=== PATIENT | female | born 1960 | race Caucasian/White ===

== ENCOUNTER → 2016-09-18 | Outpatient (CLI) | payer MEDICAID | END | disposition home or self-care (01) | LOC: LABPAT 10:49 | PROVIDERS: ATTEND Orthopaedic Surgery | DX: Z01.812 Encounter for preprocedural laboratory examination (principal) | CPT/HCPCS: 87070 ==

== ENCOUNTER → 2016-09-29 | Outpatient (CLI) | payer MEDICAID ==
[2016-09-29 10:07] LABS: EKG EKG PERFORMED
[2016-09-29 10:49] LABS: CHCM 35.4; HCT 37.7 % (34.0-46.0); HDW 2.62; HGB 13.6 gm/dL (11.4-16.0); MCH 31.8 pg (25.0-35.0); MCHC 36.1 g/dL (31.0-37.0); MCV 88.1 fL (80.0-100.0); Mean Platelet Volume 7.6; RBC 4.27 m/uL (3.80-5.40); RDW 13.1 % (11.5-15.5); WBC 8.1 k/uL (3.8-10.6)
[2016-09-29 10:51] LABS: Partial Thromboplastin Time 24.6 sec (22.0-30.0)
[2016-09-29 10:52] LABS: Appearance,Urine Clear (Clear); Bilirubin,Urine Negative (Negative); Glucose,Urine (UA) Negative (Negative); Ketones,Urine Negative (Negative); Leukocyte Esterase,Urine Negative (Negative); Nitrite,Urine Negative (Negative); PH, Urine 6.5 (5.0-8.0); Protein,Urine Negative (Negative); Specific Gravity,Urine 1.004 (1.001-1.035); UA Billing (MACRO vs. MICRO) CHEM; Urobilinogen,Urine <2.0 mg/dL (<2.0)
[2016-09-29 10:55] LABS: Prothrombin Time 10.5 sec (9.0-12.0)
[2016-09-29 11:22] LABS: ALT 45 U/L (9-52); AST 31 U/L (14-36); Alkaline Phosphatase 64 U/L (38-126); Anion Gap 13 mmol/L; Blood Urea Nitrogen 12 mg/dL (7-17); Calcium 9.6 mg/dL (8.4-10.2); Carbon Dioxide 23 mmol/L (22-30); Chloride 107 mmol/L (98-107); Glucose 126 mg/dL (74-99); Non-African American GFR(MDRD) >60 (>60 ml/min/1.73 sqM); Sodium 143 mmol/L (137-145)
== END | disposition home or self-care (01) ==
LOC: LABPAT 09:39
PROVIDERS: ATTEND Orthopaedic Surgery
DX: Z01.810 Encounter for preprocedural cardiovascular examination (principal); Z01.812 Encounter for preprocedural laboratory examination
CPT/HCPCS: 80053; 81003; 85027; 85610; 85730; 93005

== ENCOUNTER → 2016-10-13 | Day surgery (SDC) | payer MEDICAID ==
[2016-10-12 09:08] VITALS: BMI 33.9
[~2016-10-13] MED LIST: ALPRAZolam 0.25 MG TAB PO PRN; ALPRAZolam 0.5 MG TAB PO PRN; ASPIRIN 325 MG TAB PO STA; ATORVASTATIN 80 MG TAB PO STA; HEPARIN SODIUM 1,000 UN/ML (10ML VL) IV ONE; IOHEXOL 350 MG/ML 100 ML BOTTLE INJ ONE; LIDOCAINE 2% INJ 20 MG/ML SQ ONE; MIDAZOLAM 2 MG/2 ML VIAL IVP ONE; NITROGLYCERIN SL TABS 0.4 MG TAB SUBLINGUAL PRN; RX INFO: IV CONTRAST WAS GIVEN 1 EACH MISC MISCELLANE PRN; SODIUM CHLORIDE 0.9% 1,000 ML IV SCH; SODIUM CHLORIDE 0.9% 1,000 ML in EMPTY BAG 1 BAG IV ONE; diphenhydrAMINE 50 MG/ML 1 ML VIAL IVP STA; methylPREDNISolone SOD SUCCI 125 MG/2 ML VIAL IV STA
[2016-10-13 09:28] VITALS: RESP 18
[2016-10-13] MEDS: VERAPAMIL SYRINGE (5 MG/10 ML) INTRAARTER ONE ×2 (10:18→10:30)
[2016-10-13 11:50] VITALS: TEMP 98
[2016-10-13 15:55] VITALS: BP 137/83; PULSE 84
--- NOTE | 2016-10-13 19:02 | CC ---
DATE OF SERVICE: 10/13/16 PERFORMING PHYSICIAN: Lance Pedraza M.D., director of quantitative research. PROCEDURE PERFORMED: 1. Selective right and left coronary angiogram. 2. Left heart catheterization. INDICATIONS: This is a pleasant 56 year old female who was going to have hip surgery and underwent myocardial perfusion imaging stress test showed anterior ischemia. The heart catheterization is to rule out any severe underlying coronary artery disease. APPROACH: Right radial artery. COMPLICATIONS: None. LEVEL OF SEDATION: Moderate. SEDATION LENGTH: 18 minutes. PROCEDURE DESCRIPTION: After obtaining informed consent, the patient was brought to the cardiac syrup machine laborer. The right radial artery was cannulated using micropuncture technique. The micropuncture wire passed easily. Then, I placed a 6 Croatian sheath in the right radial artery. After that, subsequently I did selective right and left coronary angiogram using JR4 and JL3.5 catheters. After that, I did a left heart catheterization using 5 Croatian pigtail catheter. The procedure was complete without any complications. SELECTIVE CORONARY ANGIOGRAM: 1. The right coronary artery is a large caliber vessel and it is a dominant vessel. The RCA is angiographically normal and bifurcates into PDA and PLV branches, both are angiographically normal. 2. The left main is angiographically normal. It bifurcates into the left circumflex, ramus intermedius, and left anterior descending artery. 3. The left circumflex is a large caliber vessel and it is a nondominant vessel. The left circumflex distally is angiographically normal. 4. The ramus intermedius is a large caliber vessel and seems to be angiographically normal as well. 5. The left anterior descending coronary artery: The proximal LAD is angiographically normal and gives rise into the first diag branch which appears to be angiographically normal. The mid LAD is normal and gives rise into two small diag branches which appears to be angiographically normal and the LAD distally is angiographically normal. HEMODYNAMICS: The left ventricular end diastolic pressure was 10 mmHg and no gradient was identified across the aortic valve. CONCLUSION: 1. Normal coronary angiogram. 2. Normal left ventricular end diastolic pressure. POST PROCEDURE MANAGEMENT: 1. The patient can proceed with her surgery. 2. Medical therapy. 3. Follow up with the patient. LEÓN
== END ==
LOC: CATHCVL 08:41
PROVIDERS: ATTEND Internal Medicine Interventional Cardiology
DX: R94.39 Abnormal result of other cardiovascular function study (principal); I10 Essential (primary) hypertension; E78.5 Hyperlipidemia, unspecified; Z88.8 Allergy status to other drugs, medicaments and biological substances; Z79.899 Other long term (current) drug therapy
CPT/HCPCS: 93458; 99152; C1769; C1894; J2001; J2250; J1200; J2930; Q9967; J1644

== ENCOUNTER → 2016-10-17 | Outpatient (CLI) | payer MEDICAID ==
--- NOTE | 2016-10-17 10:58 | XR ---
EXAMINATION TYPE: XR chest 2V DATE OF EXAM: 10/17/2016 COMPARISON: 01/21/2016 TECHNIQUE: PA and lateral views submitted. HISTORY: Preop FINDINGS: The lungs are clear and there is no pneumothorax, pleural effusion, or focal pneumonia. Coarsened i nterstitium. Arthropathy of the shoulders. Hyperinflation noted. Hypertrophic change of the spine. IMPRESSION: 1. No acute process. Correlate for COPD and chronic interstitial lung disease.
== END | disposition home or self-care (01) ==
LOC: RADXRMAIN 10:34
PROVIDERS: ATTEND Nurse Practitioner Family
DX: R06.09 Other forms of dyspnea (principal)
CPT/HCPCS: 71020

== ENCOUNTER → 2016-11-17 | Outpatient (CLI) | payer MEDICAID ==
--- NOTE | 2016-11-17 16:09 | CT ---
EXAMINATION TYPE: CT chest wo con DATE OF EXAM: 11/17/2016 COMPARISON: NONE HISTORY: Shortness of breath x few weeks. No relief from asthma medication. CT DLP: 250.00 mGycm, Automated exposure control for dose reduction was used. CONTRAST: None TECHNIQUE: Axial images were obtained at 1 mm thick sections at 10 mm intervals. This will limit po rtions of the examination which may not be visualized within the [id number]. Images were obtained in the prone and supine views. FINDINGS: Portion of the thyroid visualized is normal. No suspicious lung nodules or focal infiltrat es are present. Some streak opacities in the left lower lung field may be some atelectasis. Some mild peribronchial thickening may be present which can be compatible with chronic asthma. No significant interval changes evident between prone and supine views. No bronchiectasis is evident. No enlarged mediastinal or hilar adenopathy is evident. The ascending aorta diameter at the level o f the main pulmonary artery is 3.5 cm. The main pulmonary artery diameter at the bifurcation is 2.[address] sections are obtained through the upper abdomen. Abdomen is essentially unremarkable. IMPRESSIONS: 1. Mild peribronchial thickening can be associated with asthma or chronic bronchitis. 2. There may be atelectasis or scarring in the posterior lateral left lung base. 3. No acute suspicious infiltrates or masses are evident.
--- NOTE | 2016-11-18 08:02 | US ---
EXAMINATION TYPE: US thyroid st tissue head/neck DATE OF EXAM: 11/17/2016 COMPARISON: 08/22/2011 CLINICAL HISTORY: E04.2 Goiter. GLAND SIZE: Right Lobe: 3.7 x 3.0 x 1.7 cm Overall Parenchyma: heterogenous Left Lobe: 2.7 x 1.5 x 1.6 cm Overall Parenchyma: heterogeneous Isthmus Thickness: 0.6 cm NODULES RIGHT: # of nodules measured on right: 2 1. 0.9 X 0.6 x 0.7 cm hypoechoic cystic nodule at the mid pole with well-defined margins; present with central colloid. . This nodule is wider than tall and shows no intranodular vascularity. Prior size: 0.8 x 0.6 x 0.7 cm 2. 1.1 X 0.7 x 0.8 cm hypoechoic nodule at the mid pole with well-defined margins; . This nodule is wider than tall and shows no intranodular vascularity. Prior size: Not seen previously LEFT: # of nodules measured on left: 1 1. 0.5 X 0.5 x 0.5 cm hypoechoic cystic nodule at the mid pole with well-defined margins; . Prior size: 0.7 x 0.6 x 0.7 cm . ISTHMUS: # of nodules measured in the isthmus: 0 Bilateral neck scanned, no evidence of lymphadenopathy. sub optimal exam overall d/t position of thyroid and patient body habitus. Multiple sub centimeter cy sts seen on left thyroid gland as well. IMPRESSION: There are bilateral multiple small findings in the thyroid gland as above. I have very low suspicion of malignancy. There is overall no adverse change compared to previous exams. No dominant thyroid mas s.
== END | disposition home or self-care (01) ==
LOC: RADCTMAIN 15:30
PROVIDERS: ATTEND Family Medicine
DX: E04.2 Nontoxic multinodular goiter (principal); J98.09 Other diseases of bronchus, not elsewhere classified
CPT/HCPCS: 71250; 76536

== ENCOUNTER → 2016-12-01 | Outpatient (CLI) | payer MEDICAID ==
[2016-12-01 12:25] LABS: Cholesterol 193 mg/dL (<200); HDL Cholesterol 48 mg/dL (40-60)
== END | disposition home or self-care (01) ==
LOC: LABWHC1 08:27
PROVIDERS: ATTEND Family Medicine
DX: Z00.01 Encounter for general adult medical examination with abnormal findings (principal); E04.2 Nontoxic multinodular goiter; J84.9 Interstitial pulmonary disease, unspecified; E03.8 Other specified hypothyroidism; M16.11 Unilateral primary osteoarthritis, right hip; M25.551 Pain in right hip; J45.909 Unspecified asthma, uncomplicated; E11.9 Type 2 diabetes mellitus without complications; E27.9 Disorder of adrenal gland, unspecified; E22.0 Acromegaly and pituitary gigantism; I10 Essential (primary) hypertension; K21.9 Gastro-esophageal reflux disease without esophagitis; Z13.220 Encounter for screening for lipoid disorders
CPT/HCPCS: 36415; 80061; 82533; 84305; 84439; 84443; 84481

== ENCOUNTER → 2016-12-01 | Outpatient (CLI) | payer MEDICAID ==
[2016-12-01 09:01] LABS: Basophils # (A) 0.1 k/uL (0-0.2); Basophils % (A) 1 %; CH 31.8; CHCM 35.8; Eosinophils # (A) 0.2 k/uL (0-0.7); Eosinophils % (A) 2 %; HCT 39.3 % (34.0-46.0); HGB 13.8 gm/dL (11.4-16.0); Luc # (Auto) 0.16; Luc % (Auto) 2; Lymphocytes % (A) 22 %; MCH 31.4 pg (25.0-35.0); MCHC 35.2 g/dL (31.0-37.0); MCV 89.4 fL (80.0-100.0); Monocytes # (A) 0.4 k/uL (0-1.0); Monocytes % (A) 4 %; Neutrophils # (A) 6.3 k/uL (1.3-7.7); Neutrophils % (A) 70 %; RBC 4.39 m/uL (3.80-5.40); RDW 13.5 % (11.5-15.5); WBC 9.1 k/uL (3.8-10.6); WBC (Perox) 9.01
[2016-12-01 09:14] LABS: INR 1.1 (<1.2); Partial Thromboplastin Time 24.5 sec (22.0-30.0)
[2016-12-01 09:31] LABS: ALT 42 U/L (9-52); AST 24 U/L (14-36); Alkaline Phosphatase 49 U/L (38-126); Anion Gap 11 mmol/L; Blood Urea Nitrogen 16 mg/dL (7-17); Calcium 9.3 mg/dL (8.4-10.2); Carbon Dioxide 26 mmol/L (22-30); Chloride 107 mmol/L (98-107); Glucose 102 mg/dL (74-99); Non-African American GFR(MDRD) 51 (>60 ml/min/1.73 sqM); Potassium 4.1 mmol/L (3.5-5.1); Sodium 144 mmol/L (137-145); Total Bilirubin 0.6 mg/dL (0.2-1.3); Total Protein 7.1 g/dL (6.3-8.2)
[2016-12-01 09:52] LABS: Appearance,Urine Clear (Clear); Bilirubin,Urine Negative (Negative); Glucose,Urine (UA) Negative (Negative); Ketones,Urine Negative (Negative); Leukocyte Esterase,Urine Moderate (Negative); Nitrite,Urine Negative (Negative); Particle Count 1356; Protein,Urine Negative (Negative); Specific Gravity,Urine 1.011 (1.001-1.035); Squamous Epithelial Cell,Urine <1 /hpf (0-4); UA Billing (MACRO vs. MICRO) MICRO; Urobilinogen,Urine <2.0 mg/dL (<2.0); WBC,Urine 3 /hpf (0-5)
== END | disposition home or self-care (01) ==
LOC: LABPAT 08:30
PROVIDERS: ATTEND Orthopaedic Surgery
DX: Z01.818 Encounter for other preprocedural examination (principal)
CPT/HCPCS: 80053; 81001; 85025; 85610; 85730; 87070

== ENCOUNTER 2016-12-12 05:51 | Inpatient (IN) | payer MEDICAID ==
[2016-12-07 15:20] VITALS: BMI 34.4
[~2016-12-12 05:51] MED LIST changes: +ACETAMINOPHEN TAB 500 MG TAB PO ONE; -ALPRAZolam 0.25 MG TAB PO PRN; -ALPRAZolam 0.5 MG TAB PO PRN; -ASPIRIN 325 MG TAB PO STA; -ATORVASTATIN 80 MG TAB PO STA; +DEXAMETHASONE SOD PHOSPHATE 10 MG/ML 1 ML VIAL IV ONE; -HEPARIN SODIUM 1,000 UN/ML (10ML VL) IV ONE; +HYDROmorphone 1 MG/ML 1 ML SYRINGE IVP PRN; -IOHEXOL 350 MG/ML 100 ML BOTTLE INJ ONE; +LACTATED RINGERS 1,000 ML IV SCH; -LIDOCAINE 2% INJ 20 MG/ML SQ ONE; +MIDAZOLAM 2 MG/2 ML VIAL IV PRN; -MIDAZOLAM 2 MG/2 ML VIAL IVP ONE; -NITROGLYCERIN SL TABS 0.4 MG TAB SUBLINGUAL PRN; +ONDANSETRON 4 MG/2 ML VIAL IVP ONE; -RX INFO: IV CONTRAST WAS GIVEN 1 EACH MISC MISCELLANE PRN; +SCOPOLAMINE 1.5MG/72HR PATCH TRANSDERM ONE; -SODIUM CHLORIDE 0.9% 1,000 ML IV SCH; -SODIUM CHLORIDE 0.9% 1,000 ML in EMPTY BAG 1 BAG IV ONE; +TRANEXAMIC ACID 1,000 MG in SODIUM CHLORIDE 0.9% 100 ML IVPB ONE; +ceFAZolin 2 GM in SODIUM CHLORIDE 0.9% 100 ML IVPB ONE; -diphenhydrAMINE 50 MG/ML 1 ML VIAL IVP STA; -methylPREDNISolone SOD SUCCI 125 MG/2 ML VIAL IV STA
[2016-12-12] MEDS ORDERED: LIDOCAINE 1% 20 ML VIAL (10MG/ML) FOR IV START INTRADERMA ONE (07:00)
[2016-12-12 07:13] LABS: Glucose,Whole Blood 109 mg/dL (75-99)
[2016-12-12] MEDS ORDERED: HYDROCORTISONE SUCCINATE 100 MG/2 ML VIAL IVP ONE (07:22)
[2016-12-12] MEDS ORDERED: diphenhydrAMINE 50 MG/ML 1 ML VIAL ONE (07:28)
[2016-12-12] MEDS ORDERED: MIDAZOLAM 2 MG/2 ML VIAL ONE (07:28)
[2016-12-12] MEDS ORDERED: HEPARIN SODIUM,PORCINE 10,000 UNIT/ML 1 ML VIAL ONE (07:28)
[2016-12-12] MEDS ORDERED: fentaNYL (PF) 50 MCG/ML 2 ML AMP ONE (07:28)
[2016-12-12] MEDS ORDERED: SODIUM CHLORIDE 0.9% 100 ML BAG ONE (07:28)
[2016-12-12] MEDS ORDERED: TRANEXAMIC ACID 1,000 MG/10 ML VIAL ONE (07:28)
[2016-12-12] MEDS ORDERED: ceFAZolin 3,000 MG in SODIUM CHLORIDE 0.9% IRRIGATIO 3,000 ML IRRIGATION ONE (07:28)
[2016-12-12] MEDS ORDERED: SODIUM CHLORIDE 0.9% IRRIG 1,000 ML BTL IRRIGATION ONE (07:28)
[2016-12-12] MEDS ORDERED: HYDROcodone/APAP 5-325MG 1 EACH TAB PO PRN (07:35)
[2016-12-12] MEDS ORDERED: DIAZEPAM 5 MG TAB PO PRN ×2 (07:35)
[2016-12-12] MEDS ORDERED: MAGNESIUM HYDROXIDE 2,400 MG/10 ML CUP PO PRN (07:35)
[2016-12-12] MEDS ORDERED: NALOXONE 0.4 MG/ML 1 ML VIAL IV PRN (07:35)
[2016-12-12] MEDS ORDERED: HYDROmorphone 1 MG/ML 1 ML SYRINGE IVP PRN ×2 (07:35)
[2016-12-12] MEDS ORDERED: ONDANSETRON 4 MG/2 ML VIAL IVP PRN (07:35)
[2016-12-12] MEDS: ROPIVACAINE 246.25 MG, EPINEPHrine 0.5 MG, KETOROLAC 30 MG, cloNIDine HCL/PF 80 MCG, WA... MISCELLANE ONE ×10 (08:10→08:45)
[2016-12-12] MEDS ORDERED: LACTATED RINGERS 1,000 ML IV ONE (09:00)
--- NOTE | 2016-12-12 09:23 | P.OP ---
Date of Procedure: 12/12/16 Preoperative Diagnosis: Severe osteoarthritis right hip Postoperative Diagnosis: Severe osteoarthritis right hip Procedure(s) Performed: Right total hip arthroplasty with a direct anterior approach Implants: Caldwell and nephew Polarstem size 3 standard [employer]dwell [employer]hew R3, 3 hole acetabular shell, 52 mm [employer]hew reflection 6.5 mm cancellus screw, 20 mm 2 [employer]hew R3, XLPE 20 acetabular liner [employer]hew Oxinium femoral head 36 m, +4 All components were press-fit. The articulation is ceramic on polyethylene. Anesthesia: spinal Surgeon: Ruben Alvarenga Radioactive Waste Disposal Dispatcher #1: Neelima Merritt Estimated Blood Loss (ml): 150 (55 mL returned with Cell Saver) Pathology: other (Femoral head) Condition: stable Disposition: PACU Indications for Procedure: After failure of conservative treatment we discussed the surgical and nonsurgical treatment options at length. Patient wishes to proceed with a total hip arthroplasty with a direct anterior approach. Complications specific to this procedure were discussed at length, including but not limited to infection, leg length discrepancy, dislocation, and nerve injury. Patient is aware of all these complications and informed consent was obtained Operative Findings: The operative findings are consistent with severe osteoarthritis of the right hip Description of Procedure: Patient was seen and evaluated in the preoperative area, consent was reviewed, and the surgical site was marked with a skin marker. Patient was then brought to the operating room and given prophylactic antibiotics intravenously. 1 g of Tranexamic acid was also given. A spinal anesthetic was administered by the anesthesia department. The patient was then placed on the [place] table with the bony prominences well-padded. The hip area was then prepped and draped in usual sterile fashion. A universal timeout was then performed, which confirmed the patient's name, surgical site, ALLERGIES, and procedure being performed. Next the incision site was located at 1 cm distal and 1 cm lateral to the anterior superior iliac spine. The skin and subcutaneous tissues were sharply incised. Incision was carefully dissected down to the fascia overlying the tensor fascia mitchell muscle. This fascia was then incised in line with the incision. Next, using blunt finger dissection, the tensor fascia mitchell muscle was dissected off its investing fascia. The muscle was then carefully retracted laterally with a cobra retractor over the lateral neck of the femur. Next, the circumflex vessels were identified and cauterized using the AquaMantis device. The anterior hip capsule was then exposed. The capsule was then opened and an inverted T fashion. Cobra retractors were then placed intracapsularly. The proximal femur was then visualized. The femoral neck was then osteotomized appropriate level above the lesser trochanter. Small amount of traction was placed with the [place] table. A small wedge of bone was then removed from the remaining femoral head. Next, using a corkscrew femoral head was easily removed from the acetabulum. On gross visual inspection, the femoral head had complete loss of articular cartilage in multiple periarticular osteophytes. Attention was then turned to the acetabulum. the acetabulum was exposed and any remaining labrum was excised. Sequential reaming of the acetabulum was performed using fluoroscopic guidance. When the appropriate size was reached, a trial was then placed. The position and fit of the trial was checked with fluoroscopy. The trial was then removed. Then, using fluoroscopic guidance, the final implant was impacted at 20 of anteversion and 40 of abduction, and fully seated in the acetabulum. 2 screws were then placed in the acetabulum. Again fluoroscopy was used to check position of the screws. Next, the liner was then impacted, with a 20 elevated liner located in the anterior superior quadrant. Component locking was confirmed. Attention was then directed to the femur. With the aid of the [place] table, the femur was externally rotated to approximately 130, extended, and abducted under the opposite leg. A side hook was then placed under the proximal femur, and the side hook elevator was used to elevate the proximal femur. Retractors were then placed. A capsular release was performed, as well as a release of the conjoined tendon, which afforded excellent visualization of the proximal femur. Next, a box osteotome was used to lateralize the proximal femur. A hands hanger was then used to locate the femoral canal. Sequential broaching was then performed with appropriate size which afforded excellent fixation in the proximal femur. A trial was then placed with appropriate head and neck, and the hip was gently reduced with the aid of the [place] table. Fluoroscopy was then used to check position of the components, as well as to ensure equal leg lengths. The hip was then gently dislocated and the trials were then removed. Final implants were then impacted and the hip was again reduced. Final fluoroscopic x-rays confirmed that the components were in anatomic position, as well as equal leg lengths. The hip was also taken through range of motion, and found to be stable. The hip was then copiously irrigated with antibiotic solution with pulsatile lavage. The hip was then irrigated with Irrisept solution. The soft tissues were then injected with a ropivacaine solution, which consisted of 246.25 mg of ropivacaine, 0.5 mg of epinephrine, 30 mg of Toradol, 80 g of clonidine, and 48.45 mL of sterile water, for a total of 100 mL of fluid injected. A second dose of 1 g of Tranexamic acid was also given. the fascia was then closed with 2-0 strata fix suture. The subcutaneous tissue was closed with 3-0 Vicryl. The subcuticular tissue was closed with 3-0 strata fix suture. The skin was then closed with Dermabond tape. The patient was then transferred to the recovery room in stable condition. The assistant professor of economics GAYLE Swenson was required due to the complexity of surgery, and the need for skilled surgical garment assembly supervisor for positioning, draping, exposure, retraction, and closure of the wound.
--- NOTE | 2016-12-12 10:02 | XR ---
Right hip HISTORY: Status post right hip surgery Single frontal view of the right hip Patient is status post right hip arthroplasty. Lucency present in the soft tissues. There is anatomic alignment. Bone mineralization is reduced. No dislocation is evident. Lucencies are present in the a cetabulum laterally of questionable age, correlate with preoperative exam. IMPRESSION: Small fractures of the lateral acetabulum difficult to include. Orthopedic follow-up.
--- NOTE | 2016-12-12 11:04 | FL ---
EXAMINATION TYPE: FL guidance operating room, XR Hip Limited RT DATE OF EXAM: 12/12/2016 CLINICAL HISTORY: Hardware replacement TECHNIQUE: Fluoroscopy. Intraoperative limited views right hip. COMPARISON: None. FINDINGS: Fluoroscopic guidance was provided during hardware replacement procedure performed by Dr. Alvarenga. A total of 47 seconds of fluoroscopic time was utilized during the procedure and 3 spot in traoperative images are acquired. Images acquired show metallic hardware from total right hip arthroplasty that appears satisfactory in position on single frontal projection. IMPRESSION: As Above.
[2016-12-12] MEDS: SODIUM CHLORIDE 0.9% 1,000 ML IV SCH ×2 (11:15→23:17)
[2016-12-12] MEDS ORDERED: ALBUTEROL NEBULIZED 2.5 MG/3 ML INHALATION PRN (12:04)
[2016-12-12] MEDS: ceFAZolin 2 GM in SODIUM CHLORIDE 0.9% 100 ML IVPB SCH ×2 (16:33→22:28)
[2016-12-12 17:34] LABS: Glucose,Whole Blood 145 mg/dL (75-99)
[2016-12-12] MEDS ORDERED: WARFARIN 5 MG TAB PO ONE (18:00)
[2016-12-12] MEDS: SYMBICORT 80-4.5 MCG INHALER INHALATION SCH (19:38)
[2016-12-12] MEDS: HYDROmorphone 1 MG/ML 1 ML SYRINGE IVP PRN (19:47)
[2016-12-12 20:20] LABS: Glucose,Whole Blood 99 mg/dL (75-99)
[2016-12-12] MEDS: ATORVASTATIN 20 MG TAB PO SCH (20:20)
[2016-12-12] MEDS: SENNOSIDES-DOCUSATE SODIUM 1 EACH TAB PO SCH (20:20)
[2016-12-12] MEDS: HYDROCORTISONE 10 MG TAB PO SCH (20:20)
[2016-12-12] MEDS: HYDROcodone/APAP 5-325MG 1 EACH TAB PO PRN (22:28)
[2016-12-13] MEDS: HYDROcodone/APAP 5-325MG 1 EACH TAB PO PRN ×4 (03:13→23:30)
[2016-12-13] MEDS: LEVOTHYROXINE 100 MCG TAB PO SCH (05:28)
[2016-12-13 07:15] LABS: Glucose,Whole Blood 99 mg/dL (75-99)
[2016-12-13] MEDS: SYMBICORT 80-4.5 MCG INHALER INHALATION SCH ×2 (07:16→20:04)
[2016-12-13 07:49] LABS: Basophils % (A) 0 %; CH 31.1; CHCM 34.2; Eosinophils # (A) 0.2 k/uL (0-0.7); Eosinophils % (A) 2 %; HCT 33.5 % (34.0-46.0); HGB 11.3 gm/dL (11.4-16.0); Luc # (Auto) 0.09; Luc % (Auto) 1; Lymphocytes # (A) 1.4 k/uL (1.0-4.8); Lymphocytes % (A) 17 %; MCHC 33.9 g/dL (31.0-37.0); MCV 91.4 fL (80.0-100.0); Mean Platelet Volume 7.9; Monocytes # (A) 0.3 k/uL (0-1.0); Monocytes % (A) 4 %; Neutrophils # (A) 5.8 k/uL (1.3-7.7); Neutrophils % (A) 74 %; RBC 3.66 m/uL (3.80-5.40); RDW 13.7 % (11.5-15.5); WBC 7.8 k/uL (3.8-10.6); WBC (Perox) 8.22
[2016-12-13] MEDS: hydrOXYzine PAMOATE 25 MG CAP PO PRN ×2 (07:58→13:15)
[2016-12-13 07:59] LABS: INR 1.2 (<1.2); Prothrombin Time 11.7 sec (9.0-12.0)
[2016-12-13] MEDS: PANTOPRAZOLE 40 MG TABLET PO SCH (08:00)
[2016-12-13] MEDS: ATENOLOL 25 MG TAB PO SCH (08:00)
[2016-12-13] MEDS: LORATADINE 10 MG TAB PO SCH (08:01)
[2016-12-13] MEDS: HYDROCORTISONE 20 MG TAB PO SCH (08:01)
[2016-12-13] MEDS: MONTELUKAST 10 MG TAB PO SCH (08:01)
[2016-12-13] MEDS: FENOFIBRATE 160 MG TAB PO SCH (08:01)
--- NOTE | 2016-12-13 08:24 | P.PN ---
Subjective Principal diagnosis: Primary osteoarthritis right hip, status post right total hip arthroplasty This is a 56-year-old female who is status post right total hip arthroplasty. This is postoperative day #1. Patient states she has been up and out of bed walking. Patient states her pain is under control. Patient denies any numbness , weakness, tingling. Objective - Vital Signs Vital signs: Vital Signs Temp 97.6 F 12/13/16 08:01 Pulse 78 12/13/16 08:01 Resp 16 12/13/16 08:01 BP 127/79 12/13/16 08:01 Pulse Ox 96 12/13/16 08:01 Intake & Output 12/12/16 12/13/16 12/13/16 18:59 06:59 18:59 Intake Total 1301 280 Output Total 850 Balance 451 280 Intake: IV 1301 Intake, IV Titration 280 Amount Sodium Chloride 0.9% 1, 280 000 ml @ 70 mls/hr IV . [id number] [facility] Rx#:[id number] Output: Urine 700 Estimated Blood Loss 150 Other: # Voids 1 - Exam Vital signs are stable. Patient is in no acute distress and is alert and oriented 3. Calf is soft and nontender. Dressing is clean, dry, and intact. Neurovascular status intact. Patient has full foot and ankle motion. - Labs CBC & Chem 7: 12/13/16 07:02 Labs: Abnormal Lab Results - Last 24 Hours (Table) 12/12/16 12/13/16 12/13/16 Range/Units 17:32 07:02 07:02 RBC 3.66 L (3.80-5.40) m/uL Hgb 11.3 L (11.4-16.0) gm/dL Hct 33.5 L (34.0-46.0) % INR 1.2 H (<1.2) POC Glucose (mg/dL) 145 H (75-99) mg/dL Assessment and Plan (1) Primary osteoarthritis of right hip Status: Acute (2) Status post total hip replacement, right Status: Acute Plan: Continue routine postop care. Continue antocoagulation. Weightbearing as tolerated with a walker Daily dressing changes, keep incision clean and dry Possible discharge home tomorrow.
[2016-12-13 11:49] LABS: Glucose,Whole Blood 122 mg/dL (75-99)
--- NOTE | 2016-12-13 12:27 | P.CONS ---
History of Present Illness - Reason for Consult Consult date: 12/12/16 Hypertension and asthma medications - History of Present Illness Patient's x-ray on underwent right total hip arthroplasty and I saw her in the immediate postoperative period and patient is clinically doing well denied any short of breath denied any fever, chills, nausea, vomiting, abdominal pain patient does have history of asthma no significant exacerbations recently. Patient is hypertensive is on atenolol and lisinopril for that. Review of Systems REVIEW OF SYSTEMS: CONSTITUTIONAL: No fever, no malaise, no fatigue. HEENT: No recent visual problems or hearing problems. Denied any sore throat. CARDIOVASCULAR: No chest pain, orthopnea, PND, no palpitations, no syncope. PULMONARY: No shortness of breath, no cough, no hemoptysis. GASTROINTESTINAL: No diarrhea, no nausea, no vomiting, no abdominal pain. Normoactive bowel sounds. NEUROLOGICAL: No headaches, no weakness, no numbness. HEMATOLOGICAL: Denies any bleeding or petechiae. GENITOURINARY: Denies any burning micturition, frequency, or urgency. MUSCULOSKELETAL/RHEUMATOLOGICAL: Denies any joint pain, swelling, or any muscle pain. ENDOCRINE: Denies any polyuria or polydipsia. The rest of the 14-point review of systems is negative. Past Medical History Past Medical History: Asthma, Diabetes Mellitus, GERD/Reflux, Hyperlipidemia, Hypertension, Osteoarthritis (OA), Pneumonia, Renal Disease, Sleep Apnea/CPAP/ BIPAP, Thyroid Disorder Additional Past Medical History / Comment(s): SOB, bronchitis, adrenal insufficiency, acromegaly, diabetes-no current meds, migraines, eczema, elevated kidney function -recent labs, hemorrhoids, sciatica, arthritis R hip, back and neck, sinus problems at times, can't use CPAP History of Any Multi-Drug Resistant Organisms: None Reported Past Surgical History: Appendectomy, Breast Surgery, Heart Catheterization, Hysterectomy, Orthopedic Surgery, Tonsillectomy Additional Past Surgical History / Comment(s): 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 "cyst removed from between lung and spine", recent heart cath. Past Anesthesia/Blood Transfusion Reactions: Previous Problems w/ Anesthesia Additional Past Anesthesia/Blood Transfusion Reaction / Comm: "STOPPED BREATHING DURING BRONCHOSCOPY R/T TO UNKNOWN SLEEP APNEA" PER PT Past Psychological History: No Psychological Hx Reported Additional Psychological History / Comment(s): . Smoking Status: Never smoker Past Alcohol Use History: Rare Past Drug Use History: None Reported - Past Family History Sister(s) Family Medical History: Cancer Brother(s) Family Medical History: Deep Vein Thrombosis (DVT) Father Family Medical History: Cancer, CVA/TIA, Hypertension, Skin Disorder Additional Family Medical History / Comment(s): Father of pneumonia and a brain bleed in his 80'. He also had skin cancer Mother Family Medical History: Cancer Additional Family Medical History / Comment(s): skin cancer. Medications and Allergies Home Medications Medication Instructions Recorded Confirmed Type Albuterol Sulfate [Ventolin HFA] 2 puff INHALATION RT-Q6H PRN 09/06/13 12/12/16 History Atenolol [Tenormin] 25 mg PO DAILY 09/06/13 12/12/16 History Lisinopril 40 mg PO DAILY 09/06/13 12/12/16 History Montelukast [Singulair] 10 mg PO DAILY 09/06/13 12/12/16 History Simvastatin [Zocor] 40 mg PO HS 09/06/13 12/12/16 History Fluticasone/Salmeterol [Advair 1 puff INHALATION RT-BID 10/14/14 12/12/16 History 250-50 Diskus] Fenofibrate 160 mg PO DAILY 01/20/16 12/12/16 History Levothyroxine Sodium [Synthroid] 100 mcg PO DAILY 01/20/16 12/12/16 History Omeprazole 20 mg PO DAILY 01/20/16 12/12/16 History traMADol HCL [Ultram] 50 - 100 mg PO HS PRN 01/20/16 12/12/16 History Hydrocortisone [Cortef] 10 mg PO HS 10/02/16 12/12/16 History Hydrocortisone [Cortef] 20 mg PO QAM 10/02/16 12/12/16 History Cetirizine HCl [Zyrtec] 10 mg PO DAILY 12/07/16 12/12/16 History Allergies Allergy/AdvReac Type Severity Reaction Status Date / Time Iodine and Iodide Containing Allergy Unknown allergy Verified 12/12/16 10:57 Produc test positive for shell fish. celecoxib [From Celebrex] Allergy Wheezing Verified 12/12/16 10:57 egg AdvReac Swelling Verified 12/12/16 10:57 shellfish derived AdvReac ALLERGY Verified 12/12/16 10:57 TEST POSITIVE. Physical Exam Vitals: Vital Signs Temp Pulse Resp BP Pulse Ox 12/13/16 08:01 97.6 F 78 16 127/79 96 12/13/16 02:39 98.8 F 12/13/16 00:32 100.2 F H 81 16 110/69 95 12/12/16 20:00 98.2 F 75 18 115/63 97 12/12/16 15:45 61 16 112/62 99 12/12/16 15:30 62 16 108/63 98 12/12/16 15:15 98 F 68 16 111/68 98 Intake and Output 12/12/16 12/13/16 12/13/16 22:59 06:59 14:59 Intake Total 280 Balance 280 Intake: Intake, IV Titration 280 Amount Sodium Chloride 0.9% 1, 280 000 ml @ 70 mls/hr IV . [id number] [facility] Rx#:[id number] Other: # Voids 1 Weight 99.79 kg Patient Weight 12/14/16 06:59 Weight 99.79 kg PHYSICAL EXAMINATION: GENERAL: The patient is alert and oriented x3, not in any acute distress. Well developed, well nourished. HEENT: Pupils are round and equally reacting to light. EOMI. No scleral icterus. No conjunctival pallor. Normocephalic, atraumatic. No pharyngeal erythema. No thyromegaly. CARDIOVASCULAR: S1 and S2 present. No murmurs, rubs, or gallops. PULMONARY: Chest is clear to auscultation, no wheezing or crackles. ABDOMEN: Soft, nontender, nondistended, normoactive bowel sounds. No palpable organomegaly. MUSCULOSKELETAL: Deferred to orthopedic surgery EXTREMITIES: No cyanosis, clubbing, or pedal edema. NEUROLOGICAL: Gross neurological examination did not reveal any focal deficits. SKIN: No rashes. Results CBC & Chem 7: 12/13/16 07:02 Labs: Abnormal Lab Results - Last 24 Hours (Table) 12/12/16 12/13/16 12/13/16 Range/Units 17:32 07:02 07:02 RBC 3.66 L (3.80-5.40) m/uL Hgb 11.3 L (11.4-16.0) gm/dL Hct 33.5 L (34.0-46.0) % INR 1.2 H (<1.2) POC Glucose (mg/dL) 145 H (75-99) mg/dL 12/13/16 Range/Units 11:46 RBC (3.80-5.40) m/uL Hgb (11.4-16.0) gm/dL Hct (34.0-46.0) % INR (<1.2) POC Glucose (mg/dL) 122 H (75-99) mg/dL Assessment and Plan Plan: #1 right total hip arthroplasty: Anal management, DVT prophylaxis as per primary service next and #2 asthma: Patient is not in acute exacerbation can continue inhalational steroid and albuterol. #3 hypertension: Recommend to hold off on AIDA inhibitor until discharge and atenolol can be continued this is to prevent perioperative hypotension. #4 hyperlipidemia continue atorvastatin. #5 hypothyroidism continue levothyroxine. Thank you for letting with widespread in this patient's care will continue to follow the patient on as-needed basis.
[2016-12-13] MEDS: HYDROmorphone 1 MG/ML 1 ML SYRINGE IVP PRN (16:46)
[2016-12-13 17:25] LABS: Glucose,Whole Blood 108 mg/dL (75-99)
[2016-12-13] MEDS ORDERED: WARFARIN 7.5 MG TAB PO ONE (18:00)
[2016-12-13] MEDS ORDERED: ACETAMINOPHEN TAB 500 MG TAB PO PRN (20:27)
[2016-12-13] MEDS: HYDROCORTISONE 10 MG TAB PO SCH (21:55)
[2016-12-13] MEDS: SENNOSIDES-DOCUSATE SODIUM 1 EACH TAB PO SCH (21:55)
[2016-12-13] MEDS: ATORVASTATIN 20 MG TAB PO SCH (21:55)
[2016-12-13] MEDS: SODIUM CHLORIDE 0.9% 1,000 ML IV SCH (22:12)
[2016-12-13 22:13] LABS: Glucose,Whole Blood 89 mg/dL (75-99)
[2016-12-14] MEDS: LEVOTHYROXINE 100 MCG TAB PO SCH (05:41)
[2016-12-14] MEDS: HYDROcodone/APAP 5-325MG 1 EACH TAB PO PRN ×2 (05:41→12:27)
[2016-12-14] MEDS: SYMBICORT 80-4.5 MCG INHALER INHALATION SCH (07:38)
[2016-12-14 07:42] LABS: Glucose,Whole Blood 94 mg/dL (75-99)
[2016-12-14 07:44] VITALS: BP 118/59; PULSE 86; RESP 16; TEMP 98.1
[2016-12-14] MEDS: HYDROCORTISONE 20 MG TAB PO SCH (07:45)
[2016-12-14] MEDS: FENOFIBRATE 160 MG TAB PO SCH (07:45)
[2016-12-14] MEDS: PANTOPRAZOLE 40 MG TABLET PO SCH (07:45)
[2016-12-14] MEDS: ATENOLOL 25 MG TAB PO SCH (07:45)
[2016-12-14] MEDS: LORATADINE 10 MG TAB PO SCH (07:45)
[2016-12-14] MEDS: MONTELUKAST 10 MG TAB PO SCH (07:46)
[2016-12-14 07:49] LABS: INR 1.2 (<1.2); Prothrombin Time 11.9 sec (9.0-12.0)
--- NOTE | 2016-12-14 08:45 | P.DS ---
Providers Date of admission: 12/12/16 05:51 Expected date of discharge: 12/14/16 Attending physician: Ruben Alvarenga Consults: 12/12/16 07:35 Consult Physician Routine Consulting Provider: Anil Zuniga Consult Reason/Comments: medical management Do you want consulting provider notified?: Yes Primary care physician: Kita iRggs - Discharge Diagnosis(es) (1) Primary osteoarthritis of right hip Current Visit: Yes Status: Acute (2) Status post total hip replacement, right Current Visit: Yes Status: Acute Hospital Course: This is a 56-year-old female with known history of degenerative arthritis of the right hip. The patient presents for evaluation. After discussion and consideration patient elects to proceed with total hip arthroplasty. The patient is seen preoperatively by Dr. Alvarenga and cleared for surgery. Patient is admitted to [facility] on 12/12/2016 for total hip arthroplasty. The procedures performed without complication or sequelae. The patient is doing well postoperatively. Labs and vital signs are stable on day of discharge. On day of discharge patient's hip incision is healing well. There is minimal erythema. There is no drainage noted at this time. There is minimal soft tissue swelling to the hip and thigh. Patient has full foot and ankle motion without difficulty or pain. Neurovascular status to the right lower extremity is intact. Patient is discharged home in good condition. Please see med rec for accurate list of home medications. Plan - Discharge Summary New Discharge Prescriptions: New HYDROcodone/APAP 5-325MG [[place] 5-325] 1 - 2 tab PO Q4-6H PRN #90 tab PRN Reason: Pain Sennosides-Docusate Sodium [Senokot-S] 1 tab PO BID #60 tablet No Action Albuterol Sulfate [Ventolin HFA] 2 puff INHALATION RT-Q6H PRN PRN Reason: Shortness Of Breath Lisinopril 40 mg PO DAILY Montelukast [Singulair] 10 mg PO DAILY Atenolol [Tenormin] 25 mg PO DAILY Simvastatin [Zocor] 40 mg PO HS Fluticasone/Salmeterol [Advair 250-50 Diskus] 1 puff INHALATION RT-BID Fenofibrate 160 mg PO DAILY traMADol HCL [Ultram] 50 - 100 mg PO HS PRN PRN Reason: Pain Omeprazole 20 mg PO DAILY Levothyroxine Sodium [Synthroid] 100 mcg PO DAILY Hydrocortisone [Cortef] 10 mg PO HS Hydrocortisone [Cortef] 20 mg PO QAM Cetirizine HCl [Zyrtec] 10 mg PO DAILY Discharge Medication List Albuterol Sulfate [Ventolin HFA] 2 puff INHALATION RT-Q6H PRN 09/06/13 [History] Atenolol [Tenormin] 25 mg PO DAILY 09/06/13 [History] Lisinopril 40 mg PO DAILY 09/06/13 [History] Montelukast [Singulair] 10 mg PO DAILY 09/06/13 [History] Simvastatin [Zocor] 40 mg PO HS 09/06/13 [History] Fluticasone/Salmeterol [Advair 250-50 Diskus] 1 puff INHALATION RT-BID 10/14/14 [History] Fenofibrate 160 mg PO DAILY 01/20/16 [History] Levothyroxine Sodium [Synthroid] 100 mcg PO DAILY 01/20/16 [History] Omeprazole 20 mg PO DAILY 01/20/16 [History] traMADol HCL [Ultram] 50 - 100 mg PO HS PRN 01/20/16 [History] Hydrocortisone [Cortef] 10 mg PO HS 10/02/16 [History] Hydrocortisone [Cortef] 20 mg PO QAM 10/02/16 [History] Cetirizine HCl [Zyrtec] 10 mg PO DAILY 12/07/16 [History] HYDROcodone/APAP 5-325MG [[place] 5-325] 1 - 2 tab PO Q4-6H PRN #90 tab 12/14/16 [ Rx] Sennosides-Docusate Sodium [Senokot-S] 1 tab PO BID #60 tablet 12/14/16 [Rx] Follow up Appointment(s)/Referral(s): [facility], [NON-STAFF] - Ruben Alvarenga DO [Doctor of Osteopathic Medicine] - 2 Weeks Activity/Diet/Wound Care/Special Instructions: Weightbearing as tolerated with walker May shower after 2 days if no drainage from the incision Follow-up with [facility] in 2 weeks with any questions or concerns Discharge Disposition: HOME WITH HOME HEALTH SERVICES
[2016-12-14 11:34] LABS: Glucose,Whole Blood 107 mg/dL (75-99)
[2016-12-14 12:57] LABS: Hemoglobin A1C 5.9 % (4.2-6.1)
[2016-12-14] MEDS ORDERED: WARFARIN 7.5 MG TAB PO ONE (18:00)
== END 2016-12-14 14:00 | disposition home health service (06) | DRG 470 ==
LOC: 2ORMAIN 05:51 → 3SUR 08:50
PROVIDERS: ADMIT Orthopaedic Surgery; ATTEND Orthopaedic Surgery
PROC: 0SR904A Replacement of Right Hip Joint with Ceramic on Polyethylene Synthetic Substitute, Uncemented, Open Approach (ICD-10-PCS; principal; 2016-12-12 07:30)
DX: M16.11 Unilateral primary osteoarthritis, right hip (principal); E27.40 Unspecified adrenocortical insufficiency; I10 Essential (primary) hypertension; E11.9 Type 2 diabetes mellitus without complications; E78.5 Hyperlipidemia, unspecified; G47.30 Sleep apnea, unspecified; J45.909 Unspecified asthma, uncomplicated; K21.9 Gastro-esophageal reflux disease without esophagitis; Z79.899 Other long term (current) drug therapy; Z80.8 Family history of malignant neoplasm of other organs or systems; Z82.49 Family history of ischemic heart disease and other diseases of the circulatory system
CPT/HCPCS: 73501; 83036; 85025; 85610; 86850; 86891; 86900; 86901; 88300; 94640

== ENCOUNTER 2017-03-20 20:32 | Observation (INO) | payer MEDICAID ==
[2017-03-20] MEDS ORDERED: SODIUM CHLORIDE 0.9% 1,000 ML IV STA ×2 (21:17)
[2017-03-20] MEDS ORDERED: ACETAMINOPHEN TAB 500 MG TAB PO STA (21:17)
[2017-03-20] MEDS ORDERED: IPRATROPIUM 0.5 MG/2.5 ML NEBU INHALATION STA (21:17)
[2017-03-20] MEDS ORDERED: IBUPROFEN 600 MG TAB PO STA (21:17)
[2017-03-20] MEDS ORDERED: ALBUTEROL NEBULIZED 2.5 MG/3 ML INHALATION STA (21:17)
[2017-03-20 21:35] LABS: Basophils # (A) 0.1 k/uL (0-0.2); Basophils % (A) 1 %; Eosinophils # (A) 0.2 k/uL (0-0.7); Eosinophils % (A) 1 %; HCT 39.6 % (34.0-46.0); HGB 13.2 gm/dL (11.4-16.0); Lymphocytes # (A) 2.8 k/uL (1.0-4.8); Lymphocytes % (A) 23 %; MCH 29.6 pg (25.0-35.0); MCHC 33.2 g/dL (31.0-37.0); MCV 89.2 fL (80.0-100.0); Mean Platelet Volume 7.7; Monocytes # (A) 0.6 k/uL (0-1.0); Monocytes % (A) 5 %; Neutrophils # (A) 8.1 k/uL (1.3-7.7); Neutrophils % (A) 68 %; Platelet Count 269 k/uL (150-450); RBC 4.44 m/uL (3.80-5.40); RDW 13.8 % (11.5-15.5)
[2017-03-20 21:46] LABS: Albumin 4.4 g/dL (3.5-5.0); Calcium 9.5 mg/dL (8.4-10.2); Potassium 3.9 mmol/L (3.5-5.1); Total Bilirubin 0.3 mg/dL (0.2-1.3); Total Protein 7.5 g/dL (6.3-8.2)
[2017-03-20 21:55] LABS: Creatine Kinase 155 U/L (30-135)
--- NOTE | 2017-03-20 21:55 | XR ---
EXAMINATION TYPE: XR chest 2V DATE OF EXAM: 03/20/2017 COMPARISON: Chest x-ray October 17, 2016 HISTORY: Difficulty in breathing. Shortness of breath with right-sided chest pain for 3 days. TECHNIQUE: Frontal and lateral views of the chest are obtained. FINDINGS: There is chronic parenchymal change without suspicious new focal air space opacity, pleura l effusion, or pneumothorax seen. There is patchy left basilar linear atelectasis noted on frontal v iew lateral aspect. The cardiac silhouette size is within normal limits. The osseous structures are intact. IMPRESSION: Chronic changes with new patchy left basilar linear atelectasis. No suspicious new acute pulmonary process.
[2017-03-20] MEDS ORDERED: methylPREDNISolone SOD SUCCI 125 MG/2 ML VIAL IV STA (22:03)
[2017-03-20 22:06] LABS: Creatine Kinase MB 1.2 ng/mL (0.0-2.4); Troponin I <0.012 ng/mL (0.000-0.034)
[2017-03-20 22:12] LABS: D-Dimer 0.86 mg/L FEU (<0.60); Partial Thromboplastin Time 22.8 sec (22.0-30.0); Prothrombin Time 9.8 sec (9.0-12.0)
--- NOTE | 2017-03-20 22:18 | ED ---
General Adult HPI - General Chief complaint: Chest Pain Stated complaint: SOB/Back & Chest pain Time Seen by Provider: 03/20/17 21:15 Source: patient, RN notes reviewed, old records reviewed Mode of arrival: wheelchair Limitations: no limitations - History of Present Illness Initial comments: this is a 56-year-old female to the ER for evaluation of chest pain, cough and congestion. Patient has Christen medical history including Rhea's disease as well as multiple medical Bandar agrees, patient also multiple surgeries. Patient denies any recent travel history or sick contacts. Patient does admit to cough and congestion, chest pain. Patient has noted fever. Patient denies any rash. No change in medications. Patient states she did recently a cardiac evaluation including heart catheterization which was negative. Patient has no modifying factors for symptoms at this time. - Related Data Home Medications Medication Instructions Recorded Confirmed Albuterol Sulfate [Ventolin HFA] 2 puff INHALATION RT-Q6H PRN 09/06/13 03/20/17 Atenolol [Tenormin] 25 mg PO DAILY 09/06/13 03/20/17 Lisinopril 40 mg PO DAILY 09/06/13 03/20/17 Montelukast [Singulair] 10 mg PO DAILY 09/06/13 03/20/17 Simvastatin [Zocor] 40 mg PO HS 09/06/13 03/20/17 Fluticasone/Salmeterol [Advair 1 puff INHALATION RT-BID 10/14/14 03/20/17 250-50 Diskus] Fenofibrate 160 mg PO DAILY 01/20/16 03/20/17 Levothyroxine Sodium [Synthroid] 100 mcg PO DAILY 01/20/16 03/20/17 Omeprazole 20 mg PO DAILY 01/20/16 03/20/17 Hydrocortisone [Cortef] 10 mg PO HS 10/02/16 03/20/17 Hydrocortisone [Cortef] 20 mg PO QA 10/02/16 03/20/17 Allergies Allergy/AdvReac Type Severity Reaction Status Date / Time Iodine and Iodide Containing Allergy Unknown allergy Verified 03/20/17 21:16 Produc test positive for shell fish. celecoxib [From Celebrex] Allergy Wheezing Verified 03/20/17 21:16 egg AdvReac Swelling Verified 03/20/17 21:16 shellfish derived AdvReac ALLERGY Verified 03/20/17 21:16 TEST POSITIVE. Review of Systems ROS Statement: Those systems with pertinent positive or pertinent negative responses have been documented in the HPI. ROS Other: All systems not noted in ROS Statement are negative. Past Medical History Past Medical History: Asthma, Diabetes Mellitus, Hyperlipidemia, Hypertension, Osteoarthritis (OA), Pneumonia, Renal Disease, Sleep Apnea/CPAP/BIPAP, Thyroid Disorder Additional Past Medical History / Comment(s): SOB, bronchitis, adrenal insufficiency, acromegaly, diabetes-no current meds, migraines, eczema, elevated kidney function -recent labs, hemorrhoids, sciatica, arthritis R hip, back and neck, sinus problems at times History of Any Multi-Drug Resistant Organisms: None Reported Past Surgical History: Appendectomy, Breast Surgery, Hysterectomy, Orthopedic Surgery, Tonsillectomy Additional Past Surgical History / Comment(s): 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 "cyst removed from between lung and spine" Past Anesthesia/Blood Transfusion Reactions: Previous Problems w/ Anesthesia Additional Past Anesthesia/Blood Transfusion Reaction / Comment(s): "STOPPED BREATHING DURING BRONCHOSCOPY R/T TO UNKNOWN SLEEP APNEA" PER PT Past Psychological History: No Psychological Hx Reported Smoking Status: Never smoker Past Alcohol Use History: None Reported Past Drug Use History: None Reported - Past Family History Sister(s) Family Medical History: Cancer Brother(s) Family Medical History: Deep Vein Thrombosis (DVT) Father Family Medical History: Cancer, CVA/TIA, Hypertension, Skin Disorder Additional Family Medical History / Comment(s): Father of pneumonia and a brain bleed in his 80'. He also had skin cancer Mother Family Medical History: Cancer Additional Family Medical History / Comment(s): skin cancer. General Exam Limitations: no limitations General appearance: alert, in no apparent distress Head exam: Present: atraumatic, normocephalic, normal inspection Eye exam: Present: normal appearance, PERRL, EOMI. Absent: scleral icterus, conjunctival injection, periorbital swelling ENT exam: Present: normal exam, mucous membranes moist Neck exam: Present: normal inspection. Absent: tenderness, meningismus, lymphadenopathy Respiratory exam: Present: normal lung sounds bilaterally. Absent: respiratory distress, wheezes, rales, rhonchi, stridor Cardiovascular Exam: Present: regular rate, normal rhythm, normal heart sounds. Absent: systolic murmur, diastolic murmur, rubs, gallop, clicks GI/Abdominal exam: Present: soft, normal bowel sounds. Absent: distended, tenderness, guarding, rebound, rigid Extremities exam: Present: normal inspection, full ROM, normal capillary refill. Absent: tenderness, pedal edema, joint swelling, calf tenderness Back exam: Present: normal inspection Neurological exam: Present: alert, oriented X3, CN II-XII intact Psychiatric exam: Present: normal affect, normal mood Skin exam: Present: warm, dry, intact, normal color. Absent: rash Course Vital Signs 03/20/17 03/20/17 03/20/17 20:45 21:13 21:40 Temperature 100.1 F H Pulse Rate 88 77 Respiratory 18 20 20 Rate Blood Pressure 165/97 179/98 O2 Sat by Pulse 98 100 Oximetry 03/20/17 03/20/17 03/20/17 21:44 22:12 22:20 Temperature 100.7 F H Pulse Rate 78 89 80 Respiratory 20 Rate Blood Pressure 168/92 O2 Sat by Pulse 97 Oximetry 03/20/17 03/21/17 23:14 00:14 Temperature 98.1 F 98 F Pulse Rate 87 86 Respiratory 18 18 Rate Blood Pressure 161/84 161/77 O2 Sat by Pulse 97 99 Oximetry - Reevaluation(s) Reevaluation #1: 03/20/17 23:00 medical records revealed medical records reviewed including prior heart catheterization EKG Findings - EKG Comments: EKG Findings:: EKG shows normal sinus rate of 82, W[place] 128, QRS is is, QTc 446, there is anterolateral T-wave inversion, this inversion is found her prior EKG. Repeat EKG. EKG shows normal sinus rhythm rate of 70, W[place] 14, QRS 80, QTC 456 , no change in morphology Medical Decision Making - Medical Decision Making 56 female the ER for evaluation of fever and cough, chest pain. Patient w sob and cough and CP. Patient w adrenal insufficiency, will admit for steroids breathing treatment and cardiopulmonary resuscitation. - Lab Data Result diagrams: 03/20/17 21:09 03/20/17 21:09 Lab Results 03/20/17 03/20/17 03/20/17 Range/Units 21:09 21:09 21:09 WBC 12.0 H (3.8-10.6) k/uL RBC 4.44 (3.80-5.40) m/uL Hgb 13.2 (11.4-16.0) gm/dL Hct 39.6 (34.0-46.0) % MCV 89.2 (80.0-100.0) fL MCH 29.6 (25.0-35.0) pg MCHC 33.2 (31.0-37.0) g/dL RDW 13.8 (11.5-15.5) % Plt Count 269 (150-450) k/uL Neutrophils % 68 % Lymphocytes % 23 % Monocytes % 5 % Eosinophils % 1 % Basophils % 1 % Neutrophils # 8.1 H (1.3-7.7) k/uL Lymphocytes # 2.8 (1.0-4.8) k/uL Monocytes # 0.6 (0-1.0) k/uL Eosinophils # 0.2 (0-0.7) k/uL Basophils # 0.1 (0-0.2) k/uL PT (9.0-12.0) sec INR (<1.2) APTT (22.0-30.0) sec D-Dimer (<0.60) mg/L FEU Sodium 139 (137-145) mmol/L Potassium 3.9 (3.5-5.1) mmol/L Chloride 103 (98-107) mmol/L Carbon Dioxide 28 (22-30) mmol/L Anion Gap 8 mmol/L BUN 14 (7-17) mg/dL Creatinine 1.15 H (0.52-1.04) mg/dL Est GFR (MDRD) Af Amer 60 (>60 ml/min/1.73 sqM) Est GFR (MDRD) Non-Af 49 (>60 ml/min/1.73 sqM) Glucose 115 H (74-99) mg/dL Calcium 9.5 (8.4-10.2) mg/dL Magnesium 2.0 (1.6-2.3) mg/dL Total Bilirubin 0.3 (0.2-1.3) mg/dL AST 25 (14-36) U/L ALT 39 (9-52) U/L Alkaline Phosphatase 56 (38-126) U/L Total Creatine Kinase 155 H (30-135) U/L CK-MB (CK-2) 1.2 (0.0-2.4) ng/mL CK-MB (CK-2) Rel Index 0.8 Troponin I <0.012 (0.000-0.034) ng/mL NT-Pro-B Natriuret Pep pg/mL Total Protein 7.5 (6.3-8.2) g/dL Albumin 4.4 (3.5-5.0) g/dL Urine Color Urine Appearance (Clear) Urine pH (5.0-8.0) Ur Specific [place] (1.001-1.035) Urine Protein (Negative) Urine Glucose (UA) (Negative) Urine Ketones (Negative) Urine Blood (Negative) Urine Nitrite (Negative) Urine Bilirubin (Negative) Urine Urobilinogen (<2.0) mg/dL Ur Leukocyte Esterase (Negative) Urine RBC (0-5) /hpf Urine WBC (0-5) /hpf Ur Squamous Epith Cells (0-4) /hpf Influenza Type A RNA (Not Detectd) Influenza Type B (PCR) (Not Detectd) 03/20/17 03/20/17 03/20/17 Range/Units 21:09 21:09 22:05 WBC (3.8-10.6) k/uL RBC (3.80-5.40) m/uL Hgb (11.4-16.0) gm/dL Hct (34.0-46.0) % MCV (80.0-100.0) fL MCH (25.0-35.0) pg MCHC (31.0-37.0) g/dL RDW (11.5-15.5) % Plt Count (150-450) k/uL Neutrophils % % Lymphocytes % % Monocytes % % Eosinophils % % Basophils % % Neutrophils # (1.3-7.7) k/uL Lymphocytes # (1.0-4.8) k/uL Monocytes # (0-1.0) k/uL Eosinophils # (0-0.7) k/uL Basophils # (0-0.2) k/uL PT 9.8 (9.0-12.0) sec INR 1.0 (<1.2) APTT 22.8 (22.0-30.0) sec D-Dimer 0.86 H (<0.60) mg/L FEU Sodium (137-145) mmol/L Potassium (3.5-5.1) mmol/L Chloride (98-107) mmol/L Carbon Dioxide (22-30) mmol/L Anion Gap mmol/L BUN (7-17) mg/dL Creatinine (0.52-1.04) mg/dL Est GFR (MDRD) Af Amer (>60 ml/min/1.73 sqM) Est GFR (MDRD) Non-Af (>60 ml/min/1.73 sqM) Glucose (74-99) mg/dL Calcium (8.4-10.2) mg/dL Magnesium (1.6-2.3) mg/dL Total Bilirubin (0.2-1.3) mg/dL AST (14-36) U/L ALT (9-52) U/L Alkaline Phosphatase (38-126) U/L Total Creatine Kinase (30-135) U/L CK-MB (CK-2) (0.0-2.4) ng/mL CK-MB (CK-2) Rel Index Troponin I (0.000-0.034) ng/mL NT-Pro-B Natriuret Pep 175 pg/mL Total Protein (6.3-8.2) g/dL Albumin (3.5-5.0) g/dL Urine Color Urine Appearance (Clear) Urine pH (5.0-8.0) Ur Specific [place] (1.001-1.035) Urine Protein (Negative) Urine Glucose (UA) (Negative) Urine Ketones (Negative) Urine Blood (Negative) Urine Nitrite (Negative) Urine Bilirubin (Negative) Urine Urobilinogen (<2.0) mg/dL Ur Leukocyte Esterase (Negative) Urine RBC (0-5) /hpf Urine WBC (0-5) /hpf Ur Squamous Epith Cells (0-4) /hpf Influenza Type A RNA Not Detected (Not Detectd) Influenza Type B (PCR) Not Detected (Not Detectd) 03/20/17 Range/Units 22:30 WBC (3.8-10.6) k/uL RBC (3.80-5.40) m/uL Hgb (11.4-16.0) gm/dL Hct (34.0-46.0) % MCV (80.0-100.0) fL MCH (25.0-35.0) pg MCHC (31.0-37.0) g/dL RDW (11.5-15.5) % Plt Count (150-450) k/uL Neutrophils % % Lymphocytes % % Monocytes % % Eosinophils % % Basophils % % Neutrophils # (1.3-7.7) k/uL Lymphocytes # (1.0-4.8) k/uL Monocytes # (0-1.0) k/uL Eosinophils # (0-0.7) k/uL Basophils # (0-0.2) k/uL PT (9.0-12.0) sec INR (<1.2) APTT (22.0-30.0) sec D-Dimer (<0.60) mg/L FEU Sodium (137-145) mmol/L Potassium (3.5-5.1) mmol/L Chloride (98-107) mmol/L Carbon Dioxide (22-30) mmol/L Anion Gap mmol/L BUN (7-17) mg/dL Creatinine (0.52-1.04) mg/dL Est GFR (MDRD) Af Amer (>60 ml/min/1.73 sqM) Est GFR (MDRD) Non-Af (>60 ml/min/1.73 sqM) Glucose (74-99) mg/dL Calcium (8.4-10.2) mg/dL Magnesium (1.6-2.3) mg/dL Total Bilirubin (0.2-1.3) mg/dL AST (14-36) U/L ALT (9-52) U/L Alkaline Phosphatase (38-126) U/L Total Creatine Kinase (30-135) U/L CK-MB (CK-2) (0.0-2.4) ng/mL CK-MB (CK-2) Rel Index Troponin I (0.000-0.034) ng/mL NT-Pro-B Natriuret Pep pg/mL Total Protein (6.3-8.2) g/dL Albumin (3.5-5.0) g/dL Urine Color Light Yellow Urine Appearance Clear (Clear) Urine pH 7.0 (5.0-8.0) Ur Specific [place] 1.008 (1.001-1.035) Urine Protein Negative (Negative) Urine Glucose (UA) Negative (Negative) Urine Ketones Negative (Negative) Urine Blood Negative (Negative) Urine Nitrite Negative (Negative) Urine Bilirubin Negative (Negative) Urine Urobilinogen <2.0 (<2.0) mg/dL Ur Leukocyte Esterase Moderate H (Negative) Urine RBC 1 (0-5) /hpf Urine WBC 6 H (0-5) /hpf Ur Squamous Epith Cells 2 (0-4) /hpf Influenza Type A RNA (Not Detectd) Influenza Type B (PCR) (Not Detectd) - Radiology Data Radiology results: report reviewed (CXR and CTa chest are negative), image reviewed Disposition Clinical Impression: Chest pain, Acute bronchitis, Adrenal insufficiency Disposition: ADMITTED IP TO THIS HOSP Condition: Good Referrals: Kita Riggs III, MD [Primary Care Provider] - 1-2 days
[2017-03-20 22:49] LABS: Appearance,Urine Clear (Clear); Bilirubin,Urine Negative (Negative); Blood,Urine Negative (Negative); Color,Urine Light Yellow; Glucose,Urine (UA) Negative (Negative); Ketones,Urine Negative (Negative); Leukocyte Esterase,Urine Moderate (Negative); Nitrite,Urine Negative (Negative); Protein,Urine Negative (Negative); RBC,Urine 1 /hpf (0-5); Specific Gravity,Urine 1.008 (1.001-1.035); Squamous Epithelial Cell,Urine 2 /hpf (0-4); Urobilinogen,Urine <2.0 mg/dL (<2.0); WBC,Urine 6 /hpf (0-5)
[2017-03-20] MEDS ORDERED: RX INFO: IV CONTRAST WAS GIVEN 1 EACH MISC MISCELLANE PRN (22:58)
[2017-03-20] MEDS ORDERED: FAMOTIDINE 20 MG/2 ML VIAL IV STA (22:58)
[2017-03-20] MEDS ORDERED: diphenhydrAMINE 50 MG/ML 1 ML VIAL IVP STA (22:58)
--- NOTE | 2017-03-21 00:26 | CT ---
EXAM: CT Angiography Chest With Intravenous Contrast CLINICAL HISTORY: Reason: Pain TECHNIQUE: Axial computed tomographic angiography images of the chest with intravenous contrast using pulmonary embolism protocol. CTDI is 130 mGy and DLP is 486.8 mGy-cm. This CT exam was performed using one or more of the following dose reduction techniques: automated exposure control, adjustment of the mA and/or kV according to patient size, and/or use of iterative reconstruction technique. MIP reconstructed images were created and reviewed. Coronal and sagittal reformatted images were created and reviewed. COMPARISON: Chest radiographs 03/20/2017. CT chest noncontrast 11/17/2016. FINDINGS: Pulmonary arteries: No definite evidence of acute pulmonary embolism. Aorta: No evidence of thoracic aortic aneurysm or dissection. Lungs: Right middle lobe pleural-parenchymal opacity most suggestive of scarring or subsegmental atelectasis. Scattered subsegmental atelectasis or scarring in the inferior lingula and left lower lobe. No evidence of acute pulmonary parenchymal disease. Pleural space: No evidence of pneumothorax or pleural effusion. Heart: Heart size within normal limits. No significant pericardial effusion. No evidence of RV dysfunction. Thyroid: Left thyroid asymmetry with approximately 1.7 cm nodule along inferior pole left thyroid lobe. Bones/joints: Degenerative changes involving thoracic spine. Lymph nodes: No pathologically enlarged mediastinal or hilar lymphadenopathy. Upper abdomen: Images including upper abdomen are unremarkable. IMPRESSION: No evidence of thoracic aortic aneurysm or dissection. No definite evidence of acute pulmonary embolism. Scattered subsegmental atelectasis or scarring in the right middle lobe, inferior lingula and left lower lobe. Left thyroid lobe asymmetry with left inferior pole thyroid nodule. Follow-up nonemergent thyroid ultrasound recommended.
[2017-03-21] MEDS ORDERED: ASPIRIN 81 MG PO STA (01:38)
[2017-03-21] MEDS ORDERED: MORPHINE SULFATE 5 MG/ML SYRINGE IV PRN (01:38)
[2017-03-21 05:01] LABS: Creatine Kinase 145 U/L (30-135)
[2017-03-21 05:14] LABS: Creatine Kinase MB 0.9 ng/mL (0.0-2.4); Troponin I <0.012 ng/mL (0.000-0.034)
[2017-03-21] MEDS: methylPREDNISolone SOD SUCCI 125 MG/2 ML VIAL IV SCH ×2 (06:31→11:12)
[2017-03-21] MEDS: IPRATROPIUM-ALBUTEROL 3 ML NEB INHALATION SCH ×4 (08:26→20:09)
[2017-03-21] MEDS ORDERED: METOPROLOL TARTRATE 25 MG TAB PO SCH (09:00)
[2017-03-21] MEDS ORDERED: ATORVASTATIN 80 MG TAB PO SCH (09:00)
[2017-03-21 09:57] LABS: Creatine Kinase 117 U/L (30-135)
[2017-03-21 10:11] LABS: Creatine Kinase MB 1.1 ng/mL (0.0-2.4); Troponin I <0.012 ng/mL (0.000-0.034)
--- NOTE | 2017-03-21 10:51 | P.CRDCN ---
History of Present Illness Consult date: 03/21/17 History of present illness: Mrs. Ashford is a pleasant 56-year-old female with past medical history significant for diabetes mellitus, hypertension, dyslipidemia, sleep apnea, chronic renal disease, adrenal insufficiency, pituitary tumor removed 2013, chronic bronchitis and asthma. She recently underwent cardiac catheterization with Dr. Pedraza in September of this year which revealed normal coronary arteries. This was done at the time for evaluation prior to right hip arthroplasty. She had a positive Lexiscan stress test as well as abnormal EKG with T-wave inversions in anteroseptal leads. She subsequently went on to have hip surgery in December of this year and have recovered well with no overt complications. We have been asked to see her in consultation for complaints of right sided chest pain that starts in the right mid back region and radiates around to the right chest under the breast. The pain is sharp and intermittent in nature. She has increased shortness of breath on exertion with associated palpitations. She also complains of cough recently and fever/chills. On admission she has a low- grade temp of 100.7. The pain is reproducible in the back and tender on palpation. EKG on arrival again shows T-wave inversion anteroseptal leads with sinus mechanism. Chest xray reveals changes with patchy left basilar linear atelectasis with no new acute cardiopulmonary process. CTA was performed secondary to elevated D-dimer is negative for PE or aortic dissection. Again shows atelectasis with suspicious thyroid nodule. Laboratory data reviewed, WBC 12, Hgb 13.2, plt 269, d-dimer 0.86, potassium 3.9 , magnesium 2.0, BUN 14, Cr 1.15, cardiac enzymes negative x2. Current cardiac medications include simvastatin 40 mg daily, lisinopril 40 mg daily, atenolol 25 mg daily. Review of Systems At the time of my exam: CONSTITUTIONAL: Denies fever. Denies chills. EYES: Denies blurred vision. Denies vision changes. Denies eye pain. EARS, NOSE, MOUTH & THROAT: Denies headache. Denies sore throat. Denies ear pain. CARDIOVASCULAR: Complains of right upper back tenderness, denies chest pain. Denies shortness of breath. Denies orthopnea. Denies PND. Denies palpitations. RESPIRATORY: Denies cough. GASTROINTESTINAL: Denies abdominal pain. Denies diarrhea. Denies constipation. Denies nausea. Denies vomiting. MUSCULOSKELETAL: Denies myalgias. INTEGUMENTARY: Denies pruitis. Denies rash. NEUROLOGIC: Denies numbness. Denies tingling. Denies weakness. PSYCHIATRIC: Denies anxiety. Denies depression. ENDOCRINE: Denies fatigue. Denies weight change. Denies polydipsia. Denies polyurina. GENITOURINARY: Denies burning, hematuria or urgency with micturation. HEMATOLOGIC: Denies history of anemia. Denies bleeding. Past Medical History Past Medical History: Asthma, Diabetes Mellitus, Hyperlipidemia, Hypertension, Osteoarthritis (OA), Pneumonia, Renal Disease, Sleep Apnea/CPAP/BIPAP, Thyroid Disorder Additional Past Medical History / Comment(s): SOB, bronchitis, adrenal insufficiency, acromegaly, diabetes-no current meds, migraines, eczema, elevated kidney function -recent labs, hemorrhoids, sciatica, arthritis R hip, back and neck, sinus problems at times History of Any Multi-Drug Resistant Organisms: None Reported Past Surgical History: Appendectomy, Breast Surgery, Hysterectomy, Orthopedic Surgery, Tonsillectomy Additional Past Surgical History / Comment(s): 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 "cyst removed from between lung and spine" Past Anesthesia/Blood Transfusion Reactions: Previous Problems w/ Anesthesia Additional Past Anesthesia/Blood Transfusion Reaction / Comment(s): "STOPPED BREATHING DURING BRONCHOSCOPY R/T TO UNKNOWN SLEEP APNEA" PER PT Past Psychological History: No Psychological Hx Reported Additional Psychological History / Comment(s): . Smoking Status: Never smoker Past Alcohol Use History: None Reported Past Drug Use History: None Reported - Past Family History Sister(s) Family Medical History: Cancer Brother(s) Family Medical History: Deep Vein Thrombosis (DVT) Father Family Medical History: Cancer, CVA/TIA, Hypertension, Skin Disorder Additional Family Medical History / Comment(s): Father of pneumonia and a brain bleed in his 80'. He also had skin cancer Mother Family Medical History: Cancer Additional Family Medical History / Comment(s): skin cancer. Medications and Allergies Home Medications Medication Instructions Recorded Confirmed Type Albuterol Sulfate [Ventolin HFA] 2 puff INHALATION RT-Q6H PRN 09/06/13 03/20/17 History Atenolol [Tenormin] 25 mg PO DAILY 09/06/13 03/20/17 History Lisinopril 40 mg PO DAILY 09/06/13 03/20/17 History Montelukast [Singulair] 10 mg PO DAILY 09/06/13 03/20/17 History Simvastatin [Zocor] 40 mg PO HS 09/06/13 03/20/17 History Fluticasone/Salmeterol [Advair 1 puff INHALATION RT-BID 10/14/14 03/20/17 History 250-50 Diskus] Fenofibrate 160 mg PO DAILY 01/20/16 03/20/17 History Levothyroxine Sodium [Synthroid] 100 mcg PO DAILY 01/20/16 03/20/17 History Omeprazole 20 mg PO DAILY 01/20/16 03/20/17 History Hydrocortisone [Cortef] 10 mg PO HS 10/02/16 03/20/17 History Hydrocortisone [Cortef] 20 mg PO QAM 10/02/16 03/20/17 History Allergies Allergy/AdvReac Type Severity Reaction Status Date / Time Iodine and Iodide Containing Allergy Unknown allergy Verified 03/20/17 21:16 Produc test positive for shell fish. celecoxib [From Celebrex] Allergy Wheezing Verified 03/20/17 21:16 egg AdvReac Swelling Verified 03/20/17 21:16 shellfish derived AdvReac ALLERGY Verified 03/20/17 21:16 TEST POSITIVE. Physical Exam Vitals: Vital Signs Temp Pulse Pulse Resp BP BP Pulse Ox 03/21/17 08:00 97.9 F 89 16 149/80 93 L 03/21/17 03:54 138/78 96 03/21/17 03:40 98.1 F 03/21/17 03:30 83 17 140/80 93 L 03/21/17 02:12 90 18 149/76 96 03/21/17 01:51 86 18 131/75 95 03/21/17 00:14 98 F 86 18 161/77 99 03/20/17 23:14 98.1 F 87 18 161/84 97 03/20/17 22:20 80 03/20/17 22:12 100.7 F H 89 20 168/92 97 03/20/17 21:44 78 03/20/17 21:40 77 20 179/98 100 03/20/17 21:13 20 03/20/17 20:45 100.1 F H 88 18 165/97 98 Intake and Output 03/20/17 03/21/17 03/21/17 22:59 06:59 14:59 Other: Weight 99.79 kg 98.5 kg Blood pressure 149/80 with a heart rate of 89 GENERAL: This is a 56-year-old female in no apparent distress at the time of my examination. HEENT: Head is atraumatic, normocephalic. Pupils are equal, round. Sclerae anicteric. Conjunctivae are clear. Mucous membranes of the mouth are moist. Neck is supple. There is no jugular venous distention. No carotid bruit is heard. LUNGS: Clear to auscultation no wheezes, rales or rhonchi. No chest wall tenderness is noted on palpation or with deep breathing. HEART: Regular rate and rhythm without murmurs, rubs or gallops. S1 and S2 heard. ABDOMEN: Soft, nontender. Bowel sounds are heard. No organomegaly noted. EXTREMITIES: 2+ peripheral pulses with no evidence of peripheral edema and no calf tenderness noted. NEUROLOGIC: Patient is awake, alert and oriented x3. Results 03/20/17 21:09 03/20/17 21:09 Cardiac Enzymes 03/20/17 03/20/17 03/21/17 Range/Units 21:09 21:09 04:14 AST 25 (14-36) U/L CK-MB (CK-2) 1.2 0.9 (0.0-2.4) ng/mL Troponin I <0.012 <0.012 (0.000-0.034) ng/mL Coagulation 03/20/17 Range/Units 21:09 PT 9.8 (9.0-12.0) sec APTT 22.8 (22.0-30.0) sec CBC 03/20/17 Range/Units 21:09 WBC 12.0 H (3.8-10.6) k/uL RBC 4.44 (3.80-5.40) m/uL Hgb 13.2 (11.4-16.0) gm/dL Hct 39.6 (34.0-46.0) % Plt Count 269 (150-450) k/uL Comprehensive Metabolic Panel 03/20/17 Range/Units 21:09 Sodium 139 (137-145) mmol/L Potassium 3.9 (3.5-5.1) mmol/L Chloride 103 (98-107) mmol/L Carbon Dioxide 28 (22-30) mmol/L BUN 14 (7-17) mg/dL Creatinine 1.15 H (0.52-1.04) mg/dL Glucose 115 H (74-99) mg/dL Calcium 9.5 (8.4-10.2) mg/dL AST 25 (14-36) U/L ALT 39 (9-52) U/L Alkaline Phosphatase 56 (38-126) U/L Total Protein 7.5 (6.3-8.2) g/dL Albumin 4.4 (3.5-5.0) g/dL Current Medications Generic Name Dose Route Start Last Admin Trade Name Freq PRN Reason Stop Dose Admin Albuterol/Ipratropium 3 ml 03/21/17 08:00 03/21/17 08:26 Duoneb 0.5 Mg-3 Mg/3 Ml Soln INHALATION Not Given RT-QID [facility] Aspirin 325 mg 03/22/17 09:00 Aspirin PO DAILY [facility] Atorvastatin Calcium 80 mg 03/21/17 09:00 Lipitor PO DAILY [facility] Azithromycin 500 mg 03/21/17 09:00 Zithromax PO DAILY [facility] Methylprednisolone Sodium Succinate 60 mg 03/21/17 06:00 03/21/17 06:31 Solu-Medrol IV 60 mg Q6HR [facility] Administration Metoprolol Tartrate 25 mg 03/21/17 09:00 Lopressor PO BID [facility] Miscellaneous Information 1 each 03/20/17 22:58 03/20/17 23:14 Rx Info: Iv Contrast Was Given MISCELLANE 03/22/17 22:58 1 each DAILY PRN Administration Per Protocol Morphine Sulfate 4 mg 03/21/17 01:38 Morphine Sulfate IV Q5M PRN Chest Pain Intake and Output 03/20/17 03/21/17 03/21/17 22:59 06:59 14:59 Other: Weight 99.79 kg 98.5 kg 03/20/17 21:09 03/20/17 21:09 Assessment and Plan Assessment: ASSESSMENT 1. Chest pain, atypical with recent normal cardiac catheterization 2. Abnormal EKG with T-wave inversions in the anteroseptal leads 3. Essential hypertension 4. Dyslipidemia 5. Diabetes mellitus PLAN Obtain 2-D echocardiogram and Doppler study to assess cardiac structure and function Continue to obtain serial cardiac enzymes to rule out an acute coronary event. Further recommendations will be based upon clinical course. Nurse Practitioner note has been reviewed, I agree with a documented findings and plan of care. Patient was seen and examined.
[2017-03-21] MEDS: AZITHROMYCIN 500 MG TAB PO SCH (11:12)
[2017-03-21 12:23] LABS: Glucose,Whole Blood 253 mg/dL (75-99)
[2017-03-21] MEDS: ACETAMINOPHEN TAB 325 MG TAB PO PRN ×2 (12:39→20:36)
--- NOTE | 2017-03-21 14:12 | ECHOF ---
Referral Reason:chest pain MEASUREMENTS -------- HEIGHT: 170.2 cm WEIGHT: 98.4 kg BP: 138/78 IVSd: 1.1 cm (0.6 - 1.1) LVIDd: 4.2 cm (3.9 - 5.3) LVPWd: 1.4 cm (0.6 - 1.1) IVSs: 2.0 cm LVIDs: 2.4 cm LVPWs: 1.5 cm Ao Diam: 3.1 cm (2.0 - 3.7) AV Cusp: 2.2 cm (1.5 - 2.6) LA Diam: 3.8 cm (2.7 - 3.8) MV EXCURSION: 18.395 mm (> 18.000) MV EF SLOPE: 95 mm/s (70 - 150) EPSS: 0.7 cm MV E Ghanshyam: 0.80 m/s MV DecT: 158 ms MV A Ghanshyam: 0.91 m/s MV E/A Ratio: 0.88 RAP: 5.00 mmHg RVSP: 17.58 mmHg FINDINGS -------- Sinus rhythm. This was a technically good study. The left ventricular size is normal. There is mild concentric left ventricular hypertrophy. Overa ll left ventricular systolic function is normal with, an EF between 55 - 60 %. The right ventricle is normal in size and function. The left atrium is normal in size. The right atrium is normal in size. The aortic valve is trileaflet, and appears structurally normal. No aortic stenosis or regurgitation. There is trace mitral regurgitation. Trace tricuspid regurgitation present. The right ventricular systolic pressure, as measured by Dopp ler, is 17.58mmHg. Pulmonic valve appears structurally normal. The aortic root size is normal. The pericardium is normal. CONCLUSIONS -------- 1. Sinus rhythm. 2. This was a technically good study. 3. The left ventricular size is normal. 4. There is mild concentric left ventricular hypertrophy. 5. Overall left ventricular systolic function is normal with, an EF between 55 - 60 %. 6. The right ventricle is normal in size and function. 7. The left atrium is normal in size. 8. The right atrium is normal in size. 9. The aortic valve is trileaflet, and appears structurally normal. No aortic stenosis or regurgitati on. 10. There is trace mitral regurgitation. 11. Trace tricuspid regurgitation present. 12. The right ventricular systolic pressure, as measured by Doppler, is 17.58mmHg. 13. Pulmonic valve appears structurally normal. 14. The aortic root size is normal. 15. The pericardium is normal. [employer]: nAushka Quintana RDCS
--- NOTE | 2017-03-21 15:27 | P.HPIM ---
History of Present Illness H&P Date: 03/21/17 Chief Complaint: chest pain Mrs. Ashford is a pleasant 56-year-old female with past medical history significant for diabetes mellitus, hypertension, dyslipidemia, sleep apnea, chronic renal disease, adrenal insufficiency, pituitary tumor removed 2013, chronic persistent asthma. presented to ER with complaints of chest tightness and also sharp pain between her shoulder blades and also associated with exertional short of breath. Patient says that she has been sick with flulike symptoms 3-4 days prior and has been getting worse and short of breath. Patient denied this pain which made her come to the hospital. Otherwise patient denied any fever or chills. Patient does have cough but no sputum production. T-max is 100.7 on admission. patient does have asthma exacerbation every year and does use inhalers at home on regular basis. She recently underwent cardiac catheterization with Dr. Pedraza in September of this year which revealed normal coronary arteries. This was done at the time for evaluation prior to right hip arthroplasty. She had a positive Lexiscan stress test as well as abnormal EKG with T-wave inversions in anteroseptal leads. She subsequently went on to have hip surgery in December of this year and have recovered well with no overt complications. EKG on arrival again shows T-wave inversion anteroseptal leads with sinus mechanism. Chest xray reveals changes with patchy left basilar linear atelectasis with no new acute cardiopulmonary process. CTA was performed secondary to elevated D-dimer is negative for PE or aortic dissection. Again shows atelectasis with suspicious thyroid nodule. Review of Systems Constitutional: Patient denies any fever or chills . No generalized weakness or weight loss. Abdomen: Patient denied nausea vomiting and diarrhea and abdominal pain. Cardiovascular: Patient denies any chest pain . Patient does have exertional short of breath and pain between her shoulder blades Respiratory: patient denied sputum production. No shortness of breath Neurologic: Patient denied any numbness or tingling headache. Musculoskeletal: Patient denies any complaints of joint swelling or deformity. Skin: Negative Psychiatric: Negative Endocrine: No heat or cold intolerance. No recent weight gain. Genitourinary: No dysuria or hematuria. All other 14 point ROS negative except the above Past Medical History Past Medical History: Asthma, Diabetes Mellitus, Hyperlipidemia, Hypertension, Osteoarthritis (OA), Pneumonia, Renal Disease, Sleep Apnea/CPAP/BIPAP, Thyroid Disorder Additional Past Medical History / Comment(s): SOB, bronchitis, adrenal insufficiency, acromegaly, diabetes-no current meds, migraines, eczema, elevated kidney function -recent labs, hemorrhoids, sciatica, arthritis R hip, back and neck, sinus problems at times History of Any Multi-Drug Resistant Organisms: None Reported Past Surgical History: Appendectomy, Breast Surgery, Hysterectomy, Orthopedic Surgery, Tonsillectomy Additional Past Surgical History / Comment(s): 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 "cyst removed from between lung and spine" Past Anesthesia/Blood Transfusion Reactions: Previous Problems w/ Anesthesia Additional Past Anesthesia/Blood Transfusion Reaction / Comment(s): "STOPPED BREATHING DURING BRONCHOSCOPY R/T TO UNKNOWN SLEEP APNEA" PER PT Past Psychological History: No Psychological Hx Reported Additional Psychological History / Comment(s): . Smoking Status: Never smoker Past Alcohol Use History: None Reported Past Drug Use History: None Reported - Past Family History Sister(s) Family Medical History: Cancer Brother(s) Family Medical History: Deep Vein Thrombosis (DVT) Father Family Medical History: Cancer, CVA/TIA, Hypertension, Skin Disorder Additional Family Medical History / Comment(s): Father of pneumonia and a brain bleed in his 80'. He also had skin cancer Mother Family Medical History: Cancer Additional Family Medical History / Comment(s): skin cancer. Medications and Allergies Home Medications Medication Instructions Recorded Confirmed Type Albuterol Sulfate [Ventolin HFA] 2 puff INHALATION RT-Q6H PRN 09/06/13 03/20/17 History Atenolol [Tenormin] 25 mg PO DAILY 09/06/13 03/20/17 History Lisinopril 40 mg PO DAILY 09/06/13 03/20/17 History Montelukast [Singulair] 10 mg PO DAILY 09/06/13 03/20/17 History Simvastatin [Zocor] 40 mg PO HS 09/06/13 03/20/17 History Fluticasone/Salmeterol [Advair 1 puff INHALATION RT-BID 10/14/14 03/20/17 History 250-50 Diskus] Fenofibrate 160 mg PO DAILY 01/20/16 03/20/17 History Levothyroxine Sodium [Synthroid] 100 mcg PO DAILY 01/20/16 03/20/17 History Omeprazole 20 mg PO DAILY 01/20/16 03/20/17 History Hydrocortisone [Cortef] 10 mg PO HS 10/02/16 03/20/17 History Hydrocortisone [Cortef] 20 mg PO QAM 10/02/16 03/20/17 History Allergies Allergy/AdvReac Type Severity Reaction Status Date / Time Iodine and Iodide Containing Allergy Unknown allergy Verified 03/20/17 21:16 Produc test positive for shell fish. celecoxib [From Celebrex] Allergy Wheezing Verified 03/20/17 21:16 egg AdvReac Swelling Verified 03/20/17 21:16 shellfish derived AdvReac ALLERGY Verified 03/20/17 21:16 TEST POSITIVE. Physical Exam Vitals: Vital Signs Temp Pulse Pulse Resp BP BP Pulse Ox 03/21/17 14:10 72 03/21/17 11:54 98.1 F 86 16 141/85 93 L 03/21/17 08:00 97.9 F 89 16 149/80 93 L 03/21/17 03:54 138/78 96 03/21/17 03:40 98.1 F 03/21/17 03:30 83 17 140/80 93 L 03/21/17 02:12 90 18 149/76 96 03/21/17 01:51 86 18 131/75 95 03/21/17 00:14 98 F 86 18 161/77 99 03/20/17 23:14 98.1 F 87 18 161/84 97 03/20/17 22:20 80 03/20/17 22:12 100.7 F H 89 20 168/92 97 03/20/17 21:44 78 03/20/17 21:40 77 20 179/98 100 03/20/17 21:13 20 03/20/17 20:45 100.1 F H 88 18 165/97 98 Intake and Output 03/20/17 03/21/17 03/21/17 22:59 06:59 14:59 Intake Total 340 Balance 340 Intake: Oral 340 Other: Voiding Method Toilet Weight 99.79 kg 98.5 kg PHYSICAL EXAMINATION: Patient is lying in the bed comfortably, no acute distress, awake alert and oriented.. HEENT: Normocephalic. Neck is supple. Pupils reactive. Nostrils clear. Oral cavity is moist. Ears reveal no drainage. Neck reveals no JVD, carotid bruits, or thyromegaly. CHEST EXAMINATION: Trachea is central. Symmetrical expansion. diminished breath sounds basally and mild expiratory wheezing CARDIAC: Normal S1, S2 with no gallops. No murmurs ABDOMEN: Soft. Bowel sounds normal. No organomegaly. No abdominal bruits. Extremities: reveal no edema. No clubbing or cyanosis Neurologically awake, alert, oriented x3 with well-coordinated movements. No focal deficits noted Skin: No rash or skin lesions. Psychiatric: Coperative. Nonsuicidal Musculoskeletal: No joint swelling or deformity. Normal range of motion. Results CBC & Chem 7: 03/20/17 21:09 03/20/17 21:09 Labs: Abnormal Lab Results - Last 24 Hours (Table) 03/20/17 03/20/17 03/20/17 Range/Units 21:09 21:09 21:09 WBC 12.0 H (3.8-10.6) k/uL Neutrophils # 8.1 H (1.3-7.7) k/uL D-Dimer (<0.60) mg/L FEU Creatinine 1.15 H (0.52-1.04) mg/dL Glucose 115 H (74-99) mg/dL POC Glucose (mg/dL) (75-99) mg/dL Total Creatine Kinase 155 H (30-135) U/L Ur Leukocyte Esterase (Negative) Urine WBC (0-5) /hpf 03/20/17 03/20/17 03/21/17 Range/Units 21:09 22:30 04:14 WBC (3.8-10.6) k/uL Neutrophils # (1.3-7.7) k/uL D-Dimer 0.86 H (<0.60) mg/L FEU Creatinine (0.52-1.04) mg/dL Glucose (74-99) mg/dL POC Glucose (mg/dL) (75-99) mg/dL Total Creatine Kinase 145 H (30-135) U/L Ur Leukocyte Esterase Moderate H (Negative) Urine WBC 6 H (0-5) /hpf 03/21/17 Range/Units 12:15 WBC (3.8-10.6) k/uL Neutrophils # (1.3-7.7) k/uL D-Dimer (<0.60) mg/L FEU Creatinine (0.52-1.04) mg/dL Glucose (74-99) mg/dL POC Glucose (mg/dL) 253 H (75-99) mg/dL Total Creatine Kinase (30-135) U/L Ur Leukocyte Esterase (Negative) Urine WBC (0-5) /hpf Microbiology - Last 24 Hours (Table) 03/20/17 22:30 Urine Culture - Preliminary Urine,Voided Thrombosis Risk Factor Assmnt - DVT/VTE Prophylaxis DVT/VTE Prophylaxis: Pharmacologic Prophylaxis ordered - Choose All That Apply Each Factor Represents 1 point: Age 41-60 years Other congenital or acquired thrombophilia - If yes, enter type in comment: No Thrombosis Risk Factor Assessment Total Risk Factor Score: 1 Thrombosis Risk Factor Assessment Level: Low Risk Assessment and Plan Assessment: #1 Atypical chest pain most likely musculoskeletal. 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 Serial EKGs and troponins are negative. EKG showed T-wave inversion in precordial leads.cardiology recommended 2-D echocardiogram. We will continue the breathing treatments and follow closely further recommendations with the clinical course. Prognosis is guarded. Time with Patient: Greater than 30
[2017-03-21 17:23] LABS: Glucose,Whole Blood 193 mg/dL (75-99)
[2017-03-21 17:43] LABS: Hemoglobin A1C 6.3 % (4.0-6.0)
[2017-03-21] MEDS: predniSONE 50 MG TAB PO SCH (18:28)
[2017-03-21 20:37] LABS: Glucose,Whole Blood 231 mg/dL (75-99)
[2017-03-21] MEDS ORDERED: ATORVASTATIN 20 MG TAB PO SCH (21:00)
[2017-03-22] MEDS: ACETAMINOPHEN TAB 325 MG TAB PO PRN (06:20)
[2017-03-22 07:00] LABS: Glucose,Whole Blood 185 mg/dL (75-99)
[2017-03-22 07:10] LABS: Cholesterol 187 mg/dL (<200); HDL Cholesterol 52 mg/dL (40-60); LDL Cholesterol,Calculated 110 mg/dL (0-99); Triglycerides 126 mg/dL (<150)
[2017-03-22] MEDS: IPRATROPIUM-ALBUTEROL 3 ML NEB INHALATION SCH ×2 (07:56→11:39)
[2017-03-22 08:23] VITALS: RESP 16
[2017-03-22] MEDS: AZITHROMYCIN 500 MG TAB PO SCH (08:50)
[2017-03-22] MEDS: predniSONE 50 MG TAB PO SCH (08:50)
[2017-03-22] MEDS ORDERED: ATENOLOL 25 MG TAB PO SCH (09:00)
[2017-03-22] MEDS ORDERED: FENOFIBRATE 160 MG TAB PO SCH (09:00)
[2017-03-22] MEDS ORDERED: LISINOPRIL 20 MG TAB PO SCH (09:00)
[2017-03-22] MEDS ORDERED: ASPIRIN 325 MG TAB PO SCH (09:00)
--- NOTE | 2017-03-22 10:09 | P.PN ---
Subjective Progress Note Date: 03/22/17 Mrs. Ashford is a pleasant 56-year-old female with past medical history significant for diabetes mellitus, hypertension, dyslipidemia, sleep apnea, chronic renal disease, adrenal insufficiency, pituitary tumor removed 2013, chronic bronchitis and asthma. She recently underwent cardiac catheterization with Dr. Pedraza in September of this year which revealed normal coronary arteries. This was done at the time for evaluation prior to right hip arthroplasty. She had a positive Lexiscan stress test as well as abnormal EKG with T-wave inversions in anteroseptal leads. She subsequently went on to have hip surgery in December of this year and have recovered well with no overt complications. We have been asked to see her in consultation for complaints of right sided chest pain that starts in the right mid back region and radiates around to the right chest under the breast. The pain is sharp and intermittent in nature. She has increased shortness of breath on exertion with associated palpitations. She also complains of cough recently and fever/chills. On admission she has a low- grade temp of 100.7. The pain is reproducible in the back and tender on palpation. EKG on arrival again shows T-wave inversion anteroseptal leads with sinus mechanism. Chest xray reveals changes with patchy left basilar linear atelectasis with no new acute cardiopulmonary process. CTA was performed secondary to elevated D-dimer is negative for PE or aortic dissection. Again shows atelectasis with suspicious thyroid nodule. Laboratory data reviewed, WBC 12, Hgb 13.2, plt 269, d-dimer 0.86, potassium 3.9 , magnesium 2.0, BUN 14, Cr 1.15, cardiac enzymes negative x2. Current cardiac medications include simvastatin 40 mg daily, lisinopril 40 mg daily, atenolol 25 mg daily. 03/22/2017 Mrs. Ashford is resting comfortably in bed with no further episodes of pain. EKG repeat this morning is unremarkable and cardiac enzymes are negative. LDL 110, HDL 52, triglycerides 126 with total cholesterol 187. Echocardiogram reveals preserved LV functionwith EF 55-60%, mild LVH and no pulmonary hypertension. Objective - Vital Signs Vital signs: Vital Signs Temp 97.7 F 03/22/17 08:00 Pulse 80 03/22/17 08:07 Resp 16 03/22/17 08:00 BP 159/91 03/22/17 08:00 Pulse Ox 93 L 03/22/17 08:00 Intake & Output 03/21/17 03/22/17 03/22/17 18:59 06:59 18:59 Intake Total 340 Balance 340 Intake: Oral 340 Other: Voiding Method Toilet Toilet - Exam Blood pressure 159/91 with a heart rate of 82 GENERAL: Well-appearing, well-nourished and in no acute distress. NECK: Supple without JVD or thyromegaly. LUNGS: Breath sounds clear to auscultation bilaterally. Respiration equal and unlabored. No wheezes, rales or rhonchi. HEART: Regular rate and rhythm without murmurs, rubs or gallops. S1 and S2 heard. EXTREMITIES: Normal range of motion, no edema. No clubbing or cyanosis. Peripheral pulses intact and strong. - Labs CBC & Chem 7: 03/20/17 21:09 03/20/17 21:09 Labs: Abnormal Lab Results - Last 24 Hours (Table) 03/21/17 03/21/17 03/21/17 Range/Units 09:18 12:15 17:14 POC Glucose (mg/dL) 253 H 193 H (75-99) mg/dL Hemoglobin A1c 6.3 H (4.0-6.0) % LDL Cholesterol, Calc (0-99) mg/dL 03/21/17 03/22/17 03/22/17 Range/Units 20:33 06:28 06:57 POC Glucose (mg/dL) 231 H 185 H (75-99) mg/dL Hemoglobin A1c (4.0-6.0) % LDL Cholesterol, Calc 110 H (0-99) mg/dL Microbiology - Last 24 Hours (Table) 03/20/17 21:09 Blood Culture - Preliminary Blood No Growth after 24 hours 03/20/17 22:30 Urine Culture - Preliminary Urine,Voided Assessment and Plan Assessment: ASSESSMENT 1. Chest pain, atypical with recent normal cardiac catheterization 2. Abnormal EKG with T-wave inversions in the anteroseptal leads 3. Essential hypertension 4. Dyslipidemia 5. Diabetes mellitus PLAN Blood pressures have been elevated, we will add a small dose of hydrochlorothiazide to her daily regimen. Otherwise she is stable from a cardiac perspective. Follow up with Dr. Pedraza in 2-3 weeks. Nurse Practitioner note has been reviewed, I agree with a documented findings and plan of care. Patient was seen and examined.
[2017-03-22] MEDS ORDERED: HYDROCHLOROTHIAZIDE 25 MG TAB PO SCH (10:15)
[2017-03-22 11:56] LABS: Glucose,Whole Blood 160 mg/dL (75-99)
[2017-03-22 12:31] VITALS: BP 149/84; PULSE 68; TEMP 98.4
--- NOTE | 2017-03-22 23:32 | P.DS ---
Providers Date of admission: 03/21/17 01:41 Expected date of discharge: 03/22/17 Attending physician: Anil Zuniga Consults: 03/21/17 07:50 Consult Physician Routine Consulting Provider: Courtney White Consult Reason/Comments: chest pain Do you want consulting provider notified?: Yes Primary care physician: Kita Talavera [facility] Course: Discharge diagnosis #1 Atypical chest pain most likely musculoskeletal versus asthma exacerbation. Recent cardiac catheterization showed no obstruction #2 exertional short of breath due to acute asthma exacerbation. Improved now #3 recent viral URI symptoms #4 hypertension. Uncontrolled added hydrochlorothiazide #5 diabetes type 2 #6 chronic persistent asthma #7 chronic adrenal insufficiency with internal jugular dissection #8 history of pretreated tumor surgery into than 14 #9migraine headache #9 sleep apnea #11 hypothyroidism Multiple medical problems Hospital course Mrs. Ashford is a pleasant 56-year-old female with past medical history significant for diabetes mellitus, hypertension, dyslipidemia, sleep apnea, chronic renal disease, adrenal insufficiency, pituitary tumor removed 2013, chronic persistent asthma. presented to ER with complaints of chest tightness and also sharp pain between her shoulder blades and also associated with exertional short of breath. Patient says that she has been sick with flulike symptoms 3-4 days prior and has been getting worse and short of breath. Patient denied this pain which made her come to the hospital. Otherwise patient denied any fever or chills. Patient does have cough but no sputum production. T-max is 100.7 on admission. patient does have asthma exacerbation every year and does use inhalers at home on regular basis. She recently underwent cardiac catheterization with Dr. Pedraza in September of this year which revealed normal coronary arteries. This was done at the time for evaluation prior to right hip arthroplasty. She had a positive Lexiscan stress test as well as abnormal EKG with T-wave inversions in anteroseptal leads. She subsequently went on to have hip surgery in December of this year and have recovered well with no overt complications. EKG on arrival again shows T-wave inversion anteroseptal leads with sinus mechanism. Chest xray reveals changes with patchy left basilar linear atelectasis with no new acute cardiopulmonary process. CTA was performed secondary to elevated D-dimer is negative for PE or aortic dissection. Again shows atelectasis with suspicious thyroid nodule. Patient was continued on telemetry monitoring. Serial EKGs and troponins are negative. EKG showed T-wave inversion in precordial leads.cardiology recommended 2-D echocardiogram. 2-D echo showed normal ejection fraction. And no pulmonary hypertension. continued the breathing treatments and had added steroids. Patient did improve clinically. Currently patient is stable to be discharged home. Patient will be discharged home on prednisone next 4 days and recommended to follow with primary care physician.. PHYSICAL EXAMINATION: Patient is lying in the bed comfortably, no acute distress, awake alert and oriented.. HEENT: Normocephalic. Neck is supple. Pupils reactive. Nostrils clear. Oral cavity is moist. Ears reveal no drainage. Neck reveals no JVD, carotid bruits, or thyromegaly. CHEST EXAMINATION: Trachea is central. Symmetrical expansion. Lung proctor clear to auscultation and percussion. CARDIAC: Normal S1, S2 with no gallops. No murmurs ABDOMEN: Soft. Bowel sounds normal. No organomegaly. No abdominal bruits. Extremities: reveal no edema. No clubbing or cyanosis Neurologically awake, alert, oriented x3 with well-coordinated movements. No focal deficits noted Skin: No rash or skin lesions. Psychiatric: Operative. Nonsuicidal Musculoskeletal: No joint swelling or deformity. Normal range of motion. Total time taken greater than 35 minutes including 18 minutes for counseling and coordination of care. Patient Condition at Discharge: Good Plan - Discharge Summary Discharge Rx Participant: No New Discharge Prescriptions: New Azithromycin [Zithromax] 500 mg PO DAILY #3 tab predniSONE 20 mg PO BID #10 tab Hydrochlorothiazide [Hydrodiuril] 25 mg PO DAILY #30 tab Continue Albuterol Sulfate [Ventolin HFA] 2 puff INHALATION RT-Q6H PRN PRN Reason: Shortness Of Breath Lisinopril 40 mg PO DAILY Montelukast [Singulair] 10 mg PO DAILY Atenolol [Tenormin] 25 mg PO DAILY Simvastatin [Zocor] 40 mg PO HS Fluticasone/Salmeterol [Advair 250-50 Diskus] 1 puff INHALATION RT-BID Fenofibrate 160 mg PO DAILY Omeprazole 20 mg PO DAILY Levothyroxine Sodium [Synthroid] 100 mcg PO DAILY Hydrocortisone [Cortef] 10 mg PO HS Hydrocortisone [Cortef] 20 mg PO QAM Discharge Medication List Albuterol Sulfate [Ventolin HFA] 2 puff INHALATION RT-Q6H PRN 09/06/13 [History] Atenolol [Tenormin] 25 mg PO DAILY 09/06/13 [History] Lisinopril 40 mg PO DAILY 09/06/13 [History] Montelukast [Singulair] 10 mg PO DAILY 09/06/13 [History] Simvastatin [Zocor] 40 mg PO HS 09/06/13 [History] Fluticasone/Salmeterol [Advair 250-50 Diskus] 1 puff INHALATION RT-BID 10/14/14 [History] Fenofibrate 160 mg PO DAILY 01/20/16 [History] Levothyroxine Sodium [Synthroid] 100 mcg PO DAILY 01/20/16 [History] Omeprazole 20 mg PO DAILY 01/20/16 [History] Hydrocortisone [Cortef] 10 mg PO HS 10/02/16 [History] Hydrocortisone [Cortef] 20 mg PO QAM 10/02/16 [History] Azithromycin [Zithromax] 500 mg PO DAILY #3 tab 03/21/17 [Rx] predniSONE 20 mg PO BID #10 tab 03/21/17 [Rx] Hydrochlorothiazide [Hydrodiuril] 25 mg PO DAILY #30 tab 03/22/17 [Rx] Follow up Appointment(s)/Referral(s): Lance Pedraza MD [STAFF PHYSICIAN] - 2 Weeks Kita Riggs III, MD [Primary Care Provider] - 1-2 days Discharge Disposition: HOME SELF-CARE
== END 2017-03-22 13:22 | disposition home or self-care (01) ==
LOC: EC 20:32 → 6SEL 03-21 01:41 → 3OBS 03-21 08:38
PROVIDERS: ADMIT Hospitalist; ATTEND Hospitalist
DX: R07.89 Other chest pain (principal); J45.901 Unspecified asthma with (acute) exacerbation; R79.89 Other specified abnormal findings of blood chemistry; R50.9 Fever, unspecified; R94.31 Abnormal electrocardiogram [ECG] [EKG]; I12.9 Hypertensive chronic kidney disease with stage 1 through stage 4 chronic kidney disease, or unspecified chronic kidney disease; E11.22 Type 2 diabetes mellitus with diabetic chronic kidney disease; N18.9 Chronic kidney disease, unspecified; G43.909 Migraine, unspecified, not intractable, without status migrainosus; G47.30 Sleep apnea, unspecified; E78.5 Hyperlipidemia, unspecified; M19.90 Unspecified osteoarthritis, unspecified site; E03.9 Hypothyroidism, unspecified; Z79.51 Long term (current) use of inhaled steroids; Z79.899 Other long term (current) drug therapy; Z88.6 Allergy status to analgesic agent; Z91.012 Allergy to eggs; Z91.013 Allergy to seafood; Z91.048 Other nonmedicinal substance allergy status; Z96.641 Presence of right artificial hip joint; Z87.01 Personal history of pneumonia (recurrent); Z99.89 Dependence on other enabling machines and devices; Z83.2 Family history of diseases of the blood and blood-forming organs and certain disorders involving the immune mechanism; Z82.3 Family history of stroke
CPT/HCPCS: 99285 ×2; 96374 ×2; 96375 ×3; 96361 ×9; 96376; 36415; 94640 ×5; 93005; 93306; 85379; 83880; 80061; 80053; 82550 ×2; 82553 ×2; 83735; 84484 ×2; 85025; 85610; 85730; 81001; 87040; 87086; 87502; 83036; 71020; 71275; G0378 ×2; J1200; J2930 ×2; Q9967; J7512 ×2

== ENCOUNTER 2017-04-19 21:11 | Emergency (ER) | payer MEDICAID ==
[2017-04-19] MEDS ORDERED: SODIUM CHLORIDE 0.9% 1,000 ML IV STA (21:59)
[2017-04-19] MEDS ORDERED: ONDANSETRON 4 MG/2 ML VIAL IVP STA (21:59)
[2017-04-19] MEDS ORDERED: HYDROCORTISONE SUCCINATE 100 MG/2 ML VIAL IV STA (22:00)
--- NOTE | 2017-04-19 22:02 | ED ---
General Adult HPI - General Chief complaint: Nausea/Vomiting/Diarrhea Stated complaint: Vomiting Time Seen by Provider: 04/19/17 21:20 Source: patient, RN notes reviewed Mode of arrival: ambulatory - History of Present Illness Initial comments: This is a 56-year-old female presents emergency department with past medical history significant for adrenal insufficiency. Patient comes in today stating that she started vomiting and having diarrhea 3:00 this afternoon. Patient states she has a couple family members with similar symptoms. Patient denies any fever chills per patient denies any significant abdominal pain. Patient denies any dysuria hematuria urinary frequency. Patient denies any chest pain to the breathing shortness of breath. Patient denies any lightheadedness or dizziness. Patient denies any near syncopal episode. Patient states she came in because usually with adrenal insufficiency she likes to catch it early before she has more serious problems. - Related Data Home Medications Medication Instructions Recorded Confirmed Albuterol Sulfate [Ventolin HFA] 2 puff INHALATION RT-Q6H PRN 09/06/13 04/19/17 Atenolol [Tenormin] 25 mg PO DAILY 09/06/13 04/19/17 Lisinopril 40 mg PO DAILY 09/06/13 04/19/17 Montelukast [Singulair] 10 mg PO DAILY 09/06/13 04/19/17 Simvastatin [Zocor] 40 mg PO HS 09/06/13 04/19/17 Fluticasone/Salmeterol [Advair 1 puff INHALATION RT-BID 10/14/14 04/19/17 250-50 Diskus] Fenofibrate 160 mg PO DAILY 01/20/16 04/19/17 Levothyroxine Sodium [Synthroid] 100 mcg PO DAILY 01/20/16 04/19/17 Omeprazole 20 mg PO DAILY 01/20/16 04/19/17 Hydrocortisone [Cortef] 10 mg PO HS 10/02/16 04/19/17 Hydrocortisone [Cortef] 20 mg PO [facility] 10/02/16 04/19/17 Previous Rx's Medication Instructions Recorded Hydrochlorothiazide [Hydrodiuril] 25 mg PO DAILY #30 tab 03/22/17 Allergies Allergy/AdvReac Type Severity Reaction Status Date / Time Iodine and Iodide Containing Allergy Unknown allergy Verified 04/19/17 21:39 Produc test positive for shell fish. celecoxib [From Celebrex] Allergy Wheezing Verified 04/19/17 21:39 egg AdvReac Swelling Verified 04/19/17 21:39 shellfish derived AdvReac ALLERGY Verified 04/19/17 21:39 TEST POSITIVE. Review of Systems ROS Statement: Those systems with pertinent positive or pertinent negative responses have been documented in the HPI. ROS Other: All systems not noted in ROS Statement are negative. Past Medical History Past Medical History: Asthma, Diabetes Mellitus, Hyperlipidemia, Hypertension, Osteoarthritis (OA), Pneumonia, Renal Disease, Sleep Apnea/CPAP/BIPAP, Thyroid Disorder Additional Past Medical History / Comment(s): SOB, bronchitis, adrenal insufficiency, acromegaly, diabetes-no current meds, migraines, eczema, elevated kidney function -recent labs, hemorrhoids, sciatica, arthritis R hip, back and neck, sinus problems at times History of Any Multi-Drug Resistant Organisms: None Reported Past Surgical History: Appendectomy, Breast Surgery, Hysterectomy, Orthopedic Surgery, Tonsillectomy Additional Past Surgical History / Comment(s): 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 "cyst removed from between lung and spine" Past Anesthesia/Blood Transfusion Reactions: Previous Problems w/ Anesthesia Additional Past Anesthesia/Blood Transfusion Reaction / Comment(s): "STOPPED BREATHING DURING BRONCHOSCOPY R/T TO UNKNOWN SLEEP APNEA" PER PT Past Psychological History: No Psychological Hx Reported Smoking Status: Never smoker Past Alcohol Use History: None Reported Past Drug Use History: None Reported - Past Family History Sister(s) Family Medical History: Cancer Brother(s) Family Medical History: Deep Vein Thrombosis (DVT) Father Family Medical History: Cancer, CVA/TIA, Hypertension, Skin Disorder Additional Family Medical History / Comment(s): Father of pneumonia and a brain bleed in his 80'. He also had skin cancer Mother Family Medical History: Cancer Additional Family Medical History / Comment(s): skin cancer. General Exam - General Exam Comments Initial Comments: GENERAL: Patient is well-developed and well-nourished. Patient is nontoxic and well- hydrated and is in mild distress. ENT: Neck is soft and supple. No significant lymphadenopathy is noted. Oropharynx is clear. Moist mucous membranes. Neck has full range of motion without eliciting any pain. EYES: The sclera were anicteric and conjunctiva were pink and moist. Extraocular movements were intact and pupils were equal round and reactive to light. Eyelids were unremarkable. PULMONARY: Unlabored respirations. Good breath sounds bilaterally. No audible rales rhonchi or wheezing was noted. CARDIOVASCULAR: There is a regular rate and rhythm without any murmurs gallops or rubs. ABDOMEN: Soft and nontender with normal bowel sounds. No palpable organomegaly was noted. There is no palpable pulsatile mass. SKIN: Skin is clear with no lesions or rashes and otherwise unremarkable. NEUROLOGIC: Patient is alert and oriented x3. Cranial nerves II through XII are grossly intact. Motor and sensory are also intact. Normal speech, volume and content. Symmetrical smile. MUSCULOSKELETAL: Normal extremities with adequate strength and full range of motion. LYMPHATICS: No significant lymphadenopathy is noted PSYCHIATRIC: Normal psychiatric evaluation. Normal interpersonal interactions appears functionally intact in deals appropriately with others. Course Vital Signs 04/19/17 21:22 Temperature 98.6 F Pulse Rate 87 Respiratory 16 Rate Blood Pressure 155/86 O2 Sat by Pulse 100 Oximetry Medical Decision Making - Medical Decision Making I will back in the room to reevaluate the patient she stated she was feeling much better and was no longer nauseated and in fact wanted glass of water and wanted to go home. Patient had no abdominal pain at this time. - Lab Data Result diagrams: 04/19/17 22:22 04/19/17 22:22 Lab Results 04/19/17 04/19/17 Range/Units 22:22 22:22 WBC 7.9 (3.8-10.6) k/uL RBC 5.05 (3.80-5.40) m/uL Hgb 14.7 (11.4-16.0) gm/dL Hct 45.4 (34.0-46.0) % MCV 89.9 (80.0-100.0) fL MCH 29.0 (25.0-35.0) pg MCHC 32.3 (31.0-37.0) g/dL RDW 13.5 (11.5-15.5) % Plt Count 231 (150-450) k/uL Neutrophils % 77 % Lymphocytes % 16 % Monocytes % 3 % Eosinophils % 3 % Basophils % 0 % Neutrophils # 6.1 (1.3-7.7) k/uL Lymphocytes # 1.3 (1.0-4.8) k/uL Monocytes # 0.3 (0-1.0) k/uL Eosinophils # 0.2 (0-0.7) k/uL Basophils # 0.0 (0-0.2) k/uL Sodium 144 (137-145) mmol/L Potassium 4.1 (3.5-5.1) mmol/L Chloride 105 (98-107) mmol/L Carbon Dioxide 28 (22-30) mmol/L Anion Gap 11 mmol/L BUN 20 H (7-17) mg/dL Creatinine 1.25 H (0.52-1.04) mg/dL Est GFR (MDRD) Af Amer 54 (>60 ml/min/1.73 sqM) Est GFR (MDRD) Non-Af 45 (>60 ml/min/1.73 sqM) Glucose 106 H (74-99) mg/dL Calcium 9.7 (8.4-10.2) mg/dL Total Bilirubin 0.7 (0.2-1.3) mg/dL AST 26 (14-36) U/L ALT 37 (9-52) U/L Alkaline Phosphatase 58 (38-126) U/L Total Protein 7.5 (6.3-8.2) g/dL Albumin 4.6 (3.5-5.0) g/dL Amylase 36 (30-110) U/L Lipase 133 (23-300) U/L Disposition Clinical Impression: Gastroenteritis Disposition: HOME SELF-CARE Condition: Good Instructions: Acute Nausea and Vomiting (ED) Referrals: Kita Riggs III, MD [Primary Care Provider] - 1-2 days Time of Disposition: 23:09
[2017-04-19 22:34] LABS: Basophils % (A) 0 %; Eosinophils # (A) 0.2 k/uL (0-0.7); Eosinophils % (A) 3 %; HCT 45.4 % (34.0-46.0); HGB 14.7 gm/dL (11.4-16.0); Lymphocytes # (A) 1.3 k/uL (1.0-4.8); Lymphocytes % (A) 16 %; MCHC 32.3 g/dL (31.0-37.0); MCV 89.9 fL (80.0-100.0); Mean Platelet Volume 6.9; Monocytes # (A) 0.3 k/uL (0-1.0); Monocytes % (A) 3 %; Neutrophils # (A) 6.1 k/uL (1.3-7.7); Neutrophils % (A) 77 %; Platelet Count 231 k/uL (150-450); RBC 5.05 m/uL (3.80-5.40); RDW 13.5 % (11.5-15.5); WBC 7.9 k/uL (3.8-10.6)
[2017-04-19 22:51] LABS: Albumin 4.6 g/dL (3.5-5.0); Calcium 9.7 mg/dL (8.4-10.2); Potassium 4.1 mmol/L (3.5-5.1); Total Bilirubin 0.7 mg/dL (0.2-1.3); Total Protein 7.5 g/dL (6.3-8.2)
[2017-04-19] MEDS ORDERED: ONDANSETRON 4 MG ODT STARTER PACK 2 TAB BTL PO STA (23:09)
[2017-04-19 23:39] VITALS: BP 155/84; PULSE 86; RESP 18; TEMP 98.8
== END 2017-04-19 23:23 | disposition home or self-care (01) ==
LOC: EC 21:11
DX: K52.9 Noninfective gastroenteritis and colitis, unspecified (principal); E78.5 Hyperlipidemia, unspecified; I10 Essential (primary) hypertension; E27.40 Unspecified adrenocortical insufficiency; J45.909 Unspecified asthma, uncomplicated; E07.9 Disorder of thyroid, unspecified; Z79.51 Long term (current) use of inhaled steroids; Z79.52 Long term (current) use of systemic steroids; Z79.899 Other long term (current) drug therapy; Z88.6 Allergy status to analgesic agent; Z91.012 Allergy to eggs; Z91.013 Allergy to seafood; Z91.041 Radiographic dye allergy status; Z87.01 Personal history of pneumonia (recurrent); Z87.2 Personal history of diseases of the skin and subcutaneous tissue; Z90.49 Acquired absence of other specified parts of digestive tract
CPT/HCPCS: 36415; 80053; 82150; 83690; 85025; 99284; 96374; 96375; 96361; J1720; J2405; S0119

== ENCOUNTER → 2017-11-19 | Outpatient (CLI) | payer MEDICAID ==
[2017-11-19 11:05] LABS: Albumin 4.1 g/dL (3.5-5.0); Calcium 8.6 mg/dL (8.4-10.2); Potassium 3.6 mmol/L (3.5-5.1); Total Bilirubin 0.7 mg/dL (0.2-1.3); Total Protein 6.7 g/dL (6.3-8.2)
[2017-11-19 11:13] LABS: T4, Free (Free Thyroxine) 0.61 ng/dL (0.78-2.19)
[2017-11-19 18:40] LABS: Hemoglobin A1C 6.3 % (4.0-6.0)
[2017-11-20 11:12] LABS: Growth Hormone, Human 0.2 ng/mL (<10)
== END | disposition home or self-care (01) ==
LOC: LABWHC1 10:03
PROVIDERS: ATTEND Internal Medicine
DX: E27.40 Unspecified adrenocortical insufficiency (principal); E23.0 Hypopituitarism; E03.8 Other specified hypothyroidism; E22.0 Acromegaly and pituitary gigantism; R73.03 Prediabetes
CPT/HCPCS: 36415; 80053; 82670; 83001; 83002; 83003; 83036; 84146; 84305; 84439

== ENCOUNTER → 2018-01-22 | Outpatient (CLI) | payer MEDICAID ==
--- NOTE | 2018-01-22 15:33 | XR ---
EXAMINATION TYPE: XR chest 2V DATE OF EXAM: 01/22/2018 COMPARISON: Prior chest x-ray 03/20/2017 HISTORY: Shortness of breath and cough TECHNIQUE: Frontal and lateral views of the chest are obtained. FINDINGS: There is no focal air space opacity, pleural effusion, or pneumothorax seen. Strand-like d ensities at the level of the lingula are less conspicuous may represent scarring. The cardiac silhou ette size is within normal limits. The osseous structures are intact. IMPRESSION: No acute cardiopulmonary process.
== END | disposition home or self-care (01) ==
LOC: RADXRMAIN 14:36
PROVIDERS: ATTEND Nurse Practitioner Family
DX: R06.02 Shortness of breath (principal); R05 Cough; R06.2 Wheezing
CPT/HCPCS: 71046

== ENCOUNTER → 2018-02-01 | Outpatient (CLI) | payer MEDICAID ==
[2018-02-01 18:38] LABS: Albumin 4.4 g/dL (3.80-4.90); Albumin/Globulin Ratio 2.32 (1.20-2.10); Anion Gap 6.9 mmol/L (4.00-12.00); Calcium 9.2 mg/dL (8.7-10.3); Carbon Dioxide 27.1 mmol/L (21.6-31.8); Globulin 1.9 g/dL (2.1-3.7); Potassium 4.1 mmol/L (3.5-5.5); Total Bilirubin 0.6 mg/dL (0.2-1.2); Total Protein 6.3 g/dL (6.2-8.2)
[2018-02-01 18:46] LABS: T4, Free (Free Thyroxine) 1.6 ng/dL (0.80-1.80)
[2018-02-01 19:40] LABS: Dermato. farinae IgE 0.22 kU/L; Dog Dander IgE 0.18 kU/L
[2018-02-01 19:41] LABS: Cockroach IgE <0.10 kU/L
[2018-02-01 19:42] LABS: Alternaria alternata IgE <0.10 kU/L; Birch IgE <0.10 kU/L; Maple (Box Elder) IgE <0.10 kU/L
[2018-02-01 19:43] LABS: Oak IgE <0.10 kU/L; Ragweed,Common IgE <0.10 kU/L
[2018-02-01 19:44] LABS: Red Top (Bentgrass) IgE <0.10 kU/L
== END | disposition home or self-care (01) ==
LOC: LABWHC1 11:22
PROVIDERS: ATTEND Internal Medicine
DX: E03.8 Other specified hypothyroidism (principal); E27.40 Unspecified adrenocortical insufficiency; J45.50 Severe persistent asthma, uncomplicated
CPT/HCPCS: 36415; 80053; 82785; 84439; 85008; 86003

== ENCOUNTER → 2018-08-08 | Outpatient (CLI) | payer OTHER ==
[2018-08-08 17:24] LABS: Albumin 4.5 g/dL (3.80-4.90); Albumin/Globulin Ratio 2.25 (1.60-3.17); Anion Gap 8.1 mmol/L (4.00-12.00); Calcium 9.3 mg/dL (8.7-10.3); Carbon Dioxide 25.9 mmol/L (21.6-31.8); LDL Cholesterol,Calculated 122.2 mg/dL (0.0-131.0); Potassium 4.2 mmol/L (3.5-5.5); Total Bilirubin 0.6 mg/dL (0.2-1.2); Total Protein 6.5 g/dL (6.2-8.2); VLDL Calculation 37.8 mg/dL (5.00-40.00)
[2018-08-08 17:31] LABS: T4, Free (Free Thyroxine) 1.6 ng/dL (0.80-1.80)
[2018-08-08 18:23] LABS: Hemoglobin A1C 6.5 % (4.0-6.0)
[2018-08-09 13:45] LABS: Growth Hormone, Human 0.1 ng/mL (<10)
== END | disposition home or self-care (01) ==
LOC: LABWHC1 09:15
PROVIDERS: ATTEND Internal Medicine
DX: E27.40 Unspecified adrenocortical insufficiency (principal); E22.0 Acromegaly and pituitary gigantism; E03.8 Other specified hypothyroidism; E78.5 Hyperlipidemia, unspecified; R73.03 Prediabetes
CPT/HCPCS: 36415; 80053; 80061; 83003; 83036; 84305; 84439

== ENCOUNTER → 2018-08-27 | Outpatient (CLI) | payer OTHER | END | disposition home or self-care (01) | LOC: LABWHC1 09:37 | PROVIDERS: ATTEND Internal Medicine Critical Care Medicine | DX: T78.49XD Other allergy, subsequent encounter (principal) | CPT/HCPCS: 36415; 82785 ==

== ENCOUNTER 2019-02-14 13:03 | Inpatient (IN) | payer OTHER ==
[2019-02-14 14:57] VITALS: BMI 33.6
[2019-02-14 15:17] LABS: Basophils # (A) 0.1 k/uL (0-0.2); Basophils % (A) 1 %; Eosinophils # (A) 0.4 k/uL (0-0.7); Eosinophils % (A) 4 %; HCT 40.9 % (34.0-46.0); HGB 14.2 gm/dL (11.4-16.0); Lymphocytes # (A) 2.1 k/uL (1.0-4.8); Lymphocytes % (A) 23 %; MCH 30.8 pg (25.0-35.0); MCHC 34.8 g/dL (31.0-37.0); MCV 88.6 fL (80.0-100.0); Mean Platelet Volume 7.1; Monocytes # (A) 0.4 k/uL (0-1.0); Monocytes % (A) 5 %; Neutrophils # (A) 6.1 k/uL (1.3-7.7); Neutrophils % (A) 66 %; Platelet Count 285 k/uL (150-450); RBC 4.62 m/uL (3.80-5.40); RDW 12.6 % (11.5-15.5); WBC 9.2 k/uL (3.8-10.6)
--- NOTE | 2019-02-14 15:22 | XR ---
EXAMINATION TYPE: XR chest 1V DATE OF EXAM: 02/14/2019 COMPARISON: 01/22/2018 HISTORY: Shortness of breath TECHNIQUE: Single frontal view of the chest is obtained. FINDINGS: There is no focal air space opacity, pleural effusion, or pneumothorax seen. The cardiac silhouette size is within normal limits. The osseous structures are intact. Arthropathy of the shou lders. Hyperinflation suggests COPD. IMPRESSION: No acute process.
[2019-02-14 15:27] LABS: ALT 38 U/L (9-52); AST 38 U/L (14-36); African American GFR (CKD) 70 (>60 ml/min/1.73 sqM); Albumin 4.2 g/dL (3.5-5.0); Alkaline Phosphatase 61 U/L (38-126); Anion Gap 8 mmol/L; Blood Urea Nitrogen 9 mg/dL (7-17); Calcium 9.6 mg/dL (8.4-10.2); Carbon Dioxide 24 mmol/L (22-30); Chloride 109 mmol/L (98-107); Glucose 118 mg/dL (74-99); Magnesium 1.8 mg/dL (1.6-2.3); Non-African American GFR(CKD) 61 (>60 ml/min/1.73 sqM); Potassium 4.2 mmol/L (3.5-5.1); Sodium 141 mmol/L (137-145); Total Bilirubin 0.9 mg/dL (0.2-1.3); Total Protein 7.1 g/dL (6.3-8.2)
[2019-02-14] MEDS: ALBUTEROL NEBULIZED 2.5 MG/3 ML INHALATION SCH ×3 (15:48→23:29)
[2019-02-14] MEDS: methylPREDNISolone SOD SUCCI 125 MG/2 ML VIAL IV SCH ×3 (16:55→23:46)
[2019-02-14] MEDS: INSULIN ASPART (NovoLOG) 100 UNIT/ML VIAL SQ SCH ×2 (16:57→20:55)
[2019-02-14 16:58] LABS: Glucose,Whole Blood 114 mg/dL (75-99)
[2019-02-14 16:59] LABS: T4, Free (Free Thyroxine) 1.82 ng/dL (0.78-2.19)
--- NOTE | 2019-02-14 17:28 | P.HPIM ---
History of Present Illness H&P Date: 02/14/19 Chief Complaint: Shortness of breath Patient is a 68-year-old female with a known history of asthma, diabetes type 2, chronic adrenal insufficiency on hydrocortisone at home, osteoarthritis and obstructive sleep apnea and hypothyroidism initially presented to Dr. Riggs's office with the complaints of shortness of breath and dry heaves and cough worsening for the past 2 days. Patient has been having some dry cough for the past 2 months. Patient was utilizing albuterol inhalation at home but not completely resolved. Patient says that she was also febrile with T-max 104 last night. Patient presented to PCPs office with worsening shortness of breath. Does have cough without sputum production. Patient was found to be hypoxic in the clinic. Was given breathing treatments. Patient still found to be wheezing and diminished air entry. Patient was initially transferred to the hospital for further evaluation. Patient says that she had a history of cardiac catheterization recently prior to her orthopedic surgery. Cardiac agitation was done due to abnormal EKG with T- wave inversions. Influenza negative and strep throat negative in the clinic. Chest x-ray showed no acute cardiopulmonary process. Patient has been afebrile currently. TSH less than 0.015 Review of Systems Constitutional: Subjective fever and chills. No generalized weakness or weight loss. Abdomen: Patient denied nausea vomiting and diarrhea and abdominal pain. Cardiovascular: Patient denies any chest pain or short of breath no palpitatio ns. Respiratory: Cough without sputum production and shortness of breath. Neurologic: Patient denied any numbness or tingling headache. Musculoskeletal: Patient denies any complaints of joint swelling or deformity. Skin: Negative Psychiatric: Negative Endocrine: No heat or cold intolerance. No recent weight gain. Genitourinary: No dysuria or hematuria. All other 14 point ROS negative except the above Past Medical History Past Medical History: Asthma, Diabetes Mellitus, Hyperlipidemia, Hypertension, Osteoarthritis (OA), Pneumonia, Renal Disease, Sleep Apnea/CPAP/BIPAP, Thyroid Disorder Additional Past Medical History / Comment(s): SOB, bronchitis, adrenal insufficiency, acromegaly, diabetes-no current meds, migraines, eczema, elevated kidney function -recent labs, hemorrhoids, sciatica, arthritis R hip, back and neck, sinus problems at times History of Any Multi-Drug Resistant Organisms: MRSA Date of last positivie culture/infection: 3/12/18 MDRO Source:: THIGH, LABIA Past Surgical History: Appendectomy, Breast Surgery, Hysterectomy, Orthopedic Surgery, Tonsillectomy Additional Past Surgical History / Comment(s): 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 "cyst removed from between lung and spine" Past Anesthesia/Blood Transfusion Reactions: Previous Problems w/ Anesthesia Additional Past Anesthesia/Blood Transfusion Reaction / Comment(s): "STOPPED BREATHING DURING BRONCHOSCOPY R/T TO UNKNOWN SLEEP APNEA" PER PT Past Psychological History: No Psychological Hx Reported Smoking Status: Never smoker Past Alcohol Use History: None Reported Past Drug Use History: None Reported - Past Family History Sister(s) Family Medical History: Cancer Brother(s) Family Medical History: Deep Vein Thrombosis (DVT) Father Family Medical History: Cancer, CVA/TIA, Hypertension, Skin Disorder Additional Family Medical History / Comment(s): Father of pneumonia and a brain bleed in his 80'. He also had skin cancer Mother Family Medical History: Cancer Additional Family Medical History / Comment(s): skin cancer. Medications and Allergies Home Medications Medication Instructions Recorded Confirmed Type Albuterol Sulfate [Ventolin HFA] 2 puff INHALATION RT-Q4H PRN 09/06/13 02/14/19 History Atenolol [Tenormin] 25 mg PO DAILY 09/06/13 02/14/19 History Lisinopril 40 mg PO DAILY 09/06/13 02/14/19 History Montelukast [Singulair] 10 mg PO DAILY 09/06/13 02/14/19 History Fluticasone/Salmeterol [Advair 1 puff INHALATION RT-BID 10/14/14 02/14/19 History 250-50 Diskus] Fenofibrate 160 mg PO HS 01/20/16 02/14/19 History Omeprazole 20 mg PO DAILY 01/20/16 02/14/19 History Albuterol Nebulized [Ventolin 2.5 mg INHALATION RT-Q4H PRN 02/14/19 02/14/19 History Nebulized] Atorvastatin [Lipitor] 40 mg PO HS 02/14/19 02/14/19 History Cetirizine HCl [Zyrtec] 10 mg PO DAILY 02/14/19 02/14/19 History Fexofenadine HCl 180 mg PO DAILY PRN 02/14/19 02/14/19 History Hydrocortisone 5 mg PO HS 02/14/19 02/14/19 History Hydrocortisone 15 mg PO QAM 02/14/19 02/14/19 History Levothyroxine Sodium 125 mcg PO DAILY 02/14/19 02/14/19 History Triamcinolone 0.1% Cream [Kenalog 1 applic TOPICAL BID PRN 02/14/19 02/14/19 History 0.1% Cream] Allergies Allergy/AdvReac Type Severity Reaction Status Date / Time Iodine and Iodide Containing Allergy Unknown allergy Verified 04/19/17 21:39 Produc test positive for shell fish. celecoxib [From Celebrex] Allergy Wheezing Verified 04/19/17 21:39 egg AdvReac Swelling Verified 04/19/17 21:39 shellfish derived AdvReac ALLERGY Verified 04/19/17 21:39 TEST POSITIVE. Physical Exam Vitals: Vital Signs Temp Pulse Resp BP Pulse Ox 02/14/19 14:35 97.4 F L 79 16 145/74 95 02/14/19 14:03 97.7 F 79 18 147/94 93 L Intake and Output 02/13/19 02/14/19 02/14/19 22:59 06:59 14:59 Other: Weight 97.522 kg PHYSICAL EXAMINATION: Patient is lying in the bed comfortably, no acute distress, awake alert and oriented.. HEENT: Normocephalic. Neck is supple. Pupils reactive. Nostrils clear. Oral cavity is moist. Ears reveal no drainage. Neck reveals no JVD, carotid bruits, or thyromegaly. CHEST EXAMINATION: Trachea is central. Symmetrical expansion. Bilateral diminished air entry and scattered rhonchi and wheezing. CARDIAC: Normal S1, S2 with no gallops. No murmurs ABDOMEN: Soft. Bowel sounds normal. No organomegaly. No abdominal bruits. Extremities: reveal no edema. No clubbing or cyanosis Neurologically awake, alert, oriented x3 with well-coordinated movements. No focal deficits noted Skin: No rash or skin lesions. Psychiatric: Coperative. Nonsuicidal Musculoskeletal: No joint swelling or deformity. Normal range of motion. Results CBC & Chem 7: 02/14/19 14:52 02/14/19 14:52 Thrombosis Risk Factor Assmnt - DVT/VTE Prophylaxis DVT/VTE Prophylaxis: Pharmacologic Prophylaxis ordered Assessment and Plan Assessment: Shortness of breath secondary to acute asthma exacerbation. Acute hypoxic respiratory failure secondary to asthma exacerbation hypothyroidism with low TSH and free T4 level is pending. Hypertension Hyperlipidemia Obesity with BMI 33.7 Diabetes type 2 [id number] Obstructive sleep apnea Chronic adrenal insufficiency on hydrocortisone at home Acromegaly History of migraine headaches, Hemorrhoids, sciatica, arthritis of right hip, back and neck, DVT prophylaxis with heparin subcu Plan: Patient will be continued on IV methylprednisolone 60 mg every 6 hourly along with albuterol inhalation every 4. Will be started on Pulmicort inhalation twice a day. Continue with insulin sliding scale and monitor blood sugars. Continue the pain management and follow closely. Oxygen therapy. Further recommendations based on the clinical course. GI and DVT prophylaxis. Time with Patient: Greater than 30
[2019-02-14 20:51] LABS: Glucose,Whole Blood 176 mg/dL (75-99)
[2019-02-14] MEDS: HEPARIN SODIUM,PORCINE 5,000 UNIT/ML 1 ML VIAL SQ SCH (23:46)
[2019-02-15] MEDS: ALBUTEROL NEBULIZED 2.5 MG/3 ML INHALATION SCH ×5 (03:49→20:01)
[2019-02-15] MEDS: methylPREDNISolone SOD SUCCI 125 MG/2 ML VIAL IV SCH ×3 (05:37→17:49)
[2019-02-15] MEDS: LEVOTHYROXINE 125 MCG TAB PO SCH (05:37)
[2019-02-15 07:11] LABS: Glucose,Whole Blood 209 mg/dL (75-99)
[2019-02-15] MEDS: ATORVASTATIN 40 MG TAB PO SCH (07:55)
[2019-02-15] MEDS: ATENOLOL 25 MG TAB PO SCH (07:55)
[2019-02-15] MEDS: MONTELUKAST 10 MG TAB PO SCH (07:55)
[2019-02-15] MEDS: LISINOPRIL 20 MG TAB PO SCH (07:55)
[2019-02-15] MEDS: HEPARIN SODIUM,PORCINE 5,000 UNIT/ML 1 ML VIAL SQ SCH ×2 (07:55→15:26)
[2019-02-15] MEDS: PANTOPRAZOLE 40 MG TABLET PO SCH (07:55)
[2019-02-15] MEDS: INSULIN ASPART (NovoLOG) 100 UNIT/ML VIAL SQ SCH ×4 (07:56→20:31)
[2019-02-15 11:16] LABS: Glucose,Whole Blood 257 mg/dL (75-99)
--- NOTE | 2019-02-15 16:05 | US ---
EXAMINATION TYPE: US venous doppler duplex LE DATE OF EXAM: 02/15/2019 2:48 PM COMPARISON: NONE CLINICAL HISTORY: calf pain. Bilateral mid calf ache without swelling; in hospital for asthma issues; prior PE per patient. SIDE PERFORMED: Bilateral TECHNIQUE: The lower extremity deep venous system is examined utilizing real time linear array sonog gladys with graded compression, doppler sonography and color-flow sonography. VESSELS IMAGED: Common Femoral Vein Deep Femoral Vein Greater Saphenous Vein * Femoral Vein Popliteal Vein Small Saphenous Vein * Proximal Calf Veins (* superficial vessels) Right Leg: Negative for DVT Left Leg: Echogenic wall changes noted mid Left Femoral Vein suggests chronic wall changes and non o ccluding DVT at this mid vein level. Dilated Left upper calf vein is noted, but is patent and arnie ses normally. IMPRESSION: No evidence of deep venous thrombosis in the right leg. There is evidence of some chronic deep venous thrombosis in the left leg.
[2019-02-15 17:17] LABS: Glucose,Whole Blood 253 mg/dL (75-99)
[2019-02-15] MEDS ORDERED: methylPREDNISolone SOD SUCCI 125 MG/2 ML VIAL IV STA (18:00)
[2019-02-15] MEDS ORDERED: diphenhydrAMINE 50 MG/ML 1 ML VIAL IVP STA (18:03)
[2019-02-15] MEDS ORDERED: FAMOTIDINE 20 MG/2 ML VIAL IV ONE (18:03)
--- NOTE | 2019-02-15 19:34 | CT ---
EXAMINATION TYPE: CT angio chest DATE OF EXAM: 02/15/2019 7:02 PM COMPARISON: 03/20/2017 HISTORY: hypoxia CT DLP: 450.9 mGycm Automated exposure control for dose reduction was used. CONTRAST: CTA scan of the thorax is performed with IV Contrast, patient injected with 80 mL of Isovue 370, pulm onary embolism protocol. There are 3-D post processed images.. FINDINGS: There is small subpleural reticular interstitial densities in the lungs. There is no evidence of a pu lmonary mass. There is mild atelectasis at the lung bases. There is extensive fatty infiltration of t he liver. Heart size is normal. There is no pericardial effusion. Thoracic aorta appears normal witho ut evidence of aneurysm or dissection. There is no mediastinal adenopathy. There are no hilar masses. There are small filling defect in the right lower lobe pulmonary artery and the posterior basal segm ent. There is filling defect in the left upper lobe pulmonary artery in the anterior segment. The bony thorax is intact. There is spurring in the thoracic spine. IMPRESSION: THERE IS EVIDENCE OF PULMONARY EMBOLISM IN THE RIGHT LOWER LOBE AND ALSO LEFT UPPER LOBE WITH SMALL F ILLING DEFECTS. MILD PULMONARY INTERSTITIAL FIBROSIS. MILD BASILAR PULMONARY INFILTRATES AND ATELECTASIS. THIS EXAM WAS DISCUSSED WITH CRYSTAL THE PATIENT'S NURSE ON THE FLOOR AT 7:30 PM.
[2019-02-15] MEDS ORDERED: HEPARIN SODIUM,PORCINE 10,000 UNIT/ML 1 ML VIAL IV ONE (19:38)
[2019-02-15] MEDS ORDERED: HEPARIN SODIUM,PORCINE 5,000 UNIT/ML 1 ML VIAL IV PRN (19:38)
[2019-02-15 20:10] LABS: Glucose,Whole Blood 236 mg/dL (75-99)
[2019-02-15] MEDS: HEPARIN SOD,PORK IN 0.45% NACL 25,000 UNIT in 0.45% NACL 1 250ML.BAG IV SCH (20:16)
[2019-02-15 20:25] LABS: Basophils % (A) 0 %; Eosinophils % (A) 0 %; HCT 37.5 % (34.0-46.0); HGB 13.2 gm/dL (11.4-16.0); Lymphocytes # (A) 0.8 k/uL (1.0-4.8); Lymphocytes % (A) 6 %; MCH 31.5 pg (25.0-35.0); MCHC 35.3 g/dL (31.0-37.0); MCV 89.4 fL (80.0-100.0); Mean Platelet Volume 6.9; Monocytes # (A) 0.2 k/uL (0-1.0); Monocytes % (A) 2 %; Neutrophils # (A) 12.9 k/uL (1.3-7.7); Neutrophils % (A) 92 %; Platelet Count 263 k/uL (150-450); RBC 4.19 m/uL (3.80-5.40); RDW 12.5 % (11.5-15.5)
[2019-02-15 20:42] LABS: Partial Thromboplastin Time 23.1 sec (22.0-30.0); Prothrombin Time 10.6 sec (9.0-12.0)
--- NOTE | 2019-02-15 23:52 | P.PN ---
Subjective Progress Note Date: 02/15/19 Principal diagnosis: Acute asthma exacerbation Patient is a 68-year-old female with a known history of asthma, diabetes type 2, chronic adrenal insufficiency on hydrocortisone at home, osteoarthritis and obstructive sleep apnea and hypothyroidism initially presented to Dr. Riggs's office with the complaints of shortness of breath and dry heaves and cough worsening for the past 2 days. Patient has been having some dry cough for the past 2 months. Patient was utilizing albuterol inhalation at home but not completely resolved. Patient says that she was also febrile with T-max 104 last night. Patient presented to PCPs office with worsening shortness of breath. Does have cough without sputum production. Patient was found to be hypoxic in the clinic. Was given breathing treatments. Patient still found to be wheezing and diminished air entry. Patient was initially transferred to the hospital for further evaluation. Patient says that she had a history of cardiac catheterization recently prior to her orthopedic surgery. Cardiac agitation was done due to abnormal EKG with T- wave inversions. Influenza negative and strep throat negative in the clinic. Chest x-ray showed no acute cardiopulmonary process. Patient has been afebrile currently. TSH less than 0.015 54 within normal limits 02/15/2019 Patient is currently lying in the bed but still complaining of shortness of breath and is hypoxic requiring 4 L oxygen with another cannula. Patient says that a few days ago patient had tenderness in the calf area. Lower extremity venous duplex was ordered which showed chronic DVT and not usual. CT angiogram the chest showed Evidence of pulmonary embolism with Right lower lobe and left upper lobe filling defects. Patient was started on heparin drip and pulmonary was consulted. Patient denied any cough is from production. Slightly elevated WBC count of 14.5 due to steroids. Patient has been afebrile.. Active Medications Albuterol Sulfate (Ventolin Nebulized) 2.5 mg INHALATION RT-Q4H [facility] Last Admin: 02/15/19 20:01 Dose: 2.5 mg Documented by: Atenolol (Tenormin) 25 mg PO DAILY [facility] Last Admin: 02/15/19 07:55 Dose: 25 mg Documented by: Atorvastatin Calcium (Lipitor) 40 mg PO DAILY [facility] Last Admin: 02/15/19 07:55 Dose: 40 mg Documented by: Heparin Sodium (Porcine) (Heparin) 0 unit IV PER PROTOCOL PRN; Protocol PRN Reason: Low PTT Heparin Sodium/Sodium Chloride (25,000 unit/ Sodium Chloride) 250 mls @ 17.514 mls/hr IV .[id number] [facility]; Protocol Last Admin: 02/15/19 20:16 Dose: 18 units/kg/hr, 17.514 mls/hr Documented by: Insulin Aspart (Novolog) 0 unit SQ ACHS [facility]; Protocol Last Admin: 02/15/19 20:31 Dose: 8 unit Documented by: Levothyroxine Sodium (Synthroid) 125 mcg PO DAILY@0630 [facility] Last Admin: 02/15/19 05:37 Dose: 125 mcg Documented by: Lisinopril (Zestril) 40 mg PO DAILY [facility] Last Admin: 02/15/19 07:55 Dose: 40 mg Documented by: Methylprednisolone Sodium Succinate (Solu-Medrol) 40 mg IV Q8HR [facility] Montelukast Sodium (Singulair) 10 mg PO DAILY [facility] Last Admin: 02/15/19 07:55 Dose: 10 mg Documented by: Pantoprazole Sodium (Protonix) 40 mg PO AC-BRKT [facility] Last Admin: 02/15/19 07:55 Dose: 40 mg Documented by: Objective - Vital Signs Vital signs: Vital Signs Temp 97.9 F 02/15/19 11:38 Pulse 78 02/15/19 16:10 Resp 18 02/15/19 11:38 BP 152/68 02/15/19 11:38 Pulse Ox 95 02/15/19 11:38 Intake & Output 02/14/19 02/15/19 02/15/19 18:59 06:59 18:59 Intake Total 125 800 Balance 125 800 Weight 97.522 kg 97.522 kg Intake: Oral 125 800 Other: # Voids 1 2 - Exam PHYSICAL EXAMINATION: Patient is lying in the bed comfortably, no acute distress, awake alert and oriented.. HEENT: Normocephalic. Neck is supple. Pupils reactive. Nostrils clear. Oral cavity is moist. Ears reveal no drainage. Neck reveals no JVD, carotid bruits, or thyromegaly. CHEST EXAMINATION: Trachea is central. Symmetrical expansion. Bilateral prolonged expiration. Bibasilar diminished air entry. Minimal wheezing.. CARDIAC: Normal S1, S2 with no gallops. No murmurs ABDOMEN: Soft. Bowel sounds normal. No organomegaly. No abdominal bruits. Extremities: reveal no edema. No clubbing or cyanosis Neurologically awake, alert, oriented x3 with well-coordinated movements. No focal deficits noted Skin: No rash or skin lesions. Psychiatric: Coperative. Nonsuicidal Musculoskeletal: No joint swelling or deformity. Normal range of motion. - Labs CBC & Chem 7: 02/15/19 20:09 02/14/19 14:52 Labs: Abnormal Lab Results - Last 24 Hours (Table) 02/14/19 02/15/19 02/15/19 Range/Units 20:43 07:10 11:15 POC Glucose (mg/dL) 176 H 209 H 257 H (75-99) mg/dL 02/15/19 Range/Units 17:15 POC Glucose (mg/dL) 253 H (75-99) mg/dL Assessment and Plan Assessment: Right lower lobe and left upper lobe pulmonary embolism. Shortness of breath secondary to acute asthma exacerbation. Acute hypoxic respiratory failure secondary to asthma exacerbation and PE hypothyroidism with low TSH and free T4 level is within normal limits. Hypertension Hyperlipidemia Obesity with BMI 33.7 Diabetes type 2 [id number] Obstructive sleep apnea Chronic adrenal insufficiency on hydrocortisone at home Acromegaly History of migraine headaches, Hemorrhoids, sciatica, arthritis of right hip, back and neck, DVT prophylaxis with heparin subcu Plan: Was started on heparin drip. Continue with IV methylprednisolone 60 mg every 6 hourly along with albuterol inhalation every 4. IV steroids changed to 40 mg every 8 hourly. Continue with insulin sliding scale and monitor blood sugars. Continue the pain management and follow closely. Oxygen therapy. Further recommendations based on the clinical course. GI and DVT prophylaxis. Time with Patient: Greater than 30
[2019-02-16] MEDS: methylPREDNISolone SOD SUCCI 40 MG/ML 1 ML VIAL IV SCH ×4 (00:13→23:36)
[2019-02-16] MEDS: ALBUTEROL NEBULIZED 2.5 MG/3 ML INHALATION SCH ×6 (00:21→21:14)
[2019-02-16] MEDS: LEVOTHYROXINE 125 MCG TAB PO SCH (06:07)
[2019-02-16 06:49] LABS: Basophils % (A) 0 %; Eosinophils % (A) 0 %; HCT 39.5 % (34.0-46.0); HGB 12.9 gm/dL (11.4-16.0); Lymphocytes # (A) 0.9 k/uL (1.0-4.8); Lymphocytes % (A) 6 %; MCH 29.9 pg (25.0-35.0); MCHC 32.6 g/dL (31.0-37.0); MCV 91.6 fL (80.0-100.0); Mean Platelet Volume 8.1; Monocytes # (A) 0.3 k/uL (0-1.0); Monocytes % (A) 2 %; Neutrophils # (A) 14.5 k/uL (1.3-7.7); Neutrophils % (A) 92 %; Platelet Count 247 k/uL (150-450); RBC 4.31 m/uL (3.80-5.40); RDW 12.7 % (11.5-15.5); WBC 15.7 k/uL (3.8-10.6)
[2019-02-16 07:05] LABS: Glucose,Whole Blood 283 mg/dL (75-99)
[2019-02-16] MEDS: ATENOLOL 25 MG TAB PO SCH (07:35)
[2019-02-16] MEDS: LISINOPRIL 20 MG TAB PO SCH (07:35)
[2019-02-16] MEDS: MONTELUKAST 10 MG TAB PO SCH (07:36)
[2019-02-16] MEDS: ATORVASTATIN 40 MG TAB PO SCH (07:36)
[2019-02-16] MEDS: INSULIN ASPART (NovoLOG) 100 UNIT/ML VIAL SQ SCH ×4 (07:36→21:09)
[2019-02-16] MEDS: PANTOPRAZOLE 40 MG TABLET PO SCH (07:36)
--- NOTE | 2019-02-16 11:03 | P.CNPUL ---
History of Present Illness Consult date: 02/16/19 Reason for consult: pulmonary embolism Chief complaint: shortness of breath History of present illness: this is a 68-year-old female with history of acromegaly secondary to pituitary tumor, previous craniotomy, and pituitary gland surgery, this was about 6 years ago at [facility]. 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 And has been mostly on replacement therapy. Patient is also known to have history of asthma type 2 diabetes, adrenal insufficiency, obstructive sleep apnea, hypothyroidism, presented to the hospital mostly with a few days' history of increased shortness of breath, cough, dry heaves, and described a chronic cough for the last 2 months. Patient has been using her albuterol updrafts at home, but no improvement. Patient also describes some intermittent episodes of fever supposedly she had a temp of 104 the night prior to admission. Patient was seen by her primary care physician, and she was noted to have low O2 saturation. She was given updraft treatments, she was also noted to have some wheezing and diminished air entry. Patient was directly admitted to the hospital, seen by the hospitalist on arrival, and she had a CT angiogram of the chest showing definite evidence of pulmonary embolism involving the right lower lobe and left upper lobe with small filling defects. There was also evidence of minimal fibrotic changes and possibly pulmonary infiltrates with atelectasis.venous Doppler showed evidence of chronic left femoral vein thrombosis/DVT.chest x-ray was basically unremarkable. Considering her clinical history, abnormal CT angiogram of the chest, abnormal venous Doppler, symptoms of tracheobronchitis and asthma exacerbation, patient was started on heparin, bronchodilators, antibiotics, and this consult was initiated. Slight improvement noted since admission yesterday. Denies any chest pain, denies any nausea vomiting or abdominal pain. Patient tells me that she had a previous history of deep vein thrombosis and pulmonary embolism back when she had craniotomy at [facility] 6 years ago.no family history of hypercoagulable state or thrombus embolic disease.patient denies any significant trigger factors for her present thromboembolic disease. Review of Systems Constitutional: fevers, occasional chills, no weight loss. Does have some vague aches and pains. Eyes: denies any blurred vision, no diplopia. Ears, nose, mouth and throat: denies headache, sore throat, nasal congestion. Cardiovascular: Denies chest pain, denies syncope. Respiratory: as noted in HPI. Gastrointestinal: occasional dry heaves, no vomiting, no abdominal pain, no melena, no hematemesis. Musculoskeletal:vague aches and pains, denies any deformities or any limitation of range of motion. Integumentary: denies any rashes or pruritus. Neurological: Denies numbness, Denies weakness Psychiatric: denies any symptoms of active depression or anxiety. Endocrine: history of panhypopituitarism, maintained on multiple meds for her panhypopituitarism and adrenal insufficiency. Past Medical History Past Medical History: Asthma, Diabetes Mellitus, Hyperlipidemia, Hypertension, Osteoarthritis (OA), Pneumonia, Renal Disease, Sleep Apnea/CPAP/BIPAP, Thyroid Disorder Additional Past Medical History / Comment(s): SOB, bronchitis, adrenal insufficiency, acromegaly, diabetes-no current meds, migraines, eczema, elevated kidney function -recent labs, hemorrhoids, sciatica, arthritis R hip, back and neck, sinus problems at times History of Any Multi-Drug Resistant Organisms: MRSA Date of last positivie culture/infection: 06/11/17 MDRO Source:: THIGH, LABIA Past Surgical History: Appendectomy, Breast Surgery, Hysterectomy, Orthopedic Surgery, Tonsillectomy Additional Past Surgical History / Comment(s): 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 "cyst removed from between lung and spine" Past Anesthesia/Blood Transfusion Reactions: Previous Problems w/ Anesthesia Additional Past Anesthesia/Blood Transfusion Reaction / Comment(s): "STOPPED BREATHING DURING BRONCHOSCOPY R/T TO UNKNOWN SLEEP APNEA" PER PT Past Psychological History: No Psychological Hx Reported Smoking Status: Never smoker Past Alcohol Use History: None Reported Past Drug Use History: None Reported - Past Family History Sister(s) Family Medical History: Cancer Brother(s) Family Medical History: Deep Vein Thrombosis (DVT) Additional Family Medical History / Comment(s): Parkinsons Father Family Medical History: Cancer, CVA/TIA, Hypertension, Skin Disorder Additional Family Medical History / Comment(s): Father of pneumonia and a brain bleed in his 80'. He also had skin cancer Mother Family Medical History: Cancer Additional Family Medical History / Comment(s): skin cancer. Medications and Allergies Home Medications Medication Instructions Recorded Confirmed Type Albuterol Sulfate [Ventolin HFA] 2 puff INHALATION RT-Q4H PRN 09/06/13 02/14/19 History Atenolol [Tenormin] 25 mg PO DAILY 09/06/13 02/14/19 History Lisinopril 40 mg PO DAILY 09/06/13 02/14/19 History Montelukast [Singulair] 10 mg PO DAILY 09/06/13 02/14/19 History Fluticasone/Salmeterol [Advair 1 puff INHALATION RT-BID 10/14/14 02/14/19 History 250-50 Diskus] Fenofibrate 160 mg PO HS 01/20/16 02/14/19 History Omeprazole 20 mg PO DAILY 01/20/16 02/14/19 History Albuterol Nebulized [Ventolin 2.5 mg INHALATION RT-Q4H PRN 02/14/19 02/14/19 History Nebulized] Atorvastatin [Lipitor] 40 mg PO HS 02/14/19 02/14/19 History Cetirizine HCl [Zyrtec] 10 mg PO DAILY 02/14/19 02/14/19 History Fexofenadine HCl 180 mg PO DAILY PRN 02/14/19 02/14/19 History Hydrocortisone 5 mg PO HS 02/14/19 02/14/19 History Hydrocortisone 15 mg PO QAM 02/14/19 02/14/19 History Levothyroxine Sodium 125 mcg PO DAILY 02/14/19 02/14/19 History Triamcinolone 0.1% Cream [Kenalog 1 applic TOPICAL BID PRN 02/14/19 02/14/19 History 0.1% Cream] Allergies Allergy/AdvReac Type Severity Reaction Status Date / Time Iodine and Iodide Containing Allergy Unknown allergy Verified 04/19/17 21:39 Produc test positive for shell fish. celecoxib [From Celebrex] Allergy Wheezing Verified 04/19/17 21:39 egg AdvReac Swelling Verified 04/19/17 21:39 shellfish derived AdvReac ALLERGY Verified 04/19/17 21:39 TEST POSITIVE. Physical Exam Vitals: Vital Signs Temp Pulse Pulse Resp BP Pulse Ox 02/16/19 08:23 84 02/16/19 08:13 84 02/16/19 04:29 98 F 83 18 123/70 96 02/16/19 04:19 80 02/16/19 04:02 76 02/16/19 00:34 80 02/16/19 00:21 80 02/15/19 21:00 97.7 F 77 18 121/65 95 02/15/19 20:02 82 93 L 02/15/19 16:10 78 02/15/19 16:00 78 02/15/19 12:02 88 02/15/19 11:50 88 02/15/19 11:38 97.9 F 86 18 152/68 95 Intake and Output 02/15/19 02/16/19 02/16/19 22:59 06:59 14:59 Intake Total 406.252 Balance 406.252 Intake: Intake, IV Titration 106.252 Amount Heparin Sod,Pork in 0.45% 106.252 NaCl 25,000 unit In 0.45 % NaCl 1 250ml.bag @ 18 UNITS/KG/HR 17.514 mls/hr IV .[id number] [facility] Rx#: [id number] Oral 300 Other: # Voids 1 2 Weight 97.3 kg Physical Exam: Revealed a 58-year-old female in no form of respiratory distress. Head: Atraumatic, noted to have some acromegaly features specially her mandibles. HEENT:[Neck is supple.] [No neck masses.] [No thyromegaly.] [No JVD.] Chest: [symmetrical chest expansion, diminished breath sounds at the bases, rhonchi noted on forced expiratory maneuver only.] Cardiac Exam: [Normal S1 and S2, no S3 gallop, no murmur.] Abdomen: obese,[Soft, nontender, no megaly, no rebound, no guarding, normal bowel sounds.] Extremities: [No clubbing, no edema, no cyanosis.hands are noted to be large. And again she does have acromegaly features.] Neurological Exam: alert and oriented 3.[No focal neurologic deficit.] skin: No rashes. Psychiatric: Normal mood, affect and normal mental status examination. Lymphatics: No lymphadenopathy. Results - Laboratory Findings CBC and BMP: 02/16/19 05:53 02/14/19 14:52 PT/INR, D-dimer PT 10.6 sec (9.0-12.0) 02/15/19 20:09 INR 1.0 (<1.2) 02/15/19 20:09 Abnormal lab findings: Abnormal Labs 02/14/19 02/14/19 02/14/19 14:52 16:57 20:43 WBC Neutrophils # Lymphocytes # APTT Chloride 109 H Glucose 118 H POC Glucose (mg/dL) 114 H 176 H AST 38 H TSH <0.015 L 02/15/19 02/15/19 02/15/19 07:10 11:15 17:15 WBC Neutrophils # Lymphocytes # APTT Chloride Glucose POC Glucose (mg/dL) 209 H 257 H 253 H AST TSH 02/15/19 02/15/19 02/16/19 20:08 20:09 01:21 WBC 14.0 H Neutrophils # 12.9 H Lymphocytes # 0.8 L APTT 120.3 H* Chloride Glucose POC Glucose (mg/dL) 236 H AST TSH 02/16/19 02/16/19 02/16/19 05:53 07:04 09:43 WBC 15.7 H Neutrophils # 14.5 H Lymphocytes # 0.9 L APTT 60.6 H Chloride Glucose POC Glucose (mg/dL) 283 H AST TSH - Diagnostic Findings CT scan - chest: image reviewed (as noted in HPI.) Assessment and Plan Assessment: impression: 1shortness of breath secondary to acute right sided and left sided pulmonary embolism, also secondary to acute exacerbation of bronchial asthma. And suspect some component of tracheobronchitis. 2 acute hypoxic respiratory failure secondary to above. 3 possible chronic left lower extremity deep vein thrombosis. 4 history of panhypopituitarism secondary to previous pituitary surgery 5 history of acromegaly 6 morbid obesity 7 benign essential hypertension 8 chronic renal insufficiency 9 obstructive sleep apnea syndrome 10 dyslipidemia 11 52 diabetes 12 history of hypothyroidism Recommendation: Patient is presently on heparin, and she would likely be transitioned in the next 24 hours to either Xarelto or Eliquis. Continue bronchodilators,patient is presently on albuterol updrafts 4 times a day and when necessary, Continue systemic steroids, she is on methylprednisolone at 40 mg IV push every 8 hours Continue Singulair Add Symbicort Add antibiotics in the form of Augmentin for her tracheobronchitis. We will continue to follow. Time with Patient: Greater than 30
[2019-02-16 11:27] LABS: Glucose,Whole Blood 228 mg/dL (75-99)
[2019-02-16] MEDS: AMOXIC-POT CLAV 875-125MG 1 EACH TAB PO SCH ×2 (12:22→20:22)
[2019-02-16] MEDS: HEPARIN SOD,PORK IN 0.45% NACL 25,000 UNIT in 0.45% NACL 1 250ML.BAG IV SCH (12:37)
[2019-02-16 16:34] LABS: Glucose,Whole Blood 188 mg/dL (75-99)
[2019-02-16 20:29] LABS: Glucose,Whole Blood 217 mg/dL (75-99)
[2019-02-16] MEDS: SYMBICORT 160-4.5 MCG INHALER INHALATION SCH (21:14)
[2019-02-17] MEDS: ALBUTEROL NEBULIZED 2.5 MG/3 ML INHALATION SCH ×6 (01:11→20:02)
[2019-02-17] MEDS: HEPARIN SOD,PORK IN 0.45% NACL 25,000 UNIT in 0.45% NACL 1 250ML.BAG IV SCH ×2 (05:40→17:33)
[2019-02-17] MEDS: LEVOTHYROXINE 125 MCG TAB PO SCH (06:18)
[2019-02-17 07:05] LABS: Glucose,Whole Blood 184 mg/dL (75-99)
[2019-02-17 07:24] LABS: Basophils % (A) 0 %; Eosinophils % (A) 0 %; HCT 38.6 % (34.0-46.0); HGB 12.5 gm/dL (11.4-16.0); Lymphocytes # (A) 0.7 k/uL (1.0-4.8); Lymphocytes % (A) 5 %; MCHC 32.5 g/dL (31.0-37.0); MCV 92.4 fL (80.0-100.0); Mean Platelet Volume 7.8; Monocytes # (A) 0.4 k/uL (0-1.0); Monocytes % (A) 3 %; Neutrophils # (A) 12.5 k/uL (1.3-7.7); Neutrophils % (A) 92 %; Platelet Count 230 k/uL (150-450); RBC 4.17 m/uL (3.80-5.40); RDW 12.6 % (11.5-15.5); WBC 13.6 k/uL (3.8-10.6)
[2019-02-17] MEDS: INSULIN ASPART (NovoLOG) 100 UNIT/ML VIAL SQ SCH ×4 (07:46→21:18)
[2019-02-17] MEDS: ATORVASTATIN 40 MG TAB PO SCH (07:46)
[2019-02-17] MEDS: PANTOPRAZOLE 40 MG TABLET PO SCH (07:46)
[2019-02-17] MEDS: MONTELUKAST 10 MG TAB PO SCH (07:46)
[2019-02-17] MEDS: methylPREDNISolone SOD SUCCI 40 MG/ML 1 ML VIAL IV SCH ×3 (07:46→23:59)
[2019-02-17] MEDS: LISINOPRIL 20 MG TAB PO SCH (07:46)
[2019-02-17] MEDS: ATENOLOL 25 MG TAB PO SCH (07:47)
[2019-02-17] MEDS: AMOXIC-POT CLAV 875-125MG 1 EACH TAB PO SCH ×2 (07:47→21:19)
[2019-02-17] MEDS: SYMBICORT 160-4.5 MCG INHALER INHALATION SCH ×2 (08:46→20:02)
[2019-02-17] MEDS ORDERED: LOPERAMIDE 2 MG CAP PO STA (09:26)
--- NOTE | 2019-02-17 10:43 | P.PN ---
Subjective Progress Note Date: 02/17/19 Principal diagnosis: Acute pulmonary embolism, shortness of breath this is a 68-year-old female with history of acromegaly secondary to pituitary tumor, previous craniotomy, and pituitary gland surgery, this was about 6 years ago at [facility]. 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 And has been mostly on replacement therapy. Patient is also known to have history of asthma type 2 diabetes, adrenal insufficiency, obstructive sleep apnea, hypothyroidism, presented to the hospital mostly with a few days' history of increased shortness of breath, cough, dry heaves, and described a chronic cough for the last 2 months. Patient has been using her albuterol updrafts at home, but no improvement. Patient also describes some intermittent episodes of fever supposedly she had a temp of 104 the night prior to admission. Patient was seen by her primary care physician, and she was noted to have low O2 saturation. She was given updraft treatments, she was also noted to have some wheezing and diminished air entry. Patient was directly admitted to the hospital, seen by the hospitalist on arrival, and she had a CT angiogram of the chest showing definite evidence of pulmonary embolism involving the right lower lobe and left upper lobe with small filling defects. There was also evidence of minimal fibrotic changes and possibly pulmonary infiltrates with atelectasis.venous Doppler showed evidence of chronic left femoral vein thrombosis/DVT.chest x-ray was basically unremarkable. Considering her clinical history, abnormal CT angiogram of the chest, abnormal venous Doppler, symptoms of tracheobronchitis and asthma exacerbation, patient was started on heparin, bronchodilators, antibiotics, and this consult was initiated. Slight improvement noted since admission yesterday. Denies any chest pain, denies any nausea vomiting or abdominal pain. Patient tells me that she had a previous history of deep vein thrombosis and pulmonary embolism back when she had craniotomy at [facility] 6 years ago.no family history of hypercoagulable state or thrombus embolic disease.patient denies any significant trigger factors for her present thromboembolic disease. On 02/18/2019 patient seen in follow-up on medical surgical floor. She is awake and alert, in no acute distress, she states she is feeling better and breathing easier today, oxygen was taken off this morning, she remains on heparin infusion for acute pulmonary embolism, no worsening dyspnea, no hemoptysis, no chest pain, she is on empiric antibiotics and Solu-Medrol for acute exacerbation of chronic bronchial asthma and tracheal bronchitis. No fever or chills hemodynamically patient is stable. Prescription was already sent for Xarelto to check for eligibility Objective - Vital Signs Vital signs: Vital Signs Temp 97.7 F 02/17/19 04:44 Pulse 73 02/17/19 09:02 Resp 18 02/17/19 04:44 BP 133/73 02/17/19 04:44 Pulse Ox 94 L 02/17/19 04:44 Intake & Output 02/16/19 02/17/19 02/17/19 18:59 06:59 18:59 Intake Total 126.247 248.845 30.893 Balance 126.247 248.845 30.893 Intake: Intake, IV Titration 126.247 248.845 30.893 Amount Heparin Sod,Pork in 0.45% 126.247 248.845 30.893 NaCl 25,000 unit In 0.45 % NaCl 1 250ml.bag @ 18 UNITS/KG/HR 17.514 mls/hr IV .[id number] [facility] Rx#: [id number] Other: # Voids 8 1 # Bowel Movements 8 - Exam GENERAL EXAM: Alert, very pleasant 58-year-old white female comfortable in no apparent distress. HEAD: Normocephalic/atraumatic. EYES: Normal reaction of pupils, equal size. Conjunctiva pink, sclera white. NOSE: Clear with pink turbinates. THROAT: No erythema or exudates. NECK: No masses, no JVD, no thyroid enlargement, no adenopathy. CHEST: No chest wall deformity. Symmetrical expansion. LUNGS: Diminished air entry with expiratory wheezes, and congested cough, no rhonchi or dullness. CVS: Regular rate and rhythm, normal S1 and S2, no gallops, no murmurs, no rubs ABDOMEN: Soft, nontender. No hepatosplenomegaly, normal bowel sounds, no guarding or rigidity. EXTREMITIES: No clubbing, no edema, no cyanosis, 2+ pulses and upper and lower extremities. MUSCULOSKELETAL: Muscle strength and tone normal. SPINE: No scoliosis or deformity SKIN: No rashes CENTRAL NERVOUS SYSTEM: Alert and oriented -3. No focal deficits, tone is normal in all 4 extremities. PSYCHIATRIC: Alert and oriented -3. Appropriate affect. Intact judgment and insight. - Labs CBC & Chem 7: 02/17/19 06:38 02/14/19 14:52 Labs: Abnormal Lab Results - Last 24 Hours (Table) 02/16/19 02/16/19 02/16/19 Range/Units 11:16 16:33 20:28 WBC (3.8-10.6) k/uL Neutrophils # (1.3-7.7) k/uL Lymphocytes # (1.0-4.8) k/uL APTT (22.0-30.0) sec POC Glucose (mg/dL) 228 H 188 H 217 H (75-99) mg/dL 02/17/19 02/17/19 02/17/19 Range/Units 06:38 06:38 07:03 WBC 13.6 H (3.8-10.6) k/uL Neutrophils # 12.5 H (1.3-7.7) k/uL Lymphocytes # 0.7 L (1.0-4.8) k/uL APTT 77.2 H (22.0-30.0) sec POC Glucose (mg/dL) 184 H (75-99) mg/dL Assessment and Plan Plan: 1shortness of breath secondary to acute right sided and left sided pulmonary embolism, also secondary to acute exacerbation of mild persistent bronchial asthma. And suspect some component of tracheobronchitis. 2 acute hypoxic respiratory failure secondary to above. 3 possible chronic left lower extremity deep vein thrombosis. 4 history of panhypopituitarism secondary to previous pituitary surgery 5 history of acromegaly 6 morbid obesity 7 benign essential hypertension 8 chronic renal insufficiency 9 obstructive sleep apnea syndrome 10 dyslipidemia 11 52 diabetes 12 history of hypothyroidism Plan: Continue current treatment, check eligibility for Xarelto, if eligible may transition from heparin infusion, hemodynamically she remains stable, continue with empiric antibiotics and IV steroids for acute exacerbation of asthma with tracheal bronchitis, overall patient is feeling better. Obtain echocardiogram, hemodynamically she is stable. Increase activity as tolerated, continue breathi ng treatments, will follow I performed a history & physical examination of the patient and discussed their management with my nurse practitioner, Marivel Aguila. I reviewed the nurse practitioner's note and agree with the documented findings and plan of care. Lung sounds are positive for diffuse wheezes throughout the lung proctor. The findings and the impression was discussed with the patient. I attest to the documentation by the nurse practitioner. Time with Patient: Less than 30
[2019-02-17 11:09] LABS: Glucose,Whole Blood 180 mg/dL (75-99)
--- NOTE | 2019-02-17 16:39 | P.PN ---
Subjective Progress Note Date: 02/17/19 Principal diagnosis: Acute asthma exacerbation Patient is a 68-year-old female with a known history of asthma, diabetes type 2, chronic adrenal insufficiency on hydrocortisone at home, osteoarthritis and obstructive sleep apnea and hypothyroidism initially presented to Dr. Riggs's office with the complaints of shortness of breath and dry heaves and cough worsening for the past 2 days. Patient has been having some dry cough for the past 2 months. Patient was utilizing albuterol inhalation at home but not completely resolved. Patient says that she was also febrile with T-max 104 last night. Patient presented to PCPs office with worsening shortness of breath. Does have cough without sputum production. Patient was found to be hypoxic in the clinic. Was given breathing treatments. Patient still found to be wheezing and diminished air entry. Patient was initially transferred to the hospital for further evaluation. Patient says that she had a history of cardiac catheterization recently prior to her orthopedic surgery. Cardiac agitation was done due to abnormal EKG with T- wave inversions. Influenza negative and strep throat negative in the clinic. Chest x-ray showed no acute cardiopulmonary process. Patient has been afebrile currently. TSH less than 0.015 54 within normal limits 02/15/2019 Patient is currently lying in the bed but still complaining of shortness of breath and is hypoxic requiring 4 L oxygen with another cannula. Patient says that a few days ago patient had tenderness in the calf area. Lower extremity venous duplex was ordered which showed chronic DVT and not usual. CT angiogram the chest showed Evidence of pulmonary embolism with Right lower lobe and left upper lobe filling defects. Patient was started on heparin drip and pulmonary was consulted. Patient denied any cough is from production. Slightly elevated WBC count of 14.5 due to steroids. Patient has been afebrile.. 02/17/2019 Patient is sitting up in bed in no acute distress with no acute overnight issues. Patient is currently on room air and tolerating well. Will continue to monitor closely. Patient is currently maintained on a heparin drip at this time until Xarelto is verified and covered on her insurance. Case management is working with pharmacy on cost and co-pay. Pulmonary is following. Patient will continue on empiric antibiotics as well as steroids at this time. Currently patient denies any chest pain or palpitations and states that her shortness of breath has improved. Patient has been afebrile. Patient denies any vomiting or diarrhea and has no reports of nausea at this time. Patient is tolerating diet. Patient underwent an echo today and is currently pending at this time. He should encouraged to used incentives parameter at least 10 times every hour while awake. Guarded Prognosis. Objective - Vital Signs Vital signs: Vital Signs Temp 98 F 02/17/19 14:14 Pulse 76 02/17/19 14:14 Resp 18 02/17/19 14:14 BP 143/75 02/17/19 14:14 Pulse Ox 93 L 02/17/19 14:14 Intake & Output 02/16/19 02/17/19 02/17/19 18:59 06:59 18:59 Intake Total 126.247 248.845 30.893 Balance 126.247 248.845 30.893 Intake: Intake, IV Titration 126.247 248.845 30.893 Amount Heparin Sod,Pork in 0.45% 126.247 248.845 30.893 NaCl 25,000 unit In 0.45 % NaCl 1 250ml.bag @ 18 UNITS/KG/HR 17.514 mls/hr IV .[id number] [facility] Rx#: [id number] Other: # Voids 8 1 2 # Bowel Movements 8 - Exam Patient is sitting up in the bed comfortably, no acute distress, awake alert and oriented.. HEENT: Normocephalic. Neck is supple. Pupils reactive. Nostrils clear. Oral cavity is moist. Ears reveal no drainage. Neck reveals no JVD, carotid bruits, or thyromegaly. CHEST EXAMINATION: Trachea is central. Symmetrical expansion. Bilateral prolonged expiration. Bibasilar diminished air entry. Minimal wheezing noted on expiration. CARDIAC: Normal S1, S2 with no gallops. No murmurs ABDOMEN: Soft. Bowel sounds normal. No organomegaly. No abdominal bruits. Extremities: reveal no edema. No clubbing or cyanosis Neurologically awake, alert, oriented x3 with well-coordinated movements. No focal deficits noted Skin: No rash or skin lesions. Psychiatric: Cooperative. Non-suicidal Musculoskeletal: No joint swelling or deformity. Normal range of motion. - Labs CBC & Chem 7: 02/17/19 06:38 02/14/19 14:52 Labs: Abnormal Lab Results - Last 24 Hours (Table) 02/16/19 02/16/1902/17/19 Range/Units 16:33 20:28 06:38 WBC 13.6 H (3.8-10.6) k/uL Neutrophils # 12.5 H (1.3-7.7) k/uL Lymphocytes # 0.7 L (1.0-4.8) k/uL APTT (22.0-30.0) sec POC Glucose (mg/dL) 188 H 217 H (75-99) mg/dL 02/17/19 02/17/19 02/17/19 Range/Units 06:38 07:03 11:07 WBC (3.8-10.6) k/uL Neutrophils # (1.3-7.7) k/uL Lymphocytes # (1.0-4.8) k/uL APTT 77.2 H (22.0-30.0) sec POC Glucose (mg/dL) 184 H 180 H (75-99) mg/dL Assessment and Plan Assessment: Right lower lobe and left upper lobe pulmonary embolism. Shortness of breath secondary to acute asthma exacerbation. Acute hypoxic respiratory failure secondary to asthma exacerbation and PE hypothyroidism with low TSH and free T4 level is within normal limits. Hypertension Hyperlipidemia Obesity with BMI 33.7 Diabetes type 2 [id number] Obstructive sleep apnea Chronic adrenal insufficiency on hydrocortisone at home Acromegaly History of migraine headaches, Hemorrhoids, sciatica, arthritis of right hip, back and neck, DVT prophylaxis with heparin drip Recommendations and discussion: Recommend to continue current medications, management, and symptomatic treatment. Patient is currently maintained on IV heparin until verification and cost of Xarelto is determined. Pulmonary is following. On CT patient was found to have PEs of the right and left lung along with a DVT of the left lower extremity. Patient will continue on IV antibiotics along with steroids and inhalational treatments at this time. Working with the nursing staff and increasing activity and monitoring for possible home O2 eval. Case management is following. Prescription was provided for nebulizer at this time. Guarded prognosis. Further recommendations to follow. Possible discharge in 24-48 hours.
[2019-02-17 17:07] LABS: Glucose,Whole Blood 161 mg/dL (75-99)
[2019-02-17 20:20] LABS: Glucose,Whole Blood 278 mg/dL (75-99)
[2019-02-17 22:00] VITALS: RESP 16
[2019-02-18] MEDS: ALBUTEROL NEBULIZED 2.5 MG/3 ML INHALATION SCH ×4 (00:27→12:46)
[2019-02-18] MEDS: HEPARIN SOD,PORK IN 0.45% NACL 25,000 UNIT in 0.45% NACL 1 250ML.BAG IV SCH (03:49)
[2019-02-18] MEDS: LEVOTHYROXINE 125 MCG TAB PO SCH (06:01)
[2019-02-18 06:59] LABS: Glucose,Whole Blood 210 mg/dL (75-99)
[2019-02-18] MEDS: AMOXIC-POT CLAV 875-125MG 1 EACH TAB PO SCH (07:51)
[2019-02-18] MEDS: PANTOPRAZOLE 40 MG TABLET PO SCH (07:51)
[2019-02-18] MEDS: LISINOPRIL 20 MG TAB PO SCH (07:52)
[2019-02-18] MEDS: ATORVASTATIN 40 MG TAB PO SCH (07:52)
[2019-02-18] MEDS: INSULIN ASPART (NovoLOG) 100 UNIT/ML VIAL SQ SCH ×2 (07:52→12:27)
[2019-02-18] MEDS: MONTELUKAST 10 MG TAB PO SCH (07:52)
[2019-02-18] MEDS: ATENOLOL 25 MG TAB PO SCH (07:52)
[2019-02-18] MEDS: methylPREDNISolone SOD SUCCI 40 MG/ML 1 ML VIAL IV SCH (07:53)
[2019-02-18 08:18] LABS: Basophils % (A) 0 %; Eosinophils % (A) 0 %; Lymphocytes # (A) 0.7 k/uL (1.0-4.8); Lymphocytes % (A) 7 %; MCH 30.4 pg (25.0-35.0); MCHC 33.3 g/dL (31.0-37.0); MCV 91.3 fL (80.0-100.0); Mean Platelet Volume 7.6; Monocytes # (A) 0.3 k/uL (0-1.0); Monocytes % (A) 3 %; Neutrophils # (A) 9.4 k/uL (1.3-7.7); Neutrophils % (A) 89 %; Platelet Count 235 k/uL (150-450); RBC 4.27 m/uL (3.80-5.40); RDW 12.5 % (11.5-15.5); WBC 10.6 k/uL (3.8-10.6)
[2019-02-18] MEDS: SYMBICORT 160-4.5 MCG INHALER INHALATION SCH (09:23)
[2019-02-18] MEDS ORDERED: RIVAROXABAN 15 MG TAB PO SCH (10:45)
--- NOTE | 2019-02-18 11:27 | P.PN ---
Subjective Progress Note Date: 02/18/19 Principal diagnosis: Acute pulmonary embolism, shortness of breath this is a 68-year-old female with history of acromegaly secondary to pituitary tumor, previous craniotomy, and pituitary gland surgery, this was about 6 years ago at [facility]. 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 And has been mostly on replacement therapy. Patient is also known to have history of asthma type 2 diabetes, adrenal insufficiency, obstructive sleep apnea, hypothyroidism, presented to the hospital mostly with a few days' history of increased shortness of breath, cough, dry heaves, and described a chronic cough for the last 2 months. Patient has been using her albuterol updrafts at home, but no improvement. Patient also describes some intermittent episodes of fever supposedly she had a temp of 104 the night prior to admission. Patient was seen by her primary care physician, and she was noted to have low O2 saturation. She was given updraft treatments, she was also noted to have some wheezing and diminished air entry. Patient was directly admitted to the hospital, seen by the hospitalist on arrival, and she had a CT angiogram of the chest showing definite evidence of pulmonary embolism involving the right lower lobe and left upper lobe with small filling defects. There was also evidence of minimal fibrotic changes and possibly pulmonary infiltrates with atelectasis.venous Doppler showed evidence of chronic left femoral vein thrombosis/DVT.chest x-ray was basically unremarkable. Considering her clinical history, abnormal CT angiogram of the chest, abnormal venous Doppler, symptoms of tracheobronchitis and asthma exacerbation, patient was started on heparin, bronchodilators, antibiotics, and this consult was initiated. Slight improvement noted since admission yesterday. Denies any chest pain, denies any nausea vomiting or abdominal pain. Patient tells me that she had a previous history of deep vein thrombosis and pulmonary embolism back when she had craniotomy at [facility] 6 years ago.no family history of hypercoagulable state or thrombus embolic disease.patient denies any significant trigger factors for her present thromboembolic disease. On 02/17/2019 patient seen in follow-up on medical surgical floor. She is awake and alert, in no acute distress, she states she is feeling better and breathing easier today, oxygen was taken off this morning, she remains on heparin infusion for acute pulmonary embolism, no worsening dyspnea, no hemoptysis, no chest pain, she is on empiric antibiotics and Solu-Medrol for acute exacerbation of chronic bronchial asthma and tracheal bronchitis. No fever or chills hemodynamically patient is stable. Prescription was already sent for Xarelto to check for eligibility. On 02/18/2019 patient is seen in follow-up on medical surgical floor. Breathing is improving, lung sounds are positive for a few end expiratory wheezes, no significant cough or congestion, she is on room air, no compressive chest pain, she remains on heparin infusion for pulmonary embolism and lower extremity DVT she has been approved for Xarelto. Objective - Vital Signs Vital signs: Vital Signs Temp 98.1 F 02/18/19 05:00 Pulse 80 02/18/19 09:36 Resp 16 02/18/19 05:00 BP 147/79 02/18/19 05:00 Pulse Ox 92 L 02/18/19 05:00 Intake & Output 02/17/19 02/18/19 02/18/19 18:59 06:59 18:59 Intake Total 30.893 1399.107 Balance 30.893 1399.107 Intake: Intake, IV Titration 30.893 219.107 Amount Heparin Sod,Pork in 0.45% 30.893 219.107 NaCl 25,000 unit In 0.45 % NaCl 1 250ml.bag @ 18 UNITS/KG/HR 17.514 mls/hr IV .[id number] [facility] Rx#: [id number] Oral 1180 Other: # Voids 2 2 - Exam GENERAL EXAM: Alert, very pleasant 58-year-old white female comfortable in no apparent distress. HEAD: Normocephalic/atraumatic. EYES: Normal reaction of pupils, equal size. Conjunctiva pink, sclera white. NOSE: Clear with pink turbinates. THROAT: No erythema or exudates. NECK: No masses, no JVD, no thyroid enlargement, no adenopathy. CHEST: No chest wall deformity. Symmetrical expansion. LUNGS: Diminished air entry with expiratory wheezes, and congested cough, no rhonchi or dullness. CVS: Regular rate and rhythm, normal S1 and S2, no gallops, no murmurs, no rubs ABDOMEN: Soft, nontender. No hepatosplenomegaly, normal bowel sounds, no guarding or rigidity. EXTREMITIES: No clubbing, no edema, no cyanosis, 2+ pulses and upper and lower extremities. MUSCULOSKELETAL: Muscle strength and tone normal. SPINE: No scoliosis or deformity SKIN: No rashes CENTRAL NERVOUS SYSTEM: Alert and oriented -3. No focal deficits, tone is normal in all 4 extremities. PSYCHIATRIC: Alert and oriented -3. Appropriate affect. Intact judgment and insight. - Labs CBC & Chem 7: 02/18/19 07:22 02/14/19 14:52 Labs: Abnormal Lab Results - Last 24 Hours (Table) 02/17/19 02/17/19 02/17/19 Range/Units 13:57 17:05 20:19 Neutrophils # (1.3-7.7) k/uL Lymphocytes # (1.0-4.8) k/uL APTT 61.5 H (22.0-30.0) sec POC Glucose (mg/dL) 161 H 278 H (75-99) mg/dL 02/18/19 02/18/19 02/18/19 Range/Units 06:58 07:22 07:22 Neutrophils # 9.4 H (1.3-7.7) k/uL Lymphocytes # 0.7 L (1.0-4.8) k/uL APTT 55.2 H (22.0-30.0) sec POC Glucose (mg/dL) 210 H (75-99) mg/dL Assessment and Plan Plan: 1shortness of breath secondary to acute right sided and left sided pulmonary embolism, also secondary to acute exacerbation of mild persistent bronchial asthma. And suspect some component of tracheobronchitis. 2 acute hypoxic respiratory failure secondary to above. 3 possible chronic left lower extremity deep vein thrombosis. 4 history of panhypopituitarism secondary to previous pituitary surgery 5 history of acromegaly 6 morbid obesity 7 benign essential hypertension 8 chronic renal insufficiency 9 obstructive sleep apnea syndrome 10 dyslipidemia 11 52 diabetes 12 history of hypothyroidism Plan: Will transition patient to Xarelto, will stop heparin infusion. Hemodynamically stable, echocardiogram results are pending, no acute events overnight, breathing is improving, patient is on room air, no significant cough or congestion, increase activity as tolerated, may be considered for discharge home today. I performed a history & physical examination of the patient and discussed their management with my nurse practitioner, Marivel Aguila. I reviewed the nurse practitioner's note and agree with the documented findings and plan of care. Lung sounds are positive for diffuse wheezes throughout the lung proctor. The findings and the impression was discussed with the patient. I attest to the documentation by the nurse practitioner. Time with Patient: Less than 30
[2019-02-18 11:37] VITALS: BP 156/84; TEMP 98
[2019-02-18 11:40] LABS: Glucose,Whole Blood 215 mg/dL (75-99)
--- NOTE | 2019-02-18 11:56 | ECHOF ---
Referral Reason:pulmonary embolism MEASUREMENTS -------- HEIGHT: 170.2 cm WEIGHT: 97.1 kg BP: 133/73 RVIDd: 3.3 cm (< 3.3) IVSd: 1.5 cm (0.6 - 1.1) LVIDd: 5.2 cm (3.9 - 5.3) LVPWd: 1.4 cm (0.6 - 1.1) IVSs: 1.5 cm LVIDs: 3.6 cm LVPWs: 1.7 cm LAESV Index (A-L): 25.17 ml/m Ao Diam: 2.9 cm (2.0 - 3.7) AV Cusp: 2.0 cm (1.5 - 2.6) LA Diam: 4.7 cm (2.7 - 3.8) MV EXCURSION: 16.144 mm (> 18.000) MV EF SLOPE: 61 mm/s (70 - 150) EPSS: 0.9 cm MV E Ghanshyam: 0.97 m/s MV DecT: 206 ms MV A Ghanshyam: 0.75 m/s MV E/A Ratio: 1.28 RAP: 5.00 mmHg RVSP: 18.14 mmHg FINDINGS -------- Sinus rhythm. This was a technically adequate study. The left ventricular size is normal. There is moderate concentric left ventricular hypertrophy. O verall left ventricular systolic function is normal with, an EF between 55 - 60 %. The diastolic fi lling pattern is normal for the age of the patient 12.45. The right ventricle is mildly enlarged. Normal LA size by volume 22+/-6 ml/m2. The right atrium was not well visualized. Interatrial and interventricular septum intact. The aortic valve is trileaflet and appears structurally normal. There is no evidence of aortic regu rgitation. There is no evidence of aortic stenosis. Mild mitral regurgitation is present. Mild tricuspid regurgitation present. There is no evidence of pulmonary hypertension. The right v entricular systolic pressure, as measured by Doppler, is 18.14mmHg. There is no pulmonic regurgitation present. The aortic root size is normal. IVC Not well visulized. There is no pericardial effusion. CONCLUSIONS -------- 1. Sinus rhythm. 2. This was a technically adequate study. 3. The left ventricular size is normal. 4. There is moderate concentric left ventricular hypertrophy. 5. Overall left ventricular systolic function is normal with, an EF between 55 - 60 %. 6. The diastolic filling pattern is normal for the age of the patient 12.45 7. The right ventricle is mildly enlarged. 8. Normal LA size by volume 22+/-6 ml/m2. 9. The right atrium was not well visualized. 10. Interatrial and interventricular septum intact. 11. The aortic valve is trileaflet and appears structurally normal. 12. There is no evidence of aortic regurgitation. 13. There is no evidence of aortic stenosis. 14. Mild mitral regurgitation is present. 15. Mild tricuspid regurgitation present. 16. There is no evidence of pulmonary hypertension. 17. The right ventricular systolic pressure, as measured by Doppler, is 18.14mmHg. 18. There is no pulmonic regurgitation present. 19. The aortic root size is normal. 20. IVC Not well visulized. 21. There is no pericardial effusion. COMMUNITY EDUCATION COORDINATOR: Elizabeth Le RDCS
[2019-02-18 12:59] VITALS: PULSE 80
--- NOTE | 2019-02-18 16:23 | P.DS ---
Providers Date of admission: 02/14/19 13:44 Expected date of discharge: 02/18/19 Attending physician: Augusta Wolf Consults: 02/15/19 17:48 Consult Physician Routine Consulting Provider: John Dumont Consult Reason/Comments: hypoxia, asthma exacerbation Do you want consulting provider notified?: Yes Primary care physician: Kita Riggs Hospital Course: Final diagnosis Right lower lobe and left upper lobe pulmonary embolism. Shortness of breath secondary to acute asthma exacerbation. Acute hypoxic respiratory failure secondary to asthma exacerbation and PE hypothyroidism Hypertension Hyperlipidemia Obesity with BMI 33.7 Diabetes type 2 [id number] Obstructive sleep apnea Chronic adrenal insufficiency Acromegaly History of migraine headaches Hemorrhoids, sciatica, arthritis of right hip, back and neck DVT prophylaxis Discharge disposition Patient is being discharged in a stable condition with guarded prognosis to home and will follow-up with Dr. Riggs her PCP in the outpatient setting upon discharge. Patient will also follow-up with pulmonary in one week. Patient was started on Xarelto starter pack and will continue at this time. Total time taken is 35 minutes. History of present illness This is a 58-year-old female with a known history of asthma and was recently at the primary care provider office with worsening shortness of breath and after receiving multiple breathing treatments patient's oxygen saturations continue to be low. Patient was transferred to [facility] and admitted for an asthma exacerbation was being closely monitored. Pulmonary was following. Patient underwent a CTA of the chest and was found to have right lower lobe and left upper lobe pulmonary embolism and also underwent a Doppler study showing a DVT of the left leg and was initiated on a heparin drip. During hospitalization patient continued to require oxygen via nasal cannula and was evaluated for home O2 and did not qualify. Patient shortness of breath improved and is currently maintaining the high 90s oxygen saturation on room air at this time. Currently patient's condition is stable with much improvement and would like to go home today. Patient will be started on Xarelto and will continue in the outpatient setting. Patient will follow up with pulmonary in 1-2 weeks as discussed and scheduled. Patient underwent an echo showing overall left ventricular systolic function is normal with an EF between 55 and 60%. Currently patient denies any chest pain, shortness of breath, or palpitations. Patient has been afebrile. Patient denies any nausea or vomiting and has been tolerating diet. Patient was also given a prescription to obtain a nebulizer from [facility]. Guarded prognosis. On exam vital signs are stable. Temp is 98F, pulse is 68, respirations are 16, blood pressure is 156/84, oxygen saturation is 94% on room air. Cardio S1, S2 are present. Respiratory system shows diminished breath sounds at the bases with a few scattered crackles noted. Abdomen is soft and nontender. Nervous system shows no focal deficits and gait is steady. Please refer to medication reconciliation sheet for a list of medications. Patient Condition at Discharge: Fair Plan - Discharge Summary Discharge Rx Participant: No New Discharge Prescriptions: New Rivaroxaban [Xarelto Starter Pack] 15 mg PO DIRECTED 30 Days #1 pack Amoxic-Pot Clav 875-125Mg [Augmentin 875-125] 1 each PO Q12HR 7 Days #14 tab Budesonide-Formot 160-4.5 Mcg [Symbicort 160-4.5 Mcg Inhaler] 2 puff INHALATION RT-BID 30 Days #1 puff Continue Albuterol Sulfate [Ventolin HFA] 2 puff INHALATION RT-Q4H PRN PRN Reason: Shortness Of Breath Lisinopril 40 mg PO DAILY Montelukast [Singulair] 10 mg PO DAILY Atenolol [Tenormin] 25 mg PO DAILY Fluticasone/Salmeterol [Advair 250-50 Diskus] 1 puff INHALATION RT-BID Fenofibrate 160 mg PO HS Omeprazole 20 mg PO DAILY Triamcinolone 0.1% Cream [Kenalog 0.1% Cream] 1 applic TOPICAL BID PRN PRN Reason: ECZEMA Levothyroxine Sodium 125 mcg PO DAILY Fexofenadine HCl 180 mg PO DAILY PRN PRN Reason: Allergy Symptoms Cetirizine HCl [Zyrtec] 10 mg PO DAILY Atorvastatin [Lipitor] 40 mg PO HS Hydrocortisone 15 mg PO QAM Hydrocortisone 5 mg PO HS Albuterol Nebulized [Ventolin Nebulized] 2.5 mg INHALATION RT-Q4H PRN 30 Days #120 neb PRN Reason: Shortness Of Breath Discharge Medication List Albuterol Sulfate [Ventolin HFA] 2 puff INHALATION RT-Q4H PRN 09/06/13 [History] Atenolol [Tenormin] 25 mg PO DAILY 09/06/13 [History] Lisinopril 40 mg PO DAILY 09/06/13 [History] Montelukast [Singulair] 10 mg PO DAILY 09/06/13 [History] Fluticasone/Salmeterol [Advair 250-50 Diskus] 1 puff INHALATION RT-BID 10/14/14 [History] Fenofibrate 160 mg PO HS 01/20/16 [History] Omeprazole 20 mg PO DAILY 01/20/16 [History] Atorvastatin [Lipitor] 40 mg PO HS 02/14/19 [History] Cetirizine HCl [Zyrtec] 10 mg PO DAILY 02/14/19 [History] Fexofenadine HCl 180 mg PO DAILY PRN 02/14/19 [History] Hydrocortisone 5 mg PO HS 02/14/19 [History] Hydrocortisone 15 mg PO QAM 02/14/19 [History] Levothyroxine Sodium 125 mcg PO DAILY 02/14/19 [History] Triamcinolone 0.1% Cream [Kenalog 0.1% Cream] 1 applic TOPICAL BID PRN 02/14/19 [History] Rivaroxaban [Xarelto Starter Pack] 15 mg PO DIRECTED 30 Days #1 pack 02/17/19 [Rx] Albuterol Nebulized [Ventolin Nebulized] 2.5 mg INHALATION RT-Q4H PRN 30 Days #120 neb 02/18/19 [Rx] Amoxic-Pot Clav 875-125Mg [Augmentin 875-125] 1 each PO Q12HR 7 Days #14 tab 02/18/19 [Rx] Budesonide-Formot 160-4.5 Mcg [Symbicort 160-4.5 Mcg Inhaler] 2 puff INHALATION RT-BID 30 Days #1 puff 02/18/19 [Rx] Follow up Appointment(s)/Referral(s): Kita Riggs III, MD [Primary Care Provider] - 02/24/19 10:00 am Suzan Pedraza MD [STAFF PHYSICIAN] - 03/07/19 9:00 am Patient Instructions/Handouts: Albuterol (By breathing), Amoxicillin/Clavulanate Potassium (By mouth), Budesonide/Formoterol (By breathing), Rivaroxaban (By mouth), Asthma (DC) Activity/Diet/Wound Care/Special Instructions: Please call [employer] once home to arrange delivery of nebulizer machine - [phone] [place] copay is $35/month. Use $10/month copay card and Nancy at [facility] will use free first month coupon at discharge. Activity limited until follow up continue current diet Continue with antibiotics until finished Discharge Disposition: HOME SELF-CARE
--- NOTE | 2019-02-20 09:44 | P.PN ---
Subjective Progress Note Date: 02/16/19 Principal diagnosis: Acute asthma exacerbation Patient is a 68-year-old female with a known history of asthma, diabetes type 2, chronic adrenal insufficiency on hydrocortisone at home, osteoarthritis and obstructive sleep apnea and hypothyroidism initially presented to Dr. Riggs's office with the complaints of shortness of breath and dry heaves and cough worsening for the past 2 days. Patient has been having some dry cough for the past 2 months. Patient was utilizing albuterol inhalation at home but not completely resolved. Patient says that she was also febrile with T-max 104 last night. Patient presented to PCPs office with worsening shortness of breath. Does have cough without sputum production. Patient was found to be hypoxic in the clinic. Was given breathing treatments. Patient still found to be wheezing and diminished air entry. Patient was initially transferred to the hospital for further evaluation. Patient says that she had a history of cardiac catheterization recently prior to her orthopedic surgery. Cardiac agitation was done due to abnormal EKG with T- wave inversions. Influenza negative and strep throat negative in the clinic. Chest x-ray showed no acute cardiopulmonary process. Patient has been afebrile currently. TSH less than 0.015 54 within normal limits 02/15/2019 Patient is currently lying in the bed but still complaining of shortness of breath and is hypoxic requiring 4 L oxygen with another cannula. Patient says that a few days ago patient had tenderness in the calf area. Lower extremity venous duplex was ordered which showed chronic DVT and not usual. CT angiogram the chest showed Evidence of pulmonary embolism with Right lower lobe and left upper lobe filling defects. Patient was started on heparin drip and pulmonary was consulted. Patient denied any cough is from production. Slightly elevated WBC count of 14.5 due to steroids. Patient has been afebrile.. 02/16/2090 Patient says that her breathing is slightly easier compared to yesterday. Still requiring oxygen via nasal cannula but requirement is coming down to 2 L now. Currently being continued on heparin drip. Still having expiratory wheeze. On IV steroids and breathing treatments. Pulmonary is following. Otherwise patient has been afebrile. No nausea vomiting or abdominal pain. No chest pain. No other acute overnight issues. Active Medications Albuterol Sulfate (Ventolin Nebulized) 2.5 mg INHALATION RT-Q4H [facility] Last Admin: 02/15/19 20:01 Dose: 2.5 mg Documented by: Atenolol (Tenormin) 25 mg PO DAILY [facility] Last Admin: 02/15/19 07:55 Dose: 25 mg Documented by: Atorvastatin Calcium (Lipitor) 40 mg PO DAILY [facility] Last Admin: 02/15/19 07:55 Dose: 40 mg Documented by: Heparin Sodium (Porcine) (Heparin) 0 unit IV PER PROTOCOL PRN; Protocol PRN Reason: Low PTT Heparin Sodium/Sodium Chloride (25,000 unit/ Sodium Chloride) 250 mls @ 17.514 mls/hr IV .[id number] [facility]; Protocol Last Admin: 02/15/19 20:16 Dose: 18 units/kg/hr, 17.514 mls/hr Documented by: Insulin Aspart (Novolog) 0 unit SQ ACHS [facility]; Protocol Last Admin: 02/15/19 20:31 Dose: 8 unit Documented by: Levothyroxine Sodium (Synthroid) 125 mcg PO DAILY@0630 [facility] Last Admin: 02/15/19 05:37 Dose: 125 mcg Documented by: Lisinopril (Zestril) 40 mg PO DAILY [facility] Last Admin: 02/15/19 07:55 Dose: 40 mg Documented by: Methylprednisolone Sodium Succinate (Solu-Medrol) 40 mg IV Q8HR [facility] Montelukast Sodium (Singulair) 10 mg PO DAILY [facility] Last Admin: 02/15/19 07:55 Dose: 10 mg Documented by: Pantoprazole Sodium (Protonix) 40 mg PO -BRKFST [facility] Last Admin: 02/15/19 07:55 Dose: 40 mg Documented by: Objective - Vital Signs Vital signs: Vital Signs Temp 98.8 F 02/16/19 11:30 Pulse 84 02/16/19 15:42 Resp 17 02/16/19 11:30 BP 147/82 02/16/19 11:30 Pulse Ox 95 02/16/19 11:30 Intake & Output 02/15/19 02/16/19 02/16/19 18:59 06:59 18:59 Intake Total 800 406.252 126.247 Balance 800 406.252 126.247 Weight 97.522 kg 97.3 kg Intake: Intake, IV Titration 106.252 126.247 Amount Heparin Sod,Pork in 0.45% 106.252 126.247 NaCl 25,000 unit In 0.45 % NaCl 1 250ml.bag @ 18 UNITS/KG/HR 17.514 mls/hr IV .[id number] [facility] Rx#: [id number] Oral 800 300 Other: # Voids 2 2 - Exam PHYSICAL EXAMINATION: Patient is lying in the bed comfortably, no acute distress, awake alert and oriented.. HEENT: Normocephalic. Neck is supple. Pupils reactive. Nostrils clear. Oral cavity is moist. Ears reveal no drainage. Neck reveals no JVD, carotid bruits, or thyromegaly. CHEST EXAMINATION: Trachea is central. Symmetrical expansion. Bilateral expiratory wheeze and improved air entry.. CARDIAC: Normal S1, S2 with no gallops. No murmurs ABDOMEN: Soft. Bowel sounds normal. No organomegaly. No abdominal bruits. Extremities: reveal no edema. No clubbing or cyanosis Neurologically awake, alert, oriented x3 with well-coordinated movements. No focal deficits noted Skin: No rash or skin lesions. Psychiatric: Coperative. Nonsuicidal Musculoskeletal: No joint swelling or deformity. Normal range of motion. - Labs CBC & Chem 7: 02/18/19 07:22 02/14/19 14:52 Labs: Abnormal Lab Results - Last 24 Hours (Table) 02/15/19 02/15/19 02/15/19 Range/Units 17:15 20:08 20:09 WBC 14.0 H (3.8-10.6) k/uL Neutrophils # 12.9 H (1.3-7.7) k/uL Lymphocytes # 0.8 L (1.0-4.8) k/uL APTT (22.0-30.0) sec POC Glucose (mg/dL) 253 H 236 H (75-99) mg/dL 02/16/19 02/16/19 02/16/19 Range/Units 01:21 05:53 07:04 WBC 15.7 H (3.8-10.6) k/uL Neutrophils # 14.5 H (1.3-7.7) k/uL Lymphocytes # 0.9 L (1.0-4.8) k/uL APTT 120.3 H* (22.0-30.0) sec POC Glucose (mg/dL) 283 H (75-99) mg/dL 02/16/19 02/16/19 02/16/19 Range/Units 09:43 11:16 16:33 WBC (3.8-10.6) k/uL Neutrophils # (1.3-7.7) k/uL Lymphocytes # (1.0-4.8) k/uL APTT 60.6 H (22.0-30.0) sec POC Glucose (mg/dL) 228 H 188 H (75-99) mg/dL Assessment and Plan Assessment: Right lower lobe and left upper lobe pulmonary embolism. Shortness of breath secondary to acute asthma exacerbation. Acute hypoxic respiratory failure secondary to asthma exacerbation and PE hypothyroidism with low TSH and free T4 level is within normal limits. Hypertension Hyperlipidemia Obesity with BMI 33.7 Diabetes type 2 [id number] Obstructive sleep apnea Chronic adrenal insufficiency on hydrocortisone at home Acromegaly History of migraine headaches, Hemorrhoids, sciatica, arthritis of right hip, back and neck, DVT prophylaxis with heparin subcu Plan: Continue with heparin drip. Patient will be started on oral anticoagulants in the next 24 hours. Patient is still hypoxic Continue with IV methylprednisolone 60 mg every 6 hourly along with albuterol inhalation every 4. IV steroids changed to 40 mg every 8 hourly. Continue with insulin sliding scale and monitor blood sugars. Continue the pain management and follow closely. Oxygen therapy. Further recommendations based on the clinical course. GI and DVT prophylaxis. Time with Patient: Greater than 30
== END 2019-02-18 13:25 | disposition home or self-care (01) | DRG 175 ==
LOC: 3NMEDONC 13:44
PROVIDERS: ADMIT Internal Medicine; ATTEND Internal Medicine
DX: I26.99 Other pulmonary embolism without acute cor pulmonale (principal); J96.01 Acute respiratory failure with hypoxia; I82.402 Acute embolism and thrombosis of unspecified deep veins of left lower extremity; J45.901 Unspecified asthma with (acute) exacerbation; E27.40 Unspecified adrenocortical insufficiency; E23.0 Hypopituitarism; N18.9 Chronic kidney disease, unspecified; I12.9 Hypertensive chronic kidney disease with stage 1 through stage 4 chronic kidney disease, or unspecified chronic kidney disease; G47.33 Obstructive sleep apnea (adult) (pediatric); E22.0 Acromegaly and pituitary gigantism; G43.909 Migraine, unspecified, not intractable, without status migrainosus; E11.22 Type 2 diabetes mellitus with diabetic chronic kidney disease; E03.9 Hypothyroidism, unspecified; E78.5 Hyperlipidemia, unspecified; E66.01 Morbid (severe) obesity due to excess calories; T38.0X5A Adverse effect of glucocorticoids and synthetic analogues, initial encounter; Z68.33 Body mass index [BMI] 33.0-33.9, adult; Z79.4 Long term (current) use of insulin; Z79.890 Hormone replacement therapy; Z79.899 Other long term (current) drug therapy; Z80.8 Family history of malignant neoplasm of other organs or systems; Z82.0 Family history of epilepsy and other diseases of the nervous system; Z82.49 Family history of ischemic heart disease and other diseases of the circulatory system; Z86.711 Personal history of pulmonary embolism; Z86.718 Personal history of other venous thrombosis and embolism; Z90.710 Acquired absence of both cervix and uterus; Z90.721 Acquired absence of ovaries, unilateral
CPT/HCPCS: 71045; 71275; 80053; 82272; 83735; 83880; 84439; 84443; 85025; 85610; 85730; 93306; 93970; 94640; 94760

== ENCOUNTER 2019-02-21 15:11 | Emergency (ER) | payer OTHER ==
[2019-02-21 15:20] VITALS: BP 138/83; PULSE 89; RESP 20; TEMP 98
--- NOTE | 2019-02-21 15:52 | ED ---
General Adult HPI - General Chief complaint: Skin/Abscess/Foreign Body Stated complaint: Possible allergic reaction to new medicine Time Seen by Provider: 02/21/19 15:30 Source: patient, RN notes reviewed, old records reviewed Mode of arrival: ambulatory Limitations: no limitations - History of Present Illness Initial comments: 58 year old female with recent admission for PE and asthma exacerbation, with use of steroids and discharged 2 days. She presents today for rash over abdomen, breasts, inner thigh. She reports that it is itchy and eryhtematous and patchy. Patient reports she has had this rash before. She is initially concerned it is related to new medication from blood thinner. - Related Data Home Medications Medication Instructions Recorded Confirmed Albuterol Sulfate [Ventolin HFA] 2 puff INHALATION RT-Q4H PRN 09/06/13 02/14/19 Atenolol [Tenormin] 25 mg PO DAILY 09/06/13 02/14/19 Lisinopril 40 mg PO DAILY 09/06/13 02/14/19 Montelukast [Singulair] 10 mg PO DAILY 09/06/13 02/14/19 Fluticasone/Salmeterol [Advair 1 puff INHALATION RT-BID 10/14/14 02/14/19 250-50 Diskus] Fenofibrate 160 mg PO HS 01/20/16 02/14/19 Omeprazole 20 mg PO DAILY 01/20/16 02/14/19 Atorvastatin [Lipitor] 40 mg PO HS 02/14/19 02/14/19 Cetirizine HCl [Zyrtec] 10 mg PO DAILY 02/14/19 02/14/19 Fexofenadine HCl 180 mg PO DAILY PRN 02/14/19 02/14/19 Hydrocortisone 5 mg PO HS 02/14/19 02/14/19 Hydrocortisone 15 mg PO QAM 02/14/19 02/14/19 Levothyroxine Sodium 125 mcg PO DAILY 02/14/19 02/14/19 Triamcinolone 0.1% Cream [Kenalog 1 applic TOPICAL BID PRN 02/14/19 02/14/19 0.1% Cream] Previous Rx's Medication Instructions Recorded Rivaroxaban [Xarelto Starter Pack] 15 mg PO DIRECTED 30 Days #1 02/17/19 pack Albuterol Nebulized [Ventolin 2.5 mg INHALATION RT-Q4H PRN 30 02/18/19 Nebulized] Days #120 neb Amoxic-Pot Clav 875-125Mg 1 each PO Q12HR 7 Days #14 tab 02/18/19 [Augmentin 875-125] Budesonide-Formot 160-4.5 Mcg 2 puff INHALATION RT-BID 30 Days 02/18/19 [Symbicort 160-4.5 Mcg Inhaler] #1 puff Fluconazole [Diflucan] 150 mg PO ONCE #3 tab 02/21/19 Nystatin 100,000 Unit/gm Powd 1 applic TOPICAL BID #60 gm 02/21/19 [Mycostatin Powder] Allergies Allergy/AdvReac Type Severity Reaction Status Date / Time Iodine and Iodide Containing Allergy Unknown allergy Verified 02/21/19 15:20 Produc test positive for shell fish. celecoxib [From Celebrex] Allergy Wheezing Verified 02/21/19 15:20 egg AdvReac Swelling Verified 02/21/19 15:20 shellfish derived AdvReac ALLERGY Verified 02/21/19 15:20 TEST POSITIVE. Review of Systems ROS Statement: Those systems with pertinent positive or pertinent negative responses have been documented in the HPI. ROS Other: All systems not noted in ROS Statement are negative. Past Medical History Past Medical History: Asthma, Diabetes Mellitus, Hyperlipidemia, Hypertension, Osteoarthritis (OA), Pneumonia, Renal Disease, Sleep Apnea/CPAP/BIPAP, Thyroid Disorder Additional Past Medical History / Comment(s): SOB, bronchitis, adrenal insufficiency, acromegaly, diabetes-no current meds, migraines, eczema, elevated kidney function -recent labs, hemorrhoids, sciatica, arthritis R hip, back and neck, sinus problems at times History of Any Multi-Drug Resistant Organisms: MRSA Date of last positivie culture/infection: 06/11/17 MDRO Source:: THIGH, LABIA Past Surgical History: Appendectomy, Breast Surgery, Hysterectomy, Orthopedic Surgery, Tonsillectomy Additional Past Surgical History / Comment(s): 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 "cyst removed from between lung and spine" Past Anesthesia/Blood Transfusion Reactions: Previous Problems w/ Anesthesia Additional Past Anesthesia/Blood Transfusion Reaction / Comment(s): "STOPPED BREATHING DURING BRONCHOSCOPY R/T TO UNKNOWN SLEEP APNEA" PER PT Past Psychological History: No Psychological Hx Reported Smoking Status: Never smoker Past Alcohol Use History: None Reported Past Drug Use History: None Reported - Past Family History Sister(s) Family Medical History: Cancer Brother(s) Family Medical History: Deep Vein Thrombosis (DVT) Additional Family Medical History / Comment(s): Parkinsons Father Family Medical History: Cancer, CVA/TIA, Hypertension, Skin Disorder Additional Family Medical History / Comment(s): Father of pneumonia and a brain bleed in his 80'. He also had skin cancer Mother Family Medical History: Cancer Additional Family Medical History / Comment(s): skin cancer. General Exam - General Exam Comments Initial Comments: 58 year old female, no distress Limitations: no limitations General appearance: alert, in no apparent distress Head exam: Present: atraumatic, normocephalic, normal inspection Eye exam: Present: normal appearance, PERRL, EOMI. Absent: scleral icterus, conjunctival injection, periorbital swelling ENT exam: Present: normal exam, mucous membranes moist, other (erythematous or opharynx,white exudate consistent with thrush. ) Neck exam: Present: normal inspection. Absent: tenderness, meningismus, lymphadenopathy Respiratory exam: Present: normal lung sounds bilaterally. Absent: respiratory distress, wheezes, rales, rhonchi, stridor Cardiovascular Exam: Present: regular rate, normal rhythm, normal heart sounds. Absent: systolic murmur, diastolic murmur, rubs, gallop, clicks Neurological exam: Present: alert, oriented X3, CN II-XII intact Psychiatric exam: Present: normal affect, normal mood Skin exam: Present: warm (d), rash (large area over chest, abdomen of raised beefy red erythmeatous rash between folds of skin, and similiar rash behind leg and buttock. Consistent with cadida intertrigo. ) Course Vital Signs 02/21/19 15:17 Temperature 98 F Pulse Rate 89 Respiratory 20 Rate Blood Pressure 138/83 O2 Sat by Pulse 96 Oximetry Medical Decision Making - Medical Decision Making 58 year old female presents with rash consistent with be intertrigo. Patient placed on topical nystatin powder to keep area dry and oral diflucan. She has follow up with PCP on Sunday. Discussed she may need further treatment with more diflucan due to extent of rash. Disposition Clinical Impression: Candidiasis, intertrigo Disposition: HOME SELF-CARE Condition: Good Instructions (If sedation given, give patient instructions): Yeast Infection (ED) Additional Instructions: Advised to keep skin clean and dry. Apply the powder over the area as well as take oral fluconazole for the next 3 days. Follow-up with her primary care doctor. Prescriptions: Fluconazole [Diflucan] 150 mg PO ONCE #3 tab Nystatin 100,000 Unit/gm Powd [Mycostatin Powder] 1 applic TOPICAL BID #60 gm Is patient prescribed a controlled substance at d/c from ED?: No Referrals: Kita Riggs III, MD [Primary Care Provider] - 1-2 days Time of Disposition: 15:51
== END 2019-02-21 16:00 | disposition home or self-care (01) ==
LOC: EC 15:11
DX: B37.2 Candidiasis of skin and nail (principal); J45.909 Unspecified asthma, uncomplicated; E11.9 Type 2 diabetes mellitus without complications; E78.5 Hyperlipidemia, unspecified; I10 Essential (primary) hypertension; G47.30 Sleep apnea, unspecified; E07.9 Disorder of thyroid, unspecified; Z79.899 Other long term (current) drug therapy; Z79.51 Long term (current) use of inhaled steroids; Z79.890 Hormone replacement therapy; Z88.6 Allergy status to analgesic agent; Z91.048 Other nonmedicinal substance allergy status; Z91.012 Allergy to eggs; Z91.013 Allergy to seafood; Z99.89 Dependence on other enabling machines and devices
CPT/HCPCS: 99283

== ENCOUNTER 2019-03-05 13:52 | Emergency (ER) | payer OTHER ==
[2019-03-05] MEDS ORDERED: SODIUM CHLORIDE 0.9% 500 ML 500 ML IV STA (14:13)
[2019-03-05] MEDS ORDERED: ACETAMINOPHEN TAB 325 MG TAB PO STA (14:14)
[2019-03-05] MEDS ORDERED: IPRATROPIUM-ALBUTEROL 3 ML NEB INHALATION STA (14:14)
--- NOTE | 2019-03-05 14:43 | ED ---
General Adult HPI - General Chief complaint: Shortness of Breath Stated complaint: SOB, Fever Time Seen by Provider: 03/05/19 14:03 Source: patient, RN notes reviewed, old records reviewed Mode of arrival: ambulatory Limitations: no limitations - History of Present Illness Initial comments: 58-year-old female patient presents emergency department for chief complaint of shortness of breath and fever for 3 days. Patient pmhx significant for type 2 diabetes, asthma, patient was admitted on 02/14 to the hospital for possible asthma exacerbation, during that stay she was found to have a pulmonary embolism. Patient has been taking her xaralto as directed. Patient also reports that she has been having some left-sided chest pain. Describes it has been constant. Dull in nature. Also reports a nonproductive cough. Has been using her breathing treatments at home with minimal improvement. Not currently on any steroids. Reports some mild throat discomfort. Denies any other complaints. Systemic: Pt denies fatigue, fever/chills, rash. Pt denies weakness, night sweats, weight loss. Neuro: Pt denies headache, visual disturbances, syncope or pre-syncope. HEENT: Pt denies ocular discharge or irritation, otalgia, rhinorrhea, pharyngitis or notable lymphadenopathy. Cardiopulmonary: Pt denies chest pain, SOB, heart palpitations, dyspnea on exertion. Abdominal/GI: Pt denies abdominal pain, n/v/d. : Pt denies dysuria, burning w/ urination, frequency/urgency. Denies new onset urinary or bowel incontinence. MSK: Pt denies myalgia, loss of strength or function in extremities. Neuro: Pt denies new onset weakness, paresthesias. - Related Data Home Medications Medication Instructions Recorded Confirmed Albuterol Sulfate [Ventolin HFA] 2 puff INHALATION RT-Q4H PRN 09/06/13 02/14/19 Atenolol [Tenormin] 25 mg PO DAILY 09/06/13 02/14/19 Lisinopril 40 mg PO DAILY 09/06/13 02/14/19 Montelukast [Singulair] 10 mg PO DAILY 09/06/13 02/14/19 Fluticasone/Salmeterol [Advair 1 puff INHALATION RT-BID 10/14/14 02/14/19 250-50 Diskus] Fenofibrate 160 mg PO HS 01/20/16 02/14/19 Omeprazole 20 mg PO DAILY 01/20/16 02/14/19 Atorvastatin [Lipitor] 40 mg PO HS 02/14/19 02/14/19 Cetirizine HCl [Zyrtec] 10 mg PO DAILY 02/14/19 02/14/19 Fexofenadine HCl 180 mg PO DAILY PRN 02/14/19 02/14/19 Hydrocortisone 5 mg PO HS 02/14/19 02/14/19 Hydrocortisone 15 mg PO QAM 02/14/19 02/14/19 Levothyroxine Sodium 125 mcg PO DAILY 02/14/19 02/14/19 Triamcinolone 0.1% Cream [Kenalog 1 applic TOPICAL BID PRN 02/14/19 02/14/19 0.1% Cream] Previous Rx's Medication Instructions Recorded Rivaroxaban [Xarelto Starter Pack] 15 mg PO DIRECTED 30 Days #1 02/17/19 pack Albuterol Nebulized [Ventolin 2.5 mg INHALATION RT-Q4H PRN 30 02/18/19 Nebulized] Days #120 neb Amoxic-Pot Clav 875-125Mg 1 each PO Q12HR 7 Days #14 tab 02/18/19 [Augmentin 875-125] Budesonide-Formot 160-4.5 Mcg 2 puff INHALATION RT-BID 30 Days 02/18/19 [Symbicort 160-4.5 Mcg Inhaler] #1 puff Fluconazole [Diflucan] 150 mg PO ONCE #3 tab 02/21/19 Nystatin 100,000 Unit/gm Powd 1 applic TOPICAL BID #60 gm 02/21/19 [Mycostatin Powder] Albuterol Inhaler [Ventolin Hfa 1 - 2 puff INHALATION Q4-6H PRN #1 03/05/19 Inhaler] inhaler Levofloxacin [Levaquin] 750 mg PO DAILY 4 Days tab 03/05/19 predniSONE 50 mg PO DAILY #5 tab 03/05/19 Allergies Allergy/AdvReac Type Severity Reaction Status Date / Time Iodine and Iodide Containing Allergy Unknown allergy Verified 03/05/19 14:02 Produc test positive for shell fish. celecoxib [From Celebrex] Allergy Wheezing Verified 03/05/19 14:02 egg AdvReac Swelling Verified 03/05/19 14:02 shellfish derived AdvReac ALLERGY Verified 03/05/19 14:02 TEST POSITIVE. Review of Systems ROS Statement: Those systems with pertinent positive or pertinent negative responses have been documented in the HPI. ROS Other: All systems not noted in ROS Statement are negative. Past Medical History Past Medical History: Asthma, Diabetes Mellitus, Hyperlipidemia, Hypertension, Osteoarthritis (OA), Pneumonia, Renal Disease, Sleep Apnea/CPAP/BIPAP, Thyroid Disorder Additional Past Medical History / Comment(s): SOB, bronchitis, adrenal insufficiency, acromegaly, diabetes-no current meds, migraines, eczema, eleva ana kidney function -recent labs, hemorrhoids, sciatica, arthritis R hip, back and neck, sinus problems at times History of Any Multi-Drug Resistant Organisms: MRSA Date of last positivie culture/infection: 06/11/17 MDRO Source:: THIGH, LABIA Past Surgical History: Appendectomy, Breast Surgery, Hysterectomy, Orthopedic Surgery, Tonsillectomy Additional Past Surgical History / Comment(s): 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 "cyst removed from between lung and spine" Past Anesthesia/Blood Transfusion Reactions: Previous Problems w/ Anesthesia Additional Past Anesthesia/Blood Transfusion Reaction / Comment(s): "STOPPED BREATHING DURING BRONCHOSCOPY R/T TO UNKNOWN SLEEP APNEA" PER PT Past Psychological History: No Psychological Hx Reported Smoking Status: Never smoker Past Alcohol Use History: None Reported Past Drug Use History: None Reported - Past Family History Sister(s) Family Medical History: Cancer Brother(s) Family Medical History: Deep Vein Thrombosis (DVT) Additional Family Medical History / Comment(s): Parkinsons Father Family Medical History: Cancer, CVA/TIA, Hypertension, Skin Disorder Additional Family Medical History / Comment(s): Father of pneumonia and a brain bleed in his 80'. He also had skin cancer Mother Family Medical History: Cancer Additional Family Medical History / Comment(s): skin cancer. General Exam - General Exam Comments Initial Comments: Constitutional: NAD, AOX3, Pt has pleasant affect. HEENT: NC/AT, trachea midline, neck supple, no lymphadenopathy. Posterior pharynx non erythematous, without exudates. External ears appear normal, without discharge. Mucous membranes moist. Eyes PERRLA, EOM intact. There is no scleral icterus. No pallor noted. Cardiopulmonary: RRR, no murmurs, rubs or gallops, no JVD noted. Mild wheezing noted in anterior lung proctor. No peripheral edema. Abdominal exam: Abdomen soft and non-distended. Abdomen non-tender to palpation in all 4 quadrants. Bowel sounds active in LLQ. No hepatosplenomegaly. No ecchymosis Neuro: CN II-XII grossly intact. No nuchal rigidity. No raccon eyes, no barrett sign, no hemotympanum. No cervical spinal tenderness. MSK: No posterior calf tenderness bilaterally, homans sign negative bilaterally. Posterior tibialis and radial pulse +2 bilaterally. Sensation intact in upper and lower extremities. Full active ROM in upper and lower extremities, 5/5 stregnth. Limitations: no limitations Course Vital Signs 03/05/19 03/05/19 03/05/19 13:59 14:44 15:15 Temperature 100.9 F H Pulse Rate 101 H 92 93 Respiratory 22 18 Rate Blood Pressure 160/100 156/93 O2 Sat by Pulse 94 L 95 Oximetry 03/05/19 03/05/19 15:26 16:06 Temperature 97.9 F Pulse Rate 94 98 Respiratory 16 Rate Blood Pressure 136/95 O2 Sat by Pulse 94 L Oximetry Medical Decision Making - Medical Decision Making 58-year-old female patient presents emergency department for chief complaint of shortness of breath and fever for 3 days. Patient pmhx significant for type 2 diabetes, asthma, patient was admitted on 02/14 to the hospital for possible asthma exacerbation, during that stay she was found to have a pulmonary embolism. Patient has been taking her xaralto as directed. Patient also reports that she has been having some left-sided chest pain. Describes it has been constant. Dull in nature. Also reports a nonproductive cough. Has been using her breathing treatments at home with minimal improvement. Not currently on any steroids. Reports some mild throat discomfort. Denies any other complaints. Patient will signs displayed mild fever, very mild tachycardia, pulse ox patient of 94. Stable at discharge. Physical exam revealed wheezing in anterior lung proctor. Resolved after breathing treatment. Laboratory inve stigations revealed noncompressive CBC. CMP revealed normal coagulation studies, negative d-dimer. CMP revealed mildly elevated transaminitis. No right upper quadrant tenderness. Troponin is negative. UA negative, influenza negative. Chest x-ray displayed retrocardiac opacity likely atelectasis or pneumonia. Soft tissue neck displayed possible enlarged thyroid. EKG unchanged from prior. Patient will be discharged with Levaquin. Also discharged with burst steroid treatment and albuterol inhaler. Will follow up with primary care provider tomorrow and will return to ER if condition worsens. Case discussed with Dr. Cody. - Lab Data Result diagrams: 03/05/19 14:40 03/05/19 14:40 Lab Results 03/05/19 03/05/19 03/05/19 Range/Units 14:25 14:40 14:40 WBC 9.1 (3.8-10.6) k/uL RBC 4.70 (3.80-5.40) m/uL Hgb 14.4 (11.4-16.0) gm/dL Hct 41.3 (34.0-46.0) % MCV 87.9 D (80.0-100.0) fL MCH 30.6 (25.0-35.0) pg MCHC 34.8 (31.0-37.0) g/dL RDW 12.8 (11.5-15.5) % Plt Count 184 (150-450) k/uL Neutrophils % 68 % Lymphocytes % 22 % Monocytes % 4 % Eosinophils % 4 % Basophils % 0 % Neutrophils # 6.3 (1.3-7.7) k/uL Lymphocytes # 2.0 (1.0-4.8) k/uL Monocytes # 0.4 (0-1.0) k/uL Eosinophils # 0.3 (0-0.7) k/uL Basophils # 0.0 (0-0.2) k/uL PT (9.0-12.0) sec INR (<1.2) APTT (22.0-30.0) sec D-Dimer (<0.60) mg/L FEU Sodium 138 (137-145) mmol/L Potassium 3.5 (3.5-5.1) mmol/L Chloride 104 (98-107) mmol/L Carbon Dioxide 26 (22-30) mmol/L Anion Gap 8 mmol/L BUN 10 (7-17) mg/dL Creatinine 0.99 (0.52-1.04) mg/dL Est GFR (CKD-EPI)AfAm 74 (>60 ml/min/1.73 sqM) Est GFR (CKD-EPI)NonAf 64 (>60 ml/min/1.73 sqM) Glucose 101 H (74-99) mg/dL Calcium 9.0 (8.4-10.2) mg/dL Magnesium 1.3 L (1.6-2.3) mg/dL Total Bilirubin 1.6 H (0.2-1.3) mg/dL AST 40 H (14-36) U/L ALT 58 H (9-52) U/L Alkaline Phosphatase 88 (38-126) U/L Troponin I (0.000-0.034) ng/mL Total Protein 7.0 (6.3-8.2) g/dL Albumin 4.2 (3.5-5.0) g/dL Lipase (23-300) U/L Urine Color Yellow Urine Appearance Clear (Clear) Urine pH 8.5 H (5.0-8.0) Ur Specific [place] 1.015 (1.001-1.035) Urine Protein Negative (Negative) Urine Glucose (UA) Negative (Negative) Urine Ketones Negative (Negative) Urine Blood Negative (Negative) Urine Nitrite Negative (Negative) Urine Bilirubin Negative (Negative) Urine Urobilinogen <2.0 (<2.0) mg/dL Ur Leukocyte Esterase Trace H (Negative) Urine RBC 1 (0-5) /hpf Urine WBC 3 (0-5) /hpf Ur Squamous Epith Cells 1 (0-4) /hpf Urine Bacteria Rare H (None) /hpf Hyaline Casts 1 (0-2) /lpf Urine Mucus Rare H (None) /hpf Influenza Type A RNA (Not Detectd) Influenza Type B (PCR) (Not Detectd) 03/05/19 03/05/19 03/05/19 Range/Units 14:40 14:40 14:40 WBC (3.8-10.6) k/uL RBC (3.80-5.40) m/uL Hgb (11.4-16.0) gm/dL Hct (34.0-46.0) % MCV (80.0-100.0) fL MCH (25.0-35.0) pg MCHC (31.0-37.0) g/dL RDW (11.5-15.5) % Plt Count (150-450) k/uL Neutrophils % % Lymphocytes % % Monocytes % % Eosinophils % % Basophils % % Neutrophils # (1.3-7.7) k/uL Lymphocytes # (1.0-4.8) k/uL Monocytes # (0-1.0) k/uL Eosinophils # (0-0.7) k/uL Basophils # (0-0.2) k/uL PT 10.9 (9.0-12.0) sec INR 1.0 (<1.2) APTT 28.0 (22.0-30.0) sec D-Dimer 0.38 (<0.60) mg/L FEU Sodium (137-145) mmol/L Potassium (3.5-5.1) mmol/L Chloride (98-107) mmol/L Carbon Dioxide (22-30) mmol/L Anion Gap mmol/L BUN (7-17) mg/dL Creatinine (0.52-1.04) mg/dL Est GFR (CKD-EPI)AfAm (>60 ml/min/1.73 sqM) Est GFR (CKD-EPI)NonAf (>60 ml/min/1.73 sqM) Glucose (74-99) mg/dL Calcium (8.4-10.2) mg/dL Magnesium (1.6-2.3) mg/dL Total Bilirubin (0.2-1.3) mg/dL AST (14-36) U/L ALT (9-52) U/L Alkaline Phosphatase (38-126) U/L Troponin I <0.012 (0.000-0.034) ng/mL Total Protein (6.3-8.2) g/dL Albumin (3.5-5.0) g/dL Lipase (23-300) U/L Urine Color Urine Appearance (Clear) Urine pH (5.0-8.0) Ur Specific [place] (1.001-1.035) Urine Protein (Negative) Urine Glucose (UA) (Negative) Urine Ketones (Negative) Urine Blood (Negative) Urine Nitrite (Negative) Urine Bilirubin (Negative) Urine Urobilinogen (<2.0) mg/dL Ur Leukocyte Esterase (Negative) Urine RBC (0-5) /hpf Urine WBC (0-5) /hpf Ur Squamous Epith Cells (0-4) /hpf Urine Bacteria (None) /hpf Hyaline Casts (0-2) /lpf Urine Mucus (None) /hpf Influenza Type A RNA Not Detected (Not Detectd) Influenza Type B (PCR) Not Detected (Not Detectd) 03/05/19 Range/Units 14:40 WBC (3.8-10.6) k/uL RBC (3.80-5.40) m/uL Hgb (11.4-16.0) gm/dL Hct (34.0-46.0) % MCV (80.0-100.0) fL MCH (25.0-35.0) pg MCHC (31.0-37.0) g/dL RDW (11.5-15.5) % Plt Count (150-450) k/uL Neutrophils % % Lymphocytes % % Monocytes % % Eosinophils % % Basophils % % Neutrophils # (1.3-7.7) k/uL Lymphocytes # (1.0-4.8) k/uL Monocytes # (0-1.0) k/uL Eosinophils # (0-0.7) k/uL Basophils # (0-0.2) k/uL PT (9.0-12.0) sec INR (<1.2) APTT (22.0-30.0) sec D-Dimer (<0.60) mg/L FEU Sodium (137-145) mmol/L Potassium (3.5-5.1) mmol/L Chloride (98-107) mmol/L Carbon Dioxide (22-30) mmol/L Anion Gap mmol/L BUN (7-17) mg/dL Creatinine (0.52-1.04) mg/dL Est GFR (CKD-EPI)AfAm (>60 ml/min/1.73 sqM) Est GFR (CKD-EPI)NonAf (>60 ml/min/1.73 sqM) Glucose (74-99) mg/dL Calcium (8.4-10.2) mg/dL Magnesium (1.6-2.3) mg/dL Total Bilirubin (0.2-1.3) mg/dL AST (14-36) U/L ALT (9-52) U/L Alkaline Phosphatase (38-126) U/L Troponin I (0.000-0.034) ng/mL Total Protein (6.3-8.2) g/dL Albumin (3.5-5.0) g/dL Lipase 209 (23-300) U/L Urine Color Urine Appearance (Clear) Urine pH (5.0-8.0) Ur Specific [place] (1.001-1.035) Urine Protein (Negative) Urine Glucose (UA) (Negative) Urine Ketones (Negative) Urine Blood (Negative) Urine Nitrite (Negative) Urine Bilirubin (Negative) Urine Urobilinogen (<2.0) mg/dL Ur Leukocyte Esterase (Negative) Urine RBC (0-5) /hpf Urine WBC (0-5) /hpf Ur Squamous Epith Cells (0-4) /hpf Urine Bacteria (None) /hpf Hyaline Casts (0-2) /lpf Urine Mucus (None) /hpf Influenza Type A RNA (Not Detectd) Influenza Type B (PCR) (Not Detectd) - EKG Data -: EKG Interpreted by Me EKG Comments: Ventricular rate 94,. Full 124, QRS 84, QT/QTC 352/440. Normal sensory rhythm, nonspecific ST and T-wave abnormality. No significant change from prior. Disposition Clinical Impression: Pneumonia Disposition: HOME SELF-CARE Condition: Stable Instructions (If sedation given, give patient instructions): Pneumonia (ED) Additional Instructions: Follow-up with primary care provider tomorrow. Take medications as directed. Return to ER if condition worsens. Prescriptions: Levofloxacin [Levaquin] 750 mg PO DAILY 4 Days tab predniSONE 50 mg PO DAILY #5 tab Albuterol Inhaler [Ventolin Hfa Inhaler] 1 - 2 puff INHALATION Q4-6H PRN #1 inhaler PRN Reason: Cough Is patient prescribed a controlled substance at d/c from ED?: No Referrals: Kita Riggs III, MD [Primary Care Provider] - 1-2 days
[2019-03-05 15:06] LABS: Appearance,Urine Clear (Clear); Bacteria,Urine Rare /hpf; Bilirubin,Urine Negative (Negative); Blood,Urine Negative (Negative); Color,Urine Yellow; Glucose,Urine (UA) Negative (Negative); Hyaline Casts,Urine 1 /lpf (0-2); Ketones,Urine Negative (Negative); Leukocyte Esterase,Urine Trace (Negative); Mucus,Urine Rare /hpf; Nitrite,Urine Negative (Negative); PH, Urine 8.5 (5.0-8.0); Protein,Urine Negative (Negative); RBC,Urine 1 /hpf (0-5); Specific Gravity,Urine 1.015 (1.001-1.035); Squamous Epithelial Cell,Urine 1 /hpf (0-4); Urobilinogen,Urine <2.0 mg/dL (<2.0); WBC,Urine 3 /hpf (0-5)
[2019-03-05 15:11] LABS: Basophils % (A) 0 %; Eosinophils # (A) 0.3 k/uL (0-0.7); Eosinophils % (A) 4 %; HCT 41.3 % (34.0-46.0); HGB 14.4 gm/dL (11.4-16.0); Lymphocytes % (A) 22 %; MCH 30.6 pg (25.0-35.0); MCHC 34.8 g/dL (31.0-37.0); Mean Platelet Volume 7.2; Monocytes # (A) 0.4 k/uL (0-1.0); Monocytes % (A) 4 %; Neutrophils # (A) 6.3 k/uL (1.3-7.7); Neutrophils % (A) 68 %; Platelet Count 184 k/uL (150-450); RDW 12.8 % (11.5-15.5); WBC 9.1 k/uL (3.8-10.6)
[2019-03-05 15:14] LABS: Albumin 4.2 g/dL (3.5-5.0); MCV 87.9 fL (80.0-100.0); Magnesium 1.3 mg/dL (1.6-2.3); Potassium 3.5 mmol/L (3.5-5.1); Total Bilirubin 1.6 mg/dL (0.2-1.3)
[2019-03-05 15:24] LABS: D-Dimer 0.38 mg/L FEU (<0.60); Prothrombin Time 10.9 sec (9.0-12.0)
--- NOTE | 2019-03-05 16:00 | XR ---
EXAMINATION TYPE: XR soft tissue neck DATE OF EXAM: 03/05/2019 COMPARISON: NONE HISTORY: Shortness of breath TECHNIQUE: 2 views submitted FINDINGS: Epiglottis has a normal appearance. Prevertebral soft tissue structures within normal limit s. Hypertrophic and degenerative change of the spine. No adenoidal or tonsillar enlargement. Lung api kellee clear. Soft tissue prominence in the left paratracheal region near the lung apices. IMPRESSION: Soft tissue prominence adjacent to the left margin of the airway on the AP view could be related to enlarged thyroid. Other etiologies not excluded. If symptoms persist consider CT scan.
--- NOTE | 2019-03-05 16:01 | XR ---
EXAMINATION TYPE: XR chest 2V DATE OF EXAM: 03/05/2019 COMPARISON: 02/14/2019 HISTORY: Shortness of breath and fever TECHNIQUE: Frontal and lateral views of the chest are obtained. FINDINGS: There is a new retrocardiac opacity. Remainder of the lungs are clear. Cardiomediastinal s ilhouette is within normal limits. Osseous structures are intact. IMPRESSION: New linear retrocardiac opacity may represent atelectasis or pneumonia.
[2019-03-05 16:08] VITALS: RESP 16; TEMP 97.9
[2019-03-05] MEDS ORDERED: cefTRIAXone IN SWFI 1,000 MG/10 ML SYRINGE IVP STA (16:36)
[2019-03-05] MEDS ORDERED: AZITHROMYCIN 500 MG TAB PO STA (16:36)
[2019-03-05] MEDS ORDERED: LEVOFLOXACIN 750 MG TAB PO STA (16:51)
[2019-03-05 17:24] VITALS: BP 125/67; PULSE 92
== END 2019-03-05 17:24 | disposition home or self-care (01) ==
LOC: EC 13:52
DX: J18.9 Pneumonia, unspecified organism (principal); E11.9 Type 2 diabetes mellitus without complications; J45.909 Unspecified asthma, uncomplicated; I10 Essential (primary) hypertension; E78.5 Hyperlipidemia, unspecified; G47.30 Sleep apnea, unspecified; E07.9 Disorder of thyroid, unspecified; Z79.51 Long term (current) use of inhaled steroids; Z79.890 Hormone replacement therapy; Z79.899 Other long term (current) drug therapy; Z91.048 Other nonmedicinal substance allergy status; Z88.6 Allergy status to analgesic agent; Z91.012 Allergy to eggs; Z91.013 Allergy to seafood; Z99.89 Dependence on other enabling machines and devices
CPT/HCPCS: 36415; 70360; 71046; 80053; 81001; 83690; 83735; 84484; 85025; 85379; 85610; 85730; 87502; 93005; 94640; 96360; 96361; 99285

== ENCOUNTER → 2019-04-01 | Outpatient (CLI) | payer OTHER ==
[2019-04-01 17:00] LABS: African American GFR (CKD) 82.8 (60.0-200.0); Albumin 4.7 g/dL (3.80-4.90); Albumin/Globulin Ratio 2.47 (1.60-3.17); Anion Gap 10.4 mmol/L (4.00-12.00); BUN/Creat Ratio 14.44 Ratio (12.00-20.00); Calcium 9.6 mg/dL (8.7-10.3); Carbon Dioxide 25.6 mmol/L (21.6-31.8); Globulin 1.9 g/dL (1.6-3.3); Magnesium 1.8 mg/dL (1.5-2.4); Non-African American GFR(CKD) 71.5 (60.0-200.0); Potassium 3.8 mmol/L (3.5-5.5); Total Bilirubin 1.1 mg/dL (0.3-1.2); Total Protein 6.6 g/dL (6.2-8.2)
== END | disposition home or self-care (01) ==
LOC: LABWHC1 11:03
PROVIDERS: ATTEND Family Medicine
DX: E03.2 Hypothyroidism due to medicaments and other exogenous substances (principal); E27.49 Other adrenocortical insufficiency; E83.42 Hypomagnesemia; E04.2 Nontoxic multinodular goiter; R13.12 Dysphagia, oropharyngeal phase
CPT/HCPCS: 36415; 80053; 83735; 84305

== ENCOUNTER → 2019-04-09 | Outpatient (CLI) | payer OTHER ==
--- NOTE | 2019-04-10 07:14 | US ---
EXAMINATION TYPE: US thyroid st tissue head/neck DATE OF EXAM: 04/09/2019 COMPARISON: 11/17/2016 CLINICAL HISTORY: E04.2 goiter , R13.12 dysphagia. Goiter, dysphagia GLAND SIZE: Right Lobe: 3.6 x 1.5 x 1.5 cm Overall Parenchyma: heterogenous Left Lobe: 4.3 x 1.8 x 1.4 cm Overall Parenchyma: heterogeneous Isthmus Thickness: 0.3 cm NODULES RIGHT: # of nodules measured on right: 0 . The previously right thyroid nodules are not identified on today's exam. LEFT: # of nodules measured on left: 1 1. 0.6 X 0.6 x 0.6 cm hypoechoic cystic nodule at the mid pole with well-defined margins; . This n odule is wider than tall and shows no intranodular vascularity. Prior size: 0.5 x 0.5 x 0.5 cm ISTHMUS: # of nodules measured in the isthmus: 0 Bilateral neck scanned, no evidence of lymphadenopathy. IMPRESSION: No significant interval growth of the subcentimeter left thyroid nodule. The previously seen right th yroid nodules are not redemonstrated on today's exam.
== END | disposition home or self-care (01) ==
LOC: RADUSWWP 14:58
PROVIDERS: ATTEND Family Medicine
DX: E04.2 Nontoxic multinodular goiter (principal); R13.12 Dysphagia, oropharyngeal phase
CPT/HCPCS: 76536

== ENCOUNTER 2019-05-09 07:18 | Day surgery (SDC) | payer OTHER ==
[2019-05-07 12:18] VITALS: BMI 34.7
[~2019-05-09 07:18] MED LIST changes: -ACETAMINOPHEN TAB 500 MG TAB PO ONE; -DEXAMETHASONE SOD PHOSPHATE 10 MG/ML 1 ML VIAL IV ONE; -HYDROmorphone 1 MG/ML 1 ML SYRINGE IVP PRN; +LIDOCAINE 1% 20 ML VIAL (10MG/ML) FOR IV START INTRADERMA PRN; -MIDAZOLAM 2 MG/2 ML VIAL IV PRN; -ONDANSETRON 4 MG/2 ML VIAL IVP ONE; -SCOPOLAMINE 1.5MG/72HR PATCH TRANSDERM ONE; -TRANEXAMIC ACID 1,000 MG in SODIUM CHLORIDE 0.9% 100 ML IVPB ONE; -ceFAZolin 2 GM in SODIUM CHLORIDE 0.9% 100 ML IVPB ONE
[2019-05-09 07:33] VITALS: RESP 16; TEMP 96.7
[2019-05-09 07:52] LABS: Glucose,Whole Blood 115 mg/dL (75-99)
[2019-05-09] MEDS ORDERED: PROPOFOL 10 MG/ML 20 ML VIAL IV ONE (08:04)
--- NOTE | 2019-05-09 08:32 | P.PCN ---
Date of Procedure: 05/09/19 Procedure(s) Performed: BRIEF HISTORY: Patient is a 59-year-old pleasant female scheduled for an elective colonoscopy as a part of intermittent rectal bleeding for the last few weeks duration. PROCEDURE PERFORMED: Colonoscopy. PREOPERATIVE DIAGNOSIS: Intermittent rectal bleeding. IV sedation per Anesthesia. PROCEDURE: After informed consent was obtained, the patient, was brought into the endoscopy unit. IV sedation was administered by Anesthesia under continuous monitoring. Digital rectal examination was normal. Initially the Olympus CF-160 flexible video colonoscope was then inserted in the rectum, gradually advanced into the cecum without any difficulty. Careful examination was performed as the scope was gradually being withdrawn. Ileocecal valve and the appendiceal orifice were visualized and appeared normal. Prep was excellent. Mucosa of the cecum, ascending colon, transverse colon, descending colon, sigmoid colon, and rectum appeared normal. Retroflexion was performed in the rectum and small internal hemorrhoids were seen. The patient tolerated the procedure well. IMPRESSION: Normal-appearing colon from rectum to cecum with no evidence of colorectal neoplasia Small internal hemorrhoids . RECOMMENDATIONS: Findings of this examination were discussed with the patient as well as a family. She was advised to be a high fiber diet and take fiber supplements a regular basis.. She can have a repeat screening colonoscopy in 10 years
[2019-05-09 08:47] VITALS: BP 144/90; PULSE 65
--- NOTE | 2019-05-15 11:02 | CDI ---
Date: 05/15/19 CDS/Psychiatrist Name: Rosetta Maciel Phone: If any questions, call Gali Hamlin Network Management Specialist at [phone] Patient Name: Suzette Ashford Admit Date: 05/09/19 Discharge Date: 05/09/19 ATTENTION: The [facility] Coding Staff appreciate your assistance in clarifying documentation. Please respond to the clarification below the line at the bottom and electronically sign. The [facility] Coding staff will review the response and follow-up if needed. Please note: Queries are made part of the Legal Health Record. If you have any questions, please contact the Network Management Specialist. Dear _Dulce Bean, Could you please clarify if the rectal bleeding was due to the internal hemorrhoids that were found on exam, or if the hemorrhoids were an incidental finding? Thank you for your kind consideration. __ MTDD
== END 2019-05-09 09:12 | disposition home or self-care (01) ==
LOC: ORWHC2ENDO 07:18
PROVIDERS: ATTEND Internal Medicine Gastroenterology
DX: K62.5 Hemorrhage of anus and rectum (principal); K64.8 Other hemorrhoids
CPT/HCPCS: 45378; J2704

== ENCOUNTER 2019-06-09 02:55 | Inpatient (IN) | payer OTHER ==
[2019-06-09] MEDS ORDERED: SODIUM CHLORIDE 0.9% 1,000 ML IV STA (03:56)
[2019-06-09] MEDS ORDERED: SODIUM CHLORIDE 0.9% 1,000 ML IV ONE (03:56)
--- NOTE | 2019-06-09 04:05 | ED ---
General Adult HPI - General Chief complaint: Urogenital Stated complaint: Sepsis/UTI/Pneumonia Time Seen by Provider: 06/09/19 03:12 Source: patient, EMS Mode of arrival: EMS Limitations: no limitations - History of Present Illness Initial comments: This patient is a 59-year-old woman who presents here as a transfer from [facility]. She states she had gone to the other hospital to be evaluated for lower abdominal pain that is been going on for couple of days and was accompanied by frequent urination, urgency, and dysuria. I addition she was having fever and a cough. Per the report, patient was found to have a left lower lobe pneumonia on x-ray there. The patient was started on Rocephin and transferred here. In addition, patient has history of being steroid dependent and she was given dose of sided Cortef there as she was hypotensive. -: days(s) Location: abdomen Quality: dull Consistency: constant Improves with: none Worsens with: none Associated Symptoms: fever/chills, other Treatments Prior to Arrival: other - Related Data Home Medications Medication Instructions Recorded Confirmed Atenolol [Tenormin] 25 mg PO DAILY 09/06/13 05/09/19 Lisinopril 40 mg PO DAILY 09/06/13 05/09/19 Montelukast [Singulair] 10 mg PO DAILY 09/06/13 05/09/19 Fenofibrate 160 mg PO HS 01/20/16 05/07/19 Omeprazole 20 mg PO DAILY 01/20/16 05/09/19 Atorvastatin [Lipitor] 40 mg PO HS 02/14/19 05/09/19 Cetirizine HCl [Zyrtec] 10 mg PO DAILY 02/14/19 05/09/19 Hydrocortisone 5 mg PO HS 02/14/19 05/07/19 Hydrocortisone 15 mg PO [facility] 02/14/19 05/09/19 Levothyroxine Sodium 125 mcg PO DAILY 02/14/19 05/09/19 Triamcinolone 0.1% Cream [Kenalog 1 applic TOPICAL BID PRN 02/14/19 05/09/19 0.1% Cream] Fluticasone/Salmeterol [Advair 1 inhalation PO BID 05/07/19 05/09/19 500-50 Diskus] Nystatin 100,000 Unit/gm Powd 1 applic TOPICAL BID PRN 05/07/19 05/09/19 [Mycostatin Powder] Rivaroxaban [Xarelto Starter Pack] 20 mg PO DAILY 05/07/19 05/09/19 Previous Rx's Medication Instructions Recorded Albuterol Nebulized [Ventolin 2.5 mg INHALATION RT-Q4H PRN 30 02/18/19 Nebulized] Days #120 neb Allergies Allergy/AdvReac Type Severity Reaction Status Date / Time Iodine and Iodide Containing Allergy Unknown allergy Verified 06/09/19 03:11 Produc test positive for shell fish. celecoxib [From Celebrex] Allergy Wheezing Verified 06/09/19 03:11 egg AdvReac Swelling Verified 06/09/19 03:11 shellfish derived AdvReac ALLERGY Verified 06/09/19 03:11 TEST POSITIVE. Review of Systems ROS Statement: Those systems with pertinent positive or pertinent negative responses have been documented in the HPI. ROS Other: All systems not noted in ROS Statement are negative. Constitutional: Reports: fever, weakness Respiratory: Reports: cough. Denies: dyspnea Cardiovascular: Denies: chest pain, palpitations, edema, syncope Gastrointestinal: Reports: as per HPI, abdominal pain. Denies: nausea, vomiting, diarrhea, constipation Genitourinary: Reports: urgency, dysuria, frequency Musculoskeletal: Denies: back pain Skin: Denies: rash Neurological: Denies: headache, weakness, numbness Past Medical History Past Medical History: Asthma, Diabetes Mellitus, Deep Vein Thrombosis (DVT), GERD/Reflux, Hyperlipidemia, Hypertension, Osteoarthritis (OA), Pneumonia, Pulmonary Embolus (PE), Renal Disease, Skin Disorder, Sleep Apnea/CPAP/BIPAP, Thyroid Disorder Additional Past Medical History / Comment(s): Hx bronchitis, adrenal insufficiency, acromegaly, diabetes-no current meds, migraines, eczema, hs elevated kidney function tests, hemorrhoids, sciatica, arthritis R hip/back/ neck, allergy/sinus prob. DVT, PE 01/2019. Uses CPAP. Having diarrhea, blood from rectum. 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 "cyst removed from between lung and spine" Past Anesthesia/Blood Transfusion Reactions: Previous Problems w/ Anesthesia Additional Past Anesthesia/Blood Transfusion Reaction / Comment(s): "STOPPED BREATHING DURING BRONCHOSCOPY R/T TO UNKNOWN SLEEP APNEA" PER PT Past Psychological History: No Psychological Hx Reported Smoking Status: Never smoker Past Alcohol Use History: Rare Past Drug Use History: None Reported - Past Family History Sister(s) Family Medical History: Cancer Brother(s) Family Medical History: Deep Vein Thrombosis (DVT) Additional Family Medical History / Comment(s): Parkinsons Father Family Medical History: Cancer, CVA/TIA, Hypertension, Skin Disorder Additional Family Medical History / Comment(s): Father of pneumonia and a brain bleed in his 80'. He also had skin cancer Mother Family Medical History: Cancer Additional Family Medical History / Comment(s): skin cancer. General Exam Limitations: no limitations General appearance: alert, in no apparent distress Head exam: Present: atraumatic, normocephalic Eye exam: Present: normal appearance. Absent: scleral icterus, conjunctival injection ENT exam: Present: mucous membranes dry Neck exam: Present: normal inspection, full ROM. Absent: meningismus Respiratory exam: Present: rales. Absent: respiratory distress, wheezes, rhonchi, stridor Cardiovascular Exam: Present: regular rate, normal rhythm, normal heart sounds. Absent: systolic murmur, diastolic murmur, rubs, gallop GI/Abdominal exam: Present: soft. Absent: distended, tenderness, guarding, rebound, rigid, mass Extremities exam: Present: normal inspection, normal capillary refill. Absent: pedal edema, calf tenderness Back exam: Present: normal inspection. Absent: CVA tenderness (R), CVA tenderness (L) Neurological exam: Present: alert Skin exam: Present: warm, dry, intact, normal color. Absent: rash Course Vital Signs 06/09/19 06/09/19 06/09/19 02:59 04:00 04:58 Temperature 98.2 F Pulse Rate 86 80 79 Respiratory 18 18 15 Rate Blood Pressure 92/65 95/58 94/56 O2 Sat by Pulse 94 L 94 L 94 L Oximetry 06/09/19 05:00 Temperature Pulse Rate 76 Respiratory 18 Rate Blood Pressure 102/63 O2 Sat by Pulse 93 L Oximetry Medical Decision Making - Lab Data Result diagrams: 06/09/19 04:47 06/09/19 04:47 Lab Results 06/09/19 06/09/19 06/09/19 Range/Units 04:47 04:47 04:47 WBC 20.8 H (3.8-10.6) k/uL RBC 4.15 (3.80-5.40) m/uL Hgb 12.6 (11.4-16.0) gm/dL Hct 37.2 (34.0-46.0) % MCV 89.7 (80.0-100.0) fL MCH 30.4 (25.0-35.0) pg MCHC 33.9 (31.0-37.0) g/dL RDW 13.0 (11.5-15.5) % Plt Count 181 (150-450) k/uL Neutrophils % 93 % Lymphocytes % 4 % Monocytes % 3 % Eosinophils % 0 % Basophils % 0 % Neutrophils # 19.3 H (1.3-7.7) k/uL Lymphocytes # 0.7 L (1.0-4.8) k/uL Monocytes # 0.5 (0-1.0) k/uL Eosinophils # 0.1 (0-0.7) k/uL Basophils # 0.0 (0-0.2) k/uL Sodium 139 (137-145) mmol/L Potassium 4.2 (3.5-5.1) mmol/L Chloride 108 H (98-107) mmol/L Carbon Dioxide 22 (22-30) mmol/L Anion Gap 9 mmol/L BUN 17 (7-17) mg/dL Creatinine 1.73 H (0.52-1.04) mg/dL Est GFR (CKD-EPI)AfAm 37 (>60 ml/min/1.73 sqM) Est GFR (CKD-EPI)NonAf 32 (>60 ml/min/1.73 sqM) Glucose 131 H (74-99) mg/dL Plasma Lactic Acid Delmar 1.3 (0.7-2.0) mmol/L Calcium 8.0 L (8.4-10.2) mg/dL Total Bilirubin 1.4 H (0.2-1.3) mg/dL AST 38 H (14-36) U/L ALT 33 (4-34) U/L Alkaline Phosphatase 57 (38-126) U/L Troponin I (0.000-0.034) ng/mL Total Protein 6.0 L (6.3-8.2) g/dL Albumin 3.4 L (3.5-5.0) g/dL 06/09/19 Range/Units 04:47 WBC (3.8-10.6) k/uL RBC (3.80-5.40) m/uL Hgb (11.4-16.0) gm/dL Hct (34.0-46.0) % MCV (80.0-100.0) fL MCH (25.0-35.0) pg MCHC (31.0-37.0) g/dL RDW (11.5-15.5) % Plt Count (150-450) k/uL Neutrophils % % Lymphocytes % % Monocytes % % Eosinophils % % Basophils % % Neutrophils # (1.3-7.7) k/uL Lymphocytes # (1.0-4.8) k/uL Monocytes # (0-1.0) k/uL Eosinophils # (0-0.7) k/uL Basophils # (0-0.2) k/uL Sodium (137-145) mmol/L Potassium (3.5-5.1) mmol/L Chloride (98-107) mmol/L Carbon Dioxide (22-30) mmol/L Anion Gap mmol/L BUN (7-17) mg/dL Creatinine (0.52-1.04) mg/dL Est GFR (CKD-EPI)AfAm (>60 ml/min/1.73 sqM) Est GFR (CKD-EPI)NonAf (>60 ml/min/1.73 sqM) Glucose (74-99) mg/dL Plasma Lactic Acid Delmar (0.7-2.0) mmol/L Calcium (8.4-10.2) mg/dL Total Bilirubin (0.2-1.3) mg/dL AST (14-36) U/L ALT (4-34) U/L Alkaline Phosphatase (38-126) U/L Troponin I <0.012 (0.000-0.034) ng/mL Total Protein (6.3-8.2) g/dL Albumin (3.5-5.0) g/dL Disposition Clinical Impression: Pneumonia Disposition: ADMITTED IP TO THIS HOSP Condition: Fair Is patient prescribed a controlled substance at d/c from ED?: No Referrals: Kita Riggs III, MD [Primary Care Provider] - 1-2 days
[2019-06-09 05:19] LABS: Basophils % (A) 0 %; Eosinophils # (A) 0.1 k/uL (0-0.7); Eosinophils % (A) 0 %; HCT 37.2 % (34.0-46.0); HGB 12.6 gm/dL (11.4-16.0); Lymphocytes # (A) 0.7 k/uL (1.0-4.8); Lymphocytes % (A) 4 %; MCH 30.4 pg (25.0-35.0); MCHC 33.9 g/dL (31.0-37.0); MCV 89.7 fL (80.0-100.0); Mean Platelet Volume 8.2; Monocytes # (A) 0.5 k/uL (0-1.0); Monocytes % (A) 3 %; Neutrophils # (A) 19.3 k/uL (1.3-7.7); Neutrophils % (A) 93 %; Platelet Count 181 k/uL (150-450); RBC 4.15 m/uL (3.80-5.40); WBC 20.8 k/uL (3.8-10.6)
[2019-06-09 05:35] LABS: Albumin 3.4 g/dL (3.5-5.0); Potassium 4.2 mmol/L (3.5-5.1); Total Bilirubin 1.4 mg/dL (0.2-1.3)
[2019-06-09] MEDS ORDERED: PNEUMONIA PROTOCOL UTILIZED 1 EACH MISC PO PRN (06:01)
[2019-06-09] MEDS ORDERED: NYSTATIN 100,000 UNIT/GM POWD 15 GM TOPICAL PRN (06:03)
[2019-06-09] MEDS ORDERED: LEVOFLOXACIN 750MG-D5W PMX 750 MG in DEXTROSE/WATER 1 150ML.BAG IVPB ONE (06:30)
[2019-06-09 07:09] LABS: Appearance,Urine Cloudy (Clear); Bacteria,Urine Rare /hpf; Bilirubin,Urine Negative (Negative); Blood,Urine Moderate (Negative); Color,Urine Yellow; Glucose,Urine (UA) Negative (Negative); Ketones,Urine Negative (Negative); Leukocyte Esterase,Urine Large (Negative); Mucus,Urine Rare /hpf; Nitrite,Urine Negative (Negative); PH, Urine 5.5 (5.0-8.0); Protein,Urine 2+ (Negative); RBC,Urine 46 /hpf (0-5); Specific Gravity,Urine 1.016 (1.001-1.035); Squamous Epithelial Cell,Urine 2 /hpf (0-4); WBC,Urine >182 /hpf (0-5)
[2019-06-09] MEDS ORDERED: HYDROCORTISONE 10 MG TAB PO SCH ×2 (09:00→21:00)
[2019-06-09] MEDS: LEVOTHYROXINE 125 MCG TAB PO SCH (09:50)
[2019-06-09] MEDS: PANTOPRAZOLE 40 MG TABLET PO SCH (09:50)
[2019-06-09] MEDS: RIVAROXABAN 20 MG TAB PO SCH (09:51)
[2019-06-09] MEDS: MONTELUKAST 10 MG TAB PO SCH (09:51)
[2019-06-09] MEDS: PIPERACILLIN-TAZOBACTAM 3.375 GM in SODIUM CHLORIDE 0.9% 100 ML IVPB SCH ×2 (09:55→16:48)
[2019-06-09] MEDS: SYMBICORT 160-4.5 MCG INHALER INHALATION SCH ×2 (11:17→20:27)
--- NOTE | 2019-06-09 12:00 | XR ---
EXAMINATION TYPE: XR chest 1V portable DATE OF EXAM: 06/09/2019 COMPARISON: 03/05/2019 HISTORY: Follow-up for pneumonia. TECHNIQUE: Single frontal view of the chest is obtained. FINDINGS: Retrocardiac opacity has improved however a trace left pleural effusion blunts the costoph renic angle. Remainder the lungs are well aerated. No sizable pneumothorax. Osseous structures appear mildly demineralized. Cardiomediastinal silhouette is upper limits of normal. IMPRESSION: Resolved retrocardiac opacity however trace left pleural effusion now seen.
[2019-06-09] MEDS: ACETAMINOPHEN TAB 325 MG TAB PO PRN (12:53)
[2019-06-09] MEDS ORDERED: IOPAMIDOL CONTRAST (ORAL USE) VIAL PO PRN (16:07)
[2019-06-09] MEDS: ALBUTEROL NEBULIZED 2.5 MG/3 ML INHALATION PRN (16:21)
[2019-06-09 17:04] LABS: Albumin 2.8 g/dL (3.5-5.0); Calcium 7.3 mg/dL (8.4-10.2); Total Bilirubin 0.6 mg/dL (0.2-1.3); Total Protein 5.4 g/dL (6.3-8.2)
--- NOTE | 2019-06-09 17:25 | HP ---
HISTORY AND PHYSICAL DATE OF SERVICE: 06/09/2019 CHIEF COMPLAINT: Diarrhea, abdominal pain, possible pneumonia, sepsis. HISTORY OF PRESENT ILLNESS: This 59-year-old woman with a past medical history of multiple medical problems including asthma, diabetes mellitus, DVT, GERD, hypertension, hyperlipidemia, history of pulmonary embolism, history of adrenocortical insufficiency, being followed by Dr. Riggs in the outpatient setting, was apparently not feeling well over the past several days. [place] [facility] [place] a [place] weeks ago. Subsequently after coming back the patient has significant abdominal pain, multiple episodes of diarrhea. The patient presented to [facility] with abdominal pain. Patient was found to have left lower lobe pneumonia. The patient was subsequently transferred to [facility] and admitted for evaluation and treatment. Patient also complaining of cough of recent onset. There is no history of headache, loss of consciousness, seizures at this time. PAST MEDICAL HISTORY: History of asthma, diabetes mellitus, DVT, GERD, hyperlipidemia, DJD, history of pneumonia, pulmonary embolism, history of sleep apnea, history of bronchitis, adrenal insufficiency. MEDICATIONS PRIOR TO ADMISSION: 1. Xarelto 20 mg p.o. daily. 2. Omeprazole 20 mg p.o. daily. 3. Singulair 10 mg p.o. daily. 4. Levothyroxine 125 mcg p.o. daily. 5. Advair ( ) one puff b.i.d. 6. Fenofibrate 160 mg q.h.s. 7. Zyrtec 10 mg p.o. daily. 8. Lipitor 40 mg q.h.s. 9. Tenormin 25 mg p.o. daily. 10.Ventolin 2.5 q.4 p.r.n. 11.Lisinopril 40 mg p.o. daily. 12.Hydrocodone 5 mg q.h.s. and 50 mg q.a.m. ALLERGIES: IODINE, ( ), CONTRAST DYE, CELEBREX, EGG, SHELLFISH. FAMILY HISTORY: History of CVA, TIA, hypertension, history of skin disorder. SOCIAL HISTORY: No history of smoking, no history of alcohol intake. REVIEW OF SYSTEMS: ENT No history of diminished hearing or vision. CARDIOVASCULAR As mentioned earlier. RESPIRATORY As mentioned earlier. GI As mentioned earlier. As mentioned earlier. NERVOUS No numbness or weakness. ALLERGY/IMMUNOLOGY No asthma or hayfever. MUSCULOSKELETAL As mentioned earlier. HEMATOLOGY/ONCOLOGY Negative. DERMATOLOGY: Negative. ENDOCRINE No history of diabetes or hypothyroidism. CONSTITUTIONAL As mentioned earlier. RHEUMATOLOGY Negative. PSYCHIATRY As mentioned earlier. PHYSICAL EXAMINATION: Alert and oriented x3. Pulse 75, blood pressure 102/60, respirations 16, temperature 97.4, pulse ox 92% on room air. HEENT: Conjunctivae normal. Oral mucosa moist. NECK: No jugular venous distention. No lymph node enlargement. CARDIOVASCULAR: S1, S2. RESPIRATORY: Diminished breath sounds at the bases. Bilateral scattered rhonchi and crackles. ABDOMEN: Soft, obese. Mild diffuse discomfort on palpation. No guarding or rigidity. LEGS: No edema, no swelling. NERVOUS SYSTEM: Higher functions mentioned earlier. Moves all four limbs. No focal deficits. LYMPHATICS: No lymph node in neck or axilla. SKIN: No rash. JOINTS: No active deforming arthropathy. LABS: WBC 20.8, hemoglobin 12.6, sodium 130, potassium 4.2, total bilirubin is 1.4, calcium is 8, AST 38, albumin is 34. UA shows significant WBCs. ASSESSMENT: 1. Lower abdominal pain and diarrhea for evaluation, rule out colitis. 2. Possible left lower lobe pneumonia. 3. Urinary tract infection with sepsis possibly. 4. Increased WBC. 5. Increased creatinine with acute renal failure, possibly prerenal acute tubular necrosis secondary to renal failure. 6. Increased AST. 7. Increased total bilirubin. 8. Mild hypocalcemia. 9. History of asthma. 10.History of diabetes type 2. 11.History of deep venous thrombosis. 12.Gastroesophageal reflux disease. 13.Hypertension. 14.Hyperlipidemia. 15.History of degenerative joint disease. 16.History of pulmonary embolism. 17.History of pneumonia. 18.History of sleep apnea. 19.History of bronchitis. 20.History of adrenal insufficiency. 21.History of cardiomegaly. 22.History of diabetes mellitus type 2, not on medication. 23.History of migraine. 24.History of cardiac arrhythmia. 25.History of degenerative joint disease. 26.History of deep vein thrombosis. 27.History of MRSA. 28.History of appendectomy. 29.Obesity with body mass index of 34.8. RECOMMENDATIONS AND DISCUSSION: In this 59-year-old woman who presented with multiple medical issues, at this time I recommend to continue the current management, continue symptomatic treatment. Will initiate bronchodilators and empiric antibiotics. I would also get infectious disease evaluation. I would also recommend a CT scan of the abdomen and pelvis as well. Otherwise, we will continue to monitor. Empiric antibiotics will be continued as mentioned earlier. Obtain cultures. Resume the home medications. Prognosis guarded because of multiple complex medical issues. The stool testing including C difficile, norovirus testing, WBC, culture is also being ordered. Discussed with the patient who understands and agrees. MMODL / IJN: [id number] /
[2019-06-09] MEDS: HYDROCORTISONE SUCCINATE 100 MG/2 ML VIAL IV SCH (17:34)
[2019-06-09] MEDS ORDERED: BARIUM SULFATE 450 ML ORAL.SUSP BOTTLE PO PRN (18:27)
--- NOTE | 2019-06-10 00:47 | P.CONS ---
History of Present Illness - Reason for Consult Consult date: 06/09/19 Fever and diarrhea Requesting physician: Anil Zuniga - Chief Complaint fever and dysuria x 2 days - History of Present Illness Patient is a 59-year female who apparently presented to [facility] with chief complaints of 4 frequency and burning of urine her symptoms have been going on for about a day or 2 before she presented to the hospital patient denies having any significant abdominal pain she has been having some nausea but no vomiting and started having diarrhea when she presented to this hospital patient denies having any URI symptoms no chest pain she did complain of some shortness of breath and minimal cough with the symptom the patient has been evaluated on arrival to the ER at this facility patient has been afebrile patient did have a white count 20,000 kidney function slightly elevated creatinine 1.73 patient did have a UA with large leukocyte esterase more than 1- 2 WBC patient did have a chest x-ray resolved retrocardiac opacity however trace left pleural effusion now seen patient has been started on Zosyn admitted to hospital infectious was consulted for further recommendation about antibiotic therapy. Review of Systems Positive point has been mentioned in HPI rest of the systems are negative Past Medical History Past Medical History: Asthma, Diabetes Mellitus, Deep Vein Thrombosis (DVT), GERD/Reflux, Hyperlipidemia, Hypertension, Osteoarthritis (OA), Pneumonia, Pulmonary Embolus (PE), Renal Disease, Skin Disorder, Sleep Apnea/CPAP/BIPAP, Thyroid Disorder Additional Past Medical History / Comment(s): Hx bronchitis, adrenal i nsufficiency, acromegaly, diabetes-no current meds, migraines, eczema, hs elevated kidney function tests, hemorrhoids, sciatica, arthritis R hip/back/ neck, allergy/sinus prob. DVT, PE 01/2019. Uses CPAP. Having diarrhea, blood from rectum. 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 "cyst removed from between lung and spine" Past Anesthesia/Blood Transfusion Reactions: Previous Problems w/ Anesthesia Additional Past Anesthesia/Blood Transfusion Reaction / Comm: "STOPPED BREATHING DURING BRONCHOSCOPY R/T TO UNKNOWN SLEEP APNEA" PER PT Past Psychological History: No Psychological Hx Reported Additional Psychological History / Comment(s): Pt resides with her spouse and several children/grand children. She is independent. Smoking Status: Never smoker Past Alcohol Use History: Rare Past Drug Use History: None Reported - Past Family History Sister(s) Family Medical History: Cancer Brother(s) Family Medical History: Deep Vein Thrombosis (DVT) Additional Family Medical History / Comment(s): Parkinsons Father Family Medical History: Cancer, CVA/TIA, Hypertension, Skin Disorder Additional Family Medical History / Comment(s): Father of pneumonia and a brain bleed in his 80'. He also had skin cancer Mother Family Medical History: Cancer Additional Family Medical History / Comment(s): skin cancer. Medications and Allergies Home Medications Medication Instructions Recorded Confirmed Type Atenolol [Tenormin] 25 mg PO DAILY 09/06/13 06/09/19 History Lisinopril 40 mg PO DAILY 09/06/13 06/09/19 History Montelukast [Singulair] 10 mg PO DAILY 09/06/13 06/09/19 History Fenofibrate 160 mg PO HS 01/20/16 06/09/19 History Omeprazole 20 mg PO DAILY 01/20/16 06/09/19 History Atorvastatin [Lipitor] 40 mg PO HS 02/14/19 06/09/19 History Cetirizine HCl [Zyrtec] 10 mg PO DAILY 02/14/19 06/09/19 History Hydrocortisone 5 mg PO HS 02/14/19 06/09/19 History Hydrocortisone 15 mg PO QAM 02/14/19 06/09/19 History Levothyroxine Sodium 125 mcg PO DAILY 02/14/19 06/09/19 History Albuterol Nebulized [Ventolin 2.5 mg INHALATION RT-Q4H PRN 30 02/18/19 06/09/19 Rx Nebulized] Days #120 neb Fluticasone/Salmeterol [Advair 1 inhalation PO BID 05/07/19 06/09/19 History 500-50 Diskus] Rivaroxaban [Xarelto] 20 mg PO DAILY 06/09/19 06/09/19 History Allergies Allergy/AdvReac Type Severity Reaction Status Date / Time Iodine and Iodide Containing Allergy Unknown allergy Verified 06/09/19 10:53 Produc test positive for shell fish. celecoxib [From Celebrex] Allergy Wheezing Verified 06/09/19 10:53 egg AdvReac Swelling Verified 06/09/19 10:53 shellfish derived AdvReac ALLERGY Verified 06/09/19 10:53 TEST POSITIVE. Physical Exam Vitals: Vital Signs Temp Pulse Pulse Resp BP BP Pulse Ox 06/09/19 16:21 78 96 06/09/19 14:43 98.1 F 81 16 106/67 96 06/09/19 07:15 97.5 F L 75 16 102/63 92 L 06/09/19 06:45 98.2 F 82 16 92/64 93 L 06/09/19 06:02 96 06/09/19 06:00 76 18 93/50 96 06/09/19 05:00 76 18 102/63 93 L 06/09/19 04:58 79 15 94/56 94 L 06/09/19 04:00 80 18 95/58 94 L 06/09/19 02:59 98.2 F 86 18 92/65 94 L Intake and Output 06/09/19 06/09/19 06/09/19 06:59 14:59 22:59 Other: Voiding Method Toilet # Bowel Movements 2 2 Weight 100.698 kg GENERAL DESCRIPTION: Middle-aged female lying in bed, no distress. No tachypnea or accessory muscle of respiration use. HEENT: Shows Pallor , no scleral icterus. Oral mucous membrane is dry. NECK: Trachea central, no thyromegaly. LUNGS: Unlabored breathing. Clear to auscultation anteriorly. No wheeze or crackle. HEART: S1, S2, regular rate and rhythm. ABDOMEN: Soft, no tenderness , guarding or rigidity EXTREMITIES: No edema of feet. SKIN: No rash, no masses palpable. NEUROLOGICAL: The patient is awake, alert, oriented x3, mood and affect normal. Results CBC & Chem 7: 06/09/19 04:47 06/09/19 16:28 Labs: Abnormal Lab Results - Last 24 Hours (Table) 06/09/19 06/09/19 06/09/19 Range/Units 04:47 04:47 06:30 WBC 20.8 H (3.8-10.6) k/uL Neutrophils # 19.3 H (1.3-7.7) k/uL Lymphocytes # 0.7 L (1.0-4.8) k/uL Chloride 108 H (98-107) mmol/L Creatinine 1.73 H (0.52-1.04) mg/dL Glucose 131 H (74-99) mg/dL Calcium 8.0 L (8.4-10.2) mg/dL Total Bilirubin 1.4 H (0.2-1.3) mg/dL AST 38 H (14-36) U/L Total Protein 6.0 L (6.3-8.2) g/dL Albumin 3.4 L (3.5-5.0) g/dL Urine Appearance Cloudy H (Clear) Urine Protein 2+ H (Negative) Urine Blood Moderate H (Negative) Ur Leukocyte Esterase Large H (Negative) Urine RBC 46 H (0-5) /hpf Urine WBC >182 H (0-5) /hpf Urine WBC Clumps Many H (None) /hpf Urine Bacteria Rare H (None) /hpf Urine Mucus Rare H (None) /hpf Microbiology - Last 24 Hours (Table) 06/09/19 06:30 Urine Culture - Preliminary Urine,Voided Assessment and Plan Assessment: 1-patient presented to hospital with fever significant urinary symptoms according suprapubic discomfort likely representing symptomatic urinary tract infection patient diarrhea started after presentation to hospital likely to be less likely C. difficile colitis and clinically doubt pneumonia (1) UTI (urinary tract infection) Current Visit: Yes Status: Acute Code(s): N39.0 - URINARY TRACT INFECTION, SITE NOT SPECIFIED SNOMED Code(s): 10032874 (2) Diarrhea Current Visit: Yes Status: Acute Code(s): R19.7 - DIARRHEA, UNSPECIFIED SNOMED Code(s): 12729628 Plan: 1-discontinue Zosyn 2-start the patient Rocephin 2 g daily 3-await urine culture to finalize 4-agree with checking stool for C. difficile stool culture 5-IV fluids We will follow on clinical condition and cultures to further adjust medication if needed Thank you for this consultation we will follow the patient along with you Time with Patient: Greater than 30
[2019-06-10] MEDS: ATORVASTATIN 40 MG TAB PO SCH ×3 (00:50→20:42)
[2019-06-10] MEDS: FENOFIBRATE 160 MG TAB PO SCH ×3 (00:50→20:42)
[2019-06-10] MEDS: HYDROCORTISONE SUCCINATE 100 MG/2 ML VIAL IV SCH ×3 (00:51→16:12)
[2019-06-10] MEDS: PIPERACILLIN-TAZOBACTAM 3.375 GM in SODIUM CHLORIDE 0.9% 100 ML IVPB SCH (00:52)
--- NOTE | 2019-06-10 01:19 | CT ---
EXAMINATION TYPE: CT abdomen pelvis wo con DATE OF EXAM: 06/10/2019 COMPARISON: June 08, 2019 HISTORY: Diarrhea. Abdominal pain. CT DLP: mGycm Automated exposure control for dose reduction was used. Multiple axial sections were obtained from the diaphragm to the floor the pelvis with oral contrast o nly. There is some patchy atelectasis at the lung bases. Heart size is fairly normal. There is no pericard ial effusion. There is no pleural effusion. There is mild pleural thickening right posterior lung bas e. There is diffuse fatty infiltration of the liver. Spleen is intact. There is no pancreatic mass. Ther e are numerous calcified gallstones. Bile ducts are not dilated. Stomach is intact. There is no adrenal mass. Kidneys have normal size. There is no hydronephrosis. Ureters are not dilat ed. There is 6 cm cortical cyst lateral left kidney. There is no retroperitoneal adenopathy. Bladder distends smoothly. There is metal artifact from right hip prosthesis. There is no inguinal hernia. Th ere is no free fluid in the pelvis. There is no mesenteric edema. There is no ascites or free air. There is no sign of a bowel obstructio n. Appendix is not seen. There is no sign of thickened appendix. There is hysterectomy. Lumbar vertebra have normal alignment. Disc spaces are fairly normal. There is no compression fractur e. The bony pelvis appears intact. IMPRESSION: Fatty infiltration of the liver. Hepatomegaly. Liver measures 22.5 cm. There is increased patchy atel ectasis and pleural reaction at the lung bases compared to last exam. No acute abnormality within the abdomen pelvis. Cholelithiasis.
[2019-06-10] MEDS: LEVOTHYROXINE 125 MCG TAB PO SCH (05:04)
[2019-06-10] MEDS: SYMBICORT 160-4.5 MCG INHALER INHALATION SCH ×2 (09:01→21:55)
[2019-06-10] MEDS: ALBUTEROL NEBULIZED 2.5 MG/3 ML INHALATION PRN (09:01)
[2019-06-10] MEDS: MONTELUKAST 10 MG TAB PO SCH (09:06)
[2019-06-10] MEDS: ATENOLOL 25 MG TAB PO SCH (09:06)
[2019-06-10] MEDS: PANTOPRAZOLE 40 MG TABLET PO SCH (09:06)
[2019-06-10] MEDS: LORATADINE 10 MG TAB PO SCH (09:07)
[2019-06-10] MEDS: RIVAROXABAN 20 MG TAB PO SCH (09:07)
[2019-06-10 09:27] LABS: Basophils % (A) 0 %; Eosinophils % (A) 0 %; HCT 34.9 % (34.0-46.0); HGB 11.5 gm/dL (11.4-16.0); Lymphocytes # (A) 1.3 k/uL (1.0-4.8); Lymphocytes % (A) 9 %; MCH 29.8 pg (25.0-35.0); MCHC 32.8 g/dL (31.0-37.0); MCV 90.9 fL (80.0-100.0); Mean Platelet Volume 8.7; Monocytes # (A) 0.3 k/uL (0-1.0); Monocytes % (A) 2 %; Neutrophils # (A) 12.2 k/uL (1.3-7.7); Neutrophils % (A) 87 %; Platelet Count 193 k/uL (150-450); RBC 3.84 m/uL (3.80-5.40); WBC 13.9 k/uL (3.8-10.6)
[2019-06-10 09:40] LABS: Calcium 8.1 mg/dL (8.4-10.2); Potassium 3.9 mmol/L (3.5-5.1)
--- NOTE | 2019-06-10 14:47 | XR ---
EXAMINATION TYPE: XR chest 2V DATE OF EXAM: 06/10/2019 COMPARISON: Prior chest x-ray 06/09/2019 HISTORY: Pneumonia TECHNIQUE: Frontal and lateral views of the chest are obtained. FINDINGS: There is patchy density at the left lung base and lingula. Heart size is stable. No eviden t pneumothorax. No evident pleural effusion. Interstitium is mildly increased. Bones are unchanged. IMPRESSION: Some residual basilar pneumonia versus atelectasis is noted.
--- NOTE | 2019-06-10 23:11 | PN ---
PROGRESS NOTE DATE OF SERVICE: 06/10/2019 This 59-year-old woman was admitted with diarrhea, abdominal pain, possible pneumonia, sepsis, is being closely monitored at this time. The patient had abdomen and pelvis CAT scan at this time, this morning which showed fatty liver, hepatomegaly, otherwise atelectasis. No other acute abnormality is noted. Chest x-ray which was reviewed personally by me today showed bilateral interstitial shadowing. The lab findings showed creatinine 1.[address] Altamirano has seen the patient and recommended possibility of UTI with diarrhea. Patient being closely monitored. PAST MEDICAL HISTORY: Reviewed. REVIEW OF SYSTEMS: Cardiovascular: As mentioned earlier. RESPIRATORY: As mentioned earlier. GI: As mentioned earlier. : No dysuria or retention. CENTRAL NERVOUS SYSTEM: No numbness or weakness. MEDICATIONS: Current medications reviewed and include: 1. Tylenol p.r.n. 2. Ventolin p.r.n. 3. Tenormin. 4. Lipitor. 5. Symbicort. 6. Rocephin 2 g IV daily. 7. Lofibra. 8. Solu-Cortef. 9. Levaquin. 10.Synthroid. 11.Singulair. 12.Protonix. 13.Xarelto. PHYSICAL EXAM: Patient is alert and oriented times three. Pulse 71. Blood pressure 130/89, respirations 16, temperature 97.2, pulse ox 98% on 2 L. HEENT is conjunctivae normal. NECK: No JVD. CARDIOVASCULAR: S1, S2 muffled. RESPIRATIONS: Breath sounds diminished at the bases. A few scattered rhonchi and crackles. ABDOMEN: Soft, obese. Mild diffuse discomfort. No guarding. No rigidity. There is no mass palpable. LEGS: No edema. No swelling. CENTRAL NERVOUS SYSTEM: No focal deficits. LAB STUDIES: WBC 13.2, hemoglobin 11.4, sodium 142, potassium 3.8, creatinine is 1.18. UA noted. Influenza is negative. The cultures are negative so far. ASSESSMENT: 1. Lower abdominal pain, diarrhea, possibly acute gastroenteritis, possibly viral. 2. Possible interstitial pneumonia, left lower pneumonia. 3. Possible urinary tract infection with sepsis present on admission, possibly. 4. Increased WBC. 5. Increased creatinine with acute renal failure possibly prerenal acute tubular necrosis secondary to prerenal factors. 6. Increased AST. 7. Increased total bilirubin. 8. Mild hypocalcemia. 9. History of asthma. 10.Diabetes mellitus type 2. 11.History of deep vein thrombosis. 12.History of gastroesophageal reflux disease. 13.Hypertension. 14.History of hyperlipidemia. 15.History of pulmonary embolism. 16.History pneumonia. 17.History of sleep apnea. 18.History of bronchitis. 19.History of adrenal insufficiency. 20.History of cardiomegaly. 21.History of diabetes type 2, not on medication. 22.History of migraine. 23.History of cardiac arrhythmia. 24.History of degenerative joint disease. 25.History of deep vein thrombosis. 26.History of MRSA. 27.History of appendectomy. 28.Obesity with body mass of 34.8. RECOMMENDATIONS AND DISCUSSION: Recommend to continue current medications, management and symptomatic treatment. Continue with empiric antibiotics. Continue with other medications. Cultures are negative so far. Recommend continue with stress dose of steroids. Otherwise GI symptoms seem to be improving at this time. Stool evaluation is in progress. Overall prognosis guarded because of multiple complex medical issues. Further recommendations to follow. MMODL / IJN: [id number] /
[2019-06-11] MEDS: HYDROCORTISONE SUCCINATE 100 MG/2 ML VIAL IV SCH ×4 (00:17→23:56)
--- NOTE | 2019-06-11 00:44 | PN ---
PROGRESS NOTE DATE OF SERVICE: 06/10/2019 REASON FOR FOLLOWUP: Urinary tract infection. INTERVAL HISTORY: The patient is currently afebrile. She has been breathing comfortably, feeling slightly better. Denies any chest pain, shortness of breath or cough. No abdominal pain. Very slight decrease in frequency. PHYSICAL EXAMINATION: Blood pressure 139/83 with a pulse of 71. Temperature 97.8. She is 96% on 2 L nasal cannula. General description is middle-aged female up in the bed in no distress. Respiratory system: Unlabored breathing. Decreased breath sounds in the base. No wheeze. Heart S1, S2. Regular rate and rhythm. Abdomen soft, no tenderness. EXTREMITIES: No edema of the feet. LABORATORY DATA: Abdomen and pelvis CT did show some patchy atelectasis, pleural reaction. No other acute abnormality. Urine culture so far negative. Blood culture has been negative. DIAGNOSTIC IMPRESSION AND PLAN: Patient admitted to the hospital with fever, concern for urinary tract infection/pneumonia. The patient's fever seems to be responding to the Rocephin that should be continued while waiting for the culture to finalize and continue supportive care. MMODL / IJN: [id number] /
[2019-06-11] MEDS: LEVOTHYROXINE 125 MCG TAB PO SCH (05:41)
[2019-06-11] MEDS: SYMBICORT 160-4.5 MCG INHALER INHALATION SCH ×2 (08:15→18:39)
[2019-06-11] MEDS: ACETAMINOPHEN TAB 325 MG TAB PO PRN ×2 (08:17→17:46)
[2019-06-11] MEDS: MONTELUKAST 10 MG TAB PO SCH (08:18)
[2019-06-11] MEDS: PANTOPRAZOLE 40 MG TABLET PO SCH (08:18)
[2019-06-11] MEDS: ATENOLOL 25 MG TAB PO SCH (08:18)
[2019-06-11] MEDS: LORATADINE 10 MG TAB PO SCH (08:18)
[2019-06-11] MEDS: RIVAROXABAN 20 MG TAB PO SCH (08:27)
[2019-06-11] MEDS ORDERED: LEVOFLOXACIN 750MG-D5W PMX 750 MG in DEXTROSE/WATER 1 150ML.BAG IVPB SCH (09:00)
[2019-06-11 09:42] LABS: Basophils % (A) 0 %; Eosinophils % (A) 0 %; HCT 34.1 % (34.0-46.0); Lymphocytes # (A) 1.9 k/uL (1.0-4.8); Lymphocytes % (A) 16 %; MCH 29.6 pg (25.0-35.0); MCHC 32.2 g/dL (31.0-37.0); MCV 91.8 fL (80.0-100.0); Mean Platelet Volume 9.5; Monocytes # (A) 0.5 k/uL (0-1.0); Monocytes % (A) 4 %; Neutrophils # (A) 9.4 k/uL (1.3-7.7); Neutrophils % (A) 79 %; Platelet Count 211 k/uL (150-450); RBC 3.72 m/uL (3.80-5.40)
[2019-06-11 10:04] LABS: Calcium 8.7 mg/dL (8.4-10.2); Potassium 3.6 mmol/L (3.5-5.1)
--- NOTE | 2019-06-11 11:25 | PN ---
PROGRESS NOTE DATE OF SERVICE: 06/11/2019 REASON FOR FOLLOWUP: Fever, likely UTI/pneumonia. INTERVAL HISTORY: The patient is currently afebrile. The patient has been breathing more comfortably. She did have a cough that has decreased in intensity. No chest pain. No nausea. No vomiting. No abdominal pain. Diarrhea has decreased. PHYSICAL EXAMINATION: Blood pressure 169/90 with a pulse of 58, temperature 97.6. She is 94% on 2 liters nasal cannula. General description is a middle-aged female up in the bed in no distress. RESPIRATORY SYSTEM: Unlabored breathing. Decreased breath sounds in the bases. No wheeze. HEART: S1, S2. Regular rate and rhythm. ABDOMEN: Soft. No tenderness. LABS: Hemoglobin is 11, white count of 12. Creatinine 0.92. Blood culture negative. Urine so far negative. DIAGNOSTIC IMPRESSION AND PLAN: Patient admitted to the hospital with fever and sepsis, concern for possible urinary tract infection. She did have positive UA. Subsequent urine culture negative as sample was collected after the patient did receive antibiotic in the outside facility. There was also concern for pneumonia. Overall, clinically improving on the Rocephin, to continue. Finish therapy with oral antibiotics. Continue with supportive care. MMODL / IJN: [id number] /
[2019-06-11] MEDS: amLODIPine 10 MG TAB PO SCH (13:22)
[2019-06-11 14:58] LABS: Creatine Kinase 45 U/L (30-135)
[2019-06-11 15:12] LABS: Creatine Kinase MB 0.6 ng/mL (0.0-2.4)
[2019-06-11 15:23] LABS: Troponin I <0.012 ng/mL (0.000-0.034)
[2019-06-11] MEDS: ALBUTEROL NEBULIZED 2.5 MG/3 ML INHALATION PRN (18:39)
--- NOTE | 2019-06-11 19:50 | PN ---
PROGRESS NOTE DATE OF SERVICE: 06/11/2019 This 59-year-old woman was admitted with lower abdominal pain with acute gastroenteritis also had interstitial pneumonia and possible left lower pneumonia. The patient being closely monitored. The patient also had recurrence of urinary tract infection. Dr. Altamirano is also following the patient closely. No chest pain. No palpitations. No fever. EXAM: Alert and oriented times three. Pulse 53, blood pressure 160/89, respirations 20, temperature normal. Pulse ox 97% on 2 L. HEENT is conjunctivae normal. NECK: No JVD. CARDIOVASCULAR: S1, S2 muffled. RESPIRATIONS: Breath sounds diminished in the bases. A few scattered rhonchi and crackles. ABDOMEN is soft, nontender. LEGS: No edema. No swelling. CENTRAL NERVOUS SYSTEM: No focal deficits. LABS: WBC 12, hemoglobin 11, and cultures are negative. ASSESSMENT: 1. Lower abdominal pain, diarrhea, possible acute gastroenteritis possibly viral. 2. Possible interstitial pneumonia, left lower lobe pneumonia. 3. Possible acute urinary tract infection present on admission, sepsis, present on admission, possibly. 4. Increased WBC. 5. Increased creatinine with acute renal failure, possibly prerenal acute tubular necrosis secondary to prerenal factors. 6. Increased AST. 7. Increased total bilirubin. 8. Mild hypercalcemia. 9. History of asthma. 10.Diabetes type 2. 11.History of deep vein thrombosis. 12.History of gastroesophageal reflux disease. 13.Hypertension. 14.Hyperlipidemia. 15.History of pulmonary embolus. 16.History of pneumonia. 17.History of sleep apnea. 18.History of bronchitis. 19.History of adrenal insufficiency. 20.History of cardiomegaly. 21.History of diabetes type 2, not on medications. 22.History of migraine. 23.History of cardiac catheterization. 24.History of degenerative joint disease. 25.History of deep vein thrombosis. 26.History of MRSA. 27.History of appendectomy. 28.Obesity with body mass index 34.8. RECOMMENDATIONS AND DISCUSSION: I recommend to continue current medications, monitoring, management and symptomatic treatment. Otherwise, at this time, I recommend continue with antibiotics. Increase ambulation. Possible discharge in the next 24-48 hours when cleared by multiple consultants and stable. Infection control has been informed. Please see the documentation. MMODL / IJN: [id number] /
[2019-06-11] MEDS: ATORVASTATIN 40 MG TAB PO SCH (21:04)
[2019-06-11] MEDS: FENOFIBRATE 160 MG TAB PO SCH (21:04)
[2019-06-12] MEDS: LEVOTHYROXINE 125 MCG TAB PO SCH (05:05)
[2019-06-12] MEDS: amLODIPine 10 MG TAB PO SCH (08:00)
[2019-06-12] MEDS: LORATADINE 10 MG TAB PO SCH (08:00)
[2019-06-12] MEDS: PANTOPRAZOLE 40 MG TABLET PO SCH (08:00)
[2019-06-12] MEDS: ATENOLOL 25 MG TAB PO SCH (08:01)
[2019-06-12] MEDS: MONTELUKAST 10 MG TAB PO SCH (08:01)
[2019-06-12] MEDS: HYDROCORTISONE SUCCINATE 100 MG/2 ML VIAL IV SCH (08:02)
[2019-06-12] MEDS: RIVAROXABAN 20 MG TAB PO SCH (08:02)
[2019-06-12] MEDS: SYMBICORT 160-4.5 MCG INHALER INHALATION SCH ×2 (09:03→20:36)
[2019-06-12 11:24] LABS: Basophils % (A) 0 %; Eosinophils % (A) 0 %; HCT 34.3 % (34.0-46.0); HGB 11.3 gm/dL (11.4-16.0); Lymphocytes # (A) 1.5 k/uL (1.0-4.8); Lymphocytes % (A) 14 %; MCHC 33.1 g/dL (31.0-37.0); MCV 90.8 fL (80.0-100.0); Mean Platelet Volume 9.2; Monocytes # (A) 0.4 k/uL (0-1.0); Monocytes % (A) 4 %; Neutrophils # (A) 8.4 k/uL (1.3-7.7); Neutrophils % (A) 80 %; Platelet Count 233 k/uL (150-450); RBC 3.78 m/uL (3.80-5.40); RDW 12.9 % (11.5-15.5); WBC 10.5 k/uL (3.8-10.6)
[2019-06-12 11:32] LABS: Calcium 8.9 mg/dL (8.4-10.2); Potassium 3.5 mmol/L (3.5-5.1)
[2019-06-12 12:16] LABS: Glucose,Whole Blood 166 mg/dL (75-99)
[2019-06-12] MEDS: INSULIN ASPART (NovoLOG) 100 UNIT/ML VIAL SQ SCH ×3 (12:29→21:44)
--- NOTE | 2019-06-12 14:37 | P.CRDCN ---
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 She follows in the office with Dr. Pedraza. In 2017 based on an abnormal stress test she underwent cardiac catheterization revealing normal coronary arteries and normal LVEDP. We have been asked to see in consultation for chest pain and hypertension. She was transferred here from [facility] secondary to urinary tract infection, pneumonia and sepsis. Last night she states she developed a tight sensation in the midsternal region associated with shortness of breath. The discomfort was reproducible on deep inspiration and continues to feel achy in the chest. It is not exacerbated by activity or exertion. It is not reproducible on palpitation. No radiation through to the back, down the arms, into the neck or jaw. Most recent echocardiogram obtained 01/2019 reveals preserved LV systolic function with ejection fraction 55-60%, mild MR and mild TR. DIAGNOSTICS EKG reveals sinus mechanism heart rate 78 with T-wave inversions in the p recordial leads. Consistent with old EKGs, no acute changes. Chest xray some residual basilar pneumonia. CT of the abdomen and pelvis reveals a fatty infiltration of the liver, hepatosplenomegaly, patchy atelectasis and pleural reaction at the lung basis. Laboratory reviewed, WBC on admission 20.8 repeat today 10.5, hemoglobin 11.3, platelets 233, d-dimer 0.27, sodium 141, potassium 3.5, creatinine 0.9, cardiac enzymes negative 2. Current cardiac medications include Xarelto 20 mg daily, fenofibrate 160 mg at bedtime, atorvastatin 40 mg daily, atenolol 25 mg daily and lisinopril 40 mg daily. Recently initiated on amlodipine 10 mg daily by PCP. First dose yesterday afternoon. Lisinopril has been held since admission for elevated renal function. REVIEW OF SYSTEMS At the time of my exam: CONSTITUTIONAL: Denies fever or chills. CARDIOVASCULAR: Denies chest pain, shortness of breath, orthopnea, PND or palpitations. RESPIRATORY: Denies cough. GASTROINTESTINAL: Denies abdominal pain, diarrhea, constipation, nausea or vomiting. MUSCULOSKELETAL: Denies myalgias. NEUROLOGIC: Denies numbness, tingling or weakness. ENDOCRINE: Denies fatigue, weight change, polydipsia or polyurina. GENITOURINARY: Denies burning, hematuria or urgency with micturation. HEMATOLOGIC: Denies history of anemia or bleeding. PHYSICAL EXAMINATION Blood pressure 180/93 heart rate 61 afebrile and maintaining oxygen saturation on nasal cannula. CONSTITUTIONAL: No apparent distress. HEENT: Head is normocephalic. Pupils are equal, round. Sclerae anicteric. Mucous membranes of the mouth are moist. No JVD. No carotid bruit. CHEST EXAMINATION: Lungs are clear to auscultation. No chest wall tenderness is noted on palpation or with deep breathing. HEART EXAMINATION: Regular rate and rhythm. S1, S2 heard. No murmurs, gallops or rub. ABDOMEN: Soft, nontender. Positive bowel sounds. EXTREMITIES: 2+ peripheral pulses, no lower extremity edema and no calf tenderness. NEUROLOGIC EXAMINATION: Patient is awake, alert and oriented x3. ASSESSMENT Chest pain, atypical for angina. Recent catheterization revealing normal coronary arteries. Enzymes negative x2. Urinary tract infection Pneumonia Diarrhea Leukocytosis Hypertension Dyslipidemia Diabetes mellitus History of DVT and PE diagnosed 01/2019 PLAN Resume lisinopril 40 mg daily. Pain is atypical for angina, pleuritic in nature and related to underlying respiratory illness. We will repeat a limited echo to assess for wall motion abnormalities. Thank you kindly for this consultation. Nurse Practitioner note has been reviewed, I agree with a documented findings and plan of care. Patient was seen and examined. Past Medical History Past Medical History: Asthma, Diabetes Mellitus, Deep Vein Thrombosis (DVT), GERD/Reflux, Hyperlipidemia, Hypertension, Osteoarthritis (OA), Pneumonia, Pulmonary Embolus (PE), Renal Disease, Skin Disorder, Sleep Apnea/CPAP/BIPAP, Thyroid Disorder Additional Past Medical History / Comment(s): Hx bronchitis, adrenal insufficiency, acromegaly, diabetes-no current meds, migraines, eczema, hs elevated kidney function tests, hemorrhoids, sciatica, arthritis R hip/back/ neck, allergy/sinus prob. DVT, PE 01/2019. Uses CPAP. Having diarrhea, blood from rectum. 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 "cyst removed from between lung and spine" Past Anesthesia/Blood Transfusion Reactions: Previous Problems w/ Anesthesia Additional Past Anesthesia/Blood Transfusion Reaction / Comment(s): "STOPPED BREATHING DURING BRONCHOSCOPY R/T TO UNKNOWN SLEEP APNEA" PER PT Past Psychological History: No Psychological Hx Reported Additional Psychological History / Comment(s): Pt resides with her spouse and several children/grand children. She is independent. Smoking Status: Never smoker Past Alcohol Use History: Rare Past Drug Use History: None Reported - Past Family History Sister(s) Family Medical History: Cancer Brother(s) Family Medical History: Deep Vein Thrombosis (DVT) Additional Family Medical History / Comment(s): Parkinsons Father Family Medical History: Cancer, CVA/TIA, Hypertension, Skin Disorder Additional Family Medical History / Comment(s): Father of pneumonia and a brain bleed in his 80'. He also had skin cancer Mother Family Medical History: Cancer Additional Family Medical History / Comment(s): skin cancer. Medications and Allergies Home Medications Medication Instructions Recorded Confirmed Type Atenolol [Tenormin] 25 mg PO DAILY 09/06/13 06/09/19 History Lisinopril 40 mg PO DAILY 09/06/13 06/09/19 History Montelukast [Singulair] 10 mg PO DAILY 09/06/13 06/09/19 History Fenofibrate 160 mg PO HS 01/20/16 06/09/19 History Omeprazole 20 mg PO DAILY 01/20/16 06/09/19 History Atorvastatin [Lipitor] 40 mg PO HS 02/14/19 06/09/19 History Cetirizine HCl [Zyrtec] 10 mg PO DAILY 02/14/19 06/09/19 History Hydrocortisone 5 mg PO HS 02/14/19 06/09/19 History Hydrocortisone 15 mg PO QAM 02/14/19 06/09/19 History Levothyroxine Sodium 125 mcg PO DAILY 02/14/19 06/09/19 History Albuterol Nebulized [Ventolin 2.5 mg INHALATION RT-Q4H PRN 30 02/18/19 06/09/19 Rx Nebulized] Days #120 neb Fluticasone/Salmeterol [Advair 1 inhalation PO BID 05/07/19 06/09/19 History 500-50 Diskus] Rivaroxaban [Xarelto] 20 mg PO DAILY 06/09/19 06/09/19 History Allergies Allergy/AdvReac Type Severity Reaction Status Date / Time Iodine and Iodide Containing Allergy Unknown allergy Verified 06/09/19 10:53 Produc test positive for shell fish. celecoxib [From Celebrex] Allergy Wheezing Verified 06/09/19 10:53 egg AdvReac Swelling Verified 06/09/19 10:53 shellfish derived AdvReac ALLERGY Verified 06/09/19 10:53 TEST POSITIVE. Physical Exam Vitals: Vital Signs Temp Pulse Pulse Resp BP Pulse Ox 06/12/19 07:00 98.0 F 61 16 180/93 95 06/12/19 02:00 97.9 F 47 L 20 164/87 96 06/11/19 18:49 73 06/11/19 18:40 75 06/11/19 15:49 53 L 20 164/89 96 Intake and Output 06/11/19 06/12/19 06/12/19 22:59 06:59 14:59 Intake Total 340 200 Balance 340 200 Intake: Oral 340 200 Other: Voiding Method Toilet Toilet # Voids 1 Results 06/12/19 10:19 06/12/19 10:19 Cardiac Enzymes 06/11/19 Range/Units 14:31 CK-MB (CK-2) 0.6 (0.0-2.4) ng/mL Troponin I <0.012 (0.000-0.034) ng/mL CBC 06/12/19 Range/Units 10:19 WBC 10.5 (3.8-10.6) k/uL RBC 3.78 L (3.80-5.40) m/uL Hgb 11.3 L (11.4-16.0) gm/dL Hct 34.3 (34.0-46.0) % Plt Count 233 (150-450) k/uL Comprehensive Metabolic Panel 06/12/19 Range/Units 10:19 Sodium 141 (137-145) mmol/L Potassium 3.5 (3.5-5.1) mmol/L Chloride 106 (98-107) mmol/L Carbon Dioxide 28 (22-30) mmol/L BUN 14 (7-17) mg/dL Creatinine 0.90 (0.52-1.04) mg/dL Glucose 263 H (74-99) mg/dL Calcium 8.9 (8.4-10.2) mg/dL Current Medications Generic Name Dose Route Start Last Admin Trade Name Freq PRN Reason Stop Dose Admin Acetaminophen 650 mg 06/09/19 11:38 06/11/19 17:46 Tylenol Tab PO 650 mg Q6HR PRN Administration Fever and/ or Pain Albuterol Sulfate 2.5 mg 06/09/19 06:03 06/11/19 18:39 Ventolin Nebulized INHALATION 2.5 mg RT-Q4H PRN Administration Shortness Of Breath Amlodipine Besylate 10 mg 06/11/19 12:30 06/12/19 08:00 Norvasc PO 10 mg DAILY SANTOS Administration Atenolol 25 mg 06/10/19 09:00 06/12/19 08:01 Tenormin PO 25 mg DAILY SANTOS Administration Atorvastatin Calcium 40 mg 06/09/19 21:00 06/11/19 21:04 Lipitor PO 40 mg HS SANTOS Administration Budesonide/Formoterol Fumarate 2 puff 06/09/19 08:00 06/12/19 09:03 Symbicort 160-4.5 Mcg Inhaler INHALATION 2 puff RT-BID SANTOS Administration Cholestyramine Resin 4 gm 06/12/19 13:39 Questran PO BID@1000,1800 SANTOS Fenofibrate 160 mg 06/09/19 21:00 06/11/19 21:04 Lofibra PO 160 mg HS SANTOS Administration Hydrocortisone 5 mg 06/12/19 21:00 Cortef PO HS SANTOS Hydrocortisone 15 mg 06/13/19 09:00 Cortef PO DAILY SANTOS Levofloxacin 750 mg/ IV 150 mls @ 100 mls/hr 06/11/19 09:00 06/11/19 09:20 Solution IVPB 100 mls/hr Q48H SANTOS Administration Ceftriaxone Sodium 2 gm/ 50 mls @ 100 mls/hr 06/10/19 09:00 06/12/19 08:01 Sodium Chloride IVPB 100 mls/hr Q24HR SANTOS Administration Insulin Aspart 0 unit 06/12/19 12:30 06/12/19 12:29 Novolog SQ 3 unit ACHS SANTOS Administration Protocol Levothyroxine Sodium 125 mcg 06/09/19 09:00 06/12/19 05:05 Synthroid PO 125 mcg DAILY@0630 SANTOS Administration Loratadine 10 mg 06/10/19 09:00 06/12/19 08:00 Claritin PO 10 mg DAILY SANTOS Administration Miscellaneous Information 1 each 06/09/19 06:01 Pneumonia Protocol Utilized PO ONCE PRN Per Protocol Montelukast Sodium 10 mg 06/09/19 09:00 06/12/19 08:01 Singulair PO 10 mg DAILY SANTOS Administration Nystatin 1 applic 06/09/19 06:03 Mycostatin Powder TOPICAL BID PRN Rash Pantoprazole Sodium 40 mg 06/09/19 07:30 06/12/19 08:00 Protonix PO 40 mg AC-BRKFST SANTOS Administration Rivaroxaban 20 mg 06/09/19 09:00 06/12/19 08:02 Xarelto PO 20 mg DAILY SANTOS Administration Intake and Output 06/11/19 06/12/19 06/12/19 22:59 06:59 14:59 Intake Total 340 200 Balance 340 200 Intake: Oral 340 200 Other: Voiding Method Toilet Toilet # Voids 1 06/12/19 10:19 06/12/19 10:19
--- NOTE | 2019-06-12 15:19 | PN ---
PROGRESS NOTE DATE OF SERVICE: 06/12/2019. REASON FOR FOLLOWUP: UTI and pneumonia. INTERVAL HISTORY: The patient is currently afebrile. Patient has been breathing comfortably. Patient denies having any chest pain, shortness of breath, no cough. No abdominal pain. He has been complaining of significant diarrhea with multiple loose stools. PHYSICAL EXAMINATION: Blood pressure 118/93 with a pulse of 61, temperature 98. she is 97% on room air. General description is a middle-aged female up in the chair in no distress. RESPIRATORY SYSTEM: Unlabored breathing, decreased breath sounds at the base, no wheeze. HEART: S1, S2, regular rate and rhythm.. ABDOMEN: Soft, no tenderness. LABS: Hemoglobin 11.4, white count of 12.5,, creatinine 0.90. Blood culture has been negative. DIAGNOSTIC IMPRESSION AND PLAN: Patient admitted to the hospital with fever with concern initially for a UTI. He did have a positive UA though. Urine cultures subsequently came back negative. Clinically responeding to the oral Ceftin. Will add some Levaquin to finish therapy with a short course of oral antibiotic. We did have a positive UA with urine culture subsequently came back negative. Clinically responding to the Ceftin and Levaquin. Finish therapy with a short run of oral Ceftin. Continue supportive care. MMODL / IJN: [id number] /
[2019-06-12] MEDS: LISINOPRIL 20 MG TAB PO SCH (15:48)
[2019-06-12] MEDS: CHOLESTYRAMINE (WITH SUGAR) 4 GM PACKET PO SCH ×2 (15:48→17:16)
[2019-06-12] MEDS ORDERED: LEVOFLOXACIN 750MG-D5W PMX 750 MG in DEXTROSE/WATER 1 150ML.BAG IVPB SCH (16:00)
[2019-06-12 17:11] LABS: Glucose,Whole Blood 128 mg/dL (75-99)
--- NOTE | 2019-06-12 17:38 | ECHOF ---
Referral Reason:assess for wall motion changes MEASUREMENTS -------- HEIGHT: 170.2 cm WEIGHT: 100.7 kg BP: 180/93 IVSd: 1.4 cm (0.6 - 1.1) LVIDd: 4.8 cm (3.9 - 5.3) LVPWd: 1.4 cm (0.6 - 1.1) IVSs: 1.9 cm LVIDs: 3.1 cm LVPWs: 1.4 cm FINDINGS -------- Sinus rhythm. Limited Study There is moderate concentric left ventricular hypertrophy. There is normal global left ventricular contractility. Overall left ventricular systolic function is normal with, an EF between 55 - 60 %. CONCLUSIONS -------- 1. Sinus rhythm. 2. Limited Study 3. There is normal global left ventricular contractility. 4. Overall left ventricular systolic function is normal with, an EF between 55 - 60 %. SENIOR IT SECURITY ANALYST: Elizabeth Le [facility]
[2019-06-12] MEDS: ATORVASTATIN 40 MG TAB PO SCH (20:49)
[2019-06-12] MEDS: FENOFIBRATE 160 MG TAB PO SCH (20:49)
[2019-06-12] MEDS ORDERED: HYDROCORTISONE 10 MG TAB PO SCH (21:00)
[2019-06-12 21:10] LABS: Glucose,Whole Blood 149 mg/dL (75-99)
[2019-06-12 21:12] VITALS: RESP 16
[2019-06-13] MEDS: ACETAMINOPHEN TAB 325 MG TAB PO PRN (00:16)
[2019-06-13] MEDS: LEVOTHYROXINE 125 MCG TAB PO SCH (05:51)
[2019-06-13 06:19] VITALS: BP 175/96; PULSE 66; TEMP 98.2
[2019-06-13 07:19] LABS: Glucose,Whole Blood 97 mg/dL (75-99)
[2019-06-13] MEDS: INSULIN ASPART (NovoLOG) 100 UNIT/ML VIAL SQ SCH ×2 (07:20→12:20)
[2019-06-13] MEDS: SYMBICORT 160-4.5 MCG INHALER INHALATION SCH (07:33)
[2019-06-13] MEDS: amLODIPine 10 MG TAB PO SCH (08:08)
[2019-06-13] MEDS: CHOLESTYRAMINE (WITH SUGAR) 4 GM PACKET PO SCH (08:08)
[2019-06-13] MEDS: ATENOLOL 25 MG TAB PO SCH (08:08)
[2019-06-13] MEDS: PANTOPRAZOLE 40 MG TABLET PO SCH (08:08)
[2019-06-13] MEDS: LISINOPRIL 20 MG TAB PO SCH (08:08)
[2019-06-13] MEDS: MONTELUKAST 10 MG TAB PO SCH (08:08)
[2019-06-13] MEDS: LORATADINE 10 MG TAB PO SCH (08:08)
[2019-06-13] MEDS: RIVAROXABAN 20 MG TAB PO SCH (08:14)
--- NOTE | 2019-06-13 08:51 | P.PN ---
Subjective Progress Note Date: 06/12/19 Principal diagnosis: This is a 59 year old female who was recently admitted for lower abdominal pain with acute gastroenteritis and was also found to have interstitial pneumonia wit h possible left lower lobe pneumonia and is being closely monitored. Patient experienced some chest discomfort with an increase in shortness of breath and ekg and troponins were done which was negative. Cardiology was consulted. infectious disease is following as well. Patient's chest pain has resolved although continues to short of breath with exertion and hypertensive. Patient was initiated on amlodipine. No reports of chest pain or palpitations. Patient is afebrile. No reports of nausea or vomiting and patient is tolerating diet. Patient is maintained on IV antibiotics in the form of ceftriaxone and levaquin and will continue at this time. Patient is also on bronchodilators and IV stero ids and will continue. An echo was done and is pending. Will resume Lisinopril. Will continue to monitor closely. Review of systems: Cardiovascular: No reports of chest pain or palpitations Respiratory: reports shortness of breath and cough GI: no reports of nausea, vomiting, or diarrhea : no reports of retention, some dysuria Constitutional: reports fatigue and generalized weakness Active Medications Acetaminophen (Tylenol Tab) 650 mg PO Q6HR PRN PRN Reason: Fever and/ or Pain Last Admin: 06/11/19 17:46 Dose: 650 mg Documented by: Albuterol Sulfate (Ventolin Nebulized) 2.5 mg INHALATION RT-Q4H PRN PRN Reason: Shortness Of Breath Last Admin: 06/11/19 18:39 Dose: 2.5 mg Documented by: Amlodipine Besylate (Norvasc) 10 mg PO DAILY [facility] Last Admin: 06/12/19 08:00 Dose: 10 mg Documented by: Atenolol (Tenormin) 25 mg PO DAILY [facility] Last Admin: 06/12/19 08:01 Dose: 25 mg Documented by: Atorvastatin Calcium (Lipitor) 40 mg PO HS [facility] Last Admin: 06/11/19 21:04 Dose: 40 mg Documented by: Budesonide/Formoterol Fumarate (Symbicort 160-4.5 Mcg Inhaler) 2 puff INHALATION RT-BID [facility] Last Admin: 06/12/19 09:03 Dose: 2 puff Documented by: Cholestyramine Resin (Questran) 4 gm PO BID@1000,1800 [facility] Last Admin: 06/12/19 17:16 Dose: Not Given Documented by: Fenofibrate (Lofibra) 160 mg PO HS [facility] Last Admin: 06/11/19 21:04 Dose: 160 mg Documented by: Hydrocortisone (Cortef) 5 mg PO HS [facility] Hydrocortisone (Cortef) 15 mg PO DAILY [facility] Ceftriaxone Sodium 2 gm/ (Sodium Chloride) 50 mls @ 100 mls/hr IVPB Q24HR [facility] Last Admin: 06/12/19 08:01 Dose: 100 mls/hr Documented by: Levofloxacin 750 mg/ IV (Solution) 150 mls @ 100 mls/hr IVPB Q24H [facility] Last Admin: 06/12/19 17:00 Dose: 100 mls/hr Documented by: Insulin Aspart (Novolog) 0 unit SQ [facility]; Protocol Last Admin: 06/12/19 17:16 Dose: Not Given Documented by: Levothyroxine Sodium (Synthroid) 125 mcg PO DAILY@0630 [facility] Last Admin: 06/12/19 05:05 Dose: 125 mcg Documented by: Lisinopril (Zestril) 40 mg PO DAILY [facility] Last Admin: 06/12/19 15:48 Dose: 40 mg Documented by: Loratadine (Claritin) 10 mg PO DAILY [facility] Last Admin: 06/12/19 08:00 Dose: 10 mg Documented by: Miscellaneous Information (Pneumonia Protocol Utilized) 1 each PO ONCE PRN PRN Reason: Per Protocol Montelukast Sodium (Singulair) 10 mg PO DAILY [facility] Last Admin: 06/12/19 08:01 Dose: 10 mg Documented by: Nystatin (Mycostatin Powder) 1 applic TOPICAL BID PRN PRN Reason: Rash Pantoprazole Sodium (Protonix) 40 mg PO AC-BRKFST [facility] Last Admin: 06/12/19 08:00 Dose: 40 mg Documented by: Rivaroxaban (Xarelto) 20 mg PO DAILY [facility] Last Admin: 06/12/19 08:02 Dose: 20 mg Documented by: Objective - Vital Signs Vital signs: Vital Signs Temp 97.9 F 06/12/19 15:00 Pulse 62 06/12/19 15:00 Resp 20 06/12/19 15:00 BP 154/76 06/12/19 15:00 Pulse Ox 94 L 06/12/19 15:00 Intake & Output 06/11/19 06/12/19 06/12/19 18:59 06:59 18:59 Intake Total 340 200 Balance 340 200 Intake: Oral 340 200 Other: Voiding Method Toilet Toilet # Voids 1 3 - Exam Gen: This is a 59-year-old female sitting up at the side of the bed, awake, alert and oriented 3, well-developed, well-nourished. Temp is 98.0, pulse is 61, respirations are 16, blood pressure 180/93, oxygen saturation is 95 % on 2liters via nasal cannula HEENT: Head is atraumatic, normocephalic. Pupils equal, round. Sclerae is anicteric. NECK: Supple. No JVD. No lymphadenopathy. No thyromegaly. LUNGS: Diminished breath sounds at the bases with no wheezing noted. A few scattered rhonchi and crackles noted on exam. No intercostal retractions. HEART: S1, S2 are muffled. ABDOMEN: Soft. Bowel sounds are present. No masses. No tenderness. EXTREMITIES: No pedal edema. No calf tenderness. NEUROLOGICAL: Patient is awake, alert and oriented x3. Cranial nerves 2 through 12 are grossly intact. - Labs CBC & Chem 7: 06/12/19 10:19 06/12/19 10:19 Labs: Abnormal Lab Results - Last 24 Hours (Table) 06/12/19 06/12/19 06/12/19 Range/Units 10:19 10:19 12:14 RBC 3.78 L (3.80-5.40) m/uL Hgb 11.3 L (11.4-16.0) gm/dL Neutrophils # 8.4 H (1.3-7.7) k/uL Glucose 263 H (74-99) mg/dL POC Glucose (mg/dL) 166 H (75-99) mg/dL Microbiology - Last 24 Hours (Table) 06/09/19 04:47 Blood Culture - Preliminary Blood No Growth after 72 hours Assessment and Plan Assessment: Lower abdominal pain, diarrhea, possible acute gastroenteritis possibly viral Possible interstitial pneumonia, left lower lobe pneumonia Possible acute urinary tract infection, present on admission, sepsis, possibly Increased WBC Increased creatinine with acute renal failure, possibly prerenal acute tubular necrosis secondary to prerenal factors Increased AST Increased total bilirubin Mild hypercalcemia history of asthma Diabetes mellitus type 2 History of deep vein thrombosis history of gastroesophageal reflux disease Hypertension Hyperlipidemia History of pulmonary embolus History of pneumonia History of sleep apnea History of bronchitis history adrenal insufficiency history of cardiomegaly History of diabetes mellitus type 2, not on any medications History of migraine History of cardiac catheterization History of degenerative joint disease History of deep vein thrombosis history of MRSA history of appendectomy Obesity with a body mass index of 34.8 Recommendations and discussion: Recommend continue current medications, management, and symptomatic treatment. Continue with bronchodilators and antibiotics at this time. Patient being evaluated by cardiology and an echo was ordered. Limited echo shows overall left ventricular systolic function is normal with an EF between 55 and 60% with normal global left ventricular contractility. Will continue to monitor closely. Encouraged increased activity as tolerated. Urine and blood cultures thus far remain negative. Due to multiple complex medical issues, prognosis is guarded. Further recommendations to follow. Possible discharge in 24-48 hours.
[2019-06-13] MEDS ORDERED: HYDROCORTISONE 10 MG TAB PO SCH (09:00)
[2019-06-13 12:06] LABS: Glucose,Whole Blood 108 mg/dL (75-99)
--- NOTE | 2019-06-13 13:36 | P.PN ---
Subjective HISTORY OF PRESENTING ILLNESS This is a pleasant 59-year-old female past medical history significant for diabetes mellitus, hypertension, dyslipidemia and history of DVT and PE January 2019 maintained on long-term anticoagulation. She follows in the office with Dr. Pedraza. Patient was seen and examined sitting up in no acute distress. She has had no further symptoms of chest discomfort. Breathing is stable. She denies dizziness or palpitations. Echocardiogram obtained reveals preserved LV systolic function with ejection fraction 55-60%. Blood pressure remains elevated 175/96 with a heart rate of 66. Currently maintained on amlodipine 10 mg daily, lisinopril 40 mg daily, atenolol 25 mg daily, fenofibrate 160 mg daily, atorvastatin 40 mg daily and Xarelto 20 mg daily. PHYSICAL EXAMINATION CONSTITUTIONAL: No apparent distress. HEENT: Head is normocephalic. Pupils are equal, round. Sclerae anicteric. Mucous membranes of the mouth are moist. No JVD. No carotid bruit. CHEST EXAMINATION: Lungs are clear to auscultation. No chest wall tenderness is noted on palpation or with deep breathing. HEART EXAMINATION: Regular rate and rhythm. S1, S2 heard. No murmurs, gallops or rub. EXTREMITIES: 2+ peripheral pulses, no lower extremity edema and no calf tenderness. ASSESSMENT Chest pain, atypical for angina. Recent catheterization revealing normal coronary arteries. Enzymes negative x2. Urinary tract infection Pneumonia Diarrhea Leukocytosis Hypertension Dyslipidemia Diabetes mellitus History of DVT and PE diagnosed 01/2019 PLAN An acute coronary event has been ruled out and no wall motion abnormalities noted on echocardigram. If blood pressure remains elevated would consider initiating on small dose of diuretic. Follow up in the office with Dr. Pedraza upon discharge. Nurse Practitioner note has been reviewed, I agree with a documented findings and plan of care. Patient was seen and examined. Objective - Vital Signs Vital signs: Vital Signs Temp 98.2 F 06/13/19 06:17 Pulse 66 06/13/19 06:17 Resp 16 06/13/19 06:17 BP 175/96 06/13/19 06:17 Pulse Ox 95 06/13/19 06:17 Intake & Output 06/12/19 06/13/19 06/13/19 18:59 06:59 18:59 Intake Total 200 200 Balance 200 200 Intake: Oral 200 200 Other: Voiding Method Toilet Toilet # Voids 3 4 - Labs CBC & Chem 7: 03/12/20 10:19 06/12/19 10:19 Labs: Abnormal Lab Results - Last 24 Hours (Table) 06/12/19 06/12/19 06/13/19 Range/Units 17:06 21:08 12:04 POC Glucose (mg/dL) 128 H 149 H 108 H (75-99) mg/dL Microbiology - Last 24 Hours (Table) 06/09/19 04:47 Blood Culture - Preliminary Blood No Growth after 96 hours
--- NOTE | 2019-06-13 16:39 | PN ---
PROGRESS NOTE DATE OF SERVICE: 06/13/2019. REASON FOR FOLLOWUP: UTI, possible pneumonia. INTERVAL HISTORY: The patient was seen on rounds this morning. The patient has been afebrile. She was breathing comfortably. Denies having any chest pain. Occasional cough. No nausea. No vomiting. No abdominal pain. Diarrhea has resolved. PHYSICAL EXAMINATION: Blood pressure 175/96, pulse of 76, temperature 98.2. She is 95% on room air. General description is a middle-aged female up in the bed in no distress. RESPIRATORY SYSTEM: Unlabored breathing with decreased breath sounds at the base. No wheeze. HEART: S1, S2. Regular rate and rhythm. ABDOMEN: Soft. No tenderness. LABS: Blood and urine cultures have been negative. White count normal as of yesterday. DIAGNOSTIC IMPRESSION AND PLAN: Patient admitted to hospital with a fever with concern for possible urinary tract infection plus or minus pneumonia. Cultures remain negative. However, the cultures were done after the patient was started on antibiotic. She will finish therapy with Ceftin 500 mg twice a day for about a week with close outpatient followup. Questions and concerns were answered. MMODL / IJN: [id number] /
--- NOTE | 2019-06-16 09:16 | P.DS ---
Providers Date of admission: 06/09/19 06:02 Expected date of discharge: 06/13/19 Attending physician: Anil Zuniga Consults: 06/09/19 12:19 Consult Physician Urgent Consulting Provider: Kristian Altamirano Consult Reason/Comments: fever diarrhea Do you want consulting provider notified?: Yes 06/12/19 12:06 Consult Physician Routine Consulting Provider: Gunnar Bean Consult Reason/Comments: HTN, Intermittent chest pain Do you want consulting provider notified?: Yes Primary care physician: Kita [facility]vera [facility] Course: Final diagnosis Lower abdominal pain, diarrhea, possible acute gastroenteritis possibly viral Possible interstitial pneumonia, left lower lobe pneumonia Possible acute urinary tract infection, present on admission, sepsis, possibly Increased WBC Increased creatinine with acute renal failure, possibly prerenal acute tubular necrosis secondary to prerenal factors Increased AST Increased total bilirubin Mild hypercalcemia history of asthma Diabetes mellitus type 2 History of deep vein thrombosis history of gastroesophageal reflux disease Hypertension Hyperlipidemia History of pulmonary embolus History of pneumonia History of sleep apnea History of bronchitis history adrenal insufficiency history of cardiomegaly History of diabetes mellitus type 2, not on any medications History of migraine History of cardiac catheterization History of degenerative joint disease History of deep vein thrombosis history of MRSA history of appendectomy Obesity with a body mass index of 34.8 Discharge disposition Patient is being discharged in a stable condition with guarded prognosis to home. Patient will follow-up with Dr. Riggs upon discharge. Patient will follow-up with Dr. Gill in the outpatient setting. Patient will continue with short course of antibiotics in the form of Ceftin to complete the course. Total time taken is 35 minutes. History of present illness This is an 59-year-old female who was recently admitted with lower abdominal margret n with acute gastroenteritis and also found to have interstitial pneumonia with possible left lower lobe pneumonia and was being closely monitored. Multiple medical consultations following. Patient was initiated on IV antibiotics and will continue with oral Ceftin in the outpatient setting to complete the course. Patient was also having some intermittent chest pain with EKG done which was negative along with troponins which were also negative. Patient underwent a limited echo showing normal wall motion contractility. She will follow up with Dr. Pedraza in the outpatient setting upon discharge. Patient was also having some mild hypertension and was initiated on Norvasc and will continue in the outpatient setting along with her lisinopril and atenolol. Patient will continue on Xarelto as well for previous history of DVTs. Currently no reports of chest pain, worsening shortness of breath, or palpitations. Patient is afebrile. No reports of nausea or vomiting and patient is tolerating diet. Guarded prognosis. On exam vital signs are stable. Temp is 98.2 F, pulse is 66, respirations are 16, blood pressure is 175/96, oxygen saturation is 95% on room air. Cardio S1, S2 are muffled. Respiratory shows diminished breath sounds at the bases with a few scattered rhonchi noted. Abdomen is soft and nontender. Nervous system shows no focal deficits. Please refer to medication reconciliation sheet for a list of medications. Patient Condition at Discharge: Good Plan - Discharge Summary Discharge Rx Participant: No New Discharge Prescriptions: New Cefuroxime Axetil [Ceftin] 500 mg PO BID 5 Days #10 tab amLODIPine [Norvasc] 10 mg PO DAILY 30 Days #30 tab Continue Lisinopril 40 mg PO DAILY Montelukast [Singulair] 10 mg PO DAILY Atenolol [Tenormin] 25 mg PO DAILY Fenofibrate 160 mg PO HS Omeprazole 20 mg PO DAILY Levothyroxine Sodium 125 mcg PO DAILY Cetirizine HCl [Zyrtec] 10 mg PO DAILY Atorvastatin [Lipitor] 40 mg PO HS Hydrocortisone 15 mg PO QAM Hydrocortisone 5 mg PO HS Albuterol Nebulized [Ventolin Nebulized] 2.5 mg INHALATION RT-Q4H PRN 30 Days #120 neb PRN Reason: Shortness Of Breath Fluticasone/Salmeterol [Advair 500-50 Diskus] 1 inhalation PO BID Rivaroxaban [Xarelto] 20 mg PO DAILY Discharge Medication List Atenolol [Tenormin] 25 mg PO DAILY 09/06/13 [History] Lisinopril 40 mg PO DAILY 09/06/13 [History] Montelukast [Singulair] 10 mg PO DAILY 09/06/13 [History] Fenofibrate 160 mg PO HS 01/20/16 [History] Omeprazole 20 mg PO DAILY 01/20/16 [History] Atorvastatin [Lipitor] 40 mg PO HS 02/14/19 [History] Cetirizine HCl [Zyrtec] 10 mg PO DAILY 02/14/19 [History] Hydrocortisone 5 mg PO HS 02/14/19 [History] Hydrocortisone 15 mg PO QAM 02/14/19 [History] Levothyroxine Sodium 125 mcg PO DAILY 02/14/19 [History] Albuterol Nebulized [Ventolin Nebulized] 2.5 mg INHALATION RT-Q4H PRN 30 Days #120 neb 02/18/19 [Rx] Fluticasone/Salmeterol [Advair 500-50 Diskus] 1 inhalation PO BID 05/07/19 [History] Rivaroxaban [Xarelto] 20 mg PO DAILY 06/09/19 [History] Cefuroxime Axetil [Ceftin] 500 mg PO BID 5 Days #10 tab 06/13/19 [Rx] amLODIPine [Norvasc] 10 mg PO DAILY 30 Days #30 tab 06/13/19 [Rx] Follow up Appointment(s)/Referral(s): Lance Pedraza MD [STAFF PHYSICIAN] - 06/23/19 2:45 pm Kita Riggs III, MD [Primary Care Provider] - 1-2 days (Please call to make appointment ) Patient Instructions/Handouts: MRSA (Methicillin-Resistant Staphylococcus Aureus) (DC), Type 2 Diabetes in Adults: New Diagnosis (DC), Pneumonia (DC) Activity/Diet/Wound Care/Special Instructions: Activity Limited until follow-up Continue with antibiotics until finished Follow-up with primary care provider upon discharge Follow-up with cardiology in the outpatient setting Discharge Disposition: HOME SELF-CARE
== END 2019-06-13 13:05 | disposition home or self-care (01) | DRG 871 ==
LOC: EC 02:55 → 6NMEDSUR 06:02
PROVIDERS: ADMIT Hospitalist; ATTEND Hospitalist
DX: A41.9 Sepsis, unspecified organism (principal); N17.0 Acute kidney failure with tubular necrosis; A04.72 Enterocolitis due to Clostridium difficile, not specified as recurrent; E27.40 Unspecified adrenocortical insufficiency; J84.9 Interstitial pulmonary disease, unspecified; N39.0 Urinary tract infection, site not specified; J98.11 Atelectasis; E83.51 Hypocalcemia; K76.0 Fatty (change of) liver, not elsewhere classified; I95.9 Hypotension, unspecified; K21.9 Gastro-esophageal reflux disease without esophagitis; J45.909 Unspecified asthma, uncomplicated; I10 Essential (primary) hypertension; E78.5 Hyperlipidemia, unspecified; E11.9 Type 2 diabetes mellitus without complications; M19.90 Unspecified osteoarthritis, unspecified site; G47.30 Sleep apnea, unspecified; E07.9 Disorder of thyroid, unspecified; E22.0 Acromegaly and pituitary gigantism; E66.9 Obesity, unspecified; R07.89 Other chest pain; E83.52 Hypercalcemia; G43.909 Migraine, unspecified, not intractable, without status migrainosus; Z68.34 Body mass index [BMI] 34.0-34.9, adult; Z79.899 Other long term (current) drug therapy; Z79.890 Hormone replacement therapy; Z79.52 Long term (current) use of systemic steroids; Z79.01 Long term (current) use of anticoagulants; Z86.711 Personal history of pulmonary embolism; Z86.718 Personal history of other venous thrombosis and embolism; Z87.19 Personal history of other diseases of the digestive system; Z86.14 Personal history of Methicillin resistant Staphylococcus aureus infection; Z90.710 Acquired absence of both cervix and uterus; Z90.49 Acquired absence of other specified parts of digestive tract; Z98.890 Other specified postprocedural states; Z87.01 Personal history of pneumonia (recurrent); Z86.79 Personal history of other diseases of the circulatory system; Z87.09 Personal history of other diseases of the respiratory system; Z87.448 Personal history of other diseases of urinary system; Z87.2 Personal history of diseases of the skin and subcutaneous tissue; Z86.39 Personal history of other endocrine, nutritional and metabolic disease; Z90.721 Acquired absence of ovaries, unilateral; Z88.8 Allergy status to other drugs, medicaments and biological substances; Z91.012 Allergy to eggs; Z91.013 Allergy to seafood; Z91.041 Radiographic dye allergy status; Z82.0 Family history of epilepsy and other diseases of the nervous system; Z80.8 Family history of malignant neoplasm of other organs or systems; Z82.49 Family history of ischemic heart disease and other diseases of the circulatory system; Z82.3 Family history of stroke; Z83.2 Family history of diseases of the blood and blood-forming organs and certain disorders involving the immune mechanism; Z84.0 Family history of diseases of the skin and subcutaneous tissue
CPT/HCPCS: 36415; 71045; 71046; 74176; 80048; 80053; 81001; 82550; 82553; 83605; 84484; 85025; 85379; 87040; 87086; 87502; 93005; 93308; 94640; 94760; 96361; 96365; 99285

== ENCOUNTER 2019-11-08 12:27 | Observation (INO) | payer OTHER ==
[2019-11-08] MEDS ORDERED: IPRATROPIUM-ALBUTEROL 3 ML NEB INHALATION STA (13:18)
--- NOTE | 2019-11-08 13:25 | ED ---
General Adult HPI - General Chief complaint: Shortness of Breath Stated complaint: SOB Time Seen by Provider: 11/08/19 12:54 Source: patient, RN notes reviewed Mode of arrival: ambulatory Limitations: no limitations - History of Present Illness Initial comments: Patient is a pleasant 59-year-old female presenting to the emergency department with difficulty breathing. Onset of symptoms was 4 days ago. No significant cough. Symptoms do worsen with exertion. No fevers. Patient states her may be some mild heaviness in her chest. Patient does have some chronic leg swelling that has been worse recently however is down a little bit at this time. No calf pain. Patient is on oral anticoagulation. Patient states breathing treatments at home have not improved much. Patient does have history of asthma however she has not been hearing wheezing. - Related Data Home Medications Medication Instructions Recorded Confirmed Montelukast [Singulair] 10 mg PO DAILY 09/06/13 06/09/19 atenoloL [Tenormin] 25 mg PO DAILY 09/06/13 06/09/19 lisinopriL 40 mg PO DAILY 09/06/13 06/09/19 Fenofibrate 160 mg PO HS 01/20/16 06/09/19 Omeprazole 20 mg PO DAILY 01/20/16 06/09/19 Atorvastatin [Lipitor] 40 mg PO HS 02/14/19 06/09/19 Cetirizine HCl [Zyrtec] 10 mg PO DAILY 02/14/19 06/09/19 Hydrocortisone 5 mg PO HS 02/14/19 06/09/19 Hydrocortisone 15 mg PO QA 02/14/19 06/09/19 Levothyroxine Sodium 125 mcg PO DAILY 02/14/19 06/09/19 Fluticasone/Salmeterol [Advair 1 inhalation PO BID 05/07/19 06/09/19 500-50 Diskus] Rivaroxaban [Xarelto] 20 mg PO DAILY 06/09/19 06/09/19 Previous Rx's Medication Instructions Recorded Albuterol Nebulized [Ventolin 2.5 mg INHALATION RT-Q4H PRN 30 02/18/19 Nebulized] Days #120 neb Cefuroxime Axetil [Ceftin] 500 mg PO BID 5 Days #10 tab 06/13/19 amLODIPine [Norvasc] 10 mg PO DAILY 30 Days #30 tab 06/13/19 Allergies Allergy/AdvReac Type Severity Reaction Status Date / Time Iodine and Iodide Containing Allergy Unknown allergy Verified 11/08/19 12:42 Produc test positive for shell fish. celecoxib [From Celebrex] Allergy Wheezing Verified 11/08/19 12:42 egg AdvReac Swelling Verified 11/08/19 12:42 shellfish derived AdvReac ALLERGY Verified 11/08/19 12:42 TEST POSITIVE. Review of Systems ROS Statement: Those systems with pertinent positive or pertinent negative responses have been documented in the HPI. ROS Other: All systems not noted in ROS Statement are negative. Constitutional: Denies: fever Eyes: Denies: eye pain ENT: Denies: ear pain Respiratory: Reports: dyspnea. Denies: cough Cardiovascular: Reports: as per HPI. Denies: palpitations Endocrine: Reports: fatigue Gastrointestinal: Denies: abdominal pain Genitourinary: Denies: dysuria Musculoskeletal: Denies: back pain Skin: Denies: rash Neurological: Denies: weakness Past Medical History Past Medical History: Asthma, Diabetes Mellitus, Deep Vein Thrombosis (DVT), GERD/Reflux, Hyperlipidemia, Hypertension, Osteoarthritis (OA), Pneumonia, Pulmonary Embolus (PE), Renal Disease, Skin Disorder, Sleep Apnea/CPAP/BIPAP, Thyroid Disorder Additional Past Medical History / Comment(s): Hx bronchitis, adrenal insufficiency, acromegaly, diabetes-no current meds, migraines, eczema, hs elevated kidney function tests, hemorrhoids, sciatica, arthritis R hip/back/ neck, allergy/sinus prob. DVT, PE 01/2019. Uses CPAP. Having diarrhea, blood from rectum. 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 "cyst removed from between lung and spine" Past Anesthesia/Blood Transfusion Reactions: Previous Problems w/ Anesthesia Additional Past Anesthesia/Blood Transfusion Reaction / Comment(s): "STOPPED BREATHING DURING BRONCHOSCOPY R/T TO UNKNOWN SLEEP APNEA" PER PT Past Psychological History: No Psychological Hx Reported Past Alcohol Use History: Rare Past Drug Use History: None Reported - Past Family History Sister(s) Family Medical History: Cancer Brother(s) Family Medical History: Deep Vein Thrombosis (DVT) Additional Family Medical History / Comment(s): Parkinsons Father Family Medical History: Cancer, CVA/TIA, Hypertension, Skin Disorder Additional Family Medical History / Comment(s): Father of pneumonia and a brain bleed in his 80'. He also had skin cancer Mother Family Medical History: Cancer Additional Family Medical History / Comment(s): skin cancer. General Exam Limitations: no limitations General appearance: alert, in no apparent distress Head exam: Present: normocephalic Eye exam: Present: normal appearance Neck exam: Present: normal inspection Respiratory exam: Present: wheezes Cardiovascular Exam: Present: regular rate, normal rhythm GI/Abdominal exam: Present: soft. Absent: tenderness Extremities exam: Present: normal inspection, pedal edema (+1 bilateral). Absent: calf tenderness Neurological exam: Present: alert Psychiatric exam: Present: normal affect, normal mood Skin exam: Present: normal color Course Vital Signs 11/08/19 11/08/19 11/08/19 12:40 13:08 13:35 Temperature 98.2 F Pulse Rate 76 76 Respiratory 18 20 Rate Blood Pressure 135/90 O2 Sat by Pulse 92 L Oximetry 11/08/19 13:42 Temperature Pulse Rate 80 Respiratory Rate Blood Pressure O2 Sat by Pulse Oximetry EKG Findings - EKG Comments: EKG Findings:: Normal sinus rhythm 72. AK 1:30. QRS 92. QT 414. QTC 453. Normal axis. Normal QRS. T wave inversion V2 through V6 Medical Decision Making - Medical Decision Making Patient reevaluated and slightly improved. Patient has continued wheezing and still feels somewhat short of breath. Patient updated on results and plan. Dr. sommers paged for admission covering for Dr. Riggs. - Lab Data Result diagrams: 11/08/19 13:23 11/08/19 13:23 Lab Results 11/08/19 11/08/19 11/08/19 Range/Units 13:23 13:23 13:23 WBC 6.8 (3.8-10.6) k/uL RBC 4.58 (3.80-5.40) m/uL Hgb 13.8 (11.4-16.0) gm/dL Hct 41.2 (34.0-46.0) % MCV 89.9 (80.0-100.0) fL MCH 30.0 (25.0-35.0) pg MCHC 33.4 (31.0-37.0) g/dL RDW 12.6 (11.5-15.5) % Plt Count 254 (150-450) k/uL Neutrophils % 61 % Lymphocytes % 23 % Monocytes % 5 % Eosinophils % 8 % Basophils % 1 % Neutrophils # 4.1 (1.3-7.7) k/uL Lymphocytes # 1.6 (1.0-4.8) k/uL Monocytes # 0.3 (0-1.0) k/uL Eosinophils # 0.6 (0-0.7) k/uL Basophils # 0.1 (0-0.2) k/uL PT 15.9 H (9.0-12.0) sec INR 1.6 H (<1.2) APTT 39.4 H (22.0-30.0) sec Sodium 138 (137-145) mmol/L Potassium 3.9 (3.5-5.1) mmol/L Chloride 105 (98-107) mmol/L Carbon Dioxide 25 (22-30) mmol/L Anion Gap 8 mmol/L BUN 15 (7-17) mg/dL Creatinine 1.17 H (0.52-1.04) mg/dL Est GFR (CKD-EPI)AfAm 60 (>60 ml/min/1.73 sqM) Est GFR (CKD-EPI)NonAf 52 (>60 ml/min/1.73 sqM) Glucose 159 H (74-99) mg/dL Calcium 9.3 (8.4-10.2) mg/dL Total Bilirubin 0.9 (0.2-1.3) mg/dL AST 61 H (14-36) U/L ALT 43 H (4-34) U/L Alkaline Phosphatase 53 (38-126) U/L Creatine Kinase 135 (30-135) U/L Troponin I (0.000-0.034) ng/mL NT-Pro-B Natriuret Pep pg/mL Total Protein 6.9 (6.3-8.2) g/dL Albumin 4.1 (3.5-5.0) g/dL 11/08/19 11/08/19 Range/Units 13:23 13:23 WBC (3.8-10.6) k/uL RBC (3.80-5.40) m/uL Hgb (11.4-16.0) gm/dL Hct (34.0-46.0) % MCV (80.0-100.0) fL MCH (25.0-35.0) pg MCHC (31.0-37.0) g/dL RDW (11.5-15.5) % Plt Count (150-450) k/uL Neutrophils % % Lymphocytes % % Monocytes % % Eosinophils % % Basophils % % Neutrophils # (1.3-7.7) k/uL Lymphocytes # (1.0-4.8) k/uL Monocytes # (0-1.0) k/uL Eosinophils # (0-0.7) k/uL Basophils # (0-0.2) k/uL PT (9.0-12.0) sec INR (<1.2) APTT (22.0-30.0) sec Sodium (137-145) mmol/L Potassium (3.5-5.1) mmol/L Chloride (98-107) mmol/L Carbon Dioxide (22-30) mmol/L Anion Gap mmol/L BUN (7-17) mg/dL Creatinine (0.52-1.04) mg/dL Est GFR (CKD-EPI)AfAm (>60 ml/min/1.73 sqM) Est GFR (CKD-EPI)NonAf (>60 ml/min/1.73 sqM) Glucose (74-99) mg/dL Calcium (8.4-10.2) mg/dL Total Bilirubin (0.2-1.3) mg/dL AST (14-36) U/L ALT (4-34) U/L Alkaline Phosphatase (38-126) U/L Creatine Kinase (30-135) U/L Troponin I <0.012 (0.000-0.034) ng/mL NT-Pro-B Natriuret Pep 170 pg/mL Total Protein (6.3-8.2) g/dL Albumin (3.5-5.0) g/dL - Radiology Data Radiology results: image reviewed (Chest x-ray shows no acute process, possible nodule) Disposition Clinical Impression: Asthma exacerbation Disposition: ADMITTED IP TO THIS HOSP Is patient prescribed a controlled substance at d/c from ED?: No Referrals: Kita Riggs III, MD [Primary Care Provider] - 1-2 days Decision Time: 14:44
[2019-11-08 13:47] LABS: Basophils # (A) 0.1 k/uL (0-0.2); Basophils % (A) 1 %; Eosinophils # (A) 0.6 k/uL (0-0.7); Eosinophils % (A) 8 %; HCT 41.2 % (34.0-46.0); HGB 13.8 gm/dL (11.4-16.0); Lymphocytes # (A) 1.6 k/uL (1.0-4.8); Lymphocytes % (A) 23 %; MCHC 33.4 g/dL (31.0-37.0); MCV 89.9 fL (80.0-100.0); Monocytes # (A) 0.3 k/uL (0-1.0); Monocytes % (A) 5 %; Neutrophils # (A) 4.1 k/uL (1.3-7.7); Neutrophils % (A) 61 %; Platelet Count 254 k/uL (150-450); RBC 4.58 m/uL (3.80-5.40); RDW 12.6 % (11.5-15.5); WBC 6.8 k/uL (3.8-10.6)
[2019-11-08 13:51] LABS: INR 1.6 (<1.2); Partial Thromboplastin Time 39.4 sec (22.0-30.0); Prothrombin Time 15.9 sec (9.0-12.0)
[2019-11-08 13:54] LABS: Albumin 4.1 g/dL (3.5-5.0); Calcium 9.3 mg/dL (8.4-10.2); Potassium 3.9 mmol/L (3.5-5.1); Total Bilirubin 0.9 mg/dL (0.2-1.3); Total Protein 6.9 g/dL (6.3-8.2)
--- NOTE | 2019-11-08 14:02 | XR ---
EXAMINATION TYPE: XR chest 2V DATE OF EXAM: 11/08/2019 COMPARISON: 06/10/1999 TECHNIQUE: PA and lateral views submitted. HISTORY: Shortness of breath FINDINGS: The lungs are clear and there is no pneumothorax, pleural effusion, or focal pneumonia. Arthropathy of the shoulders. Nonspecific sclerotic lesions involving the left humeral head. Heart size normal w ith no overt failure. Correlate for COPD. Hypertrophic and degenerative change of the spine. 5 mm nod ule adjacent left heart border could related to superimposed structures. Bilateral oblique views coul d be obtained. IMPRESSION: 1. COPD. possible tiny 5 mm nodule adjacent to left heart border.
[2019-11-08] MEDS ORDERED: IPRATROPIUM-ALBUTEROL 3 ML NEB INHALATION PRN (14:45)
[2019-11-08] MEDS ORDERED: methylPREDNISolone SOD SUCCI 125 MG/2 ML VIAL IV STA (14:45)
[2019-11-08] MEDS: IPRATROPIUM-ALBUTEROL 3 ML NEB INHALATION SCH (15:35)
[2019-11-08] MEDS: methylPREDNISolone SOD SUCCI 125 MG/2 ML VIAL IV SCH ×2 (17:06→23:51)
[2019-11-08] MEDS: SODIUM CHLORIDE 0.9% 1,000 ML IV SCH ×2 (17:06→23:52)
[2019-11-08] MEDS: amLODIPine 5 MG TAB PO SCH (19:37)
[2019-11-08] MEDS: atenoloL 25 MG TAB PO SCH (19:38)
[2019-11-08 20:34] LABS: Glucose,Whole Blood 221 mg/dL (75-99)
[2019-11-08] MEDS: ATORVASTATIN 40 MG TAB PO SCH (21:27)
[2019-11-08] MEDS: FENOFIBRATE 160 MG TAB PO SCH (21:27)
[2019-11-08] MEDS: INSULIN ASPART (NovoLOG) 100 UNIT/ML VIAL SQ SCH (21:28)
[2019-11-08] MEDS: HYDROCORTISONE 10 MG TAB PO SCH (21:28)
--- NOTE | 2019-11-08 21:38 | P.HPIM ---
History of Present Illness H&P Date: 11/08/19 Chief Complaint: Shortness of breath Ms. Ashford is a 59-year-old female with a past medical history of asthma, diabetes mellitus, DVT, GERD, hypertension, hyperlipidemia, osteoarthritis, PE, renal disease, obstructive sleep apnea, adrenal insufficiency, chronic low back pain coming into the hospital with a chief complaint of difficulty in breathing. Patient states that for the past 4 days she has been having difficulty in breathing and that she has been having mild wheezing. Patient denies having any productive cough. She denies having any fever chills or rigors. Patient denies having any chest pains. She has history of DVT and PE and is on anticoagulation with Xarelto. Patient denies having any lower extremity swelling. In the emergency department patient patient's vitals at the time of admission are temperature of 98.2, heart rate of 76, respiratory rate of 18, blood pressure 135/90 saturating at 92 L on room air. She was also found to have w heezing by the ER physician. She was given breathing treatments and started on IV Solu-Medrol. Patient's lab work has been reviewed INR is slightly elevated at 1.6. Mild elevation in AST and ALT at 61 and 43 respectively. Creatinine of 1.17 with GFR of 52. Troponin less than 0.012. Review of Systems REVIEW OF SYSTEMS: PSYCH: No anxiety or depression NEURO: No c/o weakness of the extremties, No facial droop, No speech abnormalities. VASCULAR: No edema HEMATOLOGIC: No history of easy bleeding and bruising . No recent infections . RESPIRATORY: As per HPI IMMUNE: No infections INTEGUMENT: no rashes OPHTHALMOLOGIC: No blurry vision and no eye discharge : No dysuria or hematuria CARDIAC: No chest pain , shortness of breath , paroxysmal nocturnal dyspnea MUSCULOSKELETAL : No Aches or pains in the joints or muscles. GI: No abdominal pain, Nausea or vomiting. No constipation or diarrhea. Past Medical History Past Medical History: Asthma, Diabetes Mellitus, Deep Vein Thrombosis (DVT), GERD/Reflux, Hyperlipidemia, Hypertension, Osteoarthritis (OA), Pneumonia, Pulmonary Embolus (PE), Renal Disease, Skin Disorder, Sleep Apnea/CPAP/BIPAP, Thyroid Disorder Additional Past Medical History / Comment(s): Hx bronchitis, adrenal insufficiency, acromegaly, diabetes-no current meds, migraines, eczema, hs elevated kidney function tests, hemorrhoids, sciatica, arthritis R hip/back/ neck, allergy/sinus prob. DVT, PE 01/2019. Uses CPAP. Having diarrhea, blood from rectum. 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 "cyst removed from between lung and spine" Past Anesthesia/Blood Transfusion Reactions: Previous Problems w/ Anesthesia Additional Past Anesthesia/Blood Transfusion Reaction / Comment(s): "STOPPED BREATHING DURING BRONCHOSCOPY R/T TO UNKNOWN SLEEP APNEA" PER PT Past Psychological History: No Psychological Hx Reported Additional Psychological History / Comment(s): Pt resides with her spouse and several children/grand children. She is independent. Smoking Status: Never smoker Past Alcohol Use History: Rare Past Drug Use History: None Reported - Past Family History Sister(s) Family Medical History: Cancer Brother(s) Family Medical History: Deep Vein Thrombosis (DVT) Additional Family Medical History / Comment(s): Parkinsons Father Family Medical History: Cancer, CVA/TIA, Hypertension, Skin Disorder Additional Family Medical History / Comment(s): Father of pneumonia and a brain bleed in his 80'. He also had skin cancer Mother Family Medical History: Cancer Additional Family Medical History / Comment(s): skin cancer. Medications and Allergies Home Medications Medication Instructions Recorded Confirmed Type Montelukast [Singulair] 10 mg PO DAILY 09/06/13 11/08/19 History atenoloL [Tenormin] 25 mg PO DAILY 09/06/13 11/08/19 History Fenofibrate 160 mg PO HS 01/20/16 11/08/19 History Omeprazole 20 mg PO DAILY 01/20/16 11/08/19 History Atorvastatin [Lipitor] 40 mg PO HS 02/14/19 11/08/19 History Cetirizine HCl [Zyrtec] 10 mg PO DAILY 02/14/19 11/08/19 History Hydrocortisone 5 mg PO HS 02/14/19 11/08/19 History Hydrocortisone 15 mg PO QA 02/14/19 11/08/19 History Levothyroxine Sodium 125 mcg PO DAILY 02/14/19 11/08/19 History Albuterol Nebulized [Ventolin 2.5 mg INHALATION RT-Q4H PRN 30 02/18/19 11/08/19 Rx Nebulized] Days #120 neb Fluticasone/Salmeterol [Advair 1 puff INHALATION RT-BID 05/07/19 11/08/19 History 500-50 Diskus] Rivaroxaban [Xarelto] 20 mg PO DAILY 06/09/19 11/08/19 History amLODIPine [Norvasc] 5 mg PO DAILY 11/08/19 11/08/19 History hydroCHLOROthiazide 25 mg PO DAILY 11/08/19 11/08/19 History lisinopriL 30 mg PO DAILY 11/08/19 11/08/19 History Allergies Allergy/AdvReac Type Severity Reaction Status Date / Time Iodine and Iodide Containing Allergy Unknown allergy Verified 11/08/19 15:27 Produc test positive for shell fish. celecoxib [From Celebrex] Allergy Wheezing Verified 11/08/19 15:27 egg AdvReac Swelling Verified 11/08/19 15:27 shellfish derived AdvReac ALLERGY Verified 11/08/19 15:27 TEST POSITIVE. Physical Exam Vitals: Vital Signs Temp Pulse Pulse Resp BP BP Pulse Ox 11/08/19 15:54 98.4 F 78 20 138/89 96 11/08/19 15:44 82 11/08/19 15:37 80 11/08/19 15:27 98.3 F 76 136/87 96 11/08/19 13:42 80 11/08/19 13:35 76 11/08/19 13:08 20 11/08/19 12:40 98.2 F 76 18 135/90 92 L Intake and Output 11/08/19 11/08/19 11/08/19 06:59 14:59 22:59 Other: Weight 99.79 kg 99.79 kg PHYSICAL EXAM GEN. APPEARANCE: alert, in no apparent distress HEAENT : No pallor. No icterus. No JVD. No thyromegaly. Double chin noted. NECK EXAM: normal inspection. Absent: tenderness, meningismus, full ROM, lymphadenopathy RESPIRATORY EXAM: Bilateral breath sounds are positive. Bilateral mild wheezing and also coarse breath sounds heard all through. CARDIOVASCULAR EXAM: S 1 , S 2 heard, no added sounds GI/ABDOMINAL EXAM: Abdomen is soft nontender. Bowel sounds normal. Organomegaly difficult to appreciate due to obesity. EXTREMITIES EXAM: No pedal edema. NEUROLOGICAL EXAM: alert, oriented X3, No focal neurological deficits SKIN EXAM: warm, dry, intact, normal color. Absent: rash Results CBC & Chem 7: 11/08/19 13:23 11/08/19 13:23 Labs: Abnormal Lab Results - Last 24 Hours (Table) 11/08/19 11/08/19 Range/Units 13:23 13:23 PT 15.9 H (9.0-12.0) sec INR 1.6 H (<1.2) APTT 39.4 H (22.0-30.0) sec Creatinine 1.17 H (0.52-1.04) mg/dL Glucose 159 H (74-99) mg/dL AST 61 H (14-36) U/L ALT 43 H (4-34) U/L Thrombosis Risk Factor Assmnt - Choose All That Apply Any of the Below Risk Factors Present?: Yes Each Factor Represents 1 point: Age 41-60 years, Obesity (BMI >25) Each Risk Factor Represents 3 Points: Family history of DVT/PE Thrombosis Risk Factor Assessment Total Risk Factor Score: 5 Thrombosis Risk Factor Assessment Level: High Risk Assessment and Plan Assessment: ASSESSMENT Acute exacerbation of asthma Mild transaminitis Elevated PT/APTT/INR Pulmonary nodule-5 mm nodule adjacent to left heart border Type 2 diabetes mellitus DVT and PE Hypertension Hyperlipidemia Chronic kidney disease stage II Obstructive sleep apnea Adrenal insufficiency Pituitary tumor and brain removed in 2013 History of hemorrhoids Degenerative joint disease Obesity with BMI of 34.5 PLAN: Patient has been started on IV steroids and breathing treatments. She states that breathing is better when she came in. Mildly elevated AST and ALT, will check hepatitis panel. Patient's APTT/PT/INR elevated, in some situations it could happen as the patient is on anticoagulation with Xarelto. But we have to rule out any underlying hepatic pathology. 5 mm pulmonary nodule on the chest x-ray, needs outpatient follow-up. Patient is well-known to Dr. Grover's service, so pulmonary consult has been placed. Patient has been re started on all her home medications. Further recommendations to follow depending on the progress of the patient.
[2019-11-09 05:58] LABS: Basophils % (A) 0 %; Eosinophils % (A) 0 %; HCT 40.4 % (34.0-46.0); HGB 13.3 gm/dL (11.4-16.0); Lymphocytes # (A) 0.9 k/uL (1.0-4.8); Lymphocytes % (A) 9 %; MCH 29.5 pg (25.0-35.0); MCHC 32.9 g/dL (31.0-37.0); MCV 89.9 fL (80.0-100.0); Mean Platelet Volume 8.4; Monocytes # (A) 0.2 k/uL (0-1.0); Monocytes % (A) 2 %; Neutrophils # (A) 8.2 k/uL (1.3-7.7); Neutrophils % (A) 87 %; Platelet Count 237 k/uL (150-450); RDW 12.5 % (11.5-15.5); WBC 9.4 k/uL (3.8-10.6)
[2019-11-09 06:04] LABS: Albumin 3.8 g/dL (3.5-5.0); Calcium 8.7 mg/dL (8.4-10.2); Potassium 4.4 mmol/L (3.5-5.1); Total Bilirubin 0.9 mg/dL (0.2-1.3); Total Protein 6.5 g/dL (6.3-8.2)
[2019-11-09 06:08] LABS: INR 1.2 (<1.2); Partial Thromboplastin Time 26.7 sec (22.0-30.0); Prothrombin Time 12.3 sec (9.0-12.0)
[2019-11-09] MEDS: methylPREDNISolone SOD SUCCI 125 MG/2 ML VIAL IV SCH ×3 (06:21→18:14)
[2019-11-09] MEDS: LEVOTHYROXINE 125 MCG TAB PO SCH (06:22)
[2019-11-09 06:30] LABS: Glucose,Whole Blood 267 mg/dL (75-99)
[2019-11-09] MEDS ORDERED: INSULIN ASPART (NovoLOG) 100 UNIT/ML VIAL SQ SCH (07:30)
[2019-11-09] MEDS: IPRATROPIUM-ALBUTEROL 3 ML NEB INHALATION SCH ×5 (07:40→19:55)
[2019-11-09] MEDS: SYMBICORT 160-4.5 MCG INHALER INHALATION SCH ×3 (07:41→19:56)
[2019-11-09] MEDS: HYDROCORTISONE 10 MG TAB PO SCH ×2 (08:20→21:32)
[2019-11-09] MEDS: MONTELUKAST 10 MG TAB PO SCH (08:21)
[2019-11-09] MEDS: hydroCHLOROthiazide 25 MG TAB PO SCH (08:21)
[2019-11-09] MEDS: LORATADINE 10 MG TAB PO SCH (08:21)
[2019-11-09] MEDS: lisinopriL 10 MG TAB PO SCH (08:21)
[2019-11-09] MEDS: RIVAROXABAN 20 MG TAB PO SCH (08:21)
[2019-11-09] MEDS: amLODIPine 5 MG TAB PO SCH (08:22)
[2019-11-09] MEDS: atenoloL 25 MG TAB PO SCH (08:22)
[2019-11-09] MEDS: INSULIN ASPART (NovoLOG) 100 UNIT/ML VIAL SQ SCH ×4 (08:22→21:33)
[2019-11-09] MEDS: PANTOPRAZOLE 40 MG TABLET PO SCH (08:22)
--- NOTE | 2019-11-09 11:45 | P.CNPUL ---
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 She has been doing well until around a week or 2 when she started having progressive worsening shortness of breath along with chest tightness and wheezing and exertional dyspnea. She has previous history of DVT and pulmonary embolism and she has been on lifelong antibiotic ventilation with Xarelto. No angina. No palpitation. No swelling lower extremities. The renal function is stable. LFTs are within normal limits. No exposure to coronavirus Covid 19. No change in the sense of taste or smell. No skin rashes. No nausea vomiting or diarrhea. Chest x-ray shows no acute abnormalities. Her last hospitalization for pulmonary embolism was taken January 2019. Since then the patient has been on anticoagulation. Review of Systems Constitutional: fevers, occasional chills, no weight loss. Does have some vague aches and pains. Eyes: denies any blurred vision, no diplopia. Ears, nose, mouth and throat: denies headache, sore throat, nasal congestion. Cardiovascular: Denies chest pain, denies syncope. Respiratory: as noted in HPI. Gastrointestinal: occasional dry heaves, no vomiting, no abdominal pain, no melena, no hematemesis. Musculoskeletal:vague aches and pains, denies any deformities or any limitation of range of motion. Integumentary: denies any rashes or pruritus. Neurological: Denies numbness, Denies weakness Psychiatric: denies any symptoms of active depression or anxiety. Endocrine: history of panhypopituitarism, maintained on multiple meds for her panhypopituitarism and adrenal insufficiency. Past Medical History Past Medical History: Asthma, Diabetes Mellitus, Deep Vein Thrombosis (DVT), GERD/Reflux, Hyperlipidemia, Hypertension, Osteoarthritis (OA), Pneumonia, Pulmonary Embolus (PE), Renal Disease, Skin Disorder, Sleep Apnea/CPAP/BIPAP, Thyroid Disorder Additional Past Medical History / Comment(s): Hx bronchitis, adrenal insufficiency, acromegaly, diabetes-no current meds, migraines, eczema, hs elevated kidney function tests, hemorrhoids, sciatica, arthritis R hip/back/ neck, allergy/sinus prob. DVT, PE 01/2019. Uses CPAP. Having diarrhea, blood from rectum. 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 "cyst removed from between lung and spine" Past Anesthesia/Blood Transfusion Reactions: Previous Problems w/ Anesthesia Additional Past Anesthesia/Blood Transfusion Reaction / Comment(s): "STOPPED BREATHING DURING BRONCHOSCOPY R/T TO UNKNOWN SLEEP APNEA" PER PT Past Psychological History: No Psychological Hx Reported Additional Psychological History / Comment(s): Pt resides with her spouse and several children/grand children. She is independent. Smoking Status: Never smoker Past Alcohol Use History: Rare Past Drug Use History: None Reported - Past Family History Sister(s) Family Medical History: Cancer Brother(s) Family Medical History: Deep Vein Thrombosis (DVT) Additional Family Medical History / Comment(s): Parkinsons Father Family Medical History: Cancer, CVA/TIA, Hypertension, Skin Disorder Additional Family Medical History / Comment(s): Father of pneumonia and a brain bleed in his 80'. He also had skin cancer Mother Family Medical History: Cancer Additional Family Medical History / Comment(s): skin cancer. Medications and Allergies Home Medications Medication Instructions Recorded Confirmed Type Montelukast [Singulair] 10 mg PO DAILY 09/06/13 11/08/19 History atenoloL [Tenormin] 25 mg PO DAILY 09/06/13 11/08/19 History Fenofibrate 160 mg PO HS 01/20/16 11/08/19 History Omeprazole 20 mg PO DAILY 01/20/16 11/08/19 History Atorvastatin [Lipitor] 40 mg PO HS 02/14/19 11/08/19 History Cetirizine HCl [Zyrtec] 10 mg PO DAILY 02/14/19 11/08/19 History Hydrocortisone 5 mg PO HS 02/14/19 11/08/19 History Hydrocortisone 15 mg PO QAM 02/14/19 11/08/19 History Levothyroxine Sodium 125 mcg PO DAILY 02/14/19 11/08/19 History Albuterol Nebulized [Ventolin 2.5 mg INHALATION RT-Q4H PRN 30 02/18/19 11/08/19 Rx Nebulized] Days #120 neb Fluticasone/Salmeterol [Advair 1 puff INHALATION RT-BID 05/07/19 11/08/19 History 500-50 Diskus] Rivaroxaban [Xarelto] 20 mg PO DAILY 06/09/19 11/08/19 History amLODIPine [Norvasc] 5 mg PO DAILY 11/08/19 11/08/19 History hydroCHLOROthiazide 25 mg PO DAILY 11/08/19 11/08/19 History lisinopriL 30 mg PO DAILY 11/08/19 11/08/19 History Allergies Allergy/AdvReac Type Severity Reaction Status Date / Time Iodine and Iodide Containing Allergy Unknown allergy Verified 11/08/19 15:27 Produc test positive for shell fish. celecoxib [From Celebrex] Allergy Wheezing Verified 11/08/19 15:27 egg AdvReac Swelling Verified 11/08/19 15:27 shellfish derived AdvReac ALLERGY Verified 11/08/19 15:27 TEST POSITIVE. Physical Exam Vitals: Vital Signs Temp Pulse Pulse Resp BP BP Pulse Ox 11/09/19 08:55 97.9 F 90 20 138/80 92 L 11/09/19 07:52 88 11/09/19 07:41 88 11/09/19 03:41 97.6 F 74 16 118/55 91 L 11/08/19 19:55 98 F 81 16 118/62 90 L 11/08/19 15:54 98.4 F 78 20 138/89 96 11/08/19 15:44 82 11/08/19 15:37 80 11/08/19 15:27 98.3 F 76 136/87 96 11/08/19 13:42 80 11/08/19 13:35 76 11/08/19 13:08 20 11/08/19 12:40 98.2 F 76 18 135/90 92 L Intake and Output 11/08/19 11/09/19 11/09/19 22:59 06:59 14:59 Intake Total 490 Balance 490 Intake: Oral 490 Other: Voiding Method Toilet Toilet Weight 99.79 kg Gen. appearance, comfortable some features of acromegaly with frontal bossing Head exam was generally normal. There was no scleral icterus or corneal arcus. Mucous membranes were moist. Features of acromegaly is present. Neck was supple and without jugular venous distension, thyromegaly, or carotid bruits. Carotids were easily palpable bilaterally. There was no adenopathy. There is significant crowding of the posterior oropharynx with Mallampati class IV Lung sounds are diminished bilaterally and the patient diffuse expiratory wheezes throughout the lung proctor Cardiac exam revealed the PMI to be normally situated and sized. The rhythm was regular and no extrasystoles were noted during several minutes of auscultation. The first and second heart sounds were normal and physiologic splitting of the second heart sound was noted. There were no murmurs, rubs, clicks, or gallops. Abdominal exam revealed normal bowel sounds. The abdomen was soft, non-tender, and without masses, organomegaly, or appreciable enlargement of the abdominal aorta. Examination of the extremities revealed easily palpable radial, femoral and pedal pulses. There was no cyanosis, clubbing or edema. Examination of the skin revealed no evidence of significant rashes, suspicious appearing nevi or other concerning lesions. Neurologically, the patient is awake and alert and the patient does not have any focal neurological deficit. Cranial nerves are essentially intact. Results - Laboratory Findings CBC and BMP: 11/09/19 05:40 11/09/19 05:40 PT/INR, D-dimer PT 12.3 sec (9.0-12.0) H 11/09/19 05:40 INR 1.2 (<1.2) H 11/09/19 05:40 Abnormal lab findings: Abnormal Labs 11/08/19 11/08/19 11/08/19 13:23 13:23 20:27 Neutrophils # Lymphocytes # PT 15.9 H INR 1.6 H APTT 39.4 H Chloride Creatinine 1.17 H Glucose 159 H POC Glucose (mg/dL) 221 H AST 61 H ALT 43 H 11/09/19 11/09/19 11/09/19 05:40 05:40 05:40 Neutrophils # 8.2 H Lymphocytes # 0.9 L PT 12.3 H INR 1.2 H APTT Chloride 108 H Creatinine 1.07 H Glucose 299 H POC Glucose (mg/dL) AST 46 H ALT 43 H 11/09/19 06:25 Neutrophils # Lymphocytes # PT INR APTT Chloride Creatinine Glucose POC Glucose (mg/dL) 267 H AST ALT - Diagnostic Findings Chest x-ray: image reviewed Assessment and Plan Plan: 1 acute asthma exacerbation with secondary shortness of breath. The patient is actively bronchospastic and wheezy. She has been compliant to respiratory medications. Exact cause for exacerbation is not clear. Chest x-ray showed no evidence of any acute pneumonia. Can be underlying tracheal bronchitis. Rule out possibility of coronavirus Covid 19 infection although this is essentially of a low suspicion. 2 history of pulmonary embolism, on long-term anticoagulation 3 shortness of breath secondary to above 4 history of panhypopituitarism secondary to previous pituitary surgery 5 history of acromegaly 6 morbid obesity 7 benign essential hypertension 8 chronic renal insufficiency 9 obstructive sleep apnea syndrome 10 dyslipidemia 11 52 diabetes 12 history of hypothyroidism Plan DuoNeb the right treatment [id number] IV Solu Medrol 60 mg every 6 hours Continue Cortef oral Continue Xarelto IV fluids in the 100 mL an hour Check a nasal swab for coronavirus Covid 19 infection We'll continue to follow
[2019-11-09 12:02] LABS: Glucose,Whole Blood 307 mg/dL (75-99)
[2019-11-09] MEDS: SODIUM CHLORIDE 0.9% 1,000 ML IV SCH ×2 (12:06→21:31)
--- NOTE | 2019-11-09 16:38 | P.PN ---
Subjective Progress Note Date: 11/09/19 Principal diagnosis: Acute asthma exacerbation Ms. Ashford is a 59-year-old female with a past medical history of asthma, diabetes mellitus, DVT, GERD, hypertension, hyperlipidemia, osteoarthritis, PE, renal disease, obstructive sleep apnea, adrenal insufficiency, chronic low back pain coming into the hospital with a chief complaint of difficulty in breathing. Patient states that for the past 4 days she has been having difficulty in breathing and that she has been having mild wheezing. Patient denies having any productive cough. She denies having any fever chills or rigors. Patient denies having any chest pains. She has history of DVT and PE and is on anticoagulation with Xarelto. Patient denies having any lower extremity swelling. In the emergency department patient patient's vitals at the time of admission are temperature of 98.2, heart rate of 76, respiratory rate of 18, blood pressure 135/90 saturating at 92 L on room air. She was also found to have wheezing by the ER physician. She was given breathing treatments and started on IV Solu-Medrol. Patient's lab work has been reviewed INR is slightly elevated at 1.6. Mild elevation in AST and ALT at 61 and 43 respectively. Creatinine of 1.17 with GFR of 52. Troponin less than 0.012. On 11/09/2019- no acute events reported by nursing staff. Patient appears to be in no acute distress. She states that difficulty in breathing is better but still has been wheezing. Denies having any cough. No chest pain or palpitations. Patient has been maintaining his saturation above 90 on 2 L of ox ygen when necessary cannula. Patient's labs from this morning INR of 1.2, sodium 138, potassium 4.4, chloride 100, bicarbonate 22, BP 116, creatinine 1.07. Patient's blood sugars have been running on the right side. AST ALT trending down. Active Medications Albuterol/Ipratropium (Duoneb 0.5 Mg-3 Mg/3 Ml Soln) 3 ml INHALATION RT-QID [facility] Last Admin: 11/09/19 16:12 Dose: 3 ml Documented by: Albuterol/Ipratropium (Duoneb 0.5 Mg-3 Mg/3 Ml Soln) 3 ml INHALATION RT-Q4H PRN PRN Reason: Shortness Of Breath Or Wheezing Amlodipine Besylate (Norvasc) 5 mg PO DAILY [facility] Last Admin: 11/09/19 08:22 Dose: 5 mg Documented by: Atenolol (Tenormin) 25 mg PO DAILY [facility] Last Admin: 11/09/19 08:22 Dose: 25 mg Documented by: Atorvastatin Calcium (Lipitor) [address] [facility] Last Admin: 11/08/19 21:27 Dose: 40 mg Documented by: Budesonide/Formoterol Fumarate (Symbicort 160-4.5 Mcg Inhaler) 2 puff INHALATION RT-BID [facility] Last Admin: 11/09/19 07:41 Dose: 2 puff Documented by: Fenofibrate (Lofibra) [address] [facility] Last Admin: 11/08/19 21:27 Dose: 160 mg Documented by: Hydrochlorothiazide (Hydrodiuril) 25 mg PO DAILY [facility] Last Admin: 11/09/19 08:21 Dose: 25 mg Documented by: Hydrocortisone (Cortef) [address] [facility] Last Admin: 11/08/19 21:28 Dose: 5 mg Documented by: Hydrocortisone (Cortef) 15 mg PO QAM [facility] Last Admin: 11/09/19 08:20 Dose: 15 mg Documented by: Sodium Chloride (Saline 0.9%) 1,000 mls @ 100 mls/hr IV .Q10H [facility] Last Admin: 11/09/19 12:06 Dose: 100 mls/hr Documented by: Insulin Aspart (Novolog) 0 unit SQ ACHS [facility]; Protocol Last Admin: 11/09/19 12:10 Dose: 5 unit Documented by: Levothyroxine Sodium (Synthroid) 125 mcg PO DAILY@0630 [facility] Last Admin: 11/09/19 06:22 Dose: 125 mcg Documented by: Lisinopril (Zestril) 30 mg PO DAILY [facility] Last Admin: 11/09/19 08:21 Dose: 30 mg Documented by: Loratadine (Claritin) 10 mg PO DAILY [facility] Last Admin: 11/09/19 08:21 Dose: 10 mg Documented by: Methylprednisolone Sodium Succinate (Solu-Medrol) 60 mg IV Q6HR [facility] Last Admin: 11/09/19 12:08 Dose: 60 mg Documented by: Montelukast Sodium (Singulair) 10 mg PO DAILY [facility] Last Admin: 11/09/19 08:21 Dose: 10 mg Documented by: Pantoprazole Sodium (Protonix) 40 mg PO AC-BRKFST [facility] Last Admin: 11/09/19 08:22 Dose: 40 mg Documented by: Rivaroxaban (Xarelto) 20 mg PO DAILY [facility] Last Admin: 11/09/19 08:21 Dose: 20 mg Documented by: Objective - Vital Signs Vital signs: Vital Signs Temp 98.3 F 11/09/19 15:00 Pulse 88 11/09/19 16:25 Resp 18 11/09/19 15:00 BP 122/77 11/09/19 15:00 Pulse Ox 92 L 11/09/19 15:00 Intake & Output 11/08/19 11/09/19 11/09/19 18:59 06:59 18:59 Intake Total 490 Balance 490 Weight 99.79 kg Intake: Oral 490 Other: Voiding Method Toilet # Voids 1 - Exam PHYSICAL EXAM GEN. APPEARANCE: alert, in no apparent distress HEAENT : No pallor. No icterus. No JVD. No thyromegaly. Double chin noted. NECK EXAM: normal inspection. Absent: tenderness, meningismus, full ROM, lymphadenopathy RESPIRATORY EXAM: Expiratory wheezing at the lower lung bases bilaterally CARDIOVASCULAR EXAM: S 1 , S 2 heard, no added sounds GI/ABDOMINAL EXAM: Abdomen is soft nontender. Bowel sounds normal. Organomegaly difficult to appreciate due to obesity. EXTREMITIES EXAM: No pedal edema. NEUROLOGICAL EXAM: alert, oriented X3, No focal neurological deficits SKIN EXAM: warm, dry, intact, normal color. Absent: rash - Labs CBC & Chem 7: 11/09/19 05:40 11/09/19 05:40 Labs: Abnormal Lab Results - Last 24 Hours (Table) 11/08/19 11/09/19 11/09/19 Range/Units 20:27 05:40 05:40 Neutrophils # 8.2 H (1.3-7.7) k/uL Lymphocytes # 0.9 L (1.0-4.8) k/uL PT 12.3 H (9.0-12.0) sec INR 1.2 H (<1.2) Chloride (98-107) mmol/L Creatinine (0.52-1.04) mg/dL Glucose (74-99) mg/dL POC Glucose (mg/dL) 221 H (75-99) mg/dL AST (14-36) U/L ALT (4-34) U/L 11/09/19 11/09/19 11/09/19 Range/Units 05:40 06:25 12:00 Neutrophils # (1.3-7.7) k/uL Lymphocytes # (1.0-4.8) k/uL PT (9.0-12.0) sec INR (<1.2) Chloride 108 H (98-107) mmol/L Creatinine 1.07 H (0.52-1.04) mg/dL Glucose 299 H (74-99) mg/dL POC Glucose (mg/dL) 267 H 307 H (75-99) mg/dL AST 46 H (14-36) U/L ALT 43 H (4-34) U/L Assessment and Plan Assessment: ASSESSMENT Acute exacerbation of asthma Mild transaminitis - trending down Elevated PT/APTT/INR - resoling Pulmonary nodule-5 mm nodule adjacent to left heart border Type 2 diabetes mellitus DVT and PE Hypertension Hyperlipidemia Chronic kidney disease stage II Obstructive sleep apnea Adrenal insufficiency Pituitary tumor and brain removed in 2013 History of hemorrhoids Degenerative joint disease Obesity with BMI of 34.5 PLAN: Patient has been started on IV steroids and breathing treatments. She states that breathing is better when she came in. AST ALT trending down. Hepatitis panel pending. PT/INR- 12.3/1.2, normalizing. 5 mm pulmonary nodule on the chest x-ray, needs outpatient follow-up. Dr. Pedraza and evaluated the patient this morning, recommended, COVID 19 testing, currently results pending. Further recommendations to follow depending on the progress of the patient.
[2019-11-09 16:42] LABS: Glucose,Whole Blood 350 mg/dL (75-99)
[2019-11-09] MEDS ORDERED: HYDROcodone/APAP 5-325MG 1 EACH TAB PO PRN (20:48)
[2019-11-09] MEDS ORDERED: ACETAMINOPHEN TAB 325 MG TAB PO PRN (21:08)
[2019-11-09 21:18] LABS: Glucose,Whole Blood 400 mg/dL (75-99)
[2019-11-09] MEDS: ATORVASTATIN 40 MG TAB PO SCH (21:31)
[2019-11-09] MEDS: FENOFIBRATE 160 MG TAB PO SCH (21:32)
[2019-11-10] MEDS: methylPREDNISolone SOD SUCCI 125 MG/2 ML VIAL IV SCH ×3 (00:08→12:01)
[2019-11-10] MEDS: LEVOTHYROXINE 125 MCG TAB PO SCH (05:56)
[2019-11-10 06:29] LABS: Glucose,Whole Blood 332 mg/dL (75-99)
[2019-11-10] MEDS: IPRATROPIUM-ALBUTEROL 3 ML NEB INHALATION SCH ×3 (06:48→15:57)
[2019-11-10] MEDS: SYMBICORT 160-4.5 MCG INHALER INHALATION SCH (06:48)
[2019-11-10 07:56] VITALS: RESP 16; TEMP 98.1
[2019-11-10] MEDS: SODIUM CHLORIDE 0.9% 1,000 ML IV SCH ×2 (08:02→18:27)
[2019-11-10] MEDS: INSULIN ASPART (NovoLOG) 100 UNIT/ML VIAL SQ SCH ×3 (08:02→17:16)
[2019-11-10] MEDS: lisinopriL 10 MG TAB PO SCH (08:03)
[2019-11-10] MEDS: MONTELUKAST 10 MG TAB PO SCH (08:03)
[2019-11-10] MEDS: HYDROCORTISONE 10 MG TAB PO SCH (08:03)
[2019-11-10] MEDS: RIVAROXABAN 20 MG TAB PO SCH (08:03)
[2019-11-10] MEDS: hydroCHLOROthiazide 25 MG TAB PO SCH (08:03)
[2019-11-10] MEDS: LORATADINE 10 MG TAB PO SCH (08:03)
[2019-11-10] MEDS: PANTOPRAZOLE 40 MG TABLET PO SCH (08:03)
[2019-11-10] MEDS: atenoloL 25 MG TAB PO SCH (08:04)
[2019-11-10] MEDS: amLODIPine 5 MG TAB PO SCH (08:04)
[2019-11-10 11:30] LABS: Hepatitis A Antibody IgM Non-Reactive (Non-Reactive); Hepatitis B Core IgM Non-Reactive (Non-Reactive); Hepatitis B Surface Antigen Non-Reactive (Non-Reactive); Hepatitis C IgG Antibody Non-Reactive (Non-Reactive)
[2019-11-10 11:36] LABS: Glucose,Whole Blood 321 mg/dL (75-99)
--- NOTE | 2019-11-10 12:20 | P.PN ---
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 She has been doing well until around a week or 2 when she started having progressive worsening shortness of b reath along with chest tightness and wheezing and exertional dyspnea. She has previous history of DVT and pulmonary embolism and she has been on lifelong antibiotic ventilation with Xarelto. No angina. No palpitation. No swelling lower extremities. The renal function is stable. LFTs are within normal limits. No exposure to coronavirus Covid 19. No change in the sense of taste or smell. No skin rashes. No nausea vomiting or diarrhea. Chest x-ray shows no acute abnormalities. Her last hospitalization for pulmonary embolism was taken January 2019. Since then the patient has been on anticoagulation. Patient was reevaluated today on 11/10/19, feeling much better, breathing a lot easier, minimal cough, minimal wheezing, no significant shortness of breath. Patient is on suction at 2 L, O2 sats rations is 95%. She is afebrile, vital signs are stable. Blood sugar is running high mostly because of steroids use for her asthma. Objective - Vital Signs Vital signs: Vital Signs Temp 98.1 F 11/10/19 07:51 Pulse 88 11/10/19 10:57 Resp 16 11/10/19 07:51 BP 135/82 11/10/19 07:51 Pulse Ox 95 11/10/19 07:51 Intake & Output 11/09/19 11/10/19 11/10/19 18:59 06:59 18:59 Intake Total 590 Balance 590 Intake: Oral 590 Other: Voiding Method Toilet Toilet # Voids 1 - Exam Physical Exam: Revealed a 59-year-old female in no distress. Head: Atraumatic, normocephalic. HEENT:[Neck is supple.] [No neck masses.] [No thyromegaly.] [No JVD.] Chest: [Clear throughout, no crackles, no rhonchi, no wheezes.] Cardiac Exam: [Normal S1 and S2, no S3 gallop, no murmur.] Abdomen: [Soft, nontender, no megaly, no rebound, no guarding, normal bowel sounds.] Extremities: [No clubbing, no edema, no cyanosis.] Neurological Exam: [No focal neurologic deficit.] Psychiatric: Normal mood, affect and normal mental status examination. Skin: No rashes - Labs CBC & Chem 7: 11/09/19 05:40 11/09/19 05:40 Labs: Abnormal Lab Results - Last 24 Hours (Table) 11/09/19 11/09/19 11/10/19 Range/Units 16:40 21:17 06:22 POC Glucose (mg/dL) 350 H 400 H 332 H (75-99) mg/dL 11/10/19 Range/Units 11:34 POC Glucose (mg/dL) 321 H (75-99) mg/dL Assessment and Plan Assessment: Impression: Acute exacerbation of mild intermittent asthma Acute tracheobronchitis. History of panhypopituitarism. History of acromegaly. Morbid obesity. Obstructive sleep apnea syndrome. Type 2 diabetes. History of hypothyroidism. Recommendation: Continue Cortef, Discontinue Solu-Medrol, Continue Xarelto. Continue updrafts. Consider discharging the patient home today and follow up on outpatient basis with Dr. Pedraza in the next few days. Time with Patient: Less than 30
[2019-11-10 14:51] VITALS: BP 139/72
[2019-11-10 16:08] VITALS: PULSE 88
[2019-11-10 16:52] LABS: Glucose,Whole Blood 465 mg/dL (75-99)
[2019-11-10] MEDS ORDERED: INSULIN ASPART (NovoLOG) 100 UNIT/ML VIAL SQ ONE ×2 (17:02→17:15)
[2019-11-10] MEDS ORDERED: HYDROCORTISONE 10 MG TAB PO SCH (21:00)
--- NOTE | 2019-11-10 23:30 | P.DS ---
Providers Date of admission: 11/08/19 14:45 Expected date of discharge: 11/10/19 Attending physician: Su Oates Consults: 11/08/19 14:45 Consult Physician Routine Consulting Provider: Suzan Pedraza Consult Reason/Comments: dyspnea Do you want consulting provider notified?: Yes Primary care physician: [facility] Course: HPI - Ms. Ashford is a 59-year-old female with a past medical history of asthma, diabetes mellitus, DVT, GERD, hypertension, hyperlipidemia, osteoarthritis, PE, renal disease, obstructive sleep apnea, adrenal insufficiency, chronic low back pain coming into the hospital with a chief complaint of difficulty in breathing. Patient states that for the past 4 days she has been having difficulty in breathing and that she has been having mild wheezing. Patient denies having any productive cough. She denies having any fever chills or rigors. Patient denies having any chest pains. She has history of DVT and PE and is on anticoagulation with Xarelto. Patient denies having any lower extremity swelling. In the emergency department patient patient's vitals at the time of admission are temperature of 98.2, heart rate of 76, respiratory rate of 18, blood pressure 135/90 saturating at 92 L on room air. She was also found to have wheezing by the ER physician. She was given breathing treatments and started on IV Solu-Medrol. Patient's lab work has been reviewed INR is slightly elevated at 1.6. Mild elevation in AST and ALT at 61 and 43 respectively. Creatinine of 1.17 with GFR of 52. Troponin less than 0.012. Hospital course-Patient was started on IV steroids and breathing treatments were given. She showed significant improvement in her breathing. This morning on examination patient had only mild wheeze in the lower lobes. She mentions that she is ready to go home. Discussed with her about the tapering dose of steroids she would be discharged on. Patient states that she has been on the tapering dose of steroids before and knows how to take the course. So the patient is being discharged home in a stable condition. DISCHARGE DIAGNOSIS Acute exacerbation of asthma Mild transaminitis - trending down Elevated PT/APTT/INR - resoling Pulmonary nodule-5 mm nodule adjacent to left heart border Type 2 diabetes mellitus DVT and PE Hypertension Hyperlipidemia Chronic kidney disease stage II Obstructive sleep apnea Adrenal insufficiency Pituitary tumor and brain removed in 2013 History of hemorrhoids Degenerative joint disease Obesity with BMI of 34.5 Follow up ; Advised to follow up with her PCP in 3-[address] Pedraza in 1 week. Patient Condition at Discharge: Fair Plan - Discharge Summary New Discharge Prescriptions: New predniSONE See Taper PO DIRECTED #30 tab Continue Montelukast [Singulair] 10 mg PO DAILY atenoloL [Tenormin] 25 mg PO DAILY Fenofibrate 160 mg PO HS Omeprazole 20 mg PO DAILY Levothyroxine Sodium 125 mcg PO DAILY Cetirizine HCl [Zyrtec] 10 mg PO DAILY Atorvastatin [Lipitor] 40 mg PO HS Hydrocortisone 15 mg PO QAM Hydrocortisone 5 mg PO HS Albuterol Nebulized [Ventolin Nebulized] 2.5 mg INHALATION RT-Q4H PRN 30 Days #120 neb PRN Reason: Shortness Of Breath Fluticasone/Salmeterol [Advair 500-50 Diskus] 1 puff INHALATION RT-BID Rivaroxaban [Xarelto] 20 mg PO DAILY amLODIPine [Norvasc] 5 mg PO DAILY lisinopriL 30 mg PO DAILY hydroCHLOROthiazide 25 mg PO DAILY Discharge Medication List Montelukast [Singulair] 10 mg PO DAILY 09/06/13 [History] atenoloL [Tenormin] 25 mg PO DAILY 09/06/13 [History] Fenofibrate 160 mg PO HS 01/20/16 [History] Omeprazole 20 mg PO DAILY 01/20/16 [History] Atorvastatin [Lipitor] 40 mg PO HS 02/14/19 [History] Cetirizine HCl [Zyrtec] 10 mg PO DAILY 02/14/19 [History] Hydrocortisone 5 mg PO HS 02/14/19 [History] Hydrocortisone 15 mg PO QAM 02/14/19 [History] Levothyroxine Sodium 125 mcg PO DAILY 02/14/19 [History] Albuterol Nebulized [Ventolin Nebulized] 2.5 mg INHALATION RT-Q4H PRN 30 Days #120 neb 02/18/19 [Rx] Fluticasone/Salmeterol [Advair 500-50 Diskus] 1 puff INHALATION RT-BID 05/07/19 [History] Rivaroxaban [Xarelto] 20 mg PO DAILY 06/09/19 [History] amLODIPine [Norvasc] 5 mg PO DAILY 11/08/19 [History] hydroCHLOROthiazide 25 mg PO DAILY 11/08/19 [History] lisinopriL 30 mg PO DAILY 11/08/19 [History] predniSONE See Taper PO DIRECTED #30 tab 11/10/19 [Rx] Follow up Appointment(s)/Referral(s): Kita Riggs III, MD [Primary Care Provider] - 1-2 days Patient Instructions/Handouts: Asthma (DC) Discharge Disposition: HOME SELF-CARE
== END 2019-11-10 18:35 | disposition home or self-care (01) ==
LOC: EC 12:27 → 1SOBS 14:45
PROVIDERS: ADMIT Internal Medicine; ATTEND Internal Medicine
DX: J45.21 Mild intermittent asthma with (acute) exacerbation (principal); J20.9 Acute bronchitis, unspecified; R74.0 Nonspecific elevation of levels of transaminase and lactic acid dehydrogenase [LDH]; Z20.828 Contact with and (suspected) exposure to other viral communicable diseases; M79.89 Other specified soft tissue disorders; R91.1 Solitary pulmonary nodule; K21.9 Gastro-esophageal reflux disease without esophagitis; E78.5 Hyperlipidemia, unspecified; I12.9 Hypertensive chronic kidney disease with stage 1 through stage 4 chronic kidney disease, or unspecified chronic kidney disease; N18.2 Chronic kidney disease, stage 2 (mild); E11.22 Type 2 diabetes mellitus with diabetic chronic kidney disease; M19.90 Unspecified osteoarthritis, unspecified site; E27.40 Unspecified adrenocortical insufficiency; E22.0 Acromegaly and pituitary gigantism; G43.909 Migraine, unspecified, not intractable, without status migrainosus; L30.9 Dermatitis, unspecified; M16.11 Unilateral primary osteoarthritis, right hip; M47.9 Spondylosis, unspecified; M47.812 Spondylosis without myelopathy or radiculopathy, cervical region; G47.33 Obstructive sleep apnea (adult) (pediatric); G89.29 Other chronic pain; M54.5 Low back pain; R79.1 Abnormal coagulation profile; E66.01 Morbid (severe) obesity due to excess calories; Z68.34 Body mass index [BMI] 34.0-34.9, adult; D49.7 Neoplasm of unspecified behavior of endocrine glands and other parts of nervous system; E23.0 Hypopituitarism; K64.9 Unspecified hemorrhoids; E03.9 Hypothyroidism, unspecified; Z90.49 Acquired absence of other specified parts of digestive tract; Z79.01 Long term (current) use of anticoagulants; Z79.899 Other long term (current) drug therapy; Z79.890 Hormone replacement therapy; Z79.52 Long term (current) use of systemic steroids; Z88.8 Allergy status to other drugs, medicaments and biological substances; Z91.041 Radiographic dye allergy status; Z91.012 Allergy to eggs; Z91.013 Allergy to seafood; Z86.718 Personal history of other venous thrombosis and embolism; Z87.01 Personal history of pneumonia (recurrent); Z86.711 Personal history of pulmonary embolism; Z99.89 Dependence on other enabling machines and devices; Z87.09 Personal history of other diseases of the respiratory system; Z86.14 Personal history of Methicillin resistant Staphylococcus aureus infection; Z90.710 Acquired absence of both cervix and uterus; Z82.49 Family history of ischemic heart disease and other diseases of the circulatory system; Z80.8 Family history of malignant neoplasm of other organs or systems; Z82.0 Family history of epilepsy and other diseases of the nervous system; Z82.3 Family history of stroke; Z83.6 Family history of other diseases of the respiratory system
CPT/HCPCS: 96361 ×2; 96374; 96376 ×3; 99285; 36415; 94640 ×5; 94760; 93005; 83880; 80053 ×2; 80074; 82550; 84484; 85025 ×2; 85610 ×2; 85730 ×2; 71046; G0378 ×3; U0003; J2930 ×3

== ENCOUNTER → 2020-02-18 | Day surgery (SDC) | payer OTHER ==
[2020-02-16 12:52] VITALS: BMI 33.3
[~2020-02-18] MED LIST changes: +ACETAMINOPHEN TAB 500 MG TAB PO ONE; +BUPIVACAINE (PF) 0.5% 30 ML VIAL SQ ONE; +DEXAMETHASONE SOD PHOSPHATE 4 MG/ML 1 ML VIAL IV ONE; +GLYCOPYRROLATE 0.2 MG/ML 2 ML VIAL ONE; +HEPARIN SODIUM,PORCINE 5,000 UNIT/ML 1 ML VIAL SQ ONE; +HYDROCORTISONE SUCCINATE 100 MG/2 ML VIAL IV STA; +HYDROmorphone (PF) 1 MG/ML ONE; +HYDROmorphone 0.5 MG/0.5 ML SYRINGE IVP PRN; +KETOROLAC 15 MG/ML 1 ML VIAL ONE; +LACTATED RINGERS 1,000 ML IV ONE; +LIDOCAINE 1% (10MG/ML) FOR IV START INTRADERMA ONE; -LIDOCAINE 1% 20 ML VIAL (10MG/ML) FOR IV START INTRADERMA PRN; +LIDOCAINE 1% INJ 10MG/ML (20 ML MDV) ONE; +MIDAZOLAM 2 MG/2 ML VIAL ONE; +NEOSTIGMINE 1 MG/ML 10 ML VIAL ONE; +ONDANSETRON 4 MG/2 ML VIAL IVP ONE; +PROPOFOL 10 MG/ML 20 ML VIAL IV ONE; +ROCURONIUM 10 MG/ML (10 ML VIAL) IV ONE; +SUCCINYLCHOLINE CHLORIDE 100 MG/5 ML SYR IV ONE; +fentaNYL (PF) 50 MCG/ML 2 ML AMP ONE
[2020-02-18 08:21] LABS: Glucose,Whole Blood 109 mg/dL (75-99)
--- NOTE | 2020-02-18 09:20 | P.GSHP ---
History of Present Illness H&P Date: 02/18/20 Chief Complaint: Cholelithiasis This a 59-year-old female who presents today for laparoscopic cholecystectomy. Patient had complaints of right quadrant pain. She does have evidence of cholelithiasis. Past Medical History Past Medical History: Asthma, Diabetes Mellitus, Deep Vein Thrombosis (DVT), GERD/Reflux, Hyperlipidemia, Hypertension, Osteoarthritis (OA), Pneumonia, Pulmonary Embolus (PE), Renal Disease, Skin Disorder, Sleep Apnea/CPAP/BIPAP, Thyroid Disorder Additional Past Medical History / Comment(s): Hx bronchitis, adrenal insufficiency, acromegaly, migraines, eczema, hs elevated kidney function tests, hemorrhoids, sciatica, arthritis R hip/back/ neck, allergy/sinus prob. DVT, PE 01/2019. Uses CPAP. Having diarrhea, blood from rectum. History of Any Multi-Drug Resistant Organisms: MRSA Date of last positivie culture/infection: 06/11/17 MDRO Source:: THIGH, LABIA Past Surgical History: Appendectomy, Breast Surgery, Heart Catheterization, Hysterectomy, Orthopedic Surgery, Tonsillectomy Additional Past Surgical History / Comment(s): 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 "cyst removed from between lung and spine", RT ERNESTO Past Anesthesia/Blood Transfusion Reactions: Previous Problems w/ Anesthesia Additional Past Anesthesia/Blood Transfusion Reaction / Comment(s): "STOPPED BREATHING DURING BRONCHOSCOPY R/T TO UNKNOWN SLEEP APNEA" PER PT Smoking Status: Never smoker - Past Family History Sister(s) Family Medical History: Cancer Brother(s) Family Medical History: Deep Vein Thrombosis (DVT) Additional Family Medical History / Comment(s): Parkinsons Father Family Medical History: Cancer, CVA/TIA, Hypertension, Skin Disorder Additional Family Medical History / Comment(s): Father of pneumonia and a brain bleed in his 80'. He also had skin cancer Mother Family Medical History: Cancer Additional Family Medical History / Comment(s): skin cancer. Medications and Allergies Home Medications Medication Instructions Recorded Confirmed Type Montelukast [Singulair] 10 mg PO DAILY 09/06/13 02/16/20 History atenoloL [Tenormin] 25 mg PO DAILY 09/06/13 02/16/20 History Fenofibrate 160 mg PO HS 01/20/16 02/16/20 History Omeprazole 20 mg PO DAILY 01/20/16 02/16/20 History Atorvastatin [Lipitor] 40 mg PO HS 02/14/19 02/16/20 History Cetirizine HCl [Zyrtec] 10 mg PO DAILY 02/14/19 02/16/20 History Hydrocortisone 5 mg PO HS 02/14/19 02/16/20 History Hydrocortisone 15 mg PO QAM 02/14/19 02/16/20 History Levothyroxine Sodium 125 mcg PO DAILY 02/14/19 02/16/20 History Albuterol Nebulized [Ventolin 2.5 mg INHALATION RT-Q4H PRN 30 02/18/19 02/16/20 Rx Nebulized] Days #120 neb Fluticasone/Salmeterol [Advair 1 puff INHALATION RT-BID 05/07/19 02/16/20 History 500-50 Diskus] Rivaroxaban [Xarelto] 20 mg PO DAILY 06/09/19 02/16/20 History hydroCHLOROthiazide 25 mg PO DAILY 11/08/19 02/16/20 History lisinopriL 30 mg PO DAILY 11/08/19 02/16/20 History predniSONE See Taper PO DIRECTED #30 tab 11/10/19 02/16/20 Rx Omalizumab [Xolair] 150 mg SQ [id number] 02/16/20 02/16/20 History metFORMIN HCL [Glucophage] 500 mg PO HS 02/16/20 02/16/20 History Allergies Allergy/AdvReac Type Severity Reaction Status Date / Time Iodine and Iodide Containing Allergy Unknown allergy Verified 02/16/20 12:38 Produc test positive for shell fish. celecoxib [From Celebrex] Allergy Wheezing Verified 02/16/20 12:38 egg AdvReac Swelling Verified 02/16/20 12:38 shellfish derived AdvReac ALLERGY Verified 02/16/20 12:38 TEST POSITIVE. Surgical - Exam Vital Signs Temp Pulse Resp BP Pulse Ox 97.8 F 70 18 166/98 98 02/18/20 08:13 02/18/20 08:13 02/18/20 08:13 02/18/20 08:13 02/18/20 08:13 - General well developed, well nourished, no distress - Eyes PERRL - ENT normal pinna - Neck no masses - Respiratory normal expansion - Cardiovascular Rhythm: regular - Abdomen Abdomen: soft, non tender Results - Labs Abnormal Lab Results - Last 24 Hours (Table) 02/18/20 Range/Units 08:19 POC Glucose (mg/dL) 109 H (75-99) mg/dL Assessment and Plan Assessment: Cholelithiasis Right upper quadrant pain We'll perform laparoscopic cholecystectomy
--- NOTE | 2020-02-18 10:27 | P.OP ---
Date of Procedure: 02/18/20 Preoperative Diagnosis: Cholelithiasis Cholecystitis Postoperative Diagnosis: Cholelithiasis Cholecystitis Procedure(s) Performed: Laparoscopic cholecystectomy Anesthesia: GETA Estimated Blood Loss (ml): 5 Pathology: other (Gallbladder) Disposition: PACU Description of Procedure: The patient was placed on the operating table. The patient received a general endotracheal tube anesthesia. The patients abdomen was prepped and draped in the usual sterile fashion. Through an infraumbilical stab incision, the fasci a of the anterior abdominal wall was grasped with a pair of Kochers and then the Veress needle was placed in the peritoneal cavity. Position of the Veress needle was confirmed with positive drop test. The abdomen was then insufflated. After adequate insufflation, the 10 mm trocar was placed in the peritoneal cavity. Following this the laparoscope was placed in the peritoneal cavity. The patient was placed in the head-up, right side up position and then a 5 mm trocar was placed in the right lateral and right subcostal position under direct visualization. A 8 mm trocar was placed in the epigastric position. The gallbladder was grasped in the fundus and infundibulum. Traction on the gallbladder was placed in the lateral and the cephalad positions. The triangle of Calot was visualized.. The cystic duct was bluntly dissected until the union of the cystic duct and common bile duct was seen. A critical view of safety was achieved. The cystic duct was then divided and sealed with the Harmonic scissors. A PDS Endoloop was then placed throughout the cystic duct stump. The cystic artery divided and sealed with the Harmonic scissors. The gallbladder was then removed from the liver bed using Harmonic scissors. The gallbladder was then extracted through the epigastric port site. Operative field was checked for any bleeding spots and Harmonic scissors was used to coagulate the liver bed. The abdomen was irrigated. The trocars were removed. The skin was closed using interrupted 3-0 Vicryl suture. Dermabond dressing were applied. The patient tolerated the procedure well.
[2020-02-18 10:36] VITALS: TEMP 978
[2020-02-18 11:16] VITALS: RESP 16
[2020-02-18 11:41] VITALS: BP 110/63; PULSE 53
== END | disposition home or self-care (01) ==
LOC: OR 07:50
PROVIDERS: ATTEND Surgery
DX: K80.10 Calculus of gallbladder with chronic cholecystitis without obstruction (principal); I12.9 Hypertensive chronic kidney disease with stage 1 through stage 4 chronic kidney disease, or unspecified chronic kidney disease; E11.22 Type 2 diabetes mellitus with diabetic chronic kidney disease; N18.9 Chronic kidney disease, unspecified; K21.9 Gastro-esophageal reflux disease without esophagitis; E78.5 Hyperlipidemia, unspecified; Z86.718 Personal history of other venous thrombosis and embolism; M19.90 Unspecified osteoarthritis, unspecified site; Z87.01 Personal history of pneumonia (recurrent); Z86.711 Personal history of pulmonary embolism; G47.33 Obstructive sleep apnea (adult) (pediatric); Z99.89 Dependence on other enabling machines and devices; E07.9 Disorder of thyroid, unspecified; Z87.09 Personal history of other diseases of the respiratory system; E27.40 Unspecified adrenocortical insufficiency; L30.9 Dermatitis, unspecified; E22.0 Acromegaly and pituitary gigantism; G43.909 Migraine, unspecified, not intractable, without status migrainosus; K64.9 Unspecified hemorrhoids; M54.30 Sciatica, unspecified side; M16.11 Unilateral primary osteoarthritis, right hip; M47.812 Spondylosis without myelopathy or radiculopathy, cervical region; R19.7 Diarrhea, unspecified; K62.5 Hemorrhage of anus and rectum; Z86.14 Personal history of Methicillin resistant Staphylococcus aureus infection; Z90.710 Acquired absence of both cervix and uterus; Z90.721 Acquired absence of ovaries, unilateral; Z98.890 Other specified postprocedural states; Z96.641 Presence of right artificial hip joint; Z80.9 Family history of malignant neoplasm, unspecified; Z82.49 Family history of ischemic heart disease and other diseases of the circulatory system; Z82.3 Family history of stroke; Z80.8 Family history of malignant neoplasm of other organs or systems; J44.9 Chronic obstructive pulmonary disease, unspecified; Z79.890 Hormone replacement therapy; Z79.51 Long term (current) use of inhaled steroids; Z79.52 Long term (current) use of systemic steroids; Z79.899 Other long term (current) drug therapy; Z79.84 Long term (current) use of oral hypoglycemic drugs; Z79.01 Long term (current) use of anticoagulants; Z88.6 Allergy status to analgesic agent; Z91.012 Allergy to eggs; Z91.013 Allergy to seafood; Z91.048 Other nonmedicinal substance allergy status
CPT/HCPCS: 88304; 47562; J2250; J1644; J1100; J2710; J1720; J0690; J2405; J2001; J3010; J1170 ×2; J1885; J0330; J2704

== ENCOUNTER → 2020-05-06 | Outpatient (CLI) | payer OTHER ==
--- NOTE | 2020-05-06 10:40 | US ---
EXAMINATION TYPE: US thyroid st tissue head/neck DATE OF EXAM: 05/06/2020 COMPARISON: NONE CLINICAL HISTORY: E04.2 Nontoxic multinodular goiter. Large thick neck. Technically difficult study. GLAND SIZE: Right Lobe: 2.7 x 1.2 x 1.1 cm Overall Parenchyma: homogenous Left Lobe: 3.9 x 1.4 x 1.4 cm Overall Parenchyma: homogeneous Isthmus Thickness: 0.2 cm NODULES RIGHT: # of nodules measured on right: 0 LEFT: # of nodules measured on left: 0 Bilateral neck scanned, no evidence of lymphadenopathy. IMPRESSION: Subcentimeter nodule left lobe thyroid 2017 ACR TI-RADS LEVEL: 3 *Highest TI-RADS level nodule reported
== END | disposition home or self-care (01) ==
LOC: RADUSWWP 09:26
PROVIDERS: ATTEND Family Medicine
DX: E04.2 Nontoxic multinodular goiter (principal)
CPT/HCPCS: 76536

== ENCOUNTER → 2020-06-11 | Outpatient (CLI) | payer OTHER ==
--- NOTE | 2020-06-14 09:34 | MM ---
Reason for exam: clinical finding. History: Family history of breast cancer in maternal grandmother and breast cancer in paternal grandmother. Stereotactic core biopsy of the right breast, December 28, 1998. Benign excisional biopsy of the right breast. Physical Findings: Nurse did not find any significant physical abnormalities on exam. MG Diagnostic Mammo w CAD RANI Bilateral CC, MLO, LM, and spot compression CC view(s) were taken. The breast tissue is heterogeneously dense. This may lower the sensitivity of mammography. Numerous scattered punctate and round calcifications. These will need to be reassessed at follow up. Multiple areas of asymmetric density and/or distortion on CC views.. Lateral excisional scar on the right. Many on these areas on the right improve on additional views. No clear upper outer quadrant distortion identified on the left, MLO or lateral. These results were verbally communicated with the patient and result sheet given to the patient on 06/11/20. ASSESSMENT: Incomplete: need additional imaging evaluation, BI-RAD 0 RECOMMENDATION: Ultrasound of both breasts. (right entire, left upper outer quadrant)
--- NOTE | 2020-06-14 09:42 | USB ---
Reason for exam: additional evaluation requested from abnormal screening. History: Family history of breast cancer in maternal grandmother and breast cancer in paternal grandmother. Stereotactic core biopsy of the right breast, December 28, 1998. Benign excisional biopsy of the right breast. US Breast Limited BILAT Right complete breast ultrasound includes all four quadrants, the retroareolar region and axilla. Finding demonstrates a 0.6 x 0.4 x 0.5cm hypoechoic, round, circumscribed lesion at 9 o'clock with through transmission, possible debris filled cyst. Left limited breast ultrasound including focal area of concern, retroareolar and axilla demonstrates a 0.5 x 0.4 x 0.5cm cystic, benign lesion at 3 o'clock. These results were verbally communicated with the patient and result sheet given to the patient on 06/11/20. ASSESSMENT: Probably benign, BI-RAD 3 RECOMMENDATION: Follow-up diagnostic mammogram of both breasts in 6 months. Ultrasound of the right breast in 6 months. (9 o'clock)
== END | disposition home or self-care (01) ==
LOC: RADMAMWWP 14:08
PROVIDERS: ATTEND Family Medicine
DX: N63.15 Unspecified lump in the right breast, overlapping quadrants (principal); R92.8 Other abnormal and inconclusive findings on diagnostic imaging of breast
CPT/HCPCS: 77066

== ENCOUNTER → 2020-06-29 | Outpatient (CLI) | payer OTHER | END | disposition home or self-care (01) | LOC: LABWHC1 09:52 | PROVIDERS: ATTEND Family Medicine | DX: Z20.822 Contact with and (suspected) exposure to COVID-19 (principal) | CPT/HCPCS: U0003; C9803 ==

== ENCOUNTER 2020-07-02 14:09 | Inpatient (IN) | payer OTHER ==
[2020-07-02] MEDS ORDERED: ACETAMINOPHEN TAB 325 MG TAB PO STA (15:37)
--- NOTE | 2020-07-02 16:03 | ED ---
SOB HPI - General Source: patient, RN notes reviewed Mode of arrival: wheelchair Limitations: no limitations <Titus Spain - Last Filed: 07/02/20 16:02> <Tani Treadwell - Last Filed: 07/02/20 21:33> - General Chief Complaint: Shortness of Breath Stated Complaint: +COVID,SOB - History of Present Illness Initial Comments: 60-year-old female who tested positive for Covid several days ago and then symptoms since 06/24/2020. She notes that she's had increased shortness of breath over the last couple days. She was in mild distress while sitting in a wheelchair during the exam interview. She denied any pain chest pain headache nausea vomiting diarrhea constipation. (Titus Spain) - Related Data Home Medications Medication Instructions Recorded Confirmed Montelukast [Singulair] 10 mg PO DAILY 09/06/13 07/02/20 atenoloL [Tenormin] 25 mg PO DAILY 09/06/13 07/02/20 Fenofibrate 160 mg PO HS 01/20/16 07/02/20 Omeprazole 20 mg PO DAILY 01/20/16 07/02/20 Atorvastatin [Lipitor] 40 mg PO HS 02/14/19 07/02/20 Cetirizine HCl [Zyrtec] 10 mg PO DAILY 02/14/19 07/02/20 Hydrocortisone 5 mg PO HS 02/14/19 07/02/20 Hydrocortisone 15 mg PO DAILY 02/14/19 07/02/20 Levothyroxine Sodium 125 mcg PO DAILY 02/14/19 07/02/20 Rivaroxaban [Xarelto] 20 mg PO DAILY 06/09/19 07/02/20 hydroCHLOROthiazide 25 mg PO DAILY 11/08/19 07/02/20 Omalizumab [Xolair] 150 mg SQ [id number] 02/16/20 07/02/20 Albuterol Inhaler [Ventolin Hfa 2 puff INHALATION RT-QID PRN 07/02/20 07/02/20 Inhaler] Albuterol Nebulized [Ventolin 2.5 mg INHALATION RT-QID PRN 07/02/20 07/02/20 Nebulized] Fluticasone/Salmeterol [Airduo 1 puff INHALATION RT-BID 07/02/20 07/02/20 Respiclick 232-14 Mcg] lisinopriL 20 mg PO DAILY 07/02/20 07/02/20 metFORMIN HCL ER [Glucophage Xr] 500 mg PO HS 07/02/20 07/02/20 Allergies Allergy/AdvReac Type Severity Reaction Status Date / Time Iodine and Iodide Containing Allergy Unknown allergy Verified 07/02/20 15:16 Produc test positive for shell fish. celecoxib [From Celebrex] Allergy Wheezing Verified 07/02/20 15:16 egg AdvReac Swelling Verified 07/02/20 15:16 shellfish derived AdvReac ALLERGY Verified 07/02/20 15:16 TEST POSITIVE. Review of Systems ROS Other: All systems not noted in ROS Statement are negative. <Titus Spain - Last Filed: 07/02/20 16:02> ROS Other: All systems not noted in ROS Statement are negative. <Tani Treadwell - Last Filed: 07/02/20 21:33> ROS Statement: Those systems with pertinent positive or pertinent negative responses have been documented in the HPI. Past Medical History Past Medical History: Asthma, Diabetes Mellitus, Deep Vein Thrombosis (DVT), GE RD/Reflux, Hyperlipidemia, Hypertension, Osteoarthritis (OA), Pneumonia, Pulmonary Embolus (PE), Renal Disease, Skin Disorder, Sleep Apnea/CPAP/BIPAP, Thyroid Disorder Additional Past Medical History / Comment(s): Hx bronchitis, adrenal insufficiency, acromegaly, migraines, eczema, hs elevated kidney function tests, hemorrhoids, sciatica, arthritis R hip/back/ neck, allergy/sinus prob. DVT, PE 01/2019. Uses CPAP. Having diarrhea, blood from rectum. History of Any Multi-Drug Resistant Organisms: MRSA Date of last positivie culture/infection: 06/11/17 MDRO Source:: THIGH, LABIA Past Surgical History: Appendectomy, Breast Surgery, Heart Catheterization, Hysterectomy, Orthopedic Surgery, Tonsillectomy Additional Past Surgical History / Comment(s): 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 "cyst removed from between lung and spine", RT ERNESTO Past Anesthesia/Blood Transfusion Reactions: Previous Problems w/ Anesthesia Additional Past Anesthesia/Blood Transfusion Reaction / Comment(s): "STOPPED BREATHING DURING BRONCHOSCOPY R/T TO UNKNOWN SLEEP APNEA" PER PT Past Psychological History: No Psychological Hx Reported Smoking Status: Never smoker - Past Family History Sister(s) Family Medical History: Cancer Brother(s) Family Medical History: Deep Vein Thrombosis (DVT) Additional Family Medical History / Comment(s): Parkinsons Father Family Medical History: Cancer, CVA/TIA, Hypertension, Skin Disorder Additional Family Medical History / Comment(s): Father of pneumonia and a brain bleed in his 80'. He also had skin cancer Mother Family Medical History: Cancer Additional Family Medical History / Comment(s): skin cancer. <Titus Spain - Last Filed: 07/02/20 16:02> General Exam Limitations: no limitations General appearance: alert, in no apparent distress Head exam: Present: atraumatic, normocephalic, normal inspection Eye exam: Present: normal appearance, PERRL, EOMI. Absent: scleral icterus, conjunctival injection, periorbital swelling Neck exam: Present: normal inspection. Absent: tenderness, meningismus, lymphadenopathy Respiratory exam: Present: normal lung sounds bilaterally. Absent: respiratory distress, wheezes, rales, rhonchi, stridor Cardiovascular Exam: Present: regular rate, normal rhythm, normal heart sounds. Absent: systolic murmur, diastolic murmur, rubs, gallop, clicks <Titus Spain - Last Filed: 07/02/20 16:02> ENT exam: Present: mucous membranes dry Respiratory exam: Present: respiratory distress, decreased breath sounds, other (Patient is tachypneic with decreased air entry, and rhonchi bilaterally) Cardiovascular Exam: Present: normal rhythm, tachycardia, other (Tachycardic) GI/Abdominal exam: Present: soft. Absent: distended, tenderness, guarding, rebound Extremities exam: Present: normal inspection Back exam: Present: normal inspection, full ROM Neurological exam: Present: alert, oriented X3, CN II-XII intact. Absent: motor sensory deficit Psychiatric exam: Present: normal affect, normal mood Skin exam: Present: warm, dry, intact <Tani Treadwell - Last Filed: 07/02/20 21:33> Course <Tani Treadwell - Last Filed: 07/02/20 21:33> Vital Signs 07/02/20 07/02/20 15:16 20:18 Temperature 101.2 F H 101 F H Pulse Rate 123 H 122 H Respiratory 24 18 Rate Blood Pressure 121/73 153/86 O2 Sat by Pulse 97 98 Oximetry - Reevaluation(s) Reevaluation #1: 07/02/20 20:31 EKG: Sinus tachycardia, rate of 123 DE interval 118, QRS duration 82, QTC 509, ST segment depression and T-wave inversion in the lateral precordial leads which appear similar compared to previous EKG in November 2019. (Tani Treadwell) Medical Decision Making - Lab Data Result diagrams: 07/02/20 20:35 07/02/20 20:35 <Tani Treadwell - Last Filed: 07/02/20 21:33> - Medical Decision Making 60-year-old female presenting with approximate 6 days of cough, myalgia, dyspnea. Patient is in moderate respiratory distress upon arrival. She does have good oxygenation but she is tachypneic at least 30 breaths per minute. She has not been eating or drinking well. Dry Mucous membranes. Chest x-ray showing bilateral infiltrates, worse on the left. Patient has elevated CRP, LVH, she she has some acute kidney injury secondary to dehydration. She has normal CBC. She's been given Decadron in the emergency department. She will be admitted for treatment of coronavirus with respiratory distress. Case discussed with Dr. Hernandez who will admit. Pulmonology placed on consult. (Tani Treadwell) - Lab Data Lab Results 07/02/20 07/02/20 07/02/20 Range/Units 15:40 20:35 20:35 WBC 7.4 (3.8-10.6) k/uL RBC 5.02 (3.80-5.40) m/uL Hgb 15.5 (11.4-16.0) gm/dL Hct 44.4 (34.0-46.0) % MCV 88.4 (80.0-100.0) fL MCH 30.9 (25.0-35.0) pg MCHC 35.0 (31.0-37.0) g/dL RDW 12.5 (11.5-15.5) % Plt Count 242 (150-450) k/uL MPV 8.9 Neutrophils % 69 % Lymphocytes % 23 % Monocytes % 5 % Eosinophils % 0 % Basophils % 1 % Neutrophils # 5.1 (1.3-7.7) k/uL Lymphocytes # 1.7 (1.0-4.8) k/uL Monocytes # 0.3 (0-1.0) k/uL Eosinophils # 0.0 (0-0.7) k/uL Basophils # 0.1 (0-0.2) k/uL Sodium 136 L (137-145) mmol/L Potassium 4.2 (3.5-5.1) mmol/L Chloride 96 L (98-107) mmol/L Carbon Dioxide 18 L (22-30) mmol/L Anion Gap 22 mmol/L BUN 25 H (7-17) mg/dL Creatinine 1.58 H (0.52-1.04) mg/dL Est GFR (CKD-EPI)AfAm 41 (>60 ml/min/1.73 sqM) Est GFR (CKD-EPI)NonAf 36 (>60 ml/min/1.73 sqM) Glucose 121 H (74-99) mg/dL Plasma Lactic Acid Delmar (0.7-2.0) mmol/L Calcium 9.1 (8.4-10.2) mg/dL Magnesium 2.1 (1.6-2.3) mg/dL Total Bilirubin 1.1 (0.2-1.3) mg/dL AST 69 H (14-36) U/L ALT 22 (4-34) U/L Alkaline Phosphatase 59 (38-126) U/L Lactate Dehydrogenase 1031 H (313-618) U/L C-Reactive Protein 218.8 H (<10.0) mg/L Total Protein 7.5 (6.3-8.2) g/dL Albumin 4.4 (3.5-5.0) g/dL Coronavirus (PCR) Detected A (Not Detectd) 07/02/20 Range/Units 20:35 WBC (3.8-10.6) k/uL RBC (3.80-5.40) m/uL Hgb (11.4-16.0) gm/dL Hct (34.0-46.0) % MCV (80.0-100.0) fL MCH (25.0-35.0) pg MCHC (31.0-37.0) g/dL RDW (11.5-15.5) % Plt Count (150-450) k/uL MPV Neutrophils % % Lymphocytes % % Monocytes % % Eosinophils % % Basophils % % Neutrophils # (1.3-7.7) k/uL Lymphocytes # (1.0-4.8) k/uL Monocytes # (0-1.0) k/uL Eosinophils # (0-0.7) k/uL Basophils # (0-0.2) k/uL Sodium (137-145) mmol/L Potassium (3.5-5.1) mmol/L Chloride (98-107) mmol/L Carbon Dioxide (22-30) mmol/L Anion Gap mmol/L BUN (7-17) mg/dL Creatinine (0.52-1.04) mg/dL Est GFR (CKD-EPI)AfAm (>60 ml/min/1.73 sqM) Est GFR (CKD-EPI)NonAf (>60 ml/min/1.73 sqM) Glucose (74-99) mg/dL Plasma Lactic Acid Delmar 2.0 (0.7-2.0) mmol/L Calcium (8.4-10.2) mg/dL Magnesium (1.6-2.3) mg/dL Total Bilirubin (0.2-1.3) mg/dL AST (14-36) U/L ALT (4-34) U/L Alkaline Phosphatase (38-126) U/L Lactate Dehydrogenase (313-618) U/L C-Reactive Protein (<10.0) mg/L Total Protein (6.3-8.2) g/dL Albumin (3.5-5.0) g/dL Coronavirus (PCR) (Not Detectd) Disposition <Titus Spain - Last Filed: 07/02/20 16:02> Is patient prescribed a controlled substance at d/c from ED?: No Decision to Admit Reason: Admit from EC Decision Date: 07/02/20 Decision Time: 21:19 <Tani Treadwell - Last Filed: 07/02/20 21:33> Clinical Impression: Pneumonia due to COVID-19 virus, KEENAN (acute kidney injury), Adrenal insufficiency Disposition: ADMITTED IP TO THIS [facility] Condition: Serious Referrals: Kita Riggs III, MD [Primary Care Provider] - 1-2 days
--- NOTE | 2020-07-02 16:12 | XR ---
EXAMINATION TYPE: XR chest 2V DATE OF EXAM: 07/02/2020 COMPARISON: 11/08/2019 HISTORY: 60-year-old female increased shortness of breath, COVID positive. TECHNIQUE: PA and lateral views FINDINGS: Heart normal size. Aorta and pulmonary vasculature within normal limits. Patchy interstitial opacitie s mid and lower lungs, left greater than right. No pleural effusion. IMPRESSION: Patchy mid and lower lung interstitial infiltrates, left greater than right, compatible with COVID pn eumonia.
[2020-07-02] MEDS ORDERED: SODIUM CHLORIDE 0.9% 500 ML 500 ML IV ONE (19:35)
[2020-07-02] MEDS ORDERED: DEXAMETHASONE SOD PHOSPHATE 10 MG/ML 1 ML VIAL IV STA (19:35)
[2020-07-02] MEDS ORDERED: ACETAMINOPHEN TAB 500 MG TAB PO STA (19:35)
[2020-07-02] MEDS ORDERED: NALOXONE 0.4 MG/ML 1 ML VIAL IV PRN (20:09)
[2020-07-02 21:03] LABS: Basophils # (A) 0.1 k/uL (0-0.2); Basophils % (A) 1 %; Eosinophils % (A) 0 %; HCT 44.4 % (34.0-46.0); HGB 15.5 gm/dL (11.4-16.0); Lymphocytes # (A) 1.7 k/uL (1.0-4.8); Lymphocytes % (A) 23 %; MCH 30.9 pg (25.0-35.0); MCV 88.4 fL (80.0-100.0); Mean Platelet Volume 8.9; Monocytes # (A) 0.3 k/uL (0-1.0); Monocytes % (A) 5 %; Neutrophils # (A) 5.1 k/uL (1.3-7.7); Neutrophils % (A) 69 %; Platelet Count 242 k/uL (150-450); RBC 5.02 m/uL (3.80-5.40); RDW 12.5 % (11.5-15.5); WBC 7.4 k/uL (3.8-10.6)
[2020-07-02 21:15] LABS: Potassium 4.2 mmol/L (3.5-5.1)
[2020-07-02 21:16] LABS: INR 1.1 (<1.2); Partial Thromboplastin Time 25.5 sec (22.0-30.0); Prothrombin Time 11.3 sec (9.0-12.0)
[2020-07-02 21:17] LABS: Albumin 4.4 g/dL (3.5-5.0); Calcium 9.1 mg/dL (8.4-10.2); Magnesium 2.1 mg/dL (1.6-2.3); Total Bilirubin 1.1 mg/dL (0.2-1.3); Total Protein 7.5 g/dL (6.3-8.2)
[2020-07-02 21:30] LABS: C Reactive Protein 218.8 mg/L (<10.0)
[2020-07-02] MEDS ORDERED: HYDROCORTISONE SUCCINATE 100 MG/2 ML VIAL IV STA (21:35)
[2020-07-02 21:50] LABS: D-Dimer 0.91 mg/L FEU (<0.60)
[2020-07-02] MEDS: SODIUM CHLORIDE 0.9% 1,000 ML IV SCH (22:41)
[2020-07-03 03:10] LABS: Ferritin 326.2 ng/mL (10.0-291.0)
[2020-07-03 06:09] LABS: Glucose,Whole Blood 250 mg/dL (75-99)
[2020-07-03] MEDS: INSULIN ASPART (NovoLOG) 100 UNIT/ML VIAL SQ SCH ×4 (06:42→20:45)
[2020-07-03] MEDS ORDERED: ENOXAPARIN 40 MG/0.4 ML SYRINGE SQ SCH (10:45)
[2020-07-03] MEDS ORDERED: atenoloL 25 MG TAB PO STA (11:41)
[2020-07-03] MEDS ORDERED: RIVAROXABAN 20 MG TAB PO STA (11:41)
[2020-07-03] MEDS ORDERED: MONTELUKAST 10 MG TAB PO STA (11:41)
[2020-07-03] MEDS ORDERED: PANTOPRAZOLE 40 MG TABLET PO STA (11:41)
[2020-07-03 13:12] LABS: Glucose,Whole Blood 241 mg/dL (75-99)
[2020-07-03] MEDS: MAG HYDROX/AL HYDROX/SIMETH 30 ML, LIDOCAINE VISCOUS 30 ML, NYSTATIN 100,000 UNIT/ML SU... PO SCH ×9 (13:14→20:46)
[2020-07-03] MEDS: ASCORBIC ACID 500 MG TAB PO SCH (13:15)
[2020-07-03] MEDS: ZINC SULFATE 220 MG CAP PO SCH (13:15)
[2020-07-03] MEDS: CHOLECALCIFEROL 25 MCG (1000 IU) TABLET PO SCH (13:15)
[2020-07-03] MEDS: DEXAMETHASONE SOD PHOSPHATE 10 MG/ML 1 ML VIAL IV SCH (13:16)
[2020-07-03] MEDS ORDERED: BENZOCAINE/MENTHOL LOZENG 1 EACH LOZENGE MUCOUS MEM PRN (13:18)
[2020-07-03] MEDS: ACETAMINOPHEN TAB 325 MG TAB PO PRN ×2 (13:25→22:54)
[2020-07-03] MEDS: SODIUM CHLORIDE 0.9% 1,000 ML IV SCH ×2 (13:29→23:48)
--- NOTE | 2020-07-03 14:12 | P.HPIM ---
History of Present Illness Patient will 60-year-old female with symptoms of Covid 19, has been going on for about the last 8-9 days which is a predominant shortness of breath generalized body aches and fever. Patient denied any symptoms and diarrhea had 1 episode of diarrhea, patient's last fever was high-grade fever last night. Patient does have elevated inflammatory markers is admitted was started on Decadron. Patient does have chronic kidney disease stage III with baseline creatinine of around 1.3 patient present creatinine is bit higher than that. Patient is also with dyshidrotic receiving IV fluids. Patient does have history of DVT for which patient is on xarelto which will be continued. Patient's d-dimer is 0.91. Review of Systems REVIEW OF SYSTEMS: CONSTITUTIONAL: As mentioned in HPI HEENT: No recent visual problems or hearing problems. Denied any sore throat. CARDIOVASCULAR: No chest pain, orthopnea, PND, no palpitations, no syncope. PULMONARY: no hemoptysis. GASTROINTESTINAL: No diarrhea, no nausea, no vomiting, no abdominal pain. NEUROLOGICAL: No headaches, no weakness, no numbness. HEMATOLOGICAL: Denies any bleeding or petechiae. GENITOURINARY: Denies any burning micturition, frequency, or urgency. MUSCULOSKELETAL/RHEUMATOLOGICAL: Denies any joint pain, swelling, or any muscle pain. ENDOCRINE: Denies any polyuria or polydipsia. The rest of the 14-point review of systems is negative. Past Medical History Past Medical History: Asthma, Diabetes Mellitus, Deep Vein Thrombosis (DVT), GERD/Reflux, Hyperlipidemia, Hypertension, Osteoarthritis (OA), Pneumonia, Pulmonary Embolus (PE), Renal Disease, Skin Disorder, Sleep Apnea/CPAP/BIPAP, Thyroid Disorder Additional Past Medical History / Comment(s): PE 01/2019, hemorrhoids, sciatica History of Any Multi-Drug Resistant Organisms: MRSA Date of last positivie culture/infection: 06/11/17 MDRO Source:: THIGH, LABIA Past Surgical History: Appendectomy, Breast Surgery, Heart Catheterization, Hysterectomy, Orthopedic Surgery, Tonsillectomy Additional Past Surgical History / Comment(s): 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 "cyst removed from between lung and spine", RT ERNESTO Past Anesthesia/Blood Transfusion Reactions: Previous Problems w/ Anesthesia Additional Past Anesthesia/Blood Transfusion Reaction / Comment(s): pt stated she stopped breathing during bronch due to unknown sleep apnea hx Past Psychological History: No Psychological Hx Reported Additional Psychological History / Comment(s): Pt resides with her spouse and several children/grand children. She is independent. Smoking Status: Never smoker Past Alcohol Use History: Rare Past Drug Use History: None Reported - Past Family History Sister(s) Family Medical History: Cancer Brother(s) Family Medical History: Deep Vein Thrombosis (DVT) Additional Family Medical History / Comment(s): Parkinsons Father Family Medical History: Cancer, CVA/TIA, Hypertension, Skin Disorder Additional Family Medical History / Comment(s): Father of pneumonia and a brain bleed in his 80'. He also had skin cancer Mother Family Medical History: Cancer Additional Family Medical History / Comment(s): skin cancer. Medications and Allergies Home Medications Medication Instructions Recorded Confirmed Type Montelukast [Singulair] 10 mg PO DAILY 09/06/13 07/02/20 History atenoloL [Tenormin] 25 mg PO DAILY 09/06/13 07/02/20 History Fenofibrate 160 mg PO HS 01/20/16 07/02/20 History Omeprazole 20 mg PO DAILY 01/20/16 07/02/20 History Atorvastatin [Lipitor] 40 mg PO HS 02/14/19 07/02/20 History Cetirizine HCl [Zyrtec] 10 mg PO DAILY 02/14/19 07/02/20 History Hydrocortisone 5 mg PO HS 02/14/19 07/02/20 History Hydrocortisone 15 mg PO DAILY 02/14/19 07/02/20 History Levothyroxine Sodium 125 mcg PO DAILY 02/14/19 07/02/20 History Rivaroxaban [Xarelto] 20 mg PO DAILY 06/09/19 07/02/20 History hydroCHLOROthiazide 25 mg PO DAILY 11/08/19 07/02/20 History Omalizumab [Xolair] 150 mg SQ [id number] 02/16/20 07/02/20 History Albuterol Inhaler [Ventolin Hfa 2 puff INHALATION RT-QID PRN 07/02/20 07/02/20 History Inhaler] Albuterol Nebulized [Ventolin 2.5 mg INHALATION RT-QID PRN 07/02/20 07/02/20 History Nebulized] Fluticasone/Salmeterol [Airduo 1 puff INHALATION RT-BID 07/02/20 07/02/20 History Respiclick 232-14 Mcg] lisinopriL 20 mg PO DAILY 07/02/20 07/02/20 History metFORMIN HCL ER [Glucophage Xr] 500 mg PO HS 07/02/20 07/02/20 History Allergies Allergy/AdvReac Type Severity Reaction Status Date / Time Iodine and Iodide Containing Allergy Unknown allergy Verified 07/02/20 15:16 Produc test positive for shell fish. celecoxib [From Celebrex] Allergy Wheezing Verified 07/02/20 15:16 egg AdvReac Swelling Verified 07/02/20 15:16 shellfish derived AdvReac ALLERGY Verified 07/02/20 15:16 TEST POSITIVE. Physical Exam Vitals: Vital Signs Temp Pulse Pulse Resp BP BP Pulse Ox 07/03/20 09:15 92 22 07/03/20 03:37 98.7 F 96 30 H 120/70 96 07/03/20 01:39 106 H 28 H 07/03/20 00:00 97.9 F 106 H 28 H 114/63 98 07/02/20 23:50 97.9 F 106 H 28 H 114/63 98 07/02/20 22:35 99 F 112 H 20 122/86 95 07/02/20 20:18 101 F H 122 H 18 153/86 98 07/02/20 15:16 101.2 F H 123 H 24 121/73 97 Intake and Output 07/02/20 07/03/20 07/03/20 22:59 06:59 14:59 Intake Total 240 Balance 240 Intake: Oral 240 Other: # Voids 1 Weight 99.79 kg 94 kg PHYSICAL EXAMINATION: GENERAL: The patient is alert and oriented x3, not in any acute distress. Well developed, well nourished. HEENT: Pupils are round and equally reacting to light. EOMI. No scleral icterus. No conjunctival pallor. Normocephalic, atraumatic. No pharyngeal erythema. No thyromegaly. CARDIOVASCULAR: S1 and S2 present. No murmurs, rubs, or gallops. PULMONARY: Chest is clear to auscultation, no wheezing or crackles. ABDOMEN: Soft, nontender, nondistended, normoactive bowel sounds. No palpable organomegaly. MUSCULOSKELETAL: No joint swelling or deformity. EXTREMITIES: No cyanosis, clubbing, or pedal edema. NEUROLOGICAL: Gross neurological examination did not reveal any focal deficits. SKIN: No rashes. Results CBC & Chem 7: 07/02/20 20:35 07/02/20 20:35 Labs: Abnormal Lab Results - Last 24 Hours (Table) 07/02/20 07/02/20 07/02/20 Range/Units 15:40 20:35 20:35 D-Dimer 0.91 H (<0.60) mg/L FEU Sodium 136 L (137-145) mmol/L Chloride 96 L (98-107) mmol/L Carbon Dioxide 18 L (22-30) mmol/L BUN 25 H (7-17) mg/dL Creatinine 1.58 H (0.52-1.04) mg/dL Glucose 121 H (74-99) mg/dL POC Glucose (mg/dL) (75-99) mg/dL Ferritin 326.2 H (10.0-291.0) ng/mL AST 69 H (14-36) U/L Lactate Dehydrogenase 1031 H (313-618) U/L C-Reactive Protein 218.8 H (<10.0) mg/L Procalcitonin (0.02-0.09) ng/mL Coronavirus (PCR) Detected A (Not Detectd) 07/02/20 07/03/20 07/03/20 Range/Units 20:35 06:08 13:11 D-Dimer (<0.60) mg/L FEU Sodium (137-145) mmol/L Chloride (98-107) mmol/L Carbon Dioxide (22-30) mmol/L BUN (7-17) mg/dL Creatinine (0.52-1.04) mg/dL Glucose (74-99) mg/dL POC Glucose (mg/dL) 250 H 241 H (75-99) mg/dL Ferritin (10.0-291.0) ng/mL AST (14-36) U/L Lactate Dehydrogenase (313-618) U/L C-Reactive Protein (<10.0) mg/L Procalcitonin 0.41 H (0.02-0.09) ng/mL Coronavirus (PCR) (Not Detectd) Thrombosis Risk Factor Assmnt - Choose All That Apply Any of the Below Risk Factors Present?: Yes Each Factor Represents 1 point: Age 41-60 years, Obesity (BMI >25) Other Risk Factors: Yes Each Risk Factor Represents 3 Points: Family history of DVT/PE, History of DVT/PE Other congenital or acquired thrombophilia - If yes, enter type in comment: No Thrombosis Risk Factor Assessment Total Risk Factor Score: 8 Thrombosis Risk Factor Assessment Level: High Risk Assessment and Plan Plan: -Sepsis: Secondary to cold mid 19 pneumonia patient will be continued on Decadron, increase IV fluids 100 mL per hour. Covid multivitamins -Acute renal failure feel azotemia secondary to sepsis patient will be continued on IV fluids as mentioned above -Hypothyroidism -Chronic kidney disease stage 3 etiology is not -History of DVT in the past patient is an anti-correlation to continue -Hyperlipidemia next and heparin hypertension -Sleep apnea and uses CPAP machine which will be continued -hypothyroidism -Due to prophylaxis: Patient is an anti-correlation as mentioned above
[2020-07-03] MEDS: ALBUTEROL HFA INHALER INHALATION PRN ×2 (15:52→19:35)
--- NOTE | 2020-07-03 16:46 | P.CNPUL ---
History of Present Illness Consult date: 07/03/20 Requesting physician: Juan M Paul Reason for consult: pneumonia Chief complaint: Shortness of breath, generalized body aches and fever History of present illness: This is a 60-year-old female presented yesterday with 9 days history of multiple constitutional symptoms consistent with Covid 19 infection. Patient presented with shortness of breath, cough, generalized body aches and pains, loss of sensation of taste and smell, intermittent episodes of diarrhea, patient was noted to have elevated inflammatory markers, and she tested positive for covid 19 by PCR. Chest x-ray showed patchy mid and lower lung interstitial infiltrates, left more so than right. Hence the patient was admitted and this consult was initiated. Her pulse ox on 2 L was 95%. No documented pulse oximetry on room air. 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 Patient also had previous history of deep vein thromboses and pulmonary embolism, on lifelong anticoagulation therapy utilizing Xarelto. Last hospitalization for pulmonary embolism was February 01. And since then she has been maintained on anticoagulation therapy all along. Again considering the diagnosis of Covid 19 pneumonitis, I was asked to see this patient on consultation Review of Systems Constitutional: As noted in HPI, multiple constitutional symptoms consistent with viral infection. Eyes: denies any blurred vision, no diplopia. Ears, nose, mouth and throat: Loss of sensation of taste and smell. And fullness over the left maxillary sinuses Cardiovascular: Denies chest pain, denies syncope. Respiratory: as noted in HPI. Gastrointestinal: Occasional diarrhea. Otherwise negative. Musculoskeletal:vague aches and pains, Integumentary: denies any rashes or pruritus. Neurological: Denies numbness, Denies weakness Psychiatric: denies any symptoms of active depression or anxiety. Endocrine: history of panhypopituitarism, maintained on multiple meds for her panhypopituitarism and adrenal insufficiency. Past Medical History Past Medical History: Asthma, Diabetes Mellitus, Deep Vein Thrombosis (DVT), GERD/Reflux, Hyperlipidemia, Hypertension, Osteoarthritis (OA), Pneumonia, Pulmonary Embolus (PE), Renal Disease, Skin Disorder, Sleep Apnea/CPAP/BIPAP, Thyroid Disorder Additional Past Medical History / Comment(s): PE 01/2019, hemorrhoids, sciatica History of Any Multi-Drug Resistant Organisms: MRSA Date of last positivie culture/infection: 06/11/17 MDRO Source:: THIGH, LABIA Past Surgical History: Appendectomy, Breast Surgery, Heart Catheterization, Hysterectomy, Orthopedic Surgery, Tonsillectomy Additional Past Surgical History / Comment(s): 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 "cyst removed from between lung and spine", RT ERNESTO Past Anesthesia/Blood Transfusion Reactions: Previous Problems w/ Anesthesia Additional Past Anesthesia/Blood Transfusion Reaction / Comment(s): pt stated she stopped breathing during bronch due to unknown sleep apnea hx Past Psychological History: No Psychological Hx Reported Additional Psychological History / Comment(s): Pt resides with her spouse and several children/grand children. She is independent. Smoking Status: Never smoker Past Alcohol Use History: Rare Past Drug Use History: None Reported - Past Family History Sister(s) Family Medical History: Cancer Brother(s) Family Medical History: Deep Vein Thrombosis (DVT) Additional Family Medical History / Comment(s): Parkinsons Father Family Medical History: Cancer, CVA/TIA, Hypertension, Skin Disorder Additional Family Medical History / Comment(s): Father of pneumonia and a brain bleed in his 80'. He also had skin cancer Mother Family Medical History: Cancer Additional Family Medical History / Comment(s): skin cancer. Medications and Allergies Home Medications Medication Instructions Recorded Confirmed Type Montelukast [Singulair] 10 mg PO DAILY 09/06/13 07/02/20 History atenoloL [Tenormin] 25 mg PO DAILY 09/06/13 07/02/20 History Fenofibrate 160 mg PO HS 01/20/16 07/02/20 History Omeprazole 20 mg PO DAILY 01/20/16 07/02/20 History Atorvastatin [Lipitor] 40 mg PO HS 02/14/19 07/02/20 History Cetirizine HCl [Zyrtec] 10 mg PO DAILY 02/14/19 07/02/20 History Hydrocortisone 5 mg PO HS 02/14/19 07/02/20 History Hydrocortisone 15 mg PO DAILY 02/14/19 07/02/20 History Levothyroxine Sodium 125 mcg PO DAILY 02/14/19 07/02/20 History Rivaroxaban [Xarelto] 20 mg PO DAILY 06/09/19 07/02/20 History hydroCHLOROthiazide 25 mg PO DAILY 11/08/19 07/02/20 History Omalizumab [Xolair] 150 mg SQ [id number] 02/16/20 07/02/20 History Albuterol Inhaler [Ventolin Hfa 2 puff INHALATION RT-QID PRN 07/02/20 07/02/20 History Inhaler] Albuterol Nebulized [Ventolin 2.5 mg INHALATION RT-QID PRN 07/02/20 07/02/20 History Nebulized] Fluticasone/Salmeterol [Airduo 1 puff INHALATION RT-BID 07/02/20 07/02/20 History Respiclick 232-14 Mcg] lisinopriL 20 mg PO DAILY 07/02/20 07/02/20 History metFORMIN HCL ER [Glucophage Xr] 500 mg PO HS 07/02/20 07/02/20 History Allergies Allergy/AdvReac Type Severity Reaction Status Date / Time Iodine and Iodide Containing Allergy Unknown allergy Verified 07/02/20 15:16 Produc test positive for shell fish. celecoxib [From Celebrex] Allergy Wheezing Verified 07/02/20 15:16 egg AdvReac Swelling Verified 07/02/20 15:16 shellfish derived AdvReac ALLERGY Verified 07/02/20 15:16 TEST POSITIVE. Physical Exam Vitals: Vital Signs Temp Pulse Pulse Resp BP BP Pulse Ox 07/03/20 16:29 97.6 F 81 18 107/64 93 L 07/03/20 14:00 96 20 07/03/20 12:00 97.3 F L 96 20 121/79 94 L 07/03/20 09:15 92 22 07/03/20 08:00 97.6 F 94 22 118/72 95 07/03/20 03:37 98.7 F 96 30 H 120/70 96 07/03/20 01:39 106 H 28 H 07/03/20 00:00 97.9 F 106 H 28 H 114/63 98 07/02/20 23:50 97.9 F 106 H 28 H 114/63 98 07/02/20 22:35 99 F 112 H 20 122/86 95 07/02/20 20:18 101 F H 122 H 18 153/86 98 Intake and Output 07/03/20 07/03/20 07/03/20 06:59 14:59 22:59 Intake Total 958 Balance 958 Intake: Intake, IV Titration 600 Amount Sodium Chloride 0.9% 1, 600 000 ml @ 75 mls/hr IV . [id number] [facility] Rx#:[id number] Oral 358 Other: # Voids 1 3 Weight 94 kg Physical Exam: Revealed a 60-year-old female in no distress. Head: Atraumatic, normocephalic. HEENT:[Neck is supple.] [No neck masses.] [No thyromegaly.] [No JVD.] Chest: Symmetrical chest expansion, fine crackles at the left base, no rhonchi and no wheezes. Cardiac Exam: [Normal S1 and S2, no S3 gallop, no murmur.] Abdomen: [Soft, nontender, no megaly, no rebound, no guarding, normal bowel sounds.] Extremities: [No clubbing, no edema, no cyanosis.] Neurological Exam: [No focal neurologic deficit.] Alert and oriented 3. Psychiatric: Normal mood, affect and normal mental status examination. Skin: No rashes. Musculoskeletal: No deformities noted limitation of range of motion. Results - Laboratory Findings CBC and BMP: 07/02/20 20:35 07/02/20 20:35 PT/INR, D-dimer PT 11.3 sec (9.0-12.0) 07/02/20 20:35 INR 1.1 (<1.2) 07/02/20 20:35 D-Dimer 0.91 mg/L FEU (<0.60) H 07/02/20 20:35 Abnormal lab findings: Abnormal Labs 07/02/20 07/02/20 07/02/20 15:40 20:35 20:35 D-Dimer 0.91 H Sodium 136 L Chloride 96 L Carbon Dioxide 18 L BUN 25 H Creatinine 1.58 H Glucose 121 H POC Glucose (mg/dL) Ferritin 326.2 H AST 69 H Lactate Dehydrogenase 1031 H C-Reactive Protein 218.8 H Procalcitonin Coronavirus (PCR) Detected A 07/02/20 07/03/20 07/03/20 20:35 06:08 13:11 D-Dimer Sodium Chloride Carbon Dioxide BUN Creatinine Glucose POC Glucose (mg/dL) 250 H 241 H Ferritin AST Lactate Dehydrogenase C-Reactive Protein Procalcitonin 0.41 H Coronavirus (PCR) - Diagnostic Findings Chest x-ray: image reviewed (As noted in HPI.) Assessment and Plan Assessment: Impression: Acute covid 19 pneumonia. History of mild intermittent asthma. Acute kidney injury possibly secondary to hypovolemia, will likely improve with hydration. Elevated inflammatory markers with LDH of 1031 and C-reactive protein of 219. History of hypercoagulable state and previous DVT and pulmonary embolism. History of panhypopituitarism. Benign essential hypertension. History of obstructive sleep apnea syndrome. Type 2 diabetes. Recommendation: Continue present supportive care measures. Hydration. Continue the Covid 19 cocktail. Continue Xarelto. Resume her home asthma medications/bronchodilators.. Continue Protonix. Continue Decadron. We'll continue to follow. Patient is not a candidate for REM. Titrate oxygen and possibly discontinue if O2 saturation remains above 90% on room air Time with Patient: Greater than 30
[2020-07-03 17:19] LABS: Glucose,Whole Blood 285 mg/dL (75-99)
[2020-07-03] MEDS: SYMBICORT 160-4.5 MCG INHALER INHALATION SCH (19:35)
[2020-07-03 20:11] LABS: Glucose,Whole Blood 306 mg/dL (75-99)
[2020-07-03] MEDS: ATORVASTATIN 40 MG TAB PO SCH (20:45)
[2020-07-03] MEDS: FENOFIBRATE 160 MG TAB PO SCH (20:45)
[2020-07-04 05:56] LABS: Glucose,Whole Blood 270 mg/dL (75-99)
[2020-07-04] MEDS: INSULIN ASPART (NovoLOG) 100 UNIT/ML VIAL SQ SCH ×4 (06:44→21:57)
[2020-07-04] MEDS: LEVOTHYROXINE 125 MCG TAB PO SCH (06:44)
[2020-07-04] MEDS: PANTOPRAZOLE 40 MG TABLET PO SCH (06:44)
[2020-07-04] MEDS: ALBUTEROL HFA INHALER INHALATION PRN ×4 (09:20→20:31)
[2020-07-04] MEDS: SYMBICORT 160-4.5 MCG INHALER INHALATION SCH ×2 (09:21→20:31)
[2020-07-04] MEDS: CHOLECALCIFEROL 25 MCG (1000 IU) TABLET PO SCH (09:23)
[2020-07-04] MEDS: ZINC SULFATE 220 MG CAP PO SCH (09:23)
[2020-07-04] MEDS: RIVAROXABAN 20 MG TAB PO SCH (09:23)
[2020-07-04] MEDS: ASCORBIC ACID 500 MG TAB PO SCH (09:23)
[2020-07-04] MEDS: atenoloL 25 MG TAB PO SCH (09:23)
[2020-07-04] MEDS: MONTELUKAST 10 MG TAB PO SCH (09:23)
[2020-07-04] MEDS: DEXAMETHASONE SOD PHOSPHATE 10 MG/ML 1 ML VIAL IV SCH (09:24)
[2020-07-04] MEDS: MAG HYDROX/AL HYDROX/SIMETH 30 ML, LIDOCAINE VISCOUS 30 ML, NYSTATIN 100,000 UNIT/ML SU... PO SCH ×9 (09:31→21:57)
[2020-07-04 12:31] LABS: Glucose,Whole Blood 299 mg/dL (75-99)
--- NOTE | 2020-07-04 15:27 | P.PN ---
Subjective 60-year-old female with symptoms of Covid 19, has been going on for about the last 8-9 days which is a predominant shortness of breath generalized body aches and fever. Patient denied any symptoms and diarrhea had 1 episode of diarrhea, patient's last fever was high-grade fever last night. Patient does have elevated inflammatory markers is admitted was started on Decadron. Patient does have chronic kidney disease stage III with baseline creatinine of around 1.3 patient present creatinine is bit higher than that. Patient is also with dyshi drotic receiving IV fluids. Patient does have history of DVT for which patient is on xarelto which will be continued. Patient's d-dimer is 0.91. 07/04/2020 Patient is still requiring oxygen patient will be monitored for 1 more night possibly of discharge tomorrow if we're able to get her off oxygen. To be basic metabolic profile is not available at this time continue with IV fluids will repeat BMP tomorrow. Constitutional: Denied any fatigue denied any fever. Cardio vascular: denied any chest pain, palpitations Gastrointestinal denied any nausea vomiting Pulmonary: Still get short of breath Neurologic denied any new focal deficits All inpatient medications were reviewed and appropriate changes in these medications as dictated in the interval history and assessment and plan. Objective - Vital Signs Vital signs: Vital Signs Temp 97.7 F 07/04/20 08:30 Pulse 77 07/04/20 08:30 Resp 20 07/04/20 08:30 BP 105/55 07/04/20 08:30 Pulse Ox 93 L 07/04/20 08:30 Intake & Output 07/03/20 07/04/20 07/04/20 18:59 06:59 18:59 Intake Total 958 240 135 Output Total 400 Balance 958 -160 135 Weight 96 kg Intake: IV 10 Invasive Line 1 10 Intake, IV Titration 600 Amount Sodium Chloride 0.9% 1, 600 000 ml @ 75 mls/hr IV . [id number] [facility] Rx#:[id number] Oral 358 240 125 Output: Urine 400 Other: Voiding Method Toilet # Voids 3 2 - Exam PHYSICAL EXAMINATION: GENERAL: The patient is alert and oriented x3, not in any acute distress. Well developed, well nourished. HEENT: Pupils are round and equally reacting to light. EOMI. No scleral icterus. No conjunctival pallor. Normocephalic, atraumatic. No pharyngeal erythema. No thyromegaly. CARDIOVASCULAR: S1 and S2 present. No murmurs, rubs, or gallops. PULMONARY: Chest is clear to auscultation, no wheezing or crackles. ABDOMEN: Soft, nontender, nondistended, normoactive bowel sounds. No palpable organomegaly. MUSCULOSKELETAL: No joint swelling or deformity. EXTREMITIES: No cyanosis, clubbing, or pedal edema. NEUROLOGICAL: Gross neurological examination did not reveal any focal deficits. SKIN: No rashes. - Labs CBC & Chem 7: 07/02/20 20:35 07/02/20 20:35 Labs: Abnormal Lab Results - Last 24 Hours (Table) 07/03/20 07/03/20 07/04/20 Range/Units 17:17 20:10 05:55 POC Glucose (mg/dL) 285 H 306 H 270 H (75-99) mg/dL 07/04/20 Range/Units 12:10 POC Glucose (mg/dL) 299 H (75-99) mg/dL Assessment and Plan Plan: -Sepsis: Secondary to cold mid 19 pneumonia patient will be continued on Decadron, on IV fluids 100 mL per hour. Covid multivitamins -Acute renal failure feel azotemia secondary to sepsis patient will be continued on IV fluids as mentioned above -Hypothyroidism -Chronic kidney disease stage 3 etiology is not clear -History of DVT in the past patient is an anti-angulation which will be continued -Hyperlipidemia - hypertension -Sleep apnea and uses CPAP machine which will be continued -hypothyroidism -Due to prophylaxis: Patient is an anti-correlation as mentioned above
[2020-07-04] MEDS: SODIUM CHLORIDE 0.9% 1,000 ML IV SCH (15:35)
--- NOTE | 2020-07-04 16:47 | P.PN ---
Subjective Progress Note Date: 07/04/20 Principal diagnosis: CoVID 19 pneumonia/pneumonitis This is a 60-year-old female presented yesterday with 9 days history of multiple constitutional symptoms consistent with Covid 19 infection. Patient presented with shortness of breath, cough, generalized body aches and pains, loss of sensation of taste and smell, intermittent episodes of diarrhea, patient was noted to have elevated inflammatory markers, and she tested positive for covid 19 by PCR. Chest x-ray showed patchy mid and lower lung interstitial infiltrates, left more so than right. Hence the patient was admitted and this consult was initiated. Her pulse ox on 2 L was 95%. No documented pulse oximetry on room air. 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 Patient also had previous history of deep vein thromboses and pulmonary embolism, on lifelong anticoagulation therapy utilizing Xarelto. Last hospitalization for pulmonary embolism was February 01. And since then she has been maintained on anticoagulation therapy all along. Again considering the diagnosis of Covid 19 pneumonitis, I was asked to see this patient on consultation. The patient is seen today 07/04/2020 in follow-up on the selective care unit. She is currently awake and alert in no acute distress. He is maintaining O2 saturations in the low 90s on room air. She's been afebrile. Hemodynamically stable. Blood glucose 299. She is continued on dexamethasone, vitamin supplements. Anticoagulated with Xarelto. Remains on bronchodilators. Objective - Vital Signs Vital signs: Vital Signs Temp 98.6 F 07/04/20 15:41 Pulse 70 07/04/20 15:41 Resp 20 07/04/20 15:41 BP 105/56 07/04/20 15:41 Pulse Ox 90 L 07/04/20 15:41 Intake & Output 07/03/20 07/04/20 07/04/20 18:59 06:59 18:59 Intake Total 958 240 445 Output Total 400 600 Balance 958 -160 -155 Weight 96 kg Intake: IV 20 Invasive Line 1 20 Intake, IV Titration 600 Amount Sodium Chloride 0.9% 1, 600 000 ml @ 75 mls/hr IV . [id number] [facility] Rx#:[id number] Oral 358 240 425 Output: Urine 400 600 Other: Voiding Method Toilet # Voids 3 2 - Exam GENERAL EXAM: Alert, pleasant 52-year-old female patient, on room air, comfortable in no apparent distress. HEAD: Normocephalic. EYES: Normal reaction of pupils, equal size. NOSE: Clear with pink turbinates. THROAT: No erythema or exudates. NECK: No masses, no JVD. CHEST: No chest wall deformity. LUNGS: Equal air entry with coarse crackles in the bilateral bases CVS: S1 and S2 normal with no audible murmur, regular rhythm. ABDOMEN: No hepatosplenomegaly, normal bowel sounds, no guarding or rigidity. SPINE: No scoliosis or deformity SKIN: No rashes CENTRAL NERVOUS SYSTEM: No focal deficits, tone is normal in all 4 extremities. EXTREMITIES: There is no peripheral edema. No clubbing, no cyanosis. Peripheral pulses are intact. - Labs CBC & Chem 7: 07/02/20 20:35 07/02/20 20:35 Labs: Abnormal Lab Results - Last 24 Hours (Table) 07/03/20 07/03/20 07/04/20 Range/Units 17:17 20:10 05:55 POC Glucose (mg/dL) 285 H 306 H 270 H (75-99) mg/dL 07/04/20 Range/Units 12:10 POC Glucose (mg/dL) 299 H (75-99) mg/dL Assessment and Plan Assessment: 1 Acute CoVID 19 pneumonia/pneumonitis, currently on room air. Not a candidate for Remdesivir 2 History of chronic mild intermittent bronchial asthma 3 Acute kidney injury secondary to possible hypovolemia, dehydration 4 Elevated inflammatory markers secondary to above 5 History of hypercoagulable state and previous DVT/PE, anticoagulant with Xarelto 6 History of panhypopituitarism. 7 Benign essential hypertension 8 History of obstructive sleep apnea 9 Diabetes mellitus Plan: The patient was seen and evaluated by Dr. Dumont We'll continue with dexamethasone, vitamin supplements Anticoagulated with Xarelto Continue bronchodilators Follow-up chest x-ray and labs in the a.m. Possible discharge in the a.m. We'll continue to follow I, the cosigning physician, performed a history & physical examination of the patient. Lungs sounds crackles in the bilateral bases. Maintaining good O2 saturations in the 90s on room air. I discussed the assessment and plan of care with my nurse practitioner, Sadaf Alfonso. I attest to the above note as dictated by her.
[2020-07-04 17:39] LABS: Glucose,Whole Blood 261 mg/dL (75-99)
[2020-07-04 20:33] LABS: Glucose,Whole Blood 262 mg/dL (75-99)
[2020-07-04] MEDS ORDERED: INSULIN DETEMIR (LEVEMIR) 100 UNIT/ML SYR SQ SCH (21:00)
[2020-07-04] MEDS: ATORVASTATIN 40 MG TAB PO SCH (21:56)
[2020-07-04] MEDS: FENOFIBRATE 160 MG TAB PO SCH (21:56)
[2020-07-04] MEDS: ACETAMINOPHEN TAB 325 MG TAB PO PRN (22:04)
[2020-07-05 01:56] LABS: Glucose,Whole Blood 227 mg/dL (75-99)
[2020-07-05 05:10] VITALS: RESP 20
[2020-07-05 05:51] LABS: Glucose,Whole Blood 207 mg/dL (75-99)
[2020-07-05] MEDS: LEVOTHYROXINE 125 MCG TAB PO SCH (06:38)
[2020-07-05] MEDS: INSULIN ASPART (NovoLOG) 100 UNIT/ML VIAL SQ SCH ×3 (06:38→17:56)
[2020-07-05] MEDS: PANTOPRAZOLE 40 MG TABLET PO SCH (06:38)
[2020-07-05 08:28] LABS: C Reactive Protein 64.5 mg/L (<10.0); Calcium 8.6 mg/dL (8.4-10.2); Potassium 3.7 mmol/L (3.5-5.1)
[2020-07-05] MEDS: SYMBICORT 160-4.5 MCG INHALER INHALATION SCH (09:37)
[2020-07-05] MEDS: ALBUTEROL HFA INHALER INHALATION PRN ×3 (09:37→16:43)
[2020-07-05] MEDS: MAG HYDROX/AL HYDROX/SIMETH 30 ML, LIDOCAINE VISCOUS 30 ML, NYSTATIN 100,000 UNIT/ML SU... PO SCH ×3 (10:08)
[2020-07-05] MEDS: RIVAROXABAN 20 MG TAB PO SCH (10:09)
[2020-07-05] MEDS: DEXAMETHASONE SOD PHOSPHATE 10 MG/ML 1 ML VIAL IV SCH (10:09)
[2020-07-05] MEDS: ZINC SULFATE 220 MG CAP PO SCH (10:09)
[2020-07-05] MEDS: CHOLECALCIFEROL 25 MCG (1000 IU) TABLET PO SCH (10:09)
[2020-07-05] MEDS: atenoloL 25 MG TAB PO SCH (10:09)
[2020-07-05] MEDS: MONTELUKAST 10 MG TAB PO SCH (10:09)
[2020-07-05] MEDS: ASCORBIC ACID 500 MG TAB PO SCH (10:09)
--- NOTE | 2020-07-05 10:09 | XR ---
EXAMINATION TYPE: XR chest 1V portable DATE OF EXAM: 07/05/2020 COMPARISON: 07/02/2020 HISTORY: Cough TECHNIQUE: Single frontal view of the chest is obtained. FINDINGS: Sclerotic densities adjacent to the humeral neck on the left. Patchy left lower lobe areas of interstitial and subsegmental infiltrate stable. Linear changes right lung base stable. Arthropat hy of the shoulders. Biapical pleural thickening. Heart size is normal. IMPRESSION: 1. Patchy interstitial and basilar areas of infiltrate stable.
--- NOTE | 2020-07-05 11:52 | P.DS ---
Providers Date of admission: 07/02/20 20:09 Attending physician: Mehdi Hernandez MD Consults: 07/02/20 20:09 Consult Physician Routine Consulting Provider: John Dumont Consult Reason/Comments: COVID PNA Do you want consulting provider notified?: Yes [facility] Course: 60-year-old female with symptoms of Covid 19, has been going on for about the last 8-9 days which is a predominant shortness of breath generalized body aches and fever. Patient denied any symptoms and diarrhea had 1 episode of diarrhea, patient's last fever was high-grade fever last night. Patient does have elevated inflammatory markers is admitted was started on Decadron. Patient does have chronic kidney disease stage III with baseline creatinine of around 1.3 patient present creatinine is bit higher than that. Patient is also with dyshidrotic receiving IV fluids. Patient does have history of DVT for which patient is on xarelto which will be continued. Patient's d-dimer is 0.91. 07/04/2020 Patient is still requiring oxygen patient will be monitored for 1 more night possibly of discharge tomorrow if we're able to get her off oxygen. To be basic metabolic profile is not available at this time continue with IV fluids will repeat BMP tomorrow. 07/05/2020 Patient's the serum creatinine improved and the now close to her baseline which is 1.07. Patient was pretty status improved but may still require oxygen temporarily patient will be discharged on oxygen which can be weaned off as an outpatient with close follow-up with PCP. Patient d-dimer improved patient looks much better today. Patient blood sugars are elevated and patient is being discharged on Decadron 4 mg daily for 7 more days patient is also on hydrocortisone which can be continued. Patient is being discharged on 15 units of long-acting insulin patient will need this as long as she is on the Decadron may or may not need the this after that I do not have any hemoglobin A1c available at this time. Need for continued insulin to be assessed as an outpatient. His blood sugars are expected to stay high 2 days after discontinue additional Decadron Assessment and Plan Plan: -Sepsis: Secondary to Covid 19 pneumonia patient will be continued on Decadron. -Acute renal failure feel azotemia secondary to sepsis improved with IV fluids -Hypothyroidism -Chronic kidney disease stage 2 -History of DVT in the past patient is an anticoagulation which will be continued -Hyperlipidemia - hypertension -Sleep apnea and uses CPAP machine which will be continued -hypothyroidism Patient Condition at Discharge: Serious Plan - Discharge Summary Discharge Rx Participant: No New Discharge Prescriptions: New Insulin Detemir (Levemir) [Levemir] 15 unit SQ HS #3 syr Nystatin 100,000 Unit/ml Susp [Mycostatin Oral Susp] 3,000,000 unit PO TID #250 ml Zinc Sulfate [Orazinc] 220 mg PO DAILY #30 cap Ascorbic Acid [Vitamin C] 1,000 mg PO DAILY #30 tab Cholecalciferol [Vitamin D3 (25 Mcg = 1000 Iu)] 25 mcg PO DAILY #30 tablet Dexamethasone [Decadron] 4 mg PO DAILY #7 tablet Continue Montelukast [Singulair] 10 mg PO DAILY Fenofibrate 160 mg PO HS Omeprazole 20 mg PO DAILY Levothyroxine Sodium 125 mcg PO DAILY Cetirizine HCl [Zyrtec] 10 mg PO DAILY Atorvastatin [Lipitor] 40 mg PO HS Hydrocortisone 15 mg PO DAILY Hydrocortisone 5 mg PO HS Rivaroxaban [Xarelto] 20 mg PO DAILY Omalizumab [Xolair] 150 mg SQ [id number] Fluticasone/Salmeterol [Airduo Respiclick 232-14 Mcg] 1 puff INHALATION RT- BID metFORMIN HCL ER [Glucophage Xr] 500 mg PO HS Albuterol Inhaler [Ventolin Hfa Inhaler] 2 puff INHALATION RT-QID PRN PRN Reason: Shortness Of Breath Albuterol Nebulized [Ventolin Nebulized] 2.5 mg INHALATION RT-QID PRN PRN Reason: Shortness Of Breath Discontinued atenoloL [Tenormin] 25 mg PO DAILY hydroCHLOROthiazide 25 mg PO DAILY lisinopriL 20 mg PO DAILY Discharge Medication List Montelukast [Singulair] 10 mg PO DAILY 09/06/13 [History] Fenofibrate 160 mg PO HS 01/20/16 [History] Omeprazole 20 mg PO DAILY 01/20/16 [History] Atorvastatin [Lipitor] 40 mg PO HS 02/14/19 [History] Cetirizine HCl [Zyrtec] 10 mg PO DAILY 02/14/19 [History] Hydrocortisone 5 mg PO HS 02/14/19 [History] Hydrocortisone 15 mg PO DAILY 02/14/19 [History] Levothyroxine Sodium 125 mcg PO DAILY 02/14/19 [History] Rivaroxaban [Xarelto] 20 mg PO DAILY 06/09/19 [History] Omalizumab [Xolair] 150 mg SQ [id number] 02/16/20 [History] Albuterol Inhaler [Ventolin Hfa Inhaler] 2 puff INHALATION RT-QID PRN 07/02/20 [History] Albuterol Nebulized [Ventolin Nebulized] 2.5 mg INHALATION RT-QID PRN 07/02/20 [History] Fluticasone/Salmeterol [Airduo Respiclick 232-14 Mcg] 1 puff INHALATION RT-BID 07/02/20 [History] metFORMIN HCL ER [Glucophage Xr] 500 mg PO HS 07/02/20 [History] Ascorbic Acid [Vitamin C] 1,000 mg PO DAILY #30 tab 07/05/20 [Rx] Cholecalciferol [Vitamin D3 (25 Mcg = 1000 Iu)] 25 mcg PO DAILY #30 tablet 07/05/20 [Rx] Dexamethasone [Decadron] 4 mg PO DAILY #7 tablet 07/05/20 [Rx] Insulin Detemir (Levemir) [Levemir] 15 unit SQ HS #3 syr 07/05/20 [Rx] Nystatin 100,000 Unit/ml Susp [Mycostatin Oral Susp] 3,000,000 unit PO TID #250 ml 07/05/20 [Rx] Zinc Sulfate [Orazinc] 220 mg PO DAILY #30 cap 07/05/20 [Rx] Follow up Appointment(s)/Referral(s): Kita Riggs III, MD [Primary Care Provider] - 3 Days Discharge Disposition: HOME SELF-CARE
[2020-07-05 12:37] LABS: Glucose,Whole Blood 212 mg/dL (75-99)
[2020-07-05] MEDS: SODIUM CHLORIDE 0.9% 1,000 ML IV SCH (13:18)
[2020-07-05 16:20] VITALS: BP 104/56; PULSE 76; TEMP 97.9
[2020-07-05 17:27] LABS: Glucose,Whole Blood 229 mg/dL (75-99)
--- NOTE | 2020-07-05 19:13 | P.PN ---
Subjective Progress Note Date: 07/05/20 Principal diagnosis: Hypoxemic respiratory failure. 60-year-old female admitted with a diagnosis of COVID19 pneumonitis. Currently she is doing very well. She is being considered for discharge. She has a history of asthma, acute kidney injury, hypercoagulable state, panhypopi tuitarism., benign essential hypertension, sleep apnea, and diabetes. Currently, the patient's on room air. She's feeling well. She is hoping to be discharged home today. Objective - Vital Signs Vital signs: Vital Signs Temp 97.9 F 07/05/20 12:00 Pulse 76 07/05/20 12:00 Resp 20 07/05/20 12:00 BP 104/56 07/05/20 12:00 Pulse Ox 93 L 07/05/20 12:00 Intake & Output 07/05/20 07/05/20 07/06/20 06:59 18:59 06:59 Intake Total 798 Output Total 1300 Balance -502 Weight 96.5 kg Intake: Oral 798 Output: Urine 1300 Other: Voiding Method Toilet # Voids 1 - Exam No acute distress, oriented 3. Patient on room air. Saturations are excellent. HEENT examination is grossly unremarkable. Mucous membranes are moist. No oral lesions. Neck supple. Full range of motion. No adenopathy thyromegaly or neck vein distention. Cardiovascular examination reveals regular rhythm rate. S1-S2 normal. No S3 or S4. No discernible murmur noted. Lungs reveal clear breath sounds. Her sounds are equal bilaterally. No adventitious lung sounds including wheezes rhonchi or crackles. Abdomen soft bowel sounds are heard. No masses or tenderness. Extremities are intact. No cyanosis clubbing or edema. Skin is without rash or lesion. Neurologic examination is brief but nonfocal. - Labs CBC & Chem 7: 07/02/20 20:35 07/05/20 07:25 Labs: Abnormal Lab Results - Last 24 Hours (Table) 07/04/20 07/05/20 07/05/20 Range/Units 20:32 01:53 05:49 Sodium (137-145) mmol/L BUN (7-17) mg/dL Creatinine (0.52-1.04) mg/dL Glucose (74-99) mg/dL POC Glucose (mg/dL) 262 H 227 H 207 H (75-99) mg/dL Lactate Dehydrogenase (313-618) U/L C-Reactive Protein (<10.0) mg/L 07/05/20 07/05/20 07/05/20 Range/Units 07:25 12:35 17:25 Sodium 133 L (137-145) mmol/L BUN 23 H (7-17) mg/dL Creatinine 1.07 H (0.52-1.04) mg/dL Glucose 205 H (74-99) mg/dL POC Glucose (mg/dL) 212 H 229 H (75-99) mg/dL Lactate Dehydrogenase 698 H (313-618) U/L C-Reactive Protein 64.5 H (<10.0) mg/L Assessment and Plan Assessment: Acute COVId 19 pneumonitis. History of mild chronic bronchial asthma. Acute kidney injury. History of hypercoagulable state, and previous DVT/PE. History of panhypopituitarism. Essential hypertension. Obstructive sleep apnea syndrome. Diabetes mellitus. Plan: Plan dated 07/05/2020. The patient will be likely discharged home today. She'll follow-up in the office. No additional recommendations are made. The patient seemed be stable from the pulmonary standpoint. Time with Patient: Less than 30
--- NOTE | 2020-07-16 07:09 | CDI ---
Documentation Clarification Form Date: 07/16/20 From: Odilia Michel Phone: Admit Date: 07/02/2020 08:09:00 PM Patient Name: Suzette Ashford Visit Number: [id number] Discharge Date: 07/05/2020 06:38:00 PM ATTENTION: The Clinical Documentation Specialists (CDI) and [facility] Coding Staff appreciate your assistance in clarifying documentation. Please respond to the clarification below the line at the bottom and electronically sign. The CDI & [facility] Coding staff will review the response and follow-up if needed. Please note: Queries are made part of the Legal Health Record. If you have any questions, please contact the author of this message via ITS. Dr. Tani Estevez, Your patient has hypoxemic respiratory failure documentation in your 07/05 progress note. Based on this information and the findings below, is there an additional diagnosis that is clinically appropriate for this patient? History/Risk Factors: mild intermittent asthma, NICOLE, COVID pneumonia, hypercoagulable state, Tobacco use: never Home oxygen: none Clinical Indicators: Per ED: respiratory distress, decreased breath sounds, tachypneic with decreased air entry, and rhonchi bilaterally Vital signs: T-101.2, P-123, R-28, BP-121/73, O2 sat-97 4-2-07/05 Pulse oximetry: 97, 98, 95, 98, 98, 96, 95,94,93, 98, 94, 96, 93, 91, 90, 90, 97, 94, 90, 93 Lung/Breathing assessment: 07/03-SOB, labored 07/03-07/05: SOB w activity Treatment: Albuterol Inhaler, Symbicort Continuous Pulse ox O2 2L nasal cannula Is there an additional diagnosis that is clinically appropriate for this patient? [ ] Acute Hypoxic Respiratory Failure (pO2 <60 mm Hg or SpO2 <91% on room air) [ ] Acute Respiratory Insufficiency [ ] Other Diagnosis, please specify [ ] Unable to determine POA [ ] Yes [ ] No MTDD
[2020-07-17] MEDS ORDERED: OMALIZUMAB 150 MG/ML SYRINGE SQ SCH (09:00)
== END 2020-07-05 18:38 | disposition home or self-care (01) | DRG 871 ==
LOC: EC 14:09 → 3SCARD 20:09
PROVIDERS: ADMIT Internal Medicine; ATTEND Internal Medicine
DX: A41.89 Other specified sepsis (principal); U07.1 COVID-19; J12.82 Pneumonia due to coronavirus disease 2019; J96.01 Acute respiratory failure with hypoxia; N17.9 Acute kidney failure, unspecified; E27.40 Unspecified adrenocortical insufficiency; E23.0 Hypopituitarism; D68.59 Other primary thrombophilia; E11.22 Type 2 diabetes mellitus with diabetic chronic kidney disease; N18.30 Chronic kidney disease, stage 3 unspecified; I12.9 Hypertensive chronic kidney disease with stage 1 through stage 4 chronic kidney disease, or unspecified chronic kidney disease; E22.0 Acromegaly and pituitary gigantism; E86.0 Dehydration; J45.20 Mild intermittent asthma, uncomplicated; E78.5 Hyperlipidemia, unspecified; G47.33 Obstructive sleep apnea (adult) (pediatric); E86.1 Hypovolemia; E03.9 Hypothyroidism, unspecified; M54.30 Sciatica, unspecified side; K21.9 Gastro-esophageal reflux disease without esophagitis; M16.11 Unilateral primary osteoarthritis, right hip; L30.9 Dermatitis, unspecified; M47.819 Spondylosis without myelopathy or radiculopathy, site unspecified; L30.1 Dyshidrosis [pompholyx]; K64.9 Unspecified hemorrhoids; R19.7 Diarrhea, unspecified; E66.9 Obesity, unspecified; Z68.33 Body mass index [BMI] 33.0-33.9, adult; Z79.51 Long term (current) use of inhaled steroids; Z79.01 Long term (current) use of anticoagulants; Z79.84 Long term (current) use of oral hypoglycemic drugs; Z79.890 Hormone replacement therapy; Z79.52 Long term (current) use of systemic steroids; Z79.899 Other long term (current) drug therapy; Z86.718 Personal history of other venous thrombosis and embolism; Z86.711 Personal history of pulmonary embolism; Z87.01 Personal history of pneumonia (recurrent); Z86.69 Personal history of other diseases of the nervous system and sense organs; Z86.14 Personal history of Methicillin resistant Staphylococcus aureus infection; Z90.710 Acquired absence of both cervix and uterus; Z90.721 Acquired absence of ovaries, unilateral; Z90.49 Acquired absence of other specified parts of digestive tract; Z90.89 Acquired absence of other organs; Z87.19 Personal history of other diseases of the digestive system; Z87.42 Personal history of other diseases of the female genital tract; Z87.2 Personal history of diseases of the skin and subcutaneous tissue; Z87.39 Personal history of other diseases of the musculoskeletal system and connective tissue; Z86.39 Personal history of other endocrine, nutritional and metabolic disease; Z96.641 Presence of right artificial hip joint; Z98.890 Other specified postprocedural states; Z88.8 Allergy status to other drugs, medicaments and biological substances; Z88.1 Allergy status to other antibiotic agents; Z91.041 Radiographic dye allergy status; Z91.012 Allergy to eggs; Z91.013 Allergy to seafood; Z82.49 Family history of ischemic heart disease and other diseases of the circulatory system; Z82.0 Family history of epilepsy and other diseases of the nervous system; Z80.8 Family history of malignant neoplasm of other organs or systems; Z82.3 Family history of stroke; Z83.2 Family history of diseases of the blood and blood-forming organs and certain disorders involving the immune mechanism; Z83.6 Family history of other diseases of the respiratory system
CPT/HCPCS: 36415; 71045; 71046; 80048; 80053; 82728; 83605; 83615; 83735; 84145; 85025; 85379; 85610; 85730; 86140; 87635; 93005; 94640; 96365; 99285

== ENCOUNTER → 2020-07-13 | Outpatient (CLI) | payer OTHER ==
[2020-07-13 18:51] LABS: Basophils # (A) 0.04 X 10*3/uL (0.00-0.10); Basophils % (A) 0.3 %; Eosinophils # (A) 0 X 10*3/uL (0.04-0.35); Eosinophils % (A) 0 %; HCT 35.4 % (37.2-46.3); HGB 11.2 g/dL (12.0-15.0); Lymphocytes # (A) 2.83 X 10*3/uL (0.90-5.00); MCH 29.7 pg (27.0-32.0); MCHC 31.6 g/dL (32.0-37.0); MCV 93.9 fL (80.0-97.0); Mean Platelet Volume 11.1 fL (9.5-12.2); Monocytes # (A) 0.79 X 10*3/uL (0.20-1.00); Monocytes % (A) 6.7 %; Neutrophils # (A) 7.58 X 10*3/uL (1.80-7.70); Neutrophils % (A) 64.3 %; Platelet Count 364 X 10*3/uL (140-440); RBC 3.77 X 10*6/uL (4.10-5.20); RDW 13.2 % (11.5-14.5); WBC 11.79 X 10*3/uL (4.50-10.00)
[2020-07-14 00:08] LABS: African American GFR (CKD) 71.9 (60.0-200.0); Albumin 3.6 g/dL (3.80-4.90); Albumin/Globulin Ratio 2.12 (1.60-3.17); Anion Gap 11.2 mmol/L (4.00-12.00); Calcium 9.2 mg/dL (8.7-10.3); Carbon Dioxide 23.8 mmol/L (21.6-31.8); Globulin 1.7 g/dL (1.6-3.3); Non-African American GFR(CKD) 62.1 (60.0-200.0); Potassium 4.1 mmol/L (3.5-5.5); Total Bilirubin 0.4 mg/dL (0.2-1.2); Total Protein 5.3 g/dL (6.2-8.2)
== END | disposition home or self-care (01) ==
LOC: LABWHC1 10:20
PROVIDERS: ATTEND Family Medicine
DX: R94.31 Abnormal electrocardiogram [ECG] [EKG] (principal)
CPT/HCPCS: 36415; 80053; 82550; 84484; 85025

== ENCOUNTER → 2020-07-27 | Outpatient (CLI) | payer OTHER ==
[2020-07-27 15:23] LABS: Basophils % (A) 0 %; Eosinophils % (A) 0 %; HCT 37.3 % (34.0-46.0); HGB 12.7 gm/dL (11.4-16.0); Lymphocytes # (A) 0.7 k/uL (1.0-4.8); Lymphocytes % (A) 7 %; MCHC 34.1 g/dL (31.0-37.0); MCV 90.9 fL (80.0-100.0); Mean Platelet Volume 7.5; Monocytes # (A) 0.2 k/uL (0-1.0); Monocytes % (A) 2 %; Neutrophils # (A) 8.7 k/uL (1.3-7.7); Neutrophils % (A) 90 %; Platelet Count 250 k/uL (150-450); RDW 14.1 % (11.5-15.5); WBC 9.7 k/uL (3.8-10.6)
[2020-07-27 15:31] LABS: Albumin 4.6 g/dL (3.5-5.0); Calcium 9.5 mg/dL (8.4-10.2); Potassium 4.2 mmol/L (3.5-5.1); Total Bilirubin 0.6 mg/dL (0.2-1.3); Total Protein 7.4 g/dL (6.3-8.2)
--- NOTE | 2020-07-28 07:45 | CT ---
EXAMINATION TYPE: CT abdomen pelvis w con DATE OF EXAM: 07/27/2020 COMPARISON: 06/10/2019 HISTORY: abdominal pain, blood in stool CT DLP: 1482.5 mGycm CONTRAST: CT scan of the abdomen and pelvis is performed with Oral Contrast and with IV Contrast, patient injec ana with 100 mL of Isovue 300. FINDINGS: LUNG BASES-: No visible nodule. No infiltrate. LIVER/GB: The gallbladder is surgically absent. There is evidence of hepatic steatosis. No space o ccupying hepatic lesion. Biliary tree is of normal caliber. PANCREAS: No inflammation. No distinct mass. SPLEEN: No splenic enlargement. No lesion seen. ADRENALS: No nodule. No thickening. KIDNEYS/BLADDER: No hydronephrosis. No nephrolithiasis. 6.2 cm cyst left kidney. Urinary bladder gr ossly unremarkable. BOWEL: Normal appendix. Normal bowel caliber. No inflammation. GENITAL ORGANS: Postoperative changes of hysterectomy. No adnexal masses seen. LYMPH NODES: No greater than 1cm abdominal or pelvic lymph nodes are appreciated. AORTA: No significant abnormality. OSSEOUS STRUCTURES: Right hip prosthesis in place. Degenerative changes lumbar spine. OTHER: No significant additional abnormality is seen. IMPRESSION: 1. Hepatic steatosis with a mild hepatomegaly. 2. Simple cyst left kidney.
== END | disposition home or self-care (01) ==
LOC: RADCTMAIN 14:31
PROVIDERS: ATTEND Family Medicine
DX: N28.1 Cyst of kidney, acquired (principal); K76.0 Fatty (change of) liver, not elsewhere classified; R16.0 Hepatomegaly, not elsewhere classified
CPT/HCPCS: 80053; 83690; 85025; 74177; 36415; Q9967

== ENCOUNTER → 2020-12-16 | Outpatient (CLI) | payer OTHER ==
--- NOTE | 2020-12-16 15:02 | MM ---
Reason for exam: follow-up at short interval from prior study. Last mammogram was performed 6 months ago. History: Family history of breast cancer in maternal grandmother and breast cancer in paternal grandmother. Stereotactic core biopsy of the right breast, December 28, 1998. Benign excisional biopsy of the right breast. Physical Findings: Nurse did not find any significant physical abnormalities on exam. MG Diagnostic Mammo w CAD RANI Bilateral CC, MLO, and LM view(s) were taken. MLO with magnification view(s) were taken of the right breast. Prior study comparison: June 11, 2020, bilateral MG diagnostic mammo w CAD RANI. The breast tissue is heterogeneously dense. This may lower the sensitivity of mammography. Small benign oil cyst calcifications. Grouped posterior lateral calcifications appear amorphous on magnification CC and either amorphous or punctate on magnification MLO or lateral and follow up recommended. These results were verbally communicated with the patient and result sheet given to the patient on 12/16/20. ASSESSMENT: Incomplete: need additional imaging evaluation, BI-RAD 0 RECOMMENDATION: Ultrasound of the right breast.
--- NOTE | 2020-12-16 15:03 | USB ---
Reason for exam: additional evaluation requested from abnormal screening. History: Family history of breast cancer in maternal grandmother and breast cancer in paternal grandmother. Stereotactic core biopsy of the right breast, December 28, 1998. Benign excisional biopsy of the right breast. US Breast Limited RT Right limited breast ultrasound including focal area of concern, retroareolar and axilla demonstrates a 0.5 x 0.5 x 0.4cm cystic lesion at 9 o'clock. Short interval follow up for bilateral calcifications. Scanned 9-12 o'clock. These results were verbally communicated with the patient and result sheet given to the patient on 12/16/20. ASSESSMENT: Probably benign, BI-RAD 3 RECOMMENDATION: Follow-up diagnostic mammogram of both breasts in 6 months.
== END | disposition home or self-care (01) ==
LOC: RADMAMWWP 13:26
PROVIDERS: ATTEND Family Medicine
DX: R92.1 Mammographic calcification found on diagnostic imaging of breast (principal); N60.01 Solitary cyst of right breast; Z80.3 Family history of malignant neoplasm of breast
CPT/HCPCS: 77066

== ENCOUNTER → 2021-02-08 | Outpatient (CLI) | payer OTHER ==
--- NOTE | 2021-02-08 12:16 | XR ---
EXAMINATION TYPE: XR chest 2V DATE OF EXAM: 02/08/2021 COMPARISON: Chest x-ray 07/05/2020 HISTORY: Lobar pneumonia, abnormal chest x-ray TECHNIQUE: Frontal and lateral views of the chest are obtained. FINDINGS: There is interval improvement in aeration. Bandlike area of increased attenuation is again noted in the left costophrenic angle. Cardiomediastinal silhouette is within normal limits. No evide nt pneumothorax or pleural effusion. Prominent lung markings suggesting underlying COPD. Bones are st able. IMPRESSION: There is interval improvement in aeration. There may be some residual atelectasis or sca rring.
== END | disposition home or self-care (01) ==
LOC: RADXRMAIN 11:18
PROVIDERS: ATTEND Family Medicine
DX: J18.1 Lobar pneumonia, unspecified organism (principal)
CPT/HCPCS: 71046

== ENCOUNTER → 2021-06-20 | Outpatient (CLI) | payer OTHER ==
--- NOTE | 2021-06-22 14:07 | MM ---
Reason for exam: follow-up at short interval from prior study. Last mammogram was performed 6 months ago. History: Patient is postmenopausal and history of other cancer. Family history of breast cancer in maternal grandmother and breast cancer in paternal grandmother. Stereotactic core biopsy of the right breast, December 28, 1998. Benign excisional biopsy of the right breast. Physical Findings: A clinical breast exam by your physician is recommended on an annual basis and results should be correlated with mammographic findings. MG 3D Diag Mammo W/Cad RANI Bilateral CC, MLO, and LM view(s) were taken. Spot compression MLO and spot compression CC view(s) were taken of the left breast. Prior study comparison: December 16, 2020, bilateral MG diagnostic mammo w CAD RANI. June 11, 2020, bilateral MG diagnostic mammo w CAD RANI. The breast tissue is heterogeneously dense. This may lower the sensitivity of mammography. Superior left asymmetric density and posterior lateral left CC global asymmetry. Both areas disperse on spot views. Outer posterior calcifications right breast stable for 6 months. Continued follow up recommended. ASSESSMENT: Incomplete: need additional imaging evaluation, BI-RAD 0 RECOMMENDATION: Ultrasound of the left breast. (upper outer quadrant) Follow-up diagnostic mammogram of the right breast in 6 months.
--- NOTE | 2021-06-22 14:13 | USB ---
Reason for exam: additional evaluation requested from abnormal screening. History: Patient is postmenopausal and history of other cancer. Family history of breast cancer in maternal grandmother and breast cancer in paternal grandmother. Stereotactic core biopsy of the right breast, December 28, 1998. Benign excisional biopsy of the right breast. Physical Findings: A clinical breast exam by your physician is recommended on an annual basis and results should be correlated with mammographic findings. US Breast Limited LT Technologist: Lorie Cohen Left limited breast ultrasound including focal area of concern, retroareolar and axilla demonstrates a 0.4 x 0.5 x 0.4cm punctate calcifications within a small cyst at 3 o'clock, 7cm from nipple. Scanned 12-3 o'clock. ASSESSMENT: Probably benign, BI-RAD 3 RECOMMENDATION: Follow-up diagnostic mammogram in 6 months. (right breast) Total 1 year follow up of posterior lateral calcifications.
== END | disposition home or self-care (01) ==
LOC: RADMAMWWP 14:36
PROVIDERS: ATTEND Family Medicine
DX: N64.89 Other specified disorders of breast (principal); R92.1 Mammographic calcification found on diagnostic imaging of breast; N60.02 Solitary cyst of left breast; Z78.0 Asymptomatic menopausal state; Z80.3 Family history of malignant neoplasm of breast
CPT/HCPCS: 77062; 77066

== ENCOUNTER → 2022-07-05 | Outpatient (CLI) | payer BC ==
--- NOTE | 2022-07-05 21:38 | MR ---
EXAMINATION TYPE: MR brain wo/w con DATE OF EXAM: 07/05/2022 9:10 PM CLINICAL INDICATION:Female, 62 years old with history of E22.0 R51.69; Pt felt some changes on the le ft side of her head-Hx of Pituitary Removal COMPARISON: 09/01/2013 TECHNIQUE: Multi planar, multi sequence imaging was performed through the brain including: T1, T2, In version recovery, susceptibility weighted imaging and gradient echo imaging and Diffusion weighted im aging. The patient was then given intravenous contrast and multi planar, T1 fat-saturation images wer e obtained. IV Contrast: 9ml cc Gadavist FINDINGS: Low signal mineralization of the basal ganglia bilaterally. Stable appearance of the pituitary surgic al bed somewhat heterogenous appearance of the surgical bed. Seen on prior on 09/01/2013. The thakkar-white junctions, ventricular system, basal cisterns appear unremarkable. Diffusion-weighted imaging shows no evidence of restricted diffusion to suggest acute/subacute infarct. Intracranial art erial flow voids are maintained. Midline structures show no abnormality. Scattered foci of high T2 si gnal intensity are seen within the periventricular white matter. The susceptibility weighted images d o not reveal any evidence for micro-hemorrhage. After administration of gadolinium, no abnormal enhan cement is seen. The bone marrow signal is within normal limits. Paranasal sinuses and mastoid air cells: Paranasal sinus disease most pronounced in the left sphenoid sinus and left maxillary sinus. Visualized orbits: Orbital contents are intact. IMPRESSION: 1. No evidence of intracranial mass, acute/subacute infarct, or abnormal enhancement. 2. Stable postsurgical changes to the pituitary surgical bed. 3. Nonspecific white matter changes, likely related to small vessel ischemic disease
== END | disposition home or self-care (01) ==
LOC: RADMRIMAIN 21:30
PROVIDERS: ATTEND Family Medicine
DX: E22.0 Acromegaly and pituitary gigantism (principal); R51.9 Headache, unspecified; R90.82 White matter disease, unspecified; Z98.890 Other specified postprocedural states
CPT/HCPCS: 70553; A9585

== ENCOUNTER → 2022-07-28 | Outpatient (CLI) | payer BC | END | disposition home or self-care (01) | LOC: LABWHC1 10:48 | PROVIDERS: ATTEND Internal Medicine Critical Care Medicine | DX: J45.909 Unspecified asthma, uncomplicated (principal) | CPT/HCPCS: 36415; 82785 ==

== ENCOUNTER → 2023-07-19 | Outpatient (CLI) | payer BC ==
--- NOTE | 2023-07-19 14:29 | BD ---
EXAMINATION TYPE: Axial Bone Density DATE OF EXAM: 07/19/2023 CLINICAL HISTORY: 63 years old Female. ICD-10 CODE: Z13.820 SCREENING FOR OSTEOPOROSIS Height: 67 Weight: 223.3 FRAX RISK QUESTIONS: Alcohol (3 or more units per day): no Family History (Parent hip fracture): mother Glucocorticoids (More than 3mos): hydrocortisone past 10 years (Ex: prednisone, prednisolone, methylprednisolone, dexamethasone, and hydrocortisone). History of Fracture in Adulthood: no Secondary Osteoporosis: 1. Type 1 Diabetes: no 2. Hyperthyroidism: no 3. Menopause before 45: yes 4. Malnutrition: no 5. Chronic liver disease: no Rheumatoid Arthritis: no Current Tobacco Use: no RISK FACTORS HISTORY OF: Hip Fracture (Right/Left): no Spine Fracture: no History of Wrist Fracture: no Surgery to Spine/Hip(right/left)/Wrist (right/left): RT hip placement When: 2017 MEDICATIONS: Thyroid Medications: Levothyroxine How Lon Osteoporosis Medications: no EXAM MEASUREMENTS: Bone mineral densitometry was performed using the [employer] System. Bone mineral density as measured about the Lumbar spine is: ----- L1-L4(G/cm2): 1.070 T Score Values are as follows: ----- L1: -0.7 ----- L2: -1.8 ----- L3: -0.9 ----- L4: -0.4 ----- L1-L4: -0.9 Z Score Values are as follows: ----- L1: -0.5 ----- L2: -1.7 ----- L3: -0.8 ----- L4: -0.3 ----- L1-L4: -0.8 Baseline Study Bone mineral density about the L hip (g/cm2): 0.915 T Score values are as follows: -----L Neck: -1.0 -----L Total: -0.7 Z Score values are as follows: -----L Neck: -0.5 -----L Total: -0.6 Baseline Study FRAX%s: The graph provided illustrates a 10.9% chance for a major osteoporotic fx and a 0.7% chance f or the hips probability for fx in 10 years time. IMPRESSION: Normal (Values between +1 and -1 indicate normal bone mass). However, note that measurements border on osteopenia at the left hip. Consider repeating this study in 5 years or sooner if there is some ne w clinical indication. NOTE: T-SCORE=SD OF THE YOUNG ADULT MEAN.
--- NOTE | 2023-07-19 20:36 | MM ---
Reason for Exam: Screening (asymptomatic). Last mammogram was performed 2 year(s) and 1 month(s) ago. Patient History: Menarche at age 15. Left ovary removed at age 32. Hysterectomy at age 32. Postmenopausal. Other cancer. Benign Excisional Biopsy on the right side. 12/28/1998, Stereotactic Core Biopsy on the Right side. Paternal grandmother had breast cancer. Maternal grandmother had breast cancer. Risk Values: Emily 5 year model risk: 1.6%. NCI Lifetime model risk: 7.7%. Prior Study Comparison: 06/11/2020 Bilateral Diagnostic Mammogram, [facility]. 12/16/2020 Bilateral Diagnostic Mammogram, [facility]. 06/20/2021 Bilateral Diagnostic Mammogram, [facility]. Tissue Density: The breasts are extremely dense, which lowers the sensitivity of mammography. Findings: Analyzed By CAD. The pattern is symmetrical. No significant interval change. There is some distortion within the outer left breast which is stable from comparison. There appears to be some distortion in the outer right breast craniocaudal view which likewise appears stable. Benign calcifications are present bilaterally. No suspicious groups of microcalcifications, spiculated or lobular masses, architectural distortion or other secondary signs of malignancy are mammographically apparent. Overall Assessment: Benign, BI-RAD 2 Management: Screening Mammogram of both breasts in 1 year. A negative mammogram report should not preclude additional follow up of suspicious palpable abnormalities. Patient should continue monthly self breast exam. A clinical breast exam by your physician is recommended on an annual basis and results should be correlated with mammographic findings. Note on Emily scores and lifetime risk: 1. A Emily score greater than 3% is considered moderate risk. If this is the case, consider specialist referral to assess eligibility for a risk reducing agent. 2. If overall lifetime risk for the development of breast cancer is 20% or higher, the patient may qualify for future screening with alternating mammogram and breast MRI. Electronically signed and approved by: Lit Ledesma D.O. Radiologis
== END | disposition home or self-care (01) ==
LOC: RADBDWWP 07:46
PROVIDERS: ATTEND Family Medicine
DX: Z12.31 Encounter for screening mammogram for malignant neoplasm of breast (principal); Z13.820 Encounter for screening for osteoporosis; M85.88 Other specified disorders of bone density and structure, other site; M85.852 Other specified disorders of bone density and structure, left thigh; Z78.0 Asymptomatic menopausal state; Z80.3 Family history of malignant neoplasm of breast
CPT/HCPCS: 77063; 77067; 77080

== ENCOUNTER → 2023-07-20 | Outpatient (CLI) | payer BC ==
--- NOTE | 2023-07-21 10:52 | US ---
EXAMINATION TYPE: US thyroid st tissue head/neck DATE OF EXAM: 07/20/2023 COMPARISON: 05/06/2020 Thyroid CLINICAL INDICATION: Female, 63 years old with history of R22.1 LOCALIZED SWELLING, MASS AND LUMP, NE CK; Lump noted on right neck, and excessive neck swelling noted by actuarial clerk TECHNIQUE: Multiple color and grayscale images of the neck directed toward the area of clinical conc rosario. FINDINGS: ? Bony abnormality at patients AOC / Right lateral neck Right parotid noted and appears to be WNL ? Lesion within left parotid gland = 1.1 x 0.9 x 1.3 cm Right thyroid = 3.1 x 1.2 x 0.9 cm - limited visualization due to low lying / deep thyroid. Left thyroid = 2.9 x 1.4 x 0.8 cm - limited visualization due to low lying / deep thyroid. IMPRESSION: 1. Cause of the patient's right neck lump and swelling indeterminate by ultrasound. CT of the soft ti ssues of the neck with contrast is recommended. 2. Nodule in the left parotid gland. Can be evaluated with CT soft tissue neck as well.
== END | disposition home or self-care (01) ==
LOC: RADUSWWP 14:37
PROVIDERS: ATTEND Family Medicine
DX: R22.1 Localized swelling, mass and lump, neck (principal); E04.1 Nontoxic single thyroid nodule
CPT/HCPCS: 76536

== ENCOUNTER → 2023-08-07 | Outpatient (CLI) | payer BC ==
--- NOTE | 2023-08-07 15:28 | CT ---
EXAMINATION TYPE: CT soft tissue neck wo con CT DLP: 633 mGycm, Automated exposure control for dose reduction was used. DATE OF EXAM: 08/07/2023 10:07 AM COMPARISON: . CLINICAL INDICATION:Female, 63 years old with history of E04.9 NONTOXIC GOITER, UNSPECIFIED; PHH, rig ht side neck lump bb placed over area causing pain to pt. X2 months TECHNIQUE: Standard noncontrast CT of the neck. Axial sections with coronal and sagittal reformats w ere obtained. Contrast used: mL of , (None if empty) Oral contrast used: (None if empty) FINDINGS: Brain: Visualized portions are grossly unremarkable. Orbits: Unremarkable Sinuses: Grossly unremarkable. Spaces of the neck: Clear and symmetric. Musculoskeletal: No acute osseous pathology. Lymph nodes: Multiple nonenlarged lymph nodes are seen along both anterior chains of the neck. Vascular structures: Visualized major arteries are patent without evidence of aneurysm. Thoracic Inlet/airway: Airway is patent. The lung apices are clear. Soft tissues/Thyroid: Thyroid and remainder of the soft tissues are unremarkable. Other: Left maxillary 15 mm mucous retention cyst. No significant coastal thickening in the other par anasal sinuses IMPRESSION 1. No definite evidence for abscess or significant abnormality. 2. Normal sized lymph nodes identified but no lymph nodes that would be considered pathologic by size criteria. 3. Parotid gland nodule is not able to be evaluated due to lack of IV contrast. 4. Unenhanced thyroid gland is unremarkable.
== END | disposition home or self-care (01) ==
LOC: RADCTMAIN 09:23
PROVIDERS: ATTEND Family Medicine
DX: E03.9 Hypothyroidism, unspecified (principal); E04.9 Nontoxic goiter, unspecified; R22.1 Localized swelling, mass and lump, neck; Z86.39 Personal history of other endocrine, nutritional and metabolic disease
CPT/HCPCS: 70490

== ENCOUNTER → 2024-07-02 | Outpatient (CLI) | payer BC ==
--- NOTE | 2024-07-02 11:42 | CT ---
EXAMINATION TYPE: CT brain w con DATE OF EXAM: 07/02/2024 11:21 AM COMPARISON: None. 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 TECHNIQUE: Axial CT images were obtained with coronal and sagittal reformats created and reviewed. Contrast used:100 ml mL of Isovue 300 with IV Contrast, Oral contrast used: none. CT DLP: 1284 mGycm, Automated exposure control for dose reduction was used. FINDINGS: Extra-axial spaces: No abnormal extra-axial fluid collections. Ventricular system: Within normal limits Cerebral parenchyma: Mineralization of the bilateral basal ganglia. No acute intraparenchymal hemorrh age or mass effect. The thakkar-white junction is well differentiated. No abnormal enhancement is seen after the administration of intravenous contrast. Cerebellum: Unremarkable. Mass effect: No evidence of midline shift. Intracranial vasculature: Visualized intracranial vasculature demonstrates no evidence for high-grade stenosis or aneurysm. Soft tissues: Normal. Calvarium/osseous structures: No depressed skull fracture. Paranasal sinuses and mastoid air cells: There is mucosal thickening of the sphenoid sinus. Visualized orbits: Orbital contents are intact. IMPRESSION: 1. No acute intracranial process. 2. No CT evidence for pituitary mass. Consider MRI pituitary mass protocol. 3. Opacification of the sphenoid sinus possibly due to retention cyst. [facility], , 07/02/2024 11:40 AM
--- NOTE | 2024-07-02 11:47 | CT ---
EXAMINATION TYPE: CT soft tissue neck w con DATE OF EXAM: 07/02/2024 11:21 AM COMPARISON: CT head.. CLINICAL INDICATION: Female, 64 years old with history of E039 hypothroidism; PHH, Hypothyroidism. TECHNIQUE: Standard enhanced CT of the neck. Axial sections with coronal and sagittal reformats were obtained. Contrast used:100 ml mL of with IV Contrast, (None if empty) Oral contrast used: (None if empty) CT DLP: 565 mGycm, Automated exposure control for dose reduction was used. FINDINGS: Brain: Visualized portions are grossly unremarkable. Orbits: Unremarkable Sinuses: Grossly unremarkable. Spaces of the neck: Thyroid gland is relatively unremarkable. There is thyroid tissue extending poste rior to the larynx on the right. Series 3 image 79. Thyroid tissue is low in the neck basically in th e thoracic inlet. Musculoskeletal: No acute osseous pathology osteophyte posterior to C2-C3 with mild spinal canal sten osis. Calcification of the posterior longitudinal ligament posterior to C7-T1 with moderate spinal ca nal stenosis.. Degenerative disc disease changes of the visualized spine are present. Lymph nodes: Multiple nonenlarged lymph nodes are seen along both anterior chains of the neck. Vascular structures: Visualized major arteries are patent without evidence of aneurysm. Thoracic Inlet/airway: Airway is patent. The lung apices are clear. Soft tissues: Thyroid and remainder of the soft tissues are unremarkable. Other: none. IMPRESSION: 1. No evidence for thyroid mass. There is thyroid tissue which is near the thoracic inlet. 2. C7-T1 moderate spinal canal stenosis secondary to calcified shadowing along the posterior longitu dinal ligament. No evidence for lymphadenopathy. [facility], , 07/02/2024 11:44 AM
== END | disposition home or self-care (01) ==
LOC: RADCTMAIN 09:58
PROVIDERS: ATTEND Family Medicine
DX: M48.03 Spinal stenosis, cervicothoracic region (principal); J34.1 Cyst and mucocele of nose and nasal sinus; E03.9 Hypothyroidism, unspecified; E22.0 Acromegaly and pituitary gigantism; Z86.39 Personal history of other endocrine, nutritional and metabolic disease
CPT/HCPCS: 70491; 70460; Q9967

== ENCOUNTER → 2024-07-25 | Outpatient (CLI) | payer BC ==
--- NOTE | 2024-07-25 10:43 | MM ---
Reason for Exam: Screening (asymptomatic). Last screening mammogram was performed 12 month(s) ago. Patient History: Menarche at age 15. Patient has no children. Left ovary removed at age 32. Hysterectomy at age 32. Postmenopausal. Other cancer. Benign Excisional Biopsy on the right side. 12/28/1998, Stereotactic Core Biopsy on the Right side. Paternal grandmother had breast cancer. Maternal grandmother had breast cancer. Risk Values: Emily 5 year model risk: 2.6%. NCI Lifetime model risk: 11.3%. Prior Study Comparison: 12/16/2020 Bilateral Diagnostic Mammogram, [facility]. 06/20/2021 Bilateral Diagnostic Mammogram, [facility]. 07/19/2023 Bilateral MG 3D screening mammo w/cad, [facility]. Tissue Density: The breasts are extremely dense, which lowers the sensitivity of mammography. Findings: Analyzed By CAD. There is no suspicious group of microcalcifications or new suspicious mass in either breast. Overall Assessment: Benign, BI-RAD 2 Management: Screening Mammogram of both breasts in 1 year. . Patient should continue monthly self-breast exams. A clinical breast exam by your physician is recommended on an annual basis. This exam should not preclude additional follow-up of suspicious palpable abnormalities. Note on Emily scores and lifetime risk: 1. A Emily score greater than 3% is considered moderate risk. If this is the case, consider specialist referral to assess eligibility for a risk reducing agent. 2. If overall lifetime risk for the development of breast cancer is 20% or higher, the patient may qualify for future screening with alternating mammogram and breast MRI. [facility], , 07/25/2024 10:40 AM. Electronically signed and approved by: Dylan Moody M.D. Radiologis
== END | disposition home or self-care (01) ==
LOC: RADMAMWWP 11:47
PROVIDERS: ATTEND Family Medicine
DX: Z12.31 Encounter for screening mammogram for malignant neoplasm of breast (principal); R92.343 Mammographic extreme density, bilateral breasts; Z80.3 Family history of malignant neoplasm of breast; Z78.0 Asymptomatic menopausal state
CPT/HCPCS: 77063; 77067